=== PATIENT | female | born 1935 | race Caucasian/White ===

== ENCOUNTER 2018-01-06 16:25 | Emergency (ER) | payer MEDICARE, SELFPAY ==
[2018-01-06 16:26] VITALS: BP 167/95; PULSE 88; RESP 16; TEMP 36.5; O2SAT 98; BMI 29.5
--- NOTE | 2018-01-06 16:45 | RAD_ITS ---
STUDY: X-RAY CHEST REASON FOR EXAM: Female, 82 years old. Short of breath TECHNIQUE: AP portable COMPARISON: October 12, 2015 FINDINGS: Lungs are hyperinflated but clear.. There is no demonstrated pleural abnormality. Heart is is enlarged Normal mediastinum and sagar. Normal visualized pulmonary arteries. Mildly calcified aortic arch and descending thoracic aorta. Postop changes status post median sternotomy and multiple valve replacements Normal visualized thoracic spine. Normal visualized ribs, clavicles, and shoulders. There is no demonstrated abnormality of the visualized soft tissue structures of the upper abdomen. No significant change since prior study RAD/Chest 1 View (Portable) IMPRESSION: Mild hyperinflation and ASHD. No acute disease Electronically Signed: Stephan Arizmendi MD at 17:41 EDT , Service support ,
--- NOTE | 2018-01-06 16:45 | EKG12_ITS ---
Test Reason : CP Blood Pressure : / mmHG Vent. Rate : 081 BPM Atrial Rate : 333 BPM P-R Int : 000 ms QRS Dur : 084 ms QT Int : 392 ms P-R-T Axes : 116 027 008 degrees QTc Int : 455 ms Atrial flutter with variable A-V block Left ventricular hypertrophy Nonspecific ST and T wave abnormality Abnormal ECG Confirmed by DARLING HOUSER, PHILIPPE ([id number]), offline editor NADIRA URIAS ([id number]) on 01/08/2018 11:46:05 AM Referred By: RYAN Confirmed By:PHILIPPE HASTINGS MD
--- NOTE | 2018-01-06 16:52 | ED.DCSUM_ITS ---
- ER Visit Summary Date of Service: 01/06/18 Chief Complaint: Left sided jaw pain and also nonexertional intermittent chest pain History of Present Illness: The patient is a 82 F history of atrial flutter, hypertension and prior porcine aortic valve replacement. Patient is on Coumadin. States that she has had jaw pain for last several days. She has had chronic dental pain for a long time that the dermatomal specifically figure out. She states the jaw pains a little different. She denies being short of breath. No nausea. No diaphoresis. Jaw pain is not exertional. Also last night while in bed she had intermittent episodes of chest discomfort. She denies any nausea, diaphoresis or shortness of breath. Was not associated with exertion. She had a negative nuclear stress test within the last 2 years. She denies any prior coronary disease, bypass or stents. She denies any recent exertional dyspnea. Patient also has a rash has been there for approximately 1 month that she thinks is secondary to 1 of her medications. She said it only intermittently itches. Denies any fever. Physical Examination: Well-appearing older female. Vital signs are stable. She is afebrile. Her pulse ox is 98% on room air no signs of hypoxia. No distress. H EENT exam unremarkable except she has pain with opening closing her left side of her jaw. There is no specific TMJ tenderness. She has no upper or lower dentition. Moist mucous membranes. No specific jaw abnormality or tenderness. She does not have dentures at this time. Said the dentures often bother her gums so she does not wear them that much. No trouble swallowing or breathing. Neck nontender no lymphadenopathy. Trachea midline. Lungs clear to auscultation bilaterally. Heart regular rate About 80 no murmur appreciated. On the monitor she is in atrial flutter. Abdomen is soft and nontender. Normal bowel sounds no peritoneal signs. She is moving all 4 extremities. They are neurovascularly intact. Back nontender. Neurologically she is awake and alert with no focal motor deficits. Skin she does have a rash slightly red and raised its and small dots. It does fredy. There are no petechiae or purpura. No vesicles nor pustules. This is primarily on both upper extremities and chest. This could be secondary to an allergic reaction. Test Results: CBC normal. White count of 5. Hemoglobin of 15. Chemistries normal normal gap and creatinine. INR is 2.7 she is on warfarin. Troponin is slightly elevated 0.087 however if you look of multiple old troponin levels on this patient they are usually this high or significantly higher. The most recent one was 0.13. Chest x-ray is unremarkable with chronic changes. EKG shows atrial flutter with no other acute abnormality. No CT. Emergency Department Course and Treatment: Patient will undergo a cardiac workup. The jaw pain I think is musculoskeletal jaw pain because it hurts her more to move it. I do not think it is related to this atypical nonexertional chest pain. On repeat exam she is doing well. She and I and her family discussed all of her test results. We are all comfortable with her being discharged to home given the chronic history of her troponin levels in the past and the very atypical nature of her pain and a recent negative nuclear stress test Treatment Plan: Discharge to home. Disposition: Discharge Impression: Musculoskeletal left-sided jaw pain Atypical nonexertional chest pain of uncertain etiology Skin rash suspect secondary to allergic drug reaction History of porcine aortic valve anticoagulated on warfarin This note was generated with [employer] dictation software. It may contain incorrect words, spelling, and punctuation that were not noted in review of the chart prior to signing ED Disposition - Plan for ED Patient: Chief Complaint: Other, Pain/Inj Referrals: Hector Goode MD [NON-STAFF] -
[2018-01-06 16:53] VITALS: O2SAT 98
[2018-01-06 17:02] LABS: Absolute Neutrophil Count 2.9 X10^3/uL (2.0-7.7); Basophil# 0.02 X10^3/uL; Basophil% 0.4 % (0-1); Eosinophils% 1.9 % (0-5); Hematocrit 45.8 % (37-47); Hemoglobin 15.2 g/dl (12.0-15.0); Lymphocyte % 35.5 % (19-41); Mean Corp Hgb Conc 33.2 g/gl (32-36); Mean Corpuscular Hgb 29.3 pg (27.0-32.0); Mean Corpuscular Volume 88.2 fL (81-99); Mean Platelet Vol. 9.7 fl (6.2-12.0); Monocyte# 0.47 X10^3/uL; Monocyte% 8.8 % (0-10); Neutrophil # 2.86 X10^3/uL (2.7-7.7); Neutrophil % 53.4 % (47-70); Platelet Count 192 K/mm3 (150-450); RBC Distribution Width CV 13.7 % (11.6-14.6); RBC Distribution Width SD 44.4 fl (35.1-43.9); Red Blood Count 5.19 M/mm3 (4.2-5.4); White Blood Count 5.4 K/mm3 (4.4-11.0)
[2018-01-06 17:04] LABS: POSITIVE COUNT NO; POSITIVE DIFFERENTIAL NO; POSITIVE MORPHOLOGY NO
[2018-01-06 17:09] LABS: International Normalized Ratio 2.7; Prothrombin Time (Protime)PT. 29.2 SECONDS (11.7-14.9)
[2018-01-06 17:20] LABS: Anion Gap 7 (5-15); BUN 13 mg/dL (7-18); BUN/Creat Ratio 17.7 RATIO (10-20); Chloride 106 mmol/L (98-107); Creatinine, Serum 0.74 mg/dL (0.55-1.02); EST Glomerular Filtration Rate 81 mL/min (>60); Est Glom Filt Rate - Afr Amer 98 mL/min (>60); Estimated Creatinine Clearance 33.29 ml/min; Glucose 91 mg/dL (74-106); Sodium Level 140 mmol/L (136-145)
--- NOTE | 2018-01-06 18:04 | ED.DEP ---
ED Disposition - Plan for ED Patient: Disposition: Home or Assisted Living Chief Complaint: Other, Pain/Inj Instructions: ED Chronic Pain Management Referrals: Hector Goode MD [NON-STAFF] - 3-5 Days if not improving Additional Instructions: Ice to jaw. Tylenol for pain. Follow-up with your doctor if not improving.
[2018-01-06 18:11] VITALS: BP 175/105; PULSE 77; RESP 16; O2SAT 98
== END 2018-01-06 18:16 | disposition home or self-care (01) ==
PROVIDERS: Emergency Provider Emergency Medicine; Family Provider Internal Medicine; PCP Internal Medicine
DX: R68.84 Jaw pain (principal); R07.89 Other chest pain; L27.0 Generalized skin eruption due to drugs and medicaments taken internally; T50.905A Adverse effect of unspecified drugs, medicaments and biological substances, initial encounter; Y92.9 Unspecified place or not applicable; I48.91 Unspecified atrial fibrillation; I48.92 Unspecified atrial flutter; I10 Essential (primary) hypertension; J44.9 Chronic obstructive pulmonary disease, unspecified; Z79.01 Long term (current) use of anticoagulants
CPT/HCPCS: 71045; 80048; 84484; 85025; 85610; 93005; 99284

== ENCOUNTER → 2020-05-25 09:38 | Outpatient (CLI) | payer MEDICARE, SELFPAY ==
[2020-05-25 12:42] LABS: International Normalized Ratio 2.2; Prothrombin Time (Protime)PT. 23.5 SECONDS (11.7-14.9)
[2020-05-25 12:47] LABS: Absolute Lymphocyte Count 1.22 X10^3/uL (0.83-4.51); Absolute Neutrophil Count 3.6 X10^3/uL (2.0-7.7); Basophil# 0.03 X10^3/uL; Basophil% 0.5 % (0-1); Eosinophil# 0.07 X10^3/uL; Eosinophils% 1.3 % (0-5); Hematocrit 44.5 % (37-47); Hemoglobin 14.3 g/dL (12.0-15.0); Lymphocyte # 1.22 X10^3/ul (4.0); Mean Corp Hgb Conc 32.1 g/dL (32-36); Mean Corpuscular Hgb 28.4 pg (27.0-32.0); Mean Corpuscular Volume 88.5 fL (81-99); Mean Platelet Vol. 9.5 fl (6.2-12.0); Monocyte# 0.57 X10^3/uL; Monocyte% 10.3 % (0-10); NRBC Flagged by Analyzer 0 % (0-5); Neutrophil # 3.64 X10^3/uL (2.7-7.7); Neutrophil % 65.7 % (47-70); Platelet Count 244 K/mm3 (150-450); RBC Distribution Width CV 14.2 % (11.6-14.6); RBC Distribution Width SD 46.3 fl (35.1-43.9); Red Blood Count 5.03 M/mm3 (4.2-5.4); White Blood Count 5.5 K/mm3 (4.4-11.0)
[2020-05-25 12:53] LABS: AST(SGOT) 19 U/L (15-37); Alanine Aminotransfer ALT/SGPT 20 U/L (13-56); Albumin, Serum 3.6 g/dL (3.2-5.0); Alkaline Phosphatase 61 U/L (45-117); Anion Gap 9 (5-15); BUN 19 mg/dL (7-18); BUN/Creat Ratio 21.5 RATIO (10-20); Calcium,Total 8.8 mg/dL (8.5-10.1); Chloride 109 mmol/L (98-107); Cholesterol 209 mg/dL (200); Creatinine, Serum 0.88 mg/dL (0.55-1.02); EST Glomerular Filtration Rate 65 mL/min (>60); Est Glom Filt Rate - Afr Amer 78 mL/min (>60); Globulin 3.6 g/dL (2.2-4.2); Glucose 98 mg/dL (74-106); High Density Lipoprotein 34 mg/dL; Potassium 3.9 mmol/L (3.5-5.1); Protein, Total 7.2 g/dL (6.4-8.2); Sodium Level 141 mmol/L (136-145); T4 Free Direct 0.97 ng/dL (0.76-1.46); Thyroid Stim Hormone (TSH) 2.14 uIU/mL (0.358-3.74); Triglycerides 189 mg/dL; Very Low Density Lipoprotein 38 mg/dL (5-40)
== END ==
PROVIDERS: PCP Internal Medicine; Visit Provider Family Medicine
DX: I25.10 Atherosclerotic heart disease of native coronary artery without angina pectoris (principal); I48.0 Paroxysmal atrial fibrillation; I10 Essential (primary) hypertension; E03.9 Hypothyroidism, unspecified; Z51.81 Encounter for therapeutic drug level monitoring
CPT/HCPCS: 36415; 80053; 80061; 84439; 84443; 85025; 85610

== ENCOUNTER → 2020-06-06 16:18 | Outpatient (CLI) | payer MEDICARE, SELFPAY ==
--- NOTE | 2020-06-06 16:45 | MRI_ITS ---
STUDY: MRI BRAIN WITH AND WITHOUT CONTRAST (ATTENTION INTERNAL AUDITORY CANALS - I.A.C.''s) REASON FOR EXAM: Female, 84 years old. Trigeminal neuralgia. RIGHT facial pain x 3-4 months TECHNIQUE: Standardized multiplanar fat and water weighted pulse sequences were obtained. ml of gadolinium contrast material was administered intravenously for the contrast portion of the examination. COMPARISON: Head CT dated July 28, 2013 FINDINGS: Normal bilateral temporal bones. Normal bilateral internal auditory canals. There is no demonstrated intracanalicular or cisternal vestibular schwannoma (acoustic neuroma). There is no enhancement of the bilateral VIIth or VIIIth cranial nerves. Normal bilateral cochlea, vestibules and semicircular canals. Normal trigeminal and abducens nerves as well as Meckel''s cave and Dorello''s canal. No nerve root lesions or cysts or enlargement is seen on this study. There is moderate cerebral atrophy with widening of the extra-axial spaces and ventricular dilatation. There are multiple white matter hyperintensities, distributed throughout the deep white matter tracts of the cerebral hemispheres, consistent with moderate chronic white matter ischemic changes. There is no evidence for recent intracranial ischemia or other cause of cytotoxic edema on diffusion weighted imaging (DWI). Normal bilateral frontal poles, and orbital frontal and gyrus recti of the frontal lobes. Normal bilateral temporal tips of the temporal lobes. There are no white matter shear injuries (diffuse axonal injuries). There are no parenchymal hemorrhages or hematomas. There are no findings to suggest prior closed head parenchymal injury of the brain. No hydrocephalus or midline shift is seen. No focal brain lesions are present.. Normal bilateral basal ganglia. Normal thalami. Normal flow voids within the major intracranial circulation suggesting patency by spin echo criteria. Normal venous enhancement. There is no enhancing intra-axial or extra-axial abnormality. There is no extra-axial fluid accumulation. Normal sella turcica, pituitary gland, infundibular stalk, optic chiasm and hypothalamus. Normal tectal plate and pineal gland. Normal midbrain, franco and medulla. Normal cerebellum. Normal basal cisterns. No demonstrated orbital abnormality, within the constraints of a routine brain study. Normal visualized paranasal sinuses. Normal calvarium and skull base. Normal visualized soft tissue structures. Normal visualized upper cervical spine. MRI/Brain W/WO Contrast IMPRESSION: 1. Moderate atrophy and chronic ischemic changes of the white matter. 2. Normal exam of the bilateral internal auditory canals (I.A.C''s). 3. Normal trigeminal and abducens nerves as well as Meckel''s cave and Dorello''s canal. No nerve root lesions or cysts or enlargement is seen on this study. Electronically Signed: Paul Cary MD at 22:09 EST , Service support ,
== END ==
LOC: MRI 16:19
PROVIDERS: PCP Internal Medicine; Referring Provider Otolaryngology; Visit Provider Otolaryngology
DX: G50.0 Trigeminal neuralgia (principal); Z79.01 Long term (current) use of anticoagulants
CPT/HCPCS: 70553; A9575

== ENCOUNTER → 2020-06-08 14:12 | Outpatient (CLI) | payer MEDICARE, SELFPAY ==
[2020-06-08 15:49] LABS: International Normalized Ratio 1.2; Prothrombin Time (Protime)PT. 14.9 SECONDS (11.7-14.9)
== END ==
PROVIDERS: PCP Internal Medicine; Visit Provider Anesthesiology Pain Medicine
DX: Z79.01 Long term (current) use of anticoagulants (principal)
CPT/HCPCS: 36415; 85610

== ENCOUNTER → 2021-04-09 08:10 | Outpatient (CLI) | payer MEDICARE, SELFPAY ==
[2020-12-28 15:29] VITALS: BMI 30.7
--- NOTE | 2021-04-09 08:12 | ECHOD_ITS ---
Reason For Study: Valve Replacement Eval Procedure This was a 2D Doppler, Color Flow transthoracic echocardiogram. Exam performed in department. Left Ventricle Normal LV size. Left ventricular systolic function is normal. The estimated ejection fraction is 65 %. Unable to assess diastolic dysfunction. No regional wall motion abnormalities noted. Right Ventricle Normal RV size. Normal systolic function. Atria The left atrium is mildly enlarged. The right atrium is mildly enlarged. No doppler evidence for ASD. Mitral Valve There is moderate mitral annular calcification. Extension of the mitral annular calcification onto the base of the posterior mitral valve leaflet. Moderate (2+) mitral valve insufficiency. Tricuspid Valve Right ventricular systolic pressure estimated to be 72 mmHg. An annuloplasty ring is noted in the tricuspid position. Trivial transvalvular insufficiency of the tricuspid valve. Aortic Valve Stable appearing bioprosthetic aortic valve apparatus. Trivial transvalvular insufficiency of the aortic valve. Pulmonic Valve The pulmonic valve is not well visualized. Mild-Moderate (1-2+) pulmonic valve insufficiency. Great Vessels Normal sized aortic root. Pericardium/Pleural No pericardial effusion. MMode/2D Measurements & Calculations LVIDd: 4.6 cm IVSd: 1.1 cm LVOT diam: 1.9 cm LVIDs: 3.1 cm LVPWd: 1.1 cm LVOT area: 2.7 cm2 RVDd: 3.1 cm FS: 33.6 % Ao root diam: 2.8 cm LAV(MOD-bp): 81.1 ml LVAd ap4: 18.5 cm2 LAV(MOD-bp) Indexed: 48.4 ml/m2 LVLd ap4: 5.6 cm LAV(MOD-sp2): 79.9 ml EDV(MOD-sp4): 50.8 ml LAV(MOD-sp4): 77.1 ml EDV(sp4-el): 52.4 ml LVAs ap4: 10.4 cm2 LVLs ap4: 5.1 cm ESV(MOD-sp4): 18.2 ml ESV(sp4-el): 18.0 ml EF(MOD-sp4): 64.3 % EF(sp4-el): 65.7 % SV(MOD-sp4): 32.7 ml SV(sp4-el): 34.5 ml LA A4 area: 23.1 cm2 LA dimension(2D): 4.3 cm RA A4 area: 17.4 cm2 Doppler Measurements & Calculations MV E max diane: 109.5 cm/sec Ao V2 max: 154.5 cm/sec LV V1 max: 139.5 cm/sec Ao max P.6 mmHg LV V1 max P.8 mmHg Ao V2 mean: 112.0 cm/sec LV V1 mean P.0 mmHg Ao mean P.4 mmHg LV V1 mean: 95.0 cm/sec Ao V2 VTI: 35.5 cm LV V1 VTI: 28.5 cm ANISHA(I,D): 2.2 cm2 ANISHA(V,D): 2.5 cm2 SV(LVOT): 78.0 ml PA V2 max: 85.1 cm/sec PI end-d diane: 104.9 cm/sec TR max diane: 415.9 cm/sec TR max P.2 mmHg ECHO/Echo Complete Interpretation Summary Left ventricular systolic function is normal. The estimated ejection fraction is 65 %. The left atrium is mildly enlarged. The right atrium is mildly enlarged. There is moderate mitral annular calcification. Extension of the mitral annular calcification onto the base of the posterior mi tral valve leaflet. Moderate (2+) mitral valve insufficiency. An annuloplasty ring is noted in the tricuspid position. Trivial transvalvular insufficiency of the tricuspid valve. Stable appearing bioprosthetic aortic valve apparatus. Trivial transvalvular insufficiency of the aortic valve. Mild-Moderate (1-2+) pulmonic valve insufficiency. Right ventricular systolic pressure estimated to be 72 mmHg. Unable to assess diastolic dysfunction. Ordering Physician: Rui Asencio Referring Physician: Doron Cueto Performed By: Cheryl Olson, МАРИЯ, RVT
== END ==
LOC: CVS 08:12
PROVIDERS: PCP Family Medicine; Referring Provider Internal Medicine Cardiovascular Disease; Visit Provider Internal Medicine Cardiovascular Disease
DX: I34.0 Nonrheumatic mitral (valve) insufficiency (principal); I48.0 Paroxysmal atrial fibrillation; I48.92 Unspecified atrial flutter; Z95.3 Presence of xenogenic heart valve
CPT/HCPCS: 93306

== ENCOUNTER 2021-04-24 09:20 | Inpatient (IN) | payer MEDICARE, SELFPAY ==
[2021-04-24] VITALS (13 sets, daily range): BP systolic 101–152; BP diastolic 51–82; PULSE 62–153; RESP 16–24; TEMP 36.3–36.9; O2SAT 94–97; BMI 29.2; BMI 28.8
--- NOTE | 2021-04-24 09:44 | EKG12_ITS ---
Test Reason : WEAKNESS Blood Pressure : / mmHG Vent. Rate : 066 BPM Atrial Rate : 066 BPM P-R Int : 168 ms QRS Dur : 086 ms QT Int : 452 ms P-R-T Axes : 047 029 035 degrees QTc Int : 473 ms Normal sinus rhythm with sinus arrhythmia Left ventricular hypertrophy with repolarization abnormality Abnormal ECG Confirmed by KAYLA HOUSER, SHRUTHI ([id number]), purchase request editor MISTI TERRY ([id number]) on 04/25/2021 2:04:32 PM Referred By: HAY Confirmed By:SHRUTHI GARZA MD
--- NOTE | 2021-04-24 09:45 | EX.ED.DYSGE1 ---
HPI History of Present Illness Chief Complaint: Weakness Informant: patient and family Narrative Narrative: Increasing weakness with Covid exposure. Increasing weakness over 3 days. 15 days cough mild productive. No fevers headaches vomiting diarrhea loss of taste or smell. However she lives with her sister who was diagnosed 14 days ago with Covid. She is not vaccinated. Her son was also positive. Denies dyspnea. History of paroxysmal A. fib on warfarin. History of CHF. She is followed by Dr. Asencio. She does not take a diuretic. Denies chest or abdominal pain. Denies urinary symptoms. No falls. Prior similar symptoms: No PFSH PFSH Medical History Anxiety Atherosclerosis of coronary artery of [place] heart without angina pectoris Atrial fibrillation and flutter Atrial flutter Chest pain DDD (degenerative disc disease) Essential hypertension Hyperlipidemia Hypothyroidism Lightheadedness Osteoarthritis Paroxysmal atrial fibrillation Permanent atrial fibrillation Trigeminal neuralgia Home Medications metoprolol succinate 50 mg PO DAILY #30 tab 03/16/14 [Rx Last Taken 01/05/18] lorazepam 0.5 mg tablet 0.25 mg PO QHS PRN tab 12/28/20 [History Last Taken Unknown] warfarin 3 mg tablet 3 mg PO DAILY tab 12/28/20 [History Last Taken Unknown] amlodipine 2.5 mg tablet 2.5 mg PO DAILY #30 tab 04/10/21 [Rx Last Taken Unknown] Allergy/AdvReac Type Severity Reaction Status Date / Time citalopram [From Celexa] Allergy Intermediate Unknown Verified 04/24/21 09:46 gabapentin Allergy Intermediate Unknown Verified 04/24/21 09:46 trazodone Allergy Intermediate Nausea/Vom/ Verified 04/24/21 09:46 Diarrhea buspirone HCl [From BuSpar] Allergy Upset Verified 04/24/21 09:46 Stomach flecainide [Flecainide] Allergy Shortness Verified 04/24/21 09:46 of breath levothyroxine sodium Allergy Nausea Verified 04/24/21 09:46 [From Synthroid] meperidine HCl [From Demerol] Allergy Other Verified 04/24/21 09:46 sertraline HCl [From Zoloft] Allergy Other Verified 04/24/21 09:46 tramadol Allergy Nausea Verified 04/24/21 09:46 Family History Sister Breast cancer CVA (cerebral vascular accident) Diabetes Mother CVA (cerebral vascular accident) Hypertension Brother Hypertension Surgical History 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) History of appendectomy History of cardioversion (07/06/10) History of open reduction and internal fixation (ORIF) procedure Social History Smoking Status: Never smoker alcohol intake: never substance use type: does not use caffeine: No ROS ROS ED Constitutional Constitutional ED: Denies chills, fever(s) or sweats Eyes Eyes: Denies change in vision ENT ENT ED: Denies dysphagia or sore throat Cardiovascular Cardiovascular: Denies chest pain, leg edema, palpitations or racing heartbeat Respiratory/Chest Respiratory/Chest: Reports cough; Denies dyspnea or dyspnea on exertion Gastrointestinal Gastrointestinal: Denies abdominal pain, diarrhea, nausea or vomiting Genitourinary Genitourinary ED: Denies dysuria, hematuria or urinary frequency Musculoskeletal Musculoskeletal: Denies back pain, extremity pain or neck pain Integumentary Denies rash or wounds Neurologic Neurologic: Reports weakness; Denies headache(s) or paresthesias EXAM Physical Exam Const Vital Signs: 04/24/21 09:21 04/24/21 10:57 04/24/21 11:03 Temperature 97.9 F 97.4 F L Temperature Source Oral Oral Pulse Rate 68 64 Respiratory Rate 24 H 16 Respiratory Effort Normal Respiratory Pattern Normal Blood Pressure 104/71 101/51 L Blood Pressure Mean 82 67 Pulse Ox 96 96 Oxygen Delivery Method Room Air Room Air 04/24/21 12:00 Temperature 98.5 F Temperature Source Temporal Pulse Rate 64 Respiratory Rate 19 H Respiratory Effort Respiratory Pattern Blood Pressure 103/76 Blood Pressure Mean 85 Pulse Ox 96 Oxygen Delivery Method Room Air Positive well nourished and well developed Constitutional Narrative: Appears fatigued, nontoxic General Appearance ED: well developed HEENT Reports dry mucous membranes normocephalic and atraumatic Mouth ED: Yes dry mucous membranes Mouth: dry mucous membranes Eyes PERRL, EOMs intact bilaterally and conjunctivae normal General Eye ED: Yes normal appearance of both eyes Neck no lymphadenopathy and supple General: Negative for tenderness Chest Wall Chest: Negative for tenderness Resp normal respiratory effort and normal air movement Effort and Inspection: symmetric chest movement; Negative for respiratory distress Cardio regular rate, regular rhythm and no murmurs Peripheral Pulses: pulses 2+ throughout GI normal to inspection, nondistended, normoactive bowel sounds and non-tender Palpation: Negative for guarding or rebound tenderness present Back/Spine no CVA tenderness and no thoracic nor lumbar tenderness Extremity normal to inspection General Extremety ED: Negative for edema or tenderness General Extremity: Negative for edema Neuro oriented x3 and no sensory deficits noted Sensorium / Orientation: awake and alert Skin no rashes or lesions noted and no wounds MDM MDM MDM Narrative Medical decision making narrative: Patient vital signs stable pulse ox 96%. Increasing weakness over 4 days. Discussion with patient and sister over the phone she is unable to be at home at this time to manage. Covid exposure nonvaccinated. Work-up initiated. White count 5.1. Potassium 3.2. Orally replaced. Creatinine 0.67. Lactic acid 1.1. CRP 41. INR supratherapeutic at 4.9. She denies any bleeding issues. Troponin-returned at 69. She denies any chest pains. Covered with aspirin. Chest x-ray noting concerns for developing pneumonia left greater than right at the basilar region. Her Covid testing returned negative. Due to negative Covid, she is covered with Rocephin and Zithromax for antibiotics. With her increasing weakness she likely need evaluation for rehab. I spoke with hospitalist Dr. maldonado, who requested a PCR ordered to be sent out. He is more concerns of her Covid likely with Covid pneumonia. With her weakness he does agree to admit for observations. Patient updated. Lab Data Labs: Laboratory Results - last 24 hr 04/24/21 04/24/21 04/24/21 10:20 10:20 10:20 WBC 5.1 RBC 4.27 Hgb 12.5 Hct 36.7 L MCV 85.9 MCH 29.3 MCHC 34.1 RDW Std Deviation 41.8 RDW Coeff of Estuardo 13.5 Plt Count 297 MPV 10.1 Immature Gran % (Auto) 0.400 Neut % (Auto) 69.9 Lymph % (Auto) 19.9 Crowley % (Auto) 8.8 Eos % (Auto) 0.6 Baso % (Auto) 0.4 Absolute Neuts (auto) 3.6 Absolute Lymphs (auto) 1.02 Nucleated RBC % 0 PT INR Sodium 143 Potassium 3.2 L Chloride 110 H Carbon Dioxide 26.0 Anion Gap 7 BUN 15 Creatinine 0.67 Estim Creat Clear Calc 31.60 Est GFR (MDRD) Af Amer 107 Est GFR (MDRD) Non-Af 88 BUN/Creatinine Ratio 22.3 H Glucose 100 Lactic Acid 1.1 Calcium 8.7 Total Bilirubin 0.80 AST 31 ALT 18 Alkaline Phosphatase 51 Troponin I High Sens 69 H C-React Prot Ext Range 41.40 H Total Protein 6.9 Albumin 2.6 L Globulin 4.3 H Albumin/Globulin Ratio 0.6 L 04/24/21 10:20 WBC RBC Hgb Hct MCV MCH MCHC RDW Std Deviation RDW Coeff of Estuardo Plt Count MPV Immature Gran % (Auto) Neut % (Auto) Lymph % (Auto) Crowley % (Auto) Eos % (Auto) Baso % (Auto) Absolute Neuts (auto) Absolute Lymphs (auto) Nucleated RBC % PT 44.7 H INR 4.9 H* Sodium Potassium Chloride Carbon Dioxide Anion Gap BUN Creatinine Estim Creat Clear Calc Est GFR (MDRD) Af Amer Est GFR (MDRD) Non-Af BUN/Creatinine Ratio Glucose Lactic Acid Calcium Total Bilirubin AST ALT Alkaline Phosphatase Troponin I High Sens C-React Prot Ext Range Total Protein Albumin Globulin Albumin/Globulin Ratio Radiography Diagnostic Testing: Clinical Impression(s) from Imaging Studies Chest X-Ray 04/24/21 10:55 IMPRESSION: 1. Developing left more than right basilar opacities could represent early infiltrates versus atelectasis. Electronically Signed: Derrick Alfaro MD (Brooks) at 11:12 EST , Service support , EKG Initial EKG: Attestation: I personally reviewed and interpreted this EKG as follows: Comments: Sinus arrhythmia rate of 66, no ST or T wave changes. Discharge Plan Dx/Rx/DC Orders Clinical Impression: Pneumonia, Weakness, Suspected COVID-19 virus infection, Supratherapeutic INR, Acute hypokalemia Disposition Disposition: Acute Care Hospital [facility] Discharge Date/Time: 04/24/21 13:33
[2021-04-24 10:41] LABS: Absolute Lymphocyte Count 1.02 X10^3/uL (0.83-4.51); Absolute Neutrophil Count 3.6 X10^3/uL (2.0-7.7); Basophil# 0.02 X10^3/uL; Basophil% 0.4 % (0-1); Eosinophil# 0.03 X10^3/uL; Eosinophils% 0.6 % (0-5); Hematocrit 36.7 % (37-47); Hemoglobin 12.5 g/dL (12.0-15.0); Lymphocyte # 1.02 X10^3/ul (0.83-4.51); Lymphocyte % 19.9 % (19-41); Mean Corp Hgb Conc 34.1 g/dL (32-36); Mean Corpuscular Hgb 29.3 pg (27.0-32.0); Mean Corpuscular Volume 85.9 fL (81-99); Mean Platelet Vol. 10.1 fl (6.2-12.0); Monocyte# 0.45 X10^3/uL; Monocyte% 8.8 % (0-10); NRBC Flagged by Analyzer 0 % (0-5); Neutrophil # 3.59 X10^3/uL (2.7-7.7); Neutrophil % 69.9 % (47-70); POSITIVE MORPHOLOGY YES; Platelet Count 297 K/mm3 (150-450); RBC Distribution Width CV 13.5 % (11.6-14.6); RBC Distribution Width SD 41.8 fl (35.1-43.9); Red Blood Count 4.27 M/mm3 (4.2-5.4); White Blood Count 5.1 K/mm3 (4.4-11.0)
[2021-04-24 10:54] LABS: Prothrombin Time (Protime)PT. 44.7 SECONDS (11.7-14.9)
--- NOTE | 2021-04-24 10:55 | RAD_ITS ---
STUDY: X-RAY CHEST REASON FOR EXAM: Female, 85 years old. cough TECHNIQUE: AP COMPARISON: 01/06/2021 FINDINGS: Sternal wires and prosthetic cardiac valves. Atrial appendage clip. Stable coarsening of interstitial lung markings. Localized parenchymal opacities in the left more than right lung base, new. There is no demonstrated pleural abnormality. Normal size heart. Normal mediastinum and sagar. Normal visualized pulmonary arteries. There is atherosclerotic calcification of the aortic arch with tortuosity. There is demineralization of the osseous structures. Normal visualized ribs, clavicles, and shoulders. There is no demonstrated abnormality of the visualized soft tissue structures of the upper abdomen. RAD/Chest 1 View (Portable) IMPRESSION: 1. Developing left more than right basilar opacities could represent early infiltrates versus atelectasis. Electronically Signed: Derrick Alfaro MD (Brooks) at 11:12 EST , Service support ,
[2021-04-24 10:56] LABS: International Normalized Ratio 4.9
[2021-04-24 11:00] LABS: ALB/GLOB Ratio 0.6 RATIO (0.9-2.4); AST(SGOT) 31 U/L (15-37); Alanine Aminotransfer ALT/SGPT 18 U/L (13-56); Albumin, Serum 2.6 g/dL (3.2-5.0); Alkaline Phosphatase 51 U/L (45-117); Anion Gap 7 (5-15); BUN 15 mg/dL (7-18); BUN/Creat Ratio 22.3 RATIO (10-20); Calcium,Total 8.7 mg/dL (8.5-10.1); Chloride 110 mmol/L (98-107); Creatinine, Serum 0.67 mg/dL (0.55-1.02); EST Glomerular Filtration Rate 88 mL/min (>60); Est Glom Filt Rate - Afr Amer 107 mL/min (>60); Globulin 4.3 g/dL (2.2-4.2); Glucose 100 mg/dL (74-106); Potassium 3.2 mmol/L (3.5-5.1); Protein, Total 6.9 g/dL (6.4-8.2); Sodium Level 143 mmol/L (136-145); Troponin-I HS 69 pg/mL (3.0-54.0)
[2021-04-24 11:01] LABS: Differential Indicated SCAN CRITERIA MET
[2021-04-24 11:06] LABS: Lactic Acid 1.1 mmol/L (0.4-1.9)
--- NOTE | 2021-04-24 12:07 | NURSING ---
MED SURG TERELETSKY PNEUMONIA, WEAKNESS
--- NOTE | 2021-04-24 12:10 | NURSING ---
213 TERELETSKY PNEUMONIA, WEAKNESS
[2021-04-24] MEDS: Ceftriaxone 1 GM/50 ML BAG IV (12:17)
[2021-04-24] MEDS: Potassium Chloride Oral Tablet 20 MEQ 40 MEQ PO (12:17)
[2021-04-24] MEDS: Aspirin 81 MG TAB.CHEW 324 MG PO (12:17)
--- NOTE | 2021-04-24 12:35 | ED.RN ---
Called patients daughter Naomi to update on patients admission, room number and visitation policy. All questions answered, denies further needs.
[2021-04-24 13:12] LABS: Troponin-I HS 70 pg/mL (3.0-54.0)
--- NOTE | 2021-04-24 13:53 | PCS.PANDOC ---
PANDEMIC DOCUMENTATION INITIATED: Date: 01/22/2021 Time: 190
--- NOTE | 2021-04-24 14:01 | HP.PCM.HOS_ITS ---
Documented by User: Kostas ALFONSO 04/24/21 14:33 HPI - General General Date of Admission: 04/24/21 Date of Service: 04/24/21 Chief Complaint: Increasing weakness with a chief complaint of increasing weakness with myalgias. HPI Narrative OFELIA SHARPE is an 85-year old who presents to the ED at [facility] on 04/24/2021 with a chief complaint of a 2-week history of increasing weakness with myalgias in the setting of COVID-19 exposure. Patient also endorses shortness of breath with a nonpurulent productive cough. Patient lives with her sister who was diagnosed with COVID-19 14 days ago. Patient's son also tested positive for COVID-19. Patient and her close contacts are not vaccinated for COVID-19. Patient denies fever, headaches, N/V/D or loss of taste and smell. Patient denies any urinary complaints. Vital signs in the ED are temperature of 98.3 ?F, HR of 62, BP of 152/75, RR of 18 and patient was satting 97% on room air while in the ED. CBC does not demonstrate a white count, anemia or thrombocytopenia. BMP demonstrates a mild hypokalemia with a potassium of 3.2, but is otherwise unremarkable. Initial and follow-up high-sensitivity troponins elevated at 69 and 70. Rapid Covid is negative. Chest x-ray demonstrated right basilar opacities, does not appear on my read that this patient has any acute cardiopulmonary process. Patient was given fluids and antibiotics in the ED. [facility] Medical History Anxiety Atherosclerosis of coronary artery of [place] heart without angina pectoris Atrial fibrillation and flutter Atrial flutter Chest pain DDD (degenerative disc disease) Essential hypertension Hyperlipidemia Hypothyroidism Lightheadedness Osteoarthritis Paroxysmal atrial fibrillation Permanent atrial fibrillation Trigeminal neuralgia Home Medications metoprolol succinate 50 mg PO DAILY #30 tab 03/16/14 [Rx Last Taken 01/05/18] lorazepam 0.5 mg tablet 0.25 mg PO QHS PRN tab 12/28/20 [History Last Taken Unknown] warfarin 3 mg tablet 3 mg PO DAILY tab 12/28/20 [History Last Taken Unknown] amlodipine 2.5 mg tablet 2.5 mg PO DAILY #30 tab 04/10/21 [Rx Last Taken Unknown] Allergy/AdvReac Type Severity Reaction Status Date / Time citalopram [From Celexa] Allergy Intermediate Unknown Verified 04/24/21 09:46 gabapentin Allergy Intermediate Unknown Verified 04/24/21 09:46 trazodone Allergy Intermediate Nausea/Vom/ Verified 04/24/21 09:46 Diarrhea buspirone HCl [From BuSpar] Allergy Upset Verified 04/24/21 09:46 Stomach flecainide [Flecainide] Allergy Shortness Verified 04/24/21 09:46 of breath levothyroxine sodium Allergy Nausea Verified 04/24/21 09:46 [From Synthroid] meperidine HCl [From Demerol] Allergy Other Verified 04/24/21 09:46 sertraline HCl [From Zoloft] Allergy Other Verified 04/24/21 09:46 tramadol Allergy Nausea Verified 04/24/21 09:46 Family History Sister Breast cancer CVA (cerebral vascular accident) Diabetes Mother CVA (cerebral vascular accident) Hypertension Brother Hypertension Surgical History 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) History of appendectomy History of cardioversion (07/06/10) History of open reduction and internal fixation (ORIF) procedure Social History Smoking Status: Never smoker alcohol intake: never substance use type: does not use caffeine: No ROS Constitutional Constitutional: Reports fatigue, malaise and weakness; Denies anorexia, change in weight, chills, fever(s), night sweats or other Eyes Eyes: Denies blurry vision, change in eye color, change in vision, discharge from eye(s), double vision, erythema, eye pain, loss of vision or other ENT HEENT: Denies abnormal hearing, dysphagia, ear pain, epistaxis, headache(s), hearing loss, nasal congestion, nasal discharge, post nasal drip, sinus pressure, sore throat or other Cardiovascular Cardiovascular: Denies chest pain, claudication, dyspnea on exertion, edema, lightheadedness, orthopnea, palpitations, paroxysmal nocturnal dyspnea, rapid he art rate, syncope or other Respiratory/Chest Respiratory/Chest: Reports cough, dyspnea, productive cough and shortness of breath at rest; Denies excessive phlegm production, hemoptysis, shortness of breath with exertion, wheezing or other Gastrointestinal Gastrointestinal: Denies abdominal pain, coffee ground emesis, constipation, diarrhea, dyspepsia, hematemesis, hematochezia, loose stools, melena, nausea, vomiting or other Genitourinary Genitourinary: Denies burning urination, difficulty urinating, dysuria, hematuria, nocturia, urinary frequency, urinary hesitancy, urinary incontinence, urinary urgency or other Musculoskeletal Musculoskeletal: Reports arthralgias and myalgias; Denies back pain, joint pain, joint stiffness, joint swelling, neck pain or other Neurologic Neurologic: Denies abnormal gait, abnormal speech, confusion, disequilibrium, dizziness, focal weakness, headache(s), numbness, paresthesias, seizure-like activity, seizures, syncope, tingling, tremor(s) or other Psychiatric Psychiatric: Denies anxiety, depression, homicidal ideation, suicidal ideation or other Endocrine Endocrinology: Denies change in body appearance, cold intolerance, excessive sweating, heat intolerance, polydipsia, polyuria or other Hematologic/Lymphatic Hematologic/Lymphatic: Denies anemia, easy bleeding, easy bruising, lymphadenopathy or other Allergic/Immunologic Allergic/Immunologic: Denies rhinitis, hives, eczemia, asthma or other Vital Signs Vital Signs Vital Signs: 04/24/21 09:21 04/24/21 10:57 04/24/21 11:03 Temperature 97.9 F 97.4 F L Temperature Source Oral Oral Pulse Rate 68 64 Respiratory Rate 24 H 16 Respiratory Effort Normal Respiratory Pattern Normal Blood Pressure 104/71 101/51 L Blood Pressure Mean 82 67 Blood Pressure Source Blood Pressure Position Blood Pressure Location Pulse Ox 96 96 Oxygen Delivery Method Room Air Room Air Oxygen Flow Rate (L/min) 04/24/21 12:00 04/24/21 12:28 04/24/21 13:56 Temperature 98.5 F 98.5 F 98.3 F Temperature Source Temporal Temporal Temporal Pulse Rate 64 64 62 Respiratory Rate 19 H 19 H 18 Respiratory Effort Respiratory Pattern Blood Pressure 103/76 103/76 152/75 H Blood Pressure Mean 85 85 100 Blood Pressure Source Monitor Blood Pressure Position Semi-Fowlers Blood Pressure Location Right Arm Pulse Ox 96 96 97 Oxygen Delivery Method Room Air Room Air Nasal Cannula Oxygen Flow Rate (L/min) 2 Weight Weight: 152 lb 5.431 oz Body Mass Index (BMI) 28.8 Physical Exam Const alert and oriented x3 General Appearance: cooperative HEENT normocephalic, head/scalp atraumatic and hearing grossly normal bilaterally Eyes PERRL, EOMs intact bilaterally and conjunctivae normal Neck no lymphadenopathy, supple and no JVD Resp normal respiratory effort, no retractions, no use of accessory muscles and clear to auscultation bilaterally Cardio regular rate, regular rhythm, no murmurs and no JVD GI normal to inspection, nondistended, normoactive bowel sounds, soft to palpation and non-tender Extremity normal to inspection, full ROM and no clubbing, cyanosis or edema Peripheral Pulses: Yes pulses 2+ throughout Skin no rashes or lesions noted, no wounds, skin turgor normal and no jaundice Neuro CN's II-XII intact bilaterally Psych affect normal Results Lab / Micro Data Result Diagrams: 04/24/21 10:20 04/24/21 10:20 Labs: Laboratory Results - last 24 hr 04/24/21 10:20: WBC 5.1, RBC 4.27, Hgb 12.5, Hct 36.7 L, MCV 85.9, MCH 29.3, MCHC 34.1, RDW Std Deviation 41.8, RDW Coeff of Estuardo 13.5, Plt Count 297, MPV 10.1, Immature Gran % (Auto) 0.400, Neut % (Auto) 69.9, Lymph % (Auto) 19.9, [place] % (Auto) 8.8, Eos % (Auto) 0.6, Baso % (Auto) 0.4, Absolute Neuts (auto) 3.6, Absolute Lymphs (auto) 1.02, Nucleated RBC % 0 04/24/21 10:20: Sodium 143, Potassium 3.2 L, Chloride 110 H, Carbon Dioxide 26.0, Anion Gap 7, BUN 15, Creatinine 0.67, Estim Creat Clear Calc 31.60, Est GFR (MDRD) Af Amer 107, Est GFR (MDRD) Non-Af 88, BUN/Creatinine Ratio 22.3 H, Glucose 100, Calcium 8.7, Total Bilirubin 0.80, AST 31, ALT 18, Alkaline Phosphatase 51, Troponin I High Sens 69 H, C-React Prot Ext Range 41.40 H, Total Protein 6.9, Albumin 2.6 L, Globulin 4.3 H, Albumin/Globulin Ratio 0.6 L 04/24/21 10:20: Lactic Acid 1.1 04/24/21 10:20: PT 44.7 H, INR 4.9 H* 04/24/21 12:35: Troponin I High Sens 70 H Micro: Microbiology 04/24/21 10:18 Nasal Secretion SARS-CoV-2 Antigen (Rapid) - Final Radiology Impression Chest X-Ray 04/24/21 10:55 IMPRESSION: 1. Developing left more than right basilar opacities could represent early infiltrates versus atelectasis. Electronically Signed: Derrick Alfaro MD (Brooks) at 11:12 EST , Service support , Assessment & Plan Assessment/Plan (1) Suspected COVID-19 virus infection: (2) Weakness: PLAN: Patient is an 85-year-old female who was admitted to the hospital on 04/24/2021 with a chief complaint of increasing weakness, myalgias and arthralgias. Patient will be placed in the hospital for observation for suspected COVID-19 infection. 1) suspected COVID-19 infection Presents to the hospital with a 2-week history of progressively worsening weakness, myalgias and arthralgias. Patient is without any other respiratory or infectious symptoms. Patient sister, who she lives with, was confirmed positive for COVID-19 2 weeks ago. Patient's son also tested positive for COVID-19. Neither patient nor close contacts have been vaccinated against COVID-19. Rapid Covid is negative. Patient's vital signs are stable and patient is afebrile. CBC does not demonstrate a leukocytosis. Chest x-ray demonstrates nonspecific right basilar opacities which could be infiltrate or atelectasis. Plan; placed on MS 3 for medical observation, as needed Ventolin aerosols ordered, Covid PCR ordered/pending, CBC, BMP, PT/INR, high-sensitivity troponins pending, Covid enhanced droplet precautions ordered, as needed medications ordered, PT/OT eval ordered. 2) elevated troponins Initial high-sensitivity troponin elevated at 69 follow-up on elevated at 70. Patient is without any chest pain or shortness of breath. Vital signs are stable. Continue cycling troponins and place on PCU for cardiac monitoring. 3) supratherapeutic INR INR currently 4.9. Hold home warfarin and monitor PT/INR. 4) hypokalemia Potassium currently 3.2. Replaced, monitor BMP. 5) atrial fibrillation Patient is rate controlled on metoprolol and is anticoagulated on warfarin. Continue metoprolol and hold warfarin as above. 6) HTN Continue amlodipine and metoprolol. 7) CAD with history of aortic and tricuspid valve repair Patient follows with Dr. Asencio. Recent echocardiogram from earlier this month demonstrated normal LV systolic function, an estimated EF of 65%, moderate mitral valve insufficiency, and RVSP of 72 mmHg and indeterminate diastolic dysfunction. Bioprosthetic valves appeared stable at time of study. CODE STATUS: Full code, unverified. Patient asked that we defer to Naomi, patient's daughter, for appropriate decision. Vaccination status: Patient has not been vaccinated for COVID-19. Patient seen by Kostas Cruz PA-C, under the supervision of Dr. Lindo. Documented by User: Dr. Doron Lindo DO 04/24/21 20:07 HPI - General General Date of Admission: 04/24/21 [facility] Medical History Anxiety Atherosclerosis of coronary artery of [place] heart without angina pectoris Atrial fibrillation and flutter Atrial flutter Chest pain DDD (degenerative disc disease) Essential hypertension Hyperlipidemia Hypothyroidism Lightheadedness Osteoarthritis Paroxysmal atrial fibrillation Permanent atrial fibrillation Trigeminal neuralgia Home Medications metoprolol succinate 50 mg PO DAILY #30 tab 03/16/14 [Rx Last Taken 01/05/18] lorazepam 0.5 mg tablet 0.25 mg PO QHS PRN tab 12/28/20 [History Last Taken Unknown] warfarin 3 mg tablet 3 mg PO DAILY tab 12/28/20 [History Last Taken Unknown] amlodipine 2.5 mg tablet 2.5 mg PO DAILY #30 tab 04/10/21 [Rx Last Taken Unknown] Allergy/AdvReac Type Severity Reaction Status Date / Time citalopram [From Celexa] Allergy Intermediate Unknown Verified 04/24/21 09:46 gabapentin Allergy Intermediate Unknown Verified 04/24/21 09:46 trazodone Allergy Intermediate Nausea/Vom/ Verified 04/24/21 09:46 Diarrhea buspirone HCl [From BuSpar] Allergy Upset Verified 04/24/21 09:46 Stomach flecainide [Flecainide] Allergy Shortness Verified 04/24/21 09:46 of breath levothyroxine sodium Allergy Nausea Verified 04/24/21 09:46 [From Synthroid] meperidine HCl [From Demerol] Allergy Other Verified 04/24/21 09:46 sertraline HCl [From Zoloft] Allergy Other Verified 04/24/21 09:46 tramadol Allergy Nausea Verified 04/24/21 09:46 Family History Sister Breast cancer CVA (cerebral vascular accident) Diabetes Mother CVA (cerebral vascular accident) Hypertension Brother Hypertension Surgical History 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) History of appendectomy History of cardioversion (07/06/10) History of open reduction and internal fixation (ORIF) procedure Social History Smoking Status: Never smoker alcohol intake: never substance use type: does not use caffeine: No Results Lab / Micro Data Result Diagrams: 04/24/21 10:20 04/24/21 10:20 Charges/Coding Addendum Addendum: Patient was seen and examined today independently of Kostas Cruz, she was brought to the ER by her family due to complaints of severe leg pain and generalized debility and weakness. Patient's entire family has had Covid, patient has not been as yet diagnosed with COVID-19. Patient had symptoms of COVID-19 approximately 2 weeks ago. On examination she appeared her stated age, she does not appear to be in any distress, she appears frail and weak. Vital signs as documented. Skin warm and dry and without overt rashes. Neck without JVD, thyroid appears normal, trachea is midline, neck is supple. Lungs clear, normal air movement was noted. Heart exam notable for regular rhythm, normal sounds and absence of murmurs, rubs or gallops. Abdomen unremarkable and without evidence of organomegaly, masses, or abdominal aortic enlargement, bowel sounds are present in all 4 quadrants, no abdominal tenderness was noted. Extremities nonedematous, no cyanosis was noted, no clubbing was noted. Neuro: Cranial nerves II through XII are grossly intact, no focal motor deficits were noted, sensation to light touch and pinprick is intact, motor exam 5/5 throughout. Psych: Patient is alert and oriented x3, she does not appear anxious or depressed, she does not appear agitated. Work-up in the emergency room included a chest x-ray which was read out as showing bibasilar infiltrates versus atelectasis, patient's white blood cell count was normal, patient was afebrile, patient's pulse ox on room air was nor mal. Patient's troponin was slightly elevated, her EKG did not show an injury pattern. Patient had no complaints of any chest pain. Patient's PCR for COVID- 19 resulted after the patient was placed in observation status on PCU, this PCR test was positive. Patient however had symptoms 2 weeks ago and she is not hypoxic so I do not feel she needs to be treated with dexamethasone or remdesivir. I further do not think that the patient has pneumonia, I think is likely she has atelectasis due to debility. I have written for aerosol treatments for the patient, I talked briefly with patient's daughter by phone today and told the patient's family that the option would need to be for the patient to go to an extended care facility for short-term rehab services or to go back home with her family. Patient's daughter indicated that she probably would not want the patient to go to an extended care facility. Patient will be seen by PT and OT, I feel the patient's troponin elevation is nonspecific, all 3 troponins were slightly elevated in the same range. I do not feel the patient has had a non-STEMI. I have reviewed Kostas Cruz's history and physical including his medical assessment and plan of care and endorse it. Visit Charges OBSV E&M: [id number] Initial observation care L3
[2021-04-24 17:00] LABS: Troponin-I HS 70 pg/mL (3.0-54.0)
[2021-04-24] MEDS: Albuterol 2.5 MG/3 ML VIAL.NEB. INHALATION (20:00)
[2021-04-24] MEDS: LORazepam 0.5 MG Tablet 0.25 MG PO (22:05)
[2021-04-24 22:20] LABS: Magnesium 2.2 mg/dL (1.6-2.6)
--- NOTE | 2021-04-24 22:20 | EKG12_ITS ---
Test Reason : Blood Pressure : / mmHG Vent. Rate : 154 BPM Atrial Rate : 154 BPM P-R Int : 146 ms QRS Dur : 086 ms QT Int : 236 ms P-R-T Axes : 018 020 211 degrees QTc Int : 377 ms Atrial flutter with 2 to [address] abnormality, possible inferior subendocardial injury Marked ST abnormality, possible anteroseptal subendocardial injury Abnormal ECG Confirmed by KAYLA HOUSER, SHRUTHI ([id number]), editor book MISTI TERRY ([id number]) on 04/25/2021 1:04:29 PM Referred By: VALERIE Confirmed By:SHRUTHI GARZA MD
--- NOTE | 2021-04-24 22:40 | PCM.HOSP.N ---
Hospitalist Note Patient with onset tachycardia, rate 130s to 140s, telemetry atrial fibrillation with RVR appearing with history prior, EKG being requested, will administer Cardizem bolus x1.
[2021-04-24] MEDS: Acetaminophen 325 MG Tablet 650 MG PO (23:57)
[2021-04-24] MEDS: dilTIAZem 25 MG/5 ML Vial 20 MG IV BOLUS (23:57)
[2021-04-24] MEDS: 0.9% Saline Lock 10 ML Syringe IV (23:58)
[2021-04-25] VITALS (19 sets, daily range): BP systolic 117–154; BP diastolic 51–84; PULSE 73–159; RESP 16–24; TEMP 36.6–37.1; O2SAT 94–98
[2021-04-25 06:13] LABS: Absolute Lymphocyte Count 1.36 X10^3/uL (0.83-4.51); Absolute Neutrophil Count 3.9 X10^3/uL (2.0-7.7); Basophil# 0.02 X10^3/uL; Basophil% 0.3 % (0-1); Eosinophil# 0.05 X10^3/uL; Eosinophils% 0.8 % (0-5); Lymphocyte # 1.36 X10^3/ul (0.83-4.51); Lymphocyte % 22.8 % (19-41); Mean Corp Hgb Conc 33.3 g/dL (32-36); Mean Corpuscular Hgb 29.2 pg (27.0-32.0); Mean Corpuscular Volume 87.6 fL (81-99); Mean Platelet Vol. 9.8 fl (6.2-12.0); Monocyte# 0.62 X10^3/uL; Monocyte% 10.4 % (0-10); NRBC Flagged by Analyzer 0 % (0-5); Neutrophil # 3.89 X10^3/uL (2.7-7.7); Neutrophil % 65.2 % (47-70); POSITIVE MORPHOLOGY YES; Platelet Count 306 K/mm3 (150-450); RBC Distribution Width CV 13.5 % (11.6-14.6); Red Blood Count 4.11 M/mm3 (4.2-5.4)
[2021-04-25 06:21] LABS: Prothrombin Time (Protime)PT. 45.4 SECONDS (11.7-14.9)
[2021-04-25 06:22] LABS: Differential Indicated SCAN CRITERIA MET
[2021-04-25 06:50] LABS: Differential Comment SCANNED
[2021-04-25] MEDS: Albuterol 2.5 MG/3 ML VIAL.NEB. INHALATION (07:12)
[2021-04-25 07:23] LABS: Anion Gap 7 (5-15); BUN 14 mg/dL (7-18); BUN/Creat Ratio 23.5 RATIO (10-20); Calcium,Total 8.6 mg/dL (8.5-10.1); Chloride 109 mmol/L (98-107); EST Glomerular Filtration Rate 102 mL/min (>60); Est Glom Filt Rate - Afr Amer 123 mL/min (>60); Glucose 110 mg/dL (74-106); Potassium 3.5 mmol/L (3.5-5.1); Sodium Level 141 mmol/L (136-145)
--- NOTE | 2021-04-25 07:46 | EKG12_ITS ---
Test Reason : RHYTHM CHANGE Blood Pressure : / mmHG Vent. Rate : 121 BPM Atrial Rate : 326 BPM P-R Int : 000 ms QRS Dur : 082 ms QT Int : 202 ms P-R-T Axes : -01 039 224 degrees QTc Int : 286 ms Atrial flutter with variable A-V block Marked ST abnormality, possible inferior subendocardial injury Marked ST abnormality, possible anterior subendocardial injury Abnormal ECG When compared with ECG of 24-APR-2021 09:57, MANUAL COMPARISON REQUIRED, DATA IS UNCONFIRMED Confirmed by KAYLA HOUSER, SHRUTHI ([id number]), video editor MISTI TERRY ([id number]) on 04/25/2021 1:05:45 PM Referred By: CHRISTINE SOUTH Confirmed By:SHRUTHI GARZA MD
[2021-04-25] MEDS: dilTIAZem 25 MG/5 ML Vial 10 MG IV BOLUS ×2 (08:26→11:44)
[2021-04-25] MEDS: Metoprolol(XL)Succ 50 MG Tablet PO ×2 (08:49→20:02)
[2021-04-25] MEDS: amLODIPine 2.5 MG Tablet PO (09:44)
[2021-04-25] MEDS: Potassium Chloride Oral Tablet 20 MEQ 40 MEQ PO (09:44)
--- NOTE | 2021-04-25 10:05 | VDLE_ITS ---
Reason For Study: Pain RIGHT LEFT GSV is normal. GSV is normal. CFV is compressible, spontaneous, phasic, CFV is compressible, spontaneous, phasic, competent and demonstrates normal competent, and demonstrates normal augmentation. augmentation. FV is compressible, spontaneous, phasic, FV is compressible, spontaneous, phasic, competent and demonstrates normal competent and demonstrates normal augmentation. augmentation. POP V is compressible, spontaneous, phasic, POP V is compressible, spontaneous, phasic, competent and demonstrates normal competent and demonstrates normal augmentation. augmentation. T/P Trunk is compressible. T/P Trunk is compressible. PTV is compressible. PTV is compressible. RT PerV is compressible. LT PerV is compressible. Procedure This is a venous duplex using B-mode, color flow and spectral Doppler. Exam performed portable in patient room. A preliminary report was called and/or faxed to [facility]. VL/Venous Duplex US - Kwadwo Extrem Interpretation Summary No evidence for acute deep venous thrombosis bilateral lower extremities with p atent and compressible bilateral great saphenous veins. Ordering Physician: Kostas Cruz Referring Physician: Doron Cueto Performed By: Earnestine Alford RVT
[2021-04-25] MEDS: HYDROcodone Bitartrate/Apap 5/325 Tablet PO (10:07)
--- NOTE | 2021-04-25 12:10 | CASEMGMT ---
MAIKEL MALDONADO assessment: Face to Face with patient for initial transition planning/care coordination assessment. RN JOEL introduced self and role at [facility], pt voices understanding and consents to assessment. Pt is sitting up in bed in no distress on room air. Pt is A/Ox4 and answers all questions appropriately. Pt states is not vaccinated for COVID and states daughter recently had COVID as well but is recovered. Pt states no concerns getting resources once home. Care providers, pharmacy, and demographics verified/updated. Presentation: Pt c/o increased weakness with cough Admitting dx: Debility, COVID, tachycardia PCP: Rom Specialists: Luis M, cardio Preferred [facility]acy: [facility] Insurance: [facility] Prescription Benefit: [facility] Living Will/HPOA: Pt does not have LW/HPOA completed but does have info at home and declines AD info. LNOK: Naomi Zapata, wilbur Living Arrangements: Pt lives daughter/grandson in 1 story home and states no concerns at home. Pt is independent with ADL's. Transportation: Pt states daughter drives and states no transportation concerns. DME/HHC: Pt states has a cane at home and states no further DME need. Pt states no hx of HHC or SNF. Pt states no concerns with going home at time of discharge. Pt is retired. Pt states does not smoke cigarettes or drink ETOH. Pt voices no further concerns/needs. CM to follow for therapy notes and any further discharge planning/needs. Advised pt to ask for CM if any further questions/concerns/needs arise, voices understanding. Pt Goal: Home Plan: Home, pending PT/OT diann. Parul KO CM
[2021-04-25] MEDS: 0.9% Saline Lock 10 ML Syringe IV ×2 (12:36→18:07)
--- NOTE | 2021-04-25 14:08 | EKG12_ITS ---
Test Reason : Blood Pressure : / mmHG Vent. Rate : 076 BPM Atrial Rate : 304 BPM P-R Int : 000 ms QRS Dur : 092 ms QT Int : 406 ms P-R-T Axes : 000 026 -39 degrees QTc Int : [address] & T wave abnormality, consider inferior ischemia Abnormal ECG When compared with ECG of 25-APR-2021 07:50, Previous ECG has undetermined rhythm, needs review ST less depressed in Inferior leads ST no longer depressed in Anterolateral leads T wave inversion no longer evident in Anterolateral leads Confirmed by ALTAGRACIA HOUSER, DAGOBERTO ([id number]), photographic editor MISTI TERRY ([id number]) on 04/27/2021 2:14:27 P M Referred By: KAYLA Confirmed By:FABIOLA FRIAS MD
--- NOTE | 2021-04-25 14:23 | CON.PCM.CA_ITS ---
Assessment & Plan Assessment/Plan (1) Atrial fibrillation and flutter: PLAN: Patient appears to be in atrial flutter with a rapid ventricular response rate. She has responded to the intravenous diltiazem. I would truman mmend that we increase her metoprolol to 50 mg twice daily of the succinate and discontinue the amlodipine. She is status post PVI but it does not appear that she has maintained sinus rhythm with this. She will continue with anticoagulation. (2) History of aortic valve replacement: PLAN: She did have an echocardiogram performed in April which demonstr ated a stable bioprosthetic aortic valve. I do not think that her current presentation is due to any decompensation of her valve. (3) Essential hypertension: PLAN: Her blood pressure appears to be fairly stable however I think that we can use more beta-krysten to be able to control her atrial flutter as well. (4) H/O tricuspid valve repair: PLAN: She does have a history of tricuspid valve repair which appears to be stable from her last echocardiogram. She however does have significant pulmonary hypertension and it may be prudent to add a diuretic to reduce her pulmonary pressures. This may be contributing to her recurrent atrial flutter with the rapid ventricular response rate. (5) Atherosclerosis of coronary artery of [place] heart without angina pectoris: QUALIFIERS: Coronary Disease-Associated Artery/Lesion type: [place] artery Qualified Code(s): I25.10 - Atherosclerotic heart disease of [place] coronary artery without angina pectoris PLAN: She does have mild atherosclerotic cardiovascular disease. Her minimal cardiac enzyme elevation does not appear to be significant to warrant any further testing. HPI Consult Data Date of Consult: 04/25/21 HPI Narrative HPI Narrative: OFELIA SHARPE, is a 85 F who presents To the emergency room with generalized weakness and was later on noted to have developed a tachycardia. She does have a history of underlying CAD, aortic valve stenosis status post aortic valve replacement with a #23 Regina-Parada magna pericardial valve- 2010, tricuspid annuloplasty with a number 34 cup MTA classic ring-2010, left atrial appendage ligation and pulmonary vein isolation-2010 (all at [facility]), atrial fibrillation/flutter, hyperlipidemia, and hypertension who was previously been followed by [facility] cardiology with her last outpatient cardiovascular visit appearing to be in October 2018 at which time the patient appeared to be in atrial flutter with variable AV block. She does have a history of nonobstructive coronary disease with a 60 to 70% mid left anterior descending artery lesion and a 60 to 70% stenosis noted in the mid circumflex artery. FFR of the lesion suggested that there were not hemodynamically significant and medical therapy was recommended. 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 [facility] was in an underlying atrial flutter with a controlled ventricular response rate. She was continued on her beta-krysten as well as her anticoagulant therapy. She denies any neck arm or jaw discomfort to suggest angina, and no dizziness or diaphoresis near syncope or syncope. She has not had any PND or peripheral pitting edema. Cardiology was asked to see her on account of her tachycardia. She was started on intravenous diltiazem with improvement in her heart rate. She appears to have slowed down significantly and her EKG at 14:22 demonstrates atrial flutter with a controlled rate of 76 bpm. She says that she has been compliant with her medications at home. [facility] Medical History Anxiety Atherosclerosis of coronary artery of [place] heart without angina pectoris Atrial fibrillation and flutter Atrial flutter Chest pain DDD (degenerative disc disease) Essential hypertension Hyperlipidemia Hypothyroidism Lightheadedness Osteoarthritis Paroxysmal atrial fibrillation Permanent atrial fibrillation Trigeminal neuralgia Home Medications metoprolol succinate 50 mg PO DAILY #30 tab 03/16/14 [Rx Last Taken 01/05/18] lorazepam 0.5 mg tablet 0.25 mg PO QHS PRN tab 12/28/20 [History Last Taken Unknown] warfarin 3 mg tablet 3 mg PO DAILY tab 12/28/20 [History Last Taken Unknown] amlodipine 2.5 mg tablet 2.5 mg PO DAILY #30 tab 04/10/21 [Rx Last Taken Unknown] Allergy/AdvReac Type Severity Reaction Status Date / Time citalopram [From Celexa] Allergy Intermediate Unknown Verified 04/24/21 09:46 gabapentin Allergy Intermediate Unknown Verified 04/24/21 09:46 trazodone Allergy Intermediate Nausea/Vom/ Verified 04/24/21 09:46 Diarrhea buspirone HCl [From BuSpar] Allergy Upset Verified 04/24/21 09:46 Stomach flecainide [Flecainide] Allergy Shortness Verified 04/24/21 09:46 of breath levothyroxine sodium Allergy Nausea Verified 04/24/21 09:46 [From Synthroid] meperidine HCl [From Demerol] Allergy Other Verified 04/24/21 09:46 sertraline HCl [From Zoloft] Allergy Other Verified 04/24/21 09:46 tramadol Allergy Nausea Verified 04/24/21 09:46 Family History Sister Breast cancer CVA (cerebral vascular accident) Diabetes Mother CVA (cerebral vascular accident) Hypertension Brother Hypertension Surgical History 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) History of appendectomy History of cardioversion (07/06/10) History of open reduction and internal fixation (ORIF) procedure Social History Smoking Status: Never smoker alcohol intake: never substance use type: does not use caffeine: No ROS Constitutional Constitutional: Denies fever(s) or weight loss Eyes Eyes: Reports systems reviewed and no addt'l complaints, except as documented ENT HEENT: Reports systems reviewed and no addt'l complaints, except as documented Cardiovascular Cardiovascular: Denies chest pain at rest, chest pain with activity, dyspnea at rest, dyspnea on exertion, edema, palpitations or paroxysmal nocturnal dyspnea Respiratory/Chest Respiratory/Chest: Denies dyspnea on exertion, productive cough, shortness of breath at rest or shortness of breath with exertion Gastrointestinal Gastrointestinal: Denies change in bowel habits, nausea, vomiting or weight changes Genitourinary Genitourinary: Denies difficulty urinating Musculoskeletal Musculoskeletal: Denies joint stiffness or muscle weakness Integumentary Integumentary: Denies lesions Neurologic Neurologic: Denies dizziness or syncope Psychiatric Psychiatric: Denies anxiety Endocrine Endocrinology: Denies excessive sweating or fatigue Hematologic/Lymphatic Hematologic/Lymphatic: Denies anemia Allergic/Immunologic Allergic/Immunologic: Denies seasonal rhinorrhea Physical Exam Const alert, oriented x3 and no apparent distress General Appearance: cooperative HEENT hearing grossly normal bilaterally Head and Scalp: atraumatic Eyes EOMs intact bilaterally Neck General: normal visual inspection Chest inspection of chest normal and palpation of chest normal Resp normal respiratory effort Auscultation: clear to auscultation bilaterally Cardio regular rate, regular rhythm, S1 normal heart sound and S2 normal heart sound Jugular Venous Distention: JVD GI normal to inspection, nondistended, normoactive bowel sounds Extremity normal capillary refill and no pedal edema Peripheral Pulses: Yes pulses 2+ throughout and femoral pulses present Skin no rashes or lesions noted Neuro oriented x3 and CN's II-XII intact bilaterally Psych Appearance: grossly normal and appropriate Risk Stratification Risk Stratification Applicable: No Objective Data Vital Signs: Vital Signs Temp Pulse Resp BP Pulse Ox 98.5 F 76 19 H 149/78 H 97 04/25/21 11:43 04/25/21 14:00 04/25/21 14:00 04/25/21 14:00 04/25/21 14:00 Oxygen Flow Rate (L/min) 2 Oxygen Delivery Method Room Air Weight: 152 lb 5.431 oz Body Mass Index (BMI) 28.8 Intake & Output: Intake and Output for Last 24 Hours 04/23/21 04/24/21 04/25/21 23:59 23:59 23:59 Intake Total 790 / 790 Output Total 400 / 400 Balance 790 / 790 -400 / -400 Lab / Micro Data Result Diagrams: 04/25/21 05:58 04/25/21 05:58 Labs: Laboratory Results - last 24 hr 04/24/21 12:30: COVID-19 (BASHIR) Detected 04/24/21 15:55: Troponin I High Sens 70 H 04/24/21 15:55: Magnesium 2.2 04/25/21 05:58: WBC 6.0, RBC 4.11 L, Hgb 12.0, Hct 36.0 L, MCV 87.6, MCH 29.2, MCHC 33.3, RDW Std Deviation 42.0, RDW Coeff of Estuardo 13.5, Plt Count 306, MPV 9.8, Immature Gran % (Auto) 0.500, Neut % (Auto) 65.2, Lymph % (Auto) 22.8, [place] % (Auto) 10.4 H, Eos % (Auto) 0.8, Baso % (Auto) 0.3, Absolute Neuts (auto) 3.9, Absolute Lymphs (auto) 1.36, Nucleated RBC % 0, Differential Comment SCANNED 04/25/21 05:58: PT 45.4 H, INR 5.0 H* 04/25/21 05:58: Sodium 141, Potassium 3.5, Chloride 109 H, Carbon Dioxide 25.0, Anion Gap 7, BUN 14, Creatinine 0.60, Estim Creat Clear Calc 31.60, Est GFR (MDRD) Af Amer 123, Est GFR (MDRD) Non-Af 102, BUN/Creatinine Ratio 23.5 H, Glucose 110 H, Calcium 8.6 Micro: Microbiology 04/24/21 10:18 Nasal Secretion SARS-CoV-2 Antigen (Rapid) - Final Cardiology Labs/Tests 04/24/21 15:55: Magnesium 2.2 04/25/21 05:58: WBC 6.0, RBC 4.11 L, Hgb 12.0, Hct 36.0 L, MCV 87.6, MCH 29.2, MCHC 33.3, Plt Count 306, MPV 9.8, Immature Gran % (Auto) 0.500, Neut % (Auto) 65.2, Lymph % (Auto) 22.8, [place] % (Auto) 10.4 H, Eos % (Auto) 0.8, Baso % (Auto) 0.3, Absolute Neuts (auto) 3.9, Nucleated RBC % 0 04/25/21 05:58: PT 45.4 H, INR 5.0 H* 04/25/21 05:58: Sodium 141, Potassium 3.5, Chloride 109 H, Carbon Dioxide 25.0, Anion Gap 7, BUN 14, Creatinine 0.60, Est GFR (MDRD) Af Amer 123, Est GFR (MDRD) Non-Af 102, BUN/Creatinine Ratio 23.5 H, Glucose 110 H, Calcium 8.6 Rhythm: EKG: ECHO: Stress Test: Cardiac Cath: PCI: CT Surgery: Holter monitor: EPS: PPM: CXR: Chest CT Scan:
--- NOTE | 2021-04-25 16:12 | PN.HOSP_ITS ---
Documented by User: Kostas ALFONSO 04/25/21 16:22 Subjective Subjective Patient is an 85-year-old female comfortably resting in bed, alert and orient x3. Patient still reports ongoing leg pain and feeling overall weak, although denies development of any new symptoms overnight. Does not appear in acute di stress. Objective Data Objective Data Vital Signs: Vital Signs Temp Pulse Resp BP Pulse Ox 97.8 F 76 17 154/81 H 96 04/25/21 15:26 04/25/21 15:26 04/25/21 15:26 04/25/21 15:26 04/25/21 15:26 Oxygen Flow Rate (L/min) 2 Oxygen Delivery Method Room Air Weight: 152 lb 5.431 oz Body Mass Index (BMI) 28.8 Intake & Output: Intake and Output for Last 24 Hours 04/23/21 04/24/21 04/25/21 23:59 23:59 23:59 Intake Total 790 / 790 Output Total 400 / 400 Balance 790 / 790 -400 / -400 Lab / Micro Data Result Diagrams: 04/25/21 05:58 04/25/21 05:58 Labs: Laboratory Results - last 24 hr 04/24/21 15:55: Troponin I High Sens 70 H 04/24/21 15:55: Magnesium 2.2 04/25/21 05:58: WBC 6.0, RBC 4.11 L, Hgb 12.0, Hct 36.0 L, MCV 87.6, MCH 29.2, MCHC 33.3, RDW Std Deviation 42.0, RDW Coeff of Estuardo 13.5, Plt Count 306, MPV 9.8, Immature Gran % (Auto) 0.500, Neut % (Auto) 65.2, Lymph % (Auto) 22.8, Steele % (Auto) 10.4 H, Eos % (Auto) 0.8, Baso % (Auto) 0.3, Absolute Neuts (auto) 3.9, Absolute Lymphs (auto) 1.36, Nucleated RBC % 0, Differential Comment SCANNED 04/25/21 05:58: PT 45.4 H, INR 5.0 H* 04/25/21 05:58: Sodium 141, Potassium 3.5, Chloride 109 H, Carbon Dioxide 25.0, Anion Gap 7, BUN 14, Creatinine 0.60, Estim Creat Clear Calc 31.60, Est GFR (MDRD) Af Amer 123, Est GFR (MDRD) Non-Af 102, BUN/Creatinine Ratio 23.5 H, Glucose 110 H, Calcium 8.6 Micro: Microbiology 04/24/21 10:18 Nasal Secretion SARS-CoV-2 Antigen (Rapid) - Final Physical Exam Const alert, oriented x3 and no apparent distress HEENT head/scalp atraumatic and moist oral mucous membranes Head and Scalp: normocephalic Eyes PERRL, EOMs intact bilaterally and conjunctivae normal Neck no lymphadenopathy, supple and no JVD Resp normal respiratory effort, no retractions, no use of accessory muscles and clear to auscultation bilaterally Cardio regular rhythm and no murmurs Cardio Narrative: Rate is currently controlled although patient had a run of A. flutter with RVR, earlier. GI normal to inspection, nondistended, normoactive bowel sounds, soft to palpation and non-tender Extremity normal to inspection, full ROM and no clubbing, cyanosis or edema Peripheral Pulses: Yes pulses 2+ throughout Skin no rashes or lesions noted, no wounds, skin turgor normal and no jaundice Neuro CN's II-XII intact bilaterally Psych affect normal Assessment & Plan Assessment/Plan (1) COVID-19: (2) Weakness: PLAN: Day 1 Discharge planning: Patient to discharge home when medically ready, possible discharge on 04/26/2021. 1) Asymptomatic COVID-19 infection Covid PCR is positive. Patient is still without any respiratory complaints and is currently satting at 96% on room air with normal respirations. Patient still having diffuse myalgias/arthralgias, that are worse in the legs. Patient is not in Covid isolation as her symptoms have been ongoing for greater than 2 weeks, patient is not hypoxic and is not in respiratory distress. Continue albuterol aerosols, bilateral venous Doppler ordered. 2) atrial flutter with rapid ventricular rate Patient had several runs of a flutter with RVR overnight and was initially unresponsive to multiple boluses of diltiazem. Patient is now in sinus rhythm and is currently on diltiazem infusion. Cardiology was consulted and increase patient's metoprolol to 50 mg p.o. twice daily and discontinued patient's home amlodipine. 3) supratherapeutic INR INR currently 4.9. Hold home warfarin and monitor PT/INR. 4) hypokalemia Resolved, currently 3.5. 5) HTN Continue amlodipine and metoprolol. 6) CAD with history of aortic and tricuspid valve repair Patient follows with Dr. Asencio. Recent echocardiogram from earlier this month demonstrated normal LV systolic function, an estimated EF of 65%, moderate mitral valve insufficiency, and RVSP of 72 mmHg and indeterminate diastolic dy sfunction. Bioprosthetic valves appeared stable at time of study. Diuretic added per Dr. Cadena to help reduce pulmonary hypertension. DVT prophylaxis - not indicated Patient seen by Kostas Cruz PA-C, under the supervision of Dr. Jackman. Documented by User: Dr. Dru Jackman, 04/25/21 17:24 Subjective Subjective Complains of LE pain. Developed afib w RVR. Denied palpiations. Objective Data Lab / Micro Data Result Diagrams: 04/25/21 05:58 04/25/21 05:58 Physical Exam Const alert and no apparent distress Resp normal respiratory effort, no retractions, no use of accessory muscles and clear to auscultation bilaterally Cardio Cardio Narrative: irregularly irregular. GI normal to inspection, nondistended, normoactive bowel sounds, soft to palpation, non-tender and non-distended Extremity normal to inspection Neuro Sensorium / Orientation: awake and alert Assessment & Plan Assessment/Plan (1) COVID-19: (2) Paroxysmal atrial fibrillation with RVR: PLAN: Patient seen and examined independently. Data and vitals reviewed. I agree with the above note by the physician assistant professor of history. 1. A.flutter RVR: Patient received IV diltiazem bolus and then drip. Converted to sinus and is on metoprolol succinate 50 daily. Continue with warfarin 2. COVID-19 infection Symptoms been ongoing for 2 weeks and patient has completed quarantine. [place] pportive management. 3. Coagulopathy: Secondary to warfarin. Hold warfarin for now. Charges/Coding Visit Charges Inpatient E&M: 33618 Subs Hosp L2
[2021-04-26 01:35] VITALS: BP 154/83; PULSE 76; RESP 16; TEMP 36.8; O2SAT 98
[2021-04-26 03:19] VITALS: PULSE 77
[2021-04-26 07:01] VITALS: PULSE 76
[2021-04-26 08:36] LABS: International Normalized Ratio 3.6; Prothrombin Time (Protime)PT. 34.8 SECONDS (11.7-14.9)
--- NOTE | 2021-04-26 08:40 | PCM.PN.CARD ---
Subjective Subjective The patient is awake and alert. She denies any ongoing chest discomfort or acute shortness of breath/dyspnea. She is not complaining of palpitations or rapid rates. She believes that overall since her arrival at the hospital. she is feeling somewhat better Objective Data Vital Signs: Vital Signs Temp Pulse Resp BP Pulse Ox 98.2 F 76 16 154/83 H 98 04/26/21 01:35 04/26/21 07:01 04/26/21 01:35 04/26/21 01:35 04/26/21 01:35 Oxygen Flow Rate (L/min) 2 Oxygen Delivery Method Room Air Weight: 152 lb 5.431 oz Body Mass Index (BMI) 28.8 Intake & Output: Intake and Output for Last 24 Hours 04/24/21 04/25/21 04/26/21 23:59 23:59 23:59 Intake Total 790 / 790 100 / 220 120 / 120 Output Total 400 / 400 0 / 0 Balance 790 / 790 -300 / -180 120 / 120 Lab / Micro Data Result Diagrams: 04/25/21 05:58 04/25/21 05:58 Labs: Laboratory Results - last 24 hr 04/26/21 06:25: PT 34.8 H, INR 3.6 Cardiology Labs/Tests 04/26/21 06:25: PT 34.8 H, INR 3.6 Rhythm: Atrial flutter ECHO: 04-09-2021 Interpretation Summary Left ventricular systolic function is normal. The estimated ejection fraction is 65 %. The left atrium is mildly enlarged. The right atrium is mildly enlarged. There is moderate mitral annular calcification. Extension of the mitral annular calcification onto the base of the posterior mitral valve leaflet. Moderate (2+) mitral valve insufficiency. An annuloplasty ring is noted in the tricuspid position. Trivial transvalvular insufficiency of the tricuspid valve. Stable appearing bioprosthetic aortic valve apparatus. Trivial transvalvular insufficiency of the aortic valve. Mild-Moderate (1-2+) pulmonic valve insufficiency. Right ventricular systolic pressure estimated to be 72 mmHg. Unable to assess diastolic dysfunction. Radiography Diagnostic Testing: Radiology Impression Venous Doppler Study 04/25/21 10:05 Interpretation Summary No evidence for acute deep venous thrombosis bilateral lower extremities with patent and compressible bilateral great saphenous veins. Ordering Physician: Kostas Cruz Referring Physician: Doron Cueto Performed By: Earnestine Alford RVT Physical Exam Const alert and oriented x3 Orientation / Consciousness: awake HEENT normocephalic, head/scalp atraumatic and hearing grossly normal bilaterally Eyes PERRL, EOMs intact bilaterally and conjunctivae normal Neck full ROM, supple and no JVD Resp clear to auscultation bilaterally Cardio Rhythm: abnormal rhythm irregularly irregular Heart Sounds: S1 normal, S2 normal and murmur systolic II/ soft mid left sternal border, LVOT and sternal notch GI normal to inspection, nondistended, normoactive bowel sounds Extremity no pedal edema Skin no rashes or lesions noted Psych mental status grossly normal Assessment & Plan Assessment/Plan (1) Atrial fibrillation and flutter: PLAN: The patient has a longstanding history of atrial fibrillation/flutter. She is going through multiple noninvasive/invasive procedures (left atrial appendage ligation and pulmonary vein isolation) per her past cardiovascular records and has remained with her underlying atrial dysrhythmias. At the present time she is continuing rate limiting therapy. Her beta-krysten dose was increased. Her rate appears to be coming under better control. She is continuing anticoagulant therapy. As her INR was elevated her anticoagulants are being adjusted to compensate for such. There are no immediate plans for additional rhythm evaluation/procedures at this time. (2) History of aortic valve replacement: PLAN: She does have a history of aortic valve replacement with a #23 Regina Magna pericardial valve. She was evaluated recently with transthoracic echocardiogram with the results as noted. She should continue AHA antibiotic prophylaxis. (3) H/O tricuspid valve repair: PLAN: She also has a history of a tricuspid valve repair with a #34 Regina a classic ring. Again this was evaluated recently with a transthoracic echocardiogram. She will continue AHA antibiotic prophylaxis. (4) Atherosclerosis of coronary artery of [place] heart without angina pectoris: QUALIFIERS: Coronary Disease-Associated Artery/Lesion type: [place] artery Qualified Code(s): I25.10 - Atherosclerotic heart disease of [place] coronary artery without angina pectoris PLAN: She has a history of CAD which was deemed not angiographically significant as she did not require revascularization therapy in the past either percutaneously or surgically. At the moment there does not appear to be any clinical findings for an acute coronary syndrome. She will continue risk factor modification medical therapy. (5) Hyperlipidemia: QUALIFIERS: Hyperlipidemia type: unspecified Qualified Code(s): E78.5 - Hyperlipidemia, unspecified PLAN: She should continue risk factor evaluation and care based upon her underlying diagnosis. Ideally this would include lipid-lowering therapy with a statin. At the moment the patient has been complaining of lower extremity myalgias. Thus it may be reasonable, if these are related to her previous COVID-19 exposure/positivity, to allow the myalgias to resolve prior to initiation of medical management such as a lipid-lowering agent/statin. (6) Essential hypertension: PLAN: The patient's blood pressure can be monitored with medicines adjusted accordingly. (7) COVID-19: PLAN: It appears the patient has been deemed COVID-19 positive but not placed in COVID-19 isolation requiring isolation precautions based upon the timing of her symptoms and lack of ongoing acute respiratory symptoms/requiring acute respiratory care, etc.
[2021-04-26 08:47] VITALS: BP 117/68; PULSE 76; RESP 16; TEMP 37.1; O2SAT 97
[2021-04-26] MEDS: Potassium Chloride Oral Tablet 20 MEQ 40 MEQ PO (08:55)
[2021-04-26 08:56] VITALS: BP 117/68; PULSE 76
[2021-04-26] MEDS: Furosemide 40 MG Tablet PO (08:56)
[2021-04-26] MEDS: Metoprolol(XL)Succ 50 MG Tablet PO (08:56)
--- NOTE | 2021-04-26 09:04 | DCINST_ITS ---
Discharge Instructions Diet Discharge Diet: Low fat / Low cholesterol Activity Discharge Activity: Return to Normal Activity Follow Up Care Test Results: Test results from this visit will be discussed in further detail at your follow-up appointment, if applicable. Discharge Plan Admission Admit Date/Time: 04/25/21 10:01 Primary Reason for Your Visit: aflutter with RVR Attending Provider: Dru Jackman Primary Care Provider: Doron Cueto Consulting Providers: Sarah Alfred ; Jose Daniel Cadena ; Gilmar Rodriguez ; Silvio Naranjo ; Dru Moscoso ; Leona Hernandez ; Cody Pineda ; Ida Osorio ; Rui Asencio ; Matt Hines ; Kostas Olson CHIEF DEVELOPMENT OFFICER ; Maria Del Carmen Zhong NP ; Socorro Schaffer Discharge Orders/Prescriptions Prescriptions: New metoprolol succinate 50 mg Tablet Extended Release 24 Hr 50 mg PO BID Qty: 60 RF: 0 acetaminophen [Tylenol] 325 mg Tablet 650 mg PO Q6H PRN PRN (Reason: Pain Score 1-10) Qty: 0 RF: 0 Continued lorazepam 0.5 mg tablet 0.25 mg PO QHS PRN (Reason: ANXIETY) RF: 0 amlodipine 2.5 mg tablet 2.5 mg PO DAILY Qty: 30 RF: 12 Held warfarin 3 mg tablet 3 mg PO DAILY RF: 0 Hold Instructions: Resume on 04/28/21. Discontinued metoprolol succinate 50 MG tablet 50 mg PO DAILY Qty: 30 RF: 3 Referrals / Follow Up: Doron Cueto DO [Primary Care Provider] - Within 2 Weeks Rui Asencio MD [STAFF PHYSICIAN] - Within 1 Month Disposition Disposition (needs filled in before D/C Order can be placed): Home, Self Care
--- NOTE | 2021-04-26 09:10 | DS.PCM_ITS ---
Providers Date of Admission: 04/25/21 Primary Care Physician: Dr. Doron Cueto, Consultations 04/25/21 10:19 Consult: Cardiology Routine Consulting Provider: Anabela Villa Reason for Consult: Refractory tachycardia EMERGENT Consult: No MD Notified: Yes Date Notified: 04/25/21 Time Notified: 10:20 Method of Notification: Text Reason For Visit: DEBILITY Diagnosis Discharge Diagnosis (1) Atrial fibrillation and flutter: Status: Acute Code(s): I48.91 - Unspecified atrial fibrillation; I48.92 - Unspecified atrial flutter (2) History of aortic valve replacement: Status: Chronic Code(s): Z95.2 - Presence of prosthetic heart valve (3) H/O tricuspid valve repair: Status: Acute Code(s): Z98.890 - Other specified postprocedural states (4) Atherosclerosis of coronary artery of [place] heart without angina pectoris: Status: Chronic Code(s): I25.10 - Atherosclerotic heart disease of [place] coronary artery without angina pectoris Qualifiers: Coronary Disease-Associated Artery/Lesion type: [place] artery Qualified Code(s): I25.10 - Atherosclerotic heart disease of [place] coronary artery without angina pectoris (5) Hyperlipidemia: Status: Chronic Code(s): E78.5 - Hyperlipidemia, unspecified Qualifiers: Hyperlipidemia type: unspecified Qualified Code(s): E78.5 - Hyperlipidemia, unspecified (6) Essential hypertension: Status: Chronic Code(s): I10 - Essential (primary) hypertension (7) COVID-19: Status: Acute Code(s): U07.1 - COVID-19 Medications at Discharge Home Medications lorazepam 0.5 mg tablet 0.25 mg PO QHS PRN tab 12/28/20 warfarin 3 mg tablet 3 mg PO DAILY tab 12/28/20 amlodipine 2.5 mg tablet 2.5 mg PO DAILY #30 tab 04/10/21 acetaminophen [Tylenol] 650 mg PO Q6H PRN PRN #0 tab 04/26/21 metoprolol succinate 50 mg PO BID #60 tab 04/26/21 Hospital Course Operations None Procedures None Summary of Care Provided Minutes Spent on Discharge: 32 Hospital Course: 85-year-old patient presents with 2-week history of malaise, myalgias and arthralgias. Patient had exposure with COVID-19. Patient had no respiratory issues nor was she hypoxic. Patient rapid was negative for Covid but her PCR was positive. Patient is likely felt unwell for this period of time due to COVID-19. Patient was not vaccinated. Patient is present here with weakness but while she was here she developed atrial flutter with RVR. Was temporally placed on a diltiazem drip as well as had boluses of procedure that. She was seen by cardiology who increased her metoprolol succinate from 50 daily to 50 twice daily. Patient today feels overall better and plan is for her to be discharged home in stable condition. She declined any home care services. Physical Exam Const alert Resp normal respiratory effort, no retractions, no use of accessory muscles and clear to auscultation bilaterally Cardio regular rate, regular rhythm, S1 normal heart sound and S2 normal heart sound GI normal to inspection, nondistended, normoactive bowel sounds, soft to palpation, non-tender and non-distended Extremity normal to inspection Medical Records Data Attestation: I reviewed the patient's medical records Weight / BMI Weight Weight: 69.1 kg Body Mass Index (BMI) 28.8 ABG / Lab / Microbiology Data Result Diagrams: 04/25/21 05:58 04/25/21 05:58 Laboratory: Laboratory Results - last 24 hr 04/26/21 06:25: PT 34.8 H, INR 3.6 Microbiology: Microbiology 04/24/21 10:18 Nasal Secretion SARS-CoV-2 Antigen (Rapid) - Final Radiography Diagnostic Testing: Radiology Impression Venous Doppler Study 04/25/21 10:05 Interpretation Summary No evidence for acute deep venous thrombosis bilateral lower extremities with patent and compressible bilateral great saphenous veins. Ordering Physician: Kostas Cruz Referring Physician: Doron Cueto Performed By: Earnestine Alford RVT D/C Instructions Discharge Diet: Low fat / Low cholesterol Meaningful Use Info Meaningful Use Diagnoses (Choose all that apply): None applicable Discharge Plan Admission Admit Date/Time: 04/25/21 10:01 Primary Reason for Your Visit: aflutter with RVR Attending Provider: Dru Jackman Primary Care Provider: Doron Cueto Consulting Providers: Sarah Alfred ; Jose Daniel Cadena ; Gilmar Rodriguez ; Silvio Naranjo ; Dru Moscoso ; Leona Hernandez ; Cody Pineda ; Ida Osorio ; Rui Asencio ; Matt Hines ; Kostas Olson EMT B ; Maria Del Carmen Zhong NP ; Socorro Schaffer Discharge Orders/Prescriptions Prescriptions: New metoprolol succinate 50 mg Tablet Extended Release 24 Hr 50 mg PO BID Qty: 60 RF: 0 acetaminophen [Tylenol] 325 mg Tablet 650 mg PO Q6H PRN PRN (Reason: Pain Score 1-10) Qty: 0 RF: 0 Continued lorazepam 0.5 mg tablet 0.25 mg PO QHS PRN (Reason: ANXIETY) RF: 0 amlodipine 2.5 mg tablet 2.5 mg PO DAILY Qty: 30 RF: 12 Held warfarin 3 mg tablet 3 mg PO DAILY RF: 0 Hold Instructions: Resume on 04/28/21. Discontinued metoprolol succinate 50 MG tablet 50 mg PO DAILY Qty: 30 RF: 3 Referrals / Follow Up: Doron Cueto DO [Primary Care Provider] - Within 2 Weeks Rui Asencio MD [STAFF PHYSICIAN] - Within 1 Month Disposition Disposition (needs filled in before D/C Order can be placed): Home, Self Care Charges/Coding Visit Charges Inpatient E&M: 94161 Disch Hosp
--- NOTE | 2021-04-26 09:45 | CASEMGMT ---
RN CM HUMAN DEVELOPMENT PROFESSOR CM to room to meet with patient for initial transition planning/care coordination assessment. RN JOEL introduced self and role at [facility]. Pt voices understanding and consents to assessment at this time. Pt resting in bed in no distress at this time. Pt is A/O at this time and answers all questions appropriately. Care providers, pharmacy, and demographics verified/updated at this time. PCP: Dr Doron Cueto Specialists: Dr Asencio-cardiology Preferred Pharmacy: [facility] Insurance: [employer] [facility] Prescription Benefit: Yes LNOK: Daughter, Naomi Living Arrangements: Lives w/dtr, Naomi, and grandson in one-story home w/one step to enter. Independent w/ADL's. Transportation: Dtr, Naomi DME: [facility] has the following DME: grab bars, cane, BP machine Pt states would like a walker. Provided w/list of DME companies. Pt has no preference. TC to [facility]--they are out of WW's. TC to [facility]. They have walkers available and are able to deliver to hospital today. Script obtained and faxed to [facility]. Awaiting delivery of WW. HHC/SNF: No hx of either. Denies need for HHC. Pt wishes to return home and states has no concerns with going home at time of discharge. Pt voices no further concerns/needs at this time. Advised pt to ask for CM if any further questions/concerns/needs arise. Voices understanding. PLAN: Home w/family support and discharge plans in place. Tanya HERMAN RN, CM
== END 2021-04-26 13:27 | disposition home or self-care (01) | DRG 310 ==
LOC: ED 10:11 → MS2 12:23 → PCU 13:33
PROVIDERS: Family Medicine; Admitting Provider Internal Medicine; Emergency Provider Emergency Medicine; PCP Family Medicine
DX: I48.21 Permanent atrial fibrillation (principal); I48.92 Unspecified atrial flutter; U09.9 Post COVID-19 condition, unspecified; M79.18 Myalgia, other site; I25.10 Atherosclerotic heart disease of native coronary artery without angina pectoris; E78.5 Hyperlipidemia, unspecified; E87.6 Hypokalemia; I27.20 Pulmonary hypertension, unspecified; I10 Essential (primary) hypertension; R79.1 Abnormal coagulation profile; T45.515A Adverse effect of anticoagulants, initial encounter; Z95.2 Presence of prosthetic heart valve; Z79.01 Long term (current) use of anticoagulants; Z79.899 Other long term (current) drug therapy
CPT/HCPCS: 36415; 71045; 80048; 80053; 83605; 83735; 84484; 85025; 85610; 86140; 87040; 87426; 87635; 93005; 93970; 94640; 97161; 97166; 99285; J7040; J7050; U0005; A4216; U0003

== ENCOUNTER 2021-09-13 14:06 | Outpatient (CLI) | payer MEDICARE, SELFPAY | END 2021-09-13 23:59 | disposition home or self-care (01) | LOC: PSN 14:09 | PROVIDERS: PCP Family Medicine; Referring Provider Nurse Practitioner Family; Visit Provider Nurse Practitioner Family | DX: I48.91 Unspecified atrial fibrillation (principal); I48.92 Unspecified atrial flutter | CPT/HCPCS: 93225; 93226 ==

== ENCOUNTER → 2022-07-22 | Outpatient (CLI) | payer MEDICARE, SELFPAY ==
[2022-07-22 15:42] LABS: Absolute Lymphocyte Count 2.01 X10^3/uL (0.83-4.51); Absolute Neutrophil Count 6.2 X10^3/uL (2.0-7.7); Basophil# 0.03 X10^3/uL; Basophil% 0.3 % (0-1); Eosinophil# 0.09 X10^3/uL; Hemoglobin 15.6 g/dL (12.0-15.0); Lymphocyte # 2.01 X10^3/ul (0.83-4.51); Lymphocyte % 22.1 % (19-41); Mean Corp Hgb Conc 31.8 g/dL (32-36); Mean Corpuscular Hgb 29.1 pg (27.0-32.0); Mean Corpuscular Volume 91.2 fL (81-99); Mean Platelet Vol. 10.4 fl (6.2-12.0); Monocyte# 0.78 X10^3/uL; Monocyte% 8.6 % (0-10); NRBC Flagged by Analyzer 0 % (0-5); Neutrophil # 6.15 X10^3/uL (2.7-7.7); Neutrophil % 67.7 % (47-70); Platelet Count 243 K/mm3 (150-450); RBC Distribution Width CV 13.9 % (11.6-14.6); RBC Distribution Width SD 46.5 fl (35.1-43.9); Red Blood Count 5.37 M/mm3 (4.2-5.4); White Blood Count 9.1 K/mm3 (4.4-11.0)
[2022-07-22 16:04] LABS: ALB/GLOB Ratio 0.9 RATIO (0.9-2.4); AST(SGOT) 25 U/L (15-37); Alanine Aminotransfer ALT/SGPT 19 U/L (13-56); Albumin, Serum 3.8 g/dL (3.2-5.0); Alkaline Phosphatase 67 U/L (45-117); Anion Gap 5 (5-15); BUN 14 mg/dL (7-18); BUN/Creat Ratio 17.5 RATIO (10-20); Calcium,Total 9.5 mg/dL (8.5-10.1); Chloride 105 mmol/L (98-107); EST Glomerular Filtration Rate 72 mL/min (>60); Est Glom Filt Rate - Afr Amer 87 mL/min (>60); Globulin 4.2 g/dL (2.2-4.2); Glucose 86 mg/dL (74-106); Potassium 4.9 mmol/L (3.5-5.1); Sodium Level 138 mmol/L (136-145); Thyroid Stim Hormone (TSH) 2.77 uIU/mL (0.358-3.74)
[2022-07-22 16:16] LABS: BNP,B-Type NATRIURETIC PEPTIDE 215.3 pg/mL (0-100)
== END | disposition home or self-care (01) ==
PROVIDERS: PCP Family Medicine; Visit Provider Family Medicine
DX: R06.9 Unspecified abnormalities of breathing (principal); I48.0 Paroxysmal atrial fibrillation; I10 Essential (primary) hypertension; R60.9 Edema, unspecified; Z79.01 Long term (current) use of anticoagulants
CPT/HCPCS: 36415; 80053; 83735; 83880; 84443; 85025

== ENCOUNTER → 2022-08-30 | Outpatient (CLI) | payer MEDICARE, SELFPAY ==
--- NOTE | 2022-08-30 08:10 | ECHOD_ITS ---
Reason For Study: AVR & TRICUSPID VALVE REPAIR Procedure This was a 2D Doppler, Color Flow transthoracic echocardiogram. Exam performed in department. Left Ventricle Normal LV size. The estimated ejection fraction is 55 %. Mild segmental systolic dysfunction (see wall motion). Basal inferoseptal: Akinetic. Infero-Basal: Akinetic. The rest of the wall segments are normal. Right Ventricle Normal RV size. Normal systolic function. Atria The left atrium is mildly enlarged. Normal right atrium. Mitral Valve There is mild to moderate mitral annular calcification. Moderate (2+) eccentric mitral valve insufficiency. Tricuspid Valve Mild (1+) tricuspid valve insufficiency. Pulmonary artery systolic pressure is 36 mmHg. An annuloplasty ring is noted in the tricuspid position. Aortic Valve Peak aortic valve gradient 7.5 mmHg. Mean aortic valve gradient 4.1 mmHg. Stable appearing bioprosthetic aortic valve apparatus. Pulmonic Valve Normal pulmonic valve. Mild (1+) pulmonic valve insufficiency. Great Vessels Normal aortic root. The pulmonary artery is normal size. Normal inferior vena cava. Pericardium/Pleural No pericardial effusion. MMode/2D Measurements & Calculations LVIDd: 4.4 cm IVSd: 1.1 cm Ao root diam: 2.8 cm LVIDs: 3.0 cm LVPWd: 1.1 cm RVDd: 2.8 cm FS: 31.4 % LAV(MOD-bp): 92.1 ml LVAd ap4: 21.8 cm2 LVAd ap2: 23.8 cm2 LAV(MOD-bp) Indexed: 54.0 ml/m2 LVLd ap4: 6.1 cm LVLd ap2: 6.2 cm LAV(MOD-sp2): 94.9 ml EDV(MOD-sp4): 65.9 ml EDV(MOD-sp2): 79.7 ml LAV(MOD-sp4): 82.5 ml EDV(sp4-el): 66.1 ml EDV(sp2-el): 77.3 ml LVAs ap4: 13.1 cm2 LVAs ap2: 14.2 cm2 LVLs ap4: 5.0 cm LVLs ap2: 5.2 cm ESV(MOD-sp4): 30.3 ml ESV(MOD-sp2): 34.5 ml ESV(sp4-el): 29.1 ml ESV(sp2-el): 32.6 ml EF(MOD-sp4): 54.1 % EF(MOD-sp2): 56.7 % EF(sp4-el): 56.0 % SV(MOD-sp4): 35.7 ml SV(MOD-sp2): 45.2 ml SV(sp4-el): 37.0 ml LA dimension(2D): 4.5 cm LA A4 area: 25.3 cm2 RA A4 area: 21.0 cm2 Time Measurements MV dec time: 0.19 sec Doppler Measurements & Calculations MV E max diane: 98.4 cm/sec Ao V2 max: 136.6 cm/sec MV A max diane: 30.0 cm/sec MV dec slope: 514.9 cm/sec2 Ao max P.5 mmHg MV E/A: 3.3 Ao V2 mean: 93.8 cm/sec Ao mean P.1 mmHg Ao V2 VTI: 30.7 cm AV (velocity ratio): 0.73 LV V1 max: 106.8 cm/sec MR max diane: 536.1 cm/sec PA V2 max: 64.8 cm/sec LV V1 max P.6 mmHg MR max P.9 mmHg LV V1 mean P.5 mmHg MR mean diane: 403.9 cm/sec LV V1 mean: 73.1 cm/sec MR mean P.9 mmHg LV V1 VTI: 22.4 cm MR VTI: 164.5 cm PI dec slope: 115.5 cm/sec2 TR max diane: 287.6 cm/sec TR max P.1 mmHg ECHO/Echo Complete Interpretation Summary Normal LV size. The estimated ejection fraction is 55 %. Mild segmental systolic dysfunction (see wall motion). The left atrium is mildly enlarged. An annuloplasty ring is noted in the tricuspid position. Pulmonary artery systolic pressure is 36 mmHg. There is mild to moderate mitral annular calcification. Ordering Physician: Doron Cueto Referring Physician: Doron Cueto Performed By: Kathy Ruiz, МАРИЯ, RVT
== END | disposition home or self-care (01) ==
LOC: CVS 08:09
PROVIDERS: PCP Family Medicine; Visit Provider Family Medicine
DX: Z95.2 Presence of prosthetic heart valve (principal); Z98.890 Other specified postprocedural states
CPT/HCPCS: 93306

== ENCOUNTER 2022-10-13 21:54 | Emergency (ER) | payer MEDICARE, SELFPAY ==
[2022-10-13 21:55] VITALS: BP 169/80; PULSE 73; RESP 14; TEMP 36.6; O2SAT 100
--- NOTE | 2022-10-13 22:12 | ED.VIS.LOWEX ---
HPI History of Present Illness Chief Complaint: Lower Extremity Injury Informant: patient and family Narrative Narrative: Increasing right lower extremity pain over the past week. Patient on warfarin. A week ago noted bruising lower upper part of the leg. Unclear of any trauma. She ambulates with a walker. Bruising improved however pain increased last dose Tylenol yesterday. Patient last INR checked 10 days ago states therapeutic. Prior similar symptoms: No PFSH PFSH Medical History Anxiety Atherosclerosis of coronary artery of [place] heart without angina pectoris Atrial fibrillation and flutter Atrial flutter Chest pain DDD (degenerative disc disease) Essential hypertension History of left heart catheterization (LHC) (~09/15/12) Hyperlipidemia Hypothyroidism Lightheadedness Osteoarthritis Trigeminal neuralgia Home Medications lorazepam 0.5 mg tablet 0.25 mg PO QHS PRN ANXIETY 12/28/20 [History Last Taken Unknown] warfarin 3 mg tablet 3 mg PO DAILY 12/28/20 [History Last Taken Unknown] amlodipine 2.5 mg tablet 2.5 mg PO DAILY #30 tabs 04/10/21 [Rx Last Taken Unknown] metoprolol succinate 50 mg tablet,extended release 24 hr 50 mg PO DAILY 05/31/21 [History Last Taken Unknown] Allergy/AdvReac Type Severity Reaction Status Date / Time citalopram [From Celexa] Allergy Intermediate Unknown Verified 10/13/22 21:57 gabapentin Allergy Intermediate Unknown Verified 10/13/22 21:57 trazodone Allergy Intermediate Nausea/Vom/ Verified 10/13/22 21:57 Diarrhea buspirone HCl [From BuSpar] Allergy Upset Verified 10/13/22 21:57 Stomach flecainide [Flecainide] Allergy Shortness Verified 10/13/22 21:57 of breath levothyroxine sodium Allergy Nausea Verified 10/13/22 21:57 [From Synthroid] meperidine HCl [From Demerol] Allergy Other Verified 10/13/22 21:57 sertraline HCl [From Zoloft] Allergy Other Verified 10/13/22 21:57 tramadol Allergy Nausea Verified 10/13/22 21:57 Family History Sister Breast cancer CVA (cerebral vascular accident) Diabetes Mother CVA (cerebral vascular accident) Hypertension Brother Hypertension Other Paroxysmal atrial fibrillation with RVR Surgical History H/O tricuspid valve repair (~07/20/10) History of aortic valve replacement with bioprosthetic valve (~07/20/10) History of appendectomy History of cardioversion (07/06/10) History of open reduction and internal fixation (ORIF) procedure Social History Smoking Status: Never smoker alcohol intake: never substance use type: does not use caffeine: No ROS ROS ED Constitutional Constitutional ED: Denies chills, fever(s) or sweats Eyes Eyes: Denies change in vision ENT ENT ED: Denies dysphagia or sore throat Cardiovascular Cardiovascular: Denies chest pain, leg edema, palpitations or racing heartbeat Respiratory/Chest Respiratory/Chest: Denies cough, dyspnea or dyspnea on exertion Gastrointestinal Gastrointestinal: Denies abdominal pain, diarrhea, nausea or vomiting Genitourinary Genitourinary ED: Denies dysuria, hematuria or urinary frequency Musculoskeletal Musculoskeletal: Reports extremity pain; Denies back pain or neck pain Integumentary Denies rash or wounds Neurologic Neurologic: Denies headache(s), paresthesias or weakness EXAM Physical Exam Const Vital Signs: 10/13/22 21:55 Temperature 97.8 F Temperature Source Temporal Pulse Rate 73 Respiratory Rate 14 Blood Pressure 169/80 H Blood Pressure Mean 109 Pulse Ox 100 Oxygen Delivery Method Room Air Positive well nourished and well developed General Appearance ED: well developed and NAD HEENT Reports moist mucous membranes normocephalic and atraumatic Eyes PERRL, EOMs intact bilaterally and conjunctivae normal General Eye ED: Yes normal appearance of both eyes Neck no lymphadenopathy and supple General: Negative for tenderness Chest Wall Chest: Negative for tenderness Resp normal respiratory effort and normal air movement Effort and Inspection: symmetric chest movement; Negative for respiratory distress Cardio regular rate, regular rhythm and no murmurs Peripheral Pulses: pulses 2+ throughout GI normal to inspection, nondistended, normoactive bowel sounds and non-tender Palpation: Negative for guarding or rebound tenderness present Back/Spine no CVA tenderness and no thoracic nor lumbar tenderness Extremity Extremity Narrative: Right lower extremity: No deformities. No erythema. Knee examination negative varus and valgus no swelling. Upper tibia lateral aspect small less than palm-sized patch of healing ecchymosis with yellowing nature. There is tender along the proximal fibula. Skin is intact. No ankle tenderness. Neuro vas intact distally. General Extremety ED: Negative for edema or tenderness General Extremity: Negative for edema Neuro oriented x3 and no sensory deficits noted Sensorium / Orientation: awake and alert Skin no rashes or lesions noted and no wounds MDM MDM MDM Narrative Medical decision making narrative: Interventions / MDM: Differential diagnosis: Right lower extremity fracture, right lower extremity contusion, DVT Diagnosis considered but do not suspect: N/A My EKG interpretation: N/A Imaging independently reviewed and interpreted by myself: 2 views right tib-fib: No fracture noted. External documents reviewed: N/A Test considered but not ordered:N/A ED course: Patient healing ecchymosis right lower extremity on warfarin. Tender along the fibula therefore x-rays obtained and negative. INR slightly subtherapeutic 1.9. With her pain area anterior lower suspicion for DVT. There is no knee tenderness on exam. Steven wrap was provided for support Tylenol was given with continuation of this. With her concerns, outpatient ultrasound ordered to be obtained the following day for further rule out. Return precautions. All questions were answered. Re-evaluation: stable Disposition discussed with patient/family/significant other: Patient and family Case discussed with consulting clinician: N/A Lab Data Attestation: I reviewed the patient's lab results. Labs: Laboratory Results - last 24 hr 10/13/22 22:20 PT 22.1 H INR 1.9 Radiography Diagnostic Testing: Clinical Impression(s) from Imaging Studies Tibia/Fibula X-Ray 10/13/22 22:14 IMPRESSION: Normal x-ray examination of the tibia and fibula. Electronically Signed: Clay Mattson MD at 22:31 EDT , Discharge Plan Triage Chief Complaint: Lower Extremity Injury ED Provider: Lionel Rodas Dx/Rx/DC Orders Clinical Impression: Contusion of right leg, Chronic anticoagulation Instructions: ED Contusion, Lower Extremity Prescriptions: No Action warfarin 3 mg tablet 3 mg PO DAILY Hold Instructions: Resume on 04/28/21. Rx Instructions: Managed by PCP metoprolol succinate 50 mg tablet extended release 24 hr 50 mg PO DAILY lorazepam 0.5 mg tablet 0.25 mg PO QHS PRN (Reason: ANXIETY) Label Comments: ANXIETY MEDICATION amlodipine 2.5 mg tablet 2.5 mg PO DAILY Qty: 30 12RF Other Ambulatory Orders: Venous Duplex US, Unilateral (Stat) Facility: [facility] - Location: [facility] Ordered By: Dr. Lionel Rodas Primary Care Provider: Doron Cueto Referrals: Doron Cueto DO [Primary Care Provider] - Activity Restrictions/Additional Instructions: X-ray negative. INR 1.9. Return tomorrow for ultrasound of your right leg. Continue Tylenol every 6 hours. Disposition Disposition: Home, Self Care Discharge Date/Time: 10/13/22 23:38
--- NOTE | 2022-10-13 22:14 | RAD_ITS ---
STUDY: X-RAY - RIGHT TIBIA AND FIBULA REASON FOR EXAM: Female, 87 years old. pain TECHNIQUE: 2 view(s) of the tibia and fibula were obtained. COMPARISON: None. FINDINGS: Normal visualized tibia. Normal visualized fibula. The soft tissue structures are unremarkable. RAD/Tibia & Fibula 2 Views IMPRESSION: Normal x-ray examination of the tibia and fibula. Electronically Signed: Clay Mattson MD at 22:31 EDT ,
[2022-10-13] MEDS: Acetaminophen 500 MG Tablet 1000 MG PO (22:32)
[2022-10-13 22:33] LABS: International Normalized Ratio 1.9; Prothrombin Time (Protime)PT. 22.1 SECONDS (11.7-14.9)
[2022-10-13 22:41] VITALS: BMI 34.0
== END 2022-10-13 23:38 | disposition home or self-care (01) ==
PROVIDERS: Emergency Provider Emergency Medicine; PCP Family Medicine; Visit Provider Emergency Medicine
DX: S80.11XA Contusion of right lower leg, initial encounter (principal); I48.91 Unspecified atrial fibrillation; I10 Essential (primary) hypertension; I25.10 Atherosclerotic heart disease of native coronary artery without angina pectoris; Z79.899 Other long term (current) drug therapy; Z79.01 Long term (current) use of anticoagulants; X58.XXXA Exposure to other specified factors, initial encounter
CPT/HCPCS: 73590; 85610; 99283; A4216

== ENCOUNTER → 2023-06-16 | Outpatient (CLI) | payer MEDICARE, SELFPAY ==
[2023-06-16 15:35] LABS: Absolute Lymphocyte Count 1.61 X10^3/uL (0.83-4.51); Absolute Neutrophil Count 4.9 X10^3/uL (2.0-7.7); Basophil# 0.02 X10^3/uL; Basophil% 0.3 % (0-1); Eosinophil# 0.08 X10^3/uL; Eosinophils% 1.1 % (0-5); Hematocrit 46.9 % (37-47); Hemoglobin 14.7 g/dL (12.0-15.0); Lymphocyte # 1.61 X10^3/ul (0.83-4.51); Lymphocyte % 22.3 % (19-41); Mean Corp Hgb Conc 31.3 g/dL (32-36); Mean Corpuscular Hgb 28.2 pg (27.0-32.0); Mean Corpuscular Volume 89.8 fL (81-99); Mean Platelet Vol. 9.8 fl (6.2-12.0); Monocyte# 0.56 X10^3/uL; Monocyte% 7.8 % (0-10); NRBC Flagged by Analyzer 0 % (0-5); Neutrophil # 4.92 X10^3/uL (2.7-7.7); Neutrophil % 68.2 % (47-70); Platelet Count 324 K/mm3 (150-450); RBC Distribution Width CV 13.3 % (11.6-14.6); RBC Distribution Width SD 44.2 fl (35.1-43.9); Red Blood Count 5.22 M/mm3 (4.2-5.4); White Blood Count 7.2 K/mm3 (4.4-11.0)
[2023-06-16 16:03] LABS: Anion Gap 5 (5-15); BUN 16 mg/dL (7-18); BUN/Creat Ratio 21.8 RATIO (10-20); Calcium,Total 8.7 mg/dL (8.5-10.1); Chloride 107 mmol/L (98-107); Creatinine, Serum 0.73 mg/dL (0.55-1.02); EST Glomerular Filtration Rate 80 mL/min (>60); Est Glom Filt Rate - Afr Amer 97 mL/min (>60); Glucose 97 mg/dL (74-106); Magnesium 2.5 mg/dL (1.6-2.6); Potassium 4.3 mmol/L (3.5-5.1); Sodium Level 139 mmol/L (136-145); Troponin-I HS 42 pg/mL (3.0-54.0)
== END | disposition home or self-care (01) ==
LOC: BFHLAB 11:48
PROVIDERS: PCP Family Medicine; Visit Provider Family Medicine
DX: R06.00 Dyspnea, unspecified (principal); I48.92 Unspecified atrial flutter; M79.601 Pain in right arm
CPT/HCPCS: 36415; 80048; 83735; 84443; 84484; 85025

== ENCOUNTER 2023-11-28 18:01 | Emergency (ER) | payer MEDICARE, SELFPAY ==
[2023-11-28 18:02] VITALS: BP 111/73; PULSE 68; RESP 18; TEMP 36.9; O2SAT 100; BMI 28.4
--- NOTE | 2023-11-28 18:06 | EX.ED.DYSGE1 ---
HPI History of Present Illness Chief Complaint: Weakness Narrative Narrative: 88-year-old female with past medical history of hypertension, hyperlipidemia, A-fib/A flutter, aortic valve replacement on Coumadin presents with lightheadedness. She has had intermittent lightheadedness for months but it seemed worse today and she called her family member who then called EMS. She denies chest pain. She states occasionally she will get winded with walking around her home but has not noticed an increase in shortness of breath. No fever or cough. She wears diapers because she has some chronic leakage of urine due to the pessary states today she had loose stool with clear mucus in her pad and was not even aware she had a bowel movement. She has no abdominal or back pain. [facility] Medical History Anxiety Atherosclerosis of coronary artery of [place] heart without angina pectoris Atrial fibrillation and flutter Atrial flutter Chest pain DDD (degenerative disc disease) Essential hypertension History of left heart catheterization (LHC) (~09/15/12) Hyperlipidemia Hypothyroidism Lightheadedness Osteoarthritis Trigeminal neuralgia Home Medications ?Medication ?Instructions ?Recorded ?Last Taken ?Type lorazepam 0.5 mg tablet 0.25 mg PO QHS PRN ANXIETY 12/28/20 Unknown History warfarin 3 mg tablet 3 mg PO DAILY 12/28/20 Unknown History amlodipine 2.5 mg tablet 2.5 mg PO DAILY #30 tabs 04/10/21 Unknown Rx metoprolol succinate 50 mg 50 mg PO DAILY 05/31/21 Unknown History tablet,extended release 24 hr cephalexin 500 mg capsule 500 mg PO BID 7 days #14 caps 11/28/23 Unknown Rx Allergy/AdvReac Type Severity Reaction Status Date / Time citalopram (From Celexa) Allergy Intermediate Unknown Verified 10/13/22 21:57 gabapentin Allergy Intermediate Unknown Verified 10/13/22 21:57 trazodone Allergy Intermediate Nausea/Vom/ Verified 10/13/22 21:57 Diarrhea buspirone HCl (From BuSpar) Allergy Upset Verified 10/13/22 21:57 Stomach flecainide (Flecainide) Allergy Shortness Verified 10/13/22 21:57 of breath levothyroxine sodium (From Allergy Nausea Verified 10/13/22 21:57 Synthroid) meperidine HCl (From Demerol) Allergy Other Verified 10/13/22 21:57 sertraline HCl (From Zoloft) Allergy Other Verified 10/13/22 21:57 tramadol Allergy Nausea Verified 10/13/22 21:57 Family History Sister Breast cancer CVA (cerebral vascular accident) Diabetes Mother CVA (cerebral vascular accident) Hypertension Brother Hypertension Other Paroxysmal atrial fibrillation with RVR Surgical History H/O tricuspid valve repair (~07/20/10) History of aortic valve replacement with bioprosthetic valve (~07/20/10) History of appendectomy History of cardioversion (07/06/10) History of open reduction and internal fixation (ORIF) procedure Social History Smoking Status: Never smoker alcohol intake: never substance use type: does not use caffeine: No ROS ROS ED ROS Narrative Constitutional: Negative for fever, chills, malaise. CVS: Negative for palpitations, chest pain, syncope. Respiratory: Negative for shortness of breath, cough. GI: Negative for abdominal pain, nausea, vomiting, diarrhea, constipation, melena, hematochezia. : Negative for dysuria, hematuria or frequency. Neuro: Negative for headache, motor/sensory dysfunction. Skin: Negative for rash, abscess, or wound. Musc: Negative for joint pain, swelling, trauma. Heme: Negative for easy bruising, bleeding, lymphadenopathy. EXAM Physical Exam Narrative Exam Narrative: CONST: Patient sitting in no acute distress. EYES: Normal inspection. NECK: Normal inspection. RESP: No respiratory distress, CTAB. CVS: Regular rate and rhythm, no murmur, no gallop. ABD: Soft and nontender, no guarding or rebound, nondistended. SKIN: Color normal, no rash, warm, dry, intact. EXTREMITIES: Normal appearance, no pedal edema. NEURO: Alert and answering questions appropriately. PSYCH: Normal affect. Const Vital Signs: 11/28/23 18:02 11/28/23 18:24 11/28/23 18:43 Temperature 98.4 F Temperature Source Oral Pulse Rate 68 Pulse Rate [Lying] 89 Pulse Rate [Sitting (for 1 minute prior to obtaining)] 76 Pulse Rate [Standing (for 1 minute prior to obtaining)] 113 H Respiratory Rate 18 Respiratory Effort Normal Respiratory Pattern Normal Blood Pressure 111/73 Blood Pressure [Lying] 134/78 H Blood Pressure [Sitting (for 1 minute prior to obtaining)] 141/111 H Blood Pressure [Standing (for 1 minute prior to obtaining)] 143/91 H Blood Pressure Mean 85 Blood Pressure Mean [Lying] 96 Blood Pressure Mean [Sitting (for 1 minute prior to obtaining)] 121 Blood Pressure Mean [Standing (for 1 minute prior to obtaining)] 108 Pulse Ox 100 Oxygen Delivery Method Room Air 11/28/23 19:25 Temperature 98.6 F Temperature Source Pulse Rate 82 Pulse Rate [Lying] Pulse Rate [Sitting (for 1 minute prior to obtaining)] Pulse Rate [Standing (for 1 minute prior to obtaining)] Respiratory Rate 24 H Respiratory Effort Respiratory Pattern Blood Pressure 136/84 H Blood Pressure [Lying] Blood Pressure [Sitting (for 1 minute prior to obtaining)] Blood Pressure [Standing (for 1 minute prior to obtaining)] Blood Pressure Mean 101 Blood Pressure Mean [Lying] Blood Pressure Mean [Sitting (for 1 minute prior to obtaining)] Blood Pressure Mean [Standing (for 1 minute prior to obtaining)] Pulse Ox 97 Oxygen Delivery Method MDM MDM MDM Narrative Medical decision making narrative: History gathered from: Patient and family members Differential: Pneumonia, UTI, electrolyte abnormality, cardiac etiology Patient has ongoing lightheadedness which seemed worse today. She appears well and nontoxic. Vital signs stable. She is in rate controlled A-fib in the 80s. She is on a beta-krysten and Coumadin. CBC and BMP are unremarkable. INR is therapeutic at 2.5. UA is positive for UTI. CXR shows no acute process and troponin is in normal range. She is fully alert and oriented and I do not think a CT brain scan is indicated. Orthostatic vital signs had some variability but the patient is not symptomatic. She ambulated in hallway with a walker independently. She uses a cane at home and lives with her daughter who is at bedside and they are both comfortable going home. She was given the first dose of Keflex for UTI and return precautions discussed. She was discharged in stable condition. Lab Data Attestation: I reviewed the patient's lab results. Labs: Laboratory Results - last 24 hr 11/28/23 11/28/23 18:36 18:38 WBC 8.1 RBC 5.33 Hgb 15.2 H Hct 47.0 MCV 88.2 MCH 28.5 MCHC 32.3 RDW Std Deviation 43.5 RDW Coeff of Estuardo 13.5 Plt Count 232 MPV 9.7 Immature Gran % (Auto) 0.400 Neut % (Auto) 63.2 Lymph % (Auto) 24.5 [place] % (Auto) 10.0 Eos % (Auto) 1.5 Baso % (Auto) 0.4 Absolute Neuts (auto) 5.1 Absolute Lymphs (auto) 1.98 Nucleated RBC % 0 PT 26.8 H INR 2.5 Sodium 138 Potassium 3.7 Chloride 106 Carbon Dioxide 30.0 Anion Gap 2 L BUN 20 H Creatinine 0.82 Estim Creat Clear Calc 44.49 Est GFR (MDRD) Af Amer 84 Est GFR (MDRD) Non-Af 70 BUN/Creatinine Ratio 24.2 H Glucose 103 Calcium 9.1 Troponin I High Sens 41 Urine Color Yellow Urine Clarity Sl. Cloudy Urine pH 6.5 Ur Specific [place] 1.010 Urine Protein Negative Urine Glucose (UA) Normal Urine Ketones Negative Urine Occult Blood 25 H Urine Nitrite Positive H Urine Bilirubin Negative Urine Urobilinogen Normal Ur Leukocyte Esterase 100 H Urine RBC 0-5 SEEN Urine WBC 0-5 SEEN Ur Squamous Epith Cells 0 SEEN Urine Bacteria 4+ Urine Mucus 0 SEEN Radiography Diagnostic Testing: Clinical Impression(s) from Imaging Studies Chest X-Ray 11/28/23 18:25 IMPRESSION: Mild chronic interstitial changes in left lower lobe. No acute cardiopulmonary pathology Electronically Signed: Stephan Arizmendi MD at 18:54 EDT Reading Location ID and State: [facility] / [place] Tel , Service support , ED attending interpretation of 1-view chest x-ray shows normal heart size, no acute infiltrate. Discharge Plan Triage Chief Complaint: Weakness ED Midlevel Provider: Char Manning ED Provider: Lionel Rodas Dx/Rx/DC Orders Clinical Impression: Lightheadedness, Acute UTI Instructions: Urinary Tract Infections in Women Prescriptions: New cephalexin 500 mg capsule 500 mg PO BID 7 Days Qty: 14 0RF No Action warfarin 3 mg tablet 3 mg PO DAILY Rx Instructions: Managed by PCP metoprolol succinate 50 mg tablet extended release 24 hr 50 mg PO DAILY lorazepam 0.5 mg tablet 0.25 mg PO QHS PRN (Reason: ANXIETY) Patient Comments: ANXIETY MEDICATION amlodipine 2.5 mg tablet 2.5 mg PO DAILY Qty: 30 12RF Primary Care Provider: Doron Cueto Referrals: Doron Cueto, [Primary Care Provider] - Activity Restrictions/Additional Instructions: You have a urinary tract infection (UTI). Take all the antibiotics, drink plenty of fluids, return if your symptoms worsen. Print Language: Mohawk Disposition Disposition: Home, Self Care Discharge Date/Time: 11/28/23 19:54
--- NOTE | 2023-11-28 18:16 | EKG12_ITS ---
Test Reason : DYSRHYTHMIA Blood Pressure : / mmHG Vent. Rate : 084 BPM Atrial Rate : 263 BPM P-R Int : 000 ms QRS Dur : 096 ms QT Int : 400 ms P-R-T Axes : 249 015 -77 degrees QTc Int : 472 ms Atrial flutter with variable A-V block Left ventricular hypertrophy with repolarization abnormality ( Sokolow-Mohr ) Abnormal ECG Confirmed by Brian Ramirez ([id number]), society editor MISTI TERRY ([id number]) on 12/02/2023 6:01:39 AM Referred By: KAITY Confirmed By:Brian Ramirez
--- NOTE | 2023-11-28 18:25 | RAD_ITS ---
STUDY: X-RAY CHEST REASON FOR EXAM: Female, 88 years old. weakness TECHNIQUE: AP portable COMPARISON: None. FINDINGS: Minor chronic interstitial thickening in the left lower lobe.. There is no demonstrated pleural abnormality. Normal size heart. Normal mediastinum and sagar. Normal visualized pulmonary arteries. Mildly calcified aortic arch and descending thoracic aorta. Postop change status post median sternotomy and aortic valve replacement. Left atrial clip is noted Normal visualized thoracic spine. Normal visualized ribs, clavicles, and shoulders. There is no demonstrated abnormality of the visualized soft tissue structures of the upper abdomen. RAD/Chest 1 View (Portable) IMPRESSION: Mild chronic interstitial changes in left lower lobe. No acute cardiopulmonary pathology Electronically Signed: Stephan Arizmendi MD at 18:54 EDT ,
[2023-11-28 18:43] VITALS: BP 134/78; BP 141/111; BP 143/91; PULSE 113; PULSE 76; PULSE 89
[2023-11-28 18:50] LABS: Mucous, Urine 0 SEEN /hpf (<or=2+); Squamous Epithelial Cells - UA 0 SEEN /hpf (5-10)
[2023-11-28 18:54] LABS: Absolute Lymphocyte Count 1.98 X10^3/uL (0.83-4.51); Absolute Neutrophil Count 5.1 X10^3/uL (2.0-7.7); Basophil# 0.03 X10^3/uL; Basophil% 0.4 % (0-1); Eosinophil# 0.12 X10^3/uL; Eosinophils% 1.5 % (0-5); Hemoglobin 15.2 g/dL (12.0-15.0); Lymphocyte # 1.98 X10^3/ul (0.83-4.51); Lymphocyte % 24.5 % (19-41); Mean Corp Hgb Conc 32.3 g/dL (32-36); Mean Corpuscular Hgb 28.5 pg (27.0-32.0); Mean Corpuscular Volume 88.2 fL (81-99); Mean Platelet Vol. 9.7 fl (6.2-12.0); Monocyte# 0.81 X10^3/uL; NRBC Flagged by Analyzer 0 % (0-5); Neutrophil % 63.2 % (47-70); Platelet Count 232 K/mm3 (150-450); RBC Distribution Width CV 13.5 % (11.6-14.6); RBC Distribution Width SD 43.5 fl (35.1-43.9); Red Blood Count 5.33 M/mm3 (4.2-5.4); White Blood Count 8.1 K/mm3 (4.4-11.0)
[2023-11-28 19:00] LABS: International Normalized Ratio 2.5; Prothrombin Time (Protime)PT. 26.8 SECONDS (11.7-14.9)
[2023-11-28 19:00] LABS: Color, Urine Yellow (Yellow); Glucose, Dipstick Normal (Normal); Ketone-Dipstick Negative (Negative); Leukocyte Esterase-Dipstick 100 /ul (Negative); Nitrite-Dipstick Positive (Negative); Occult Blood-Urine 25 /ul (Negative); Protein-Dipstick Negative (Negative); Urine Bilirubin Dipstick Negative (Negative); Urine Clarity Sl. Cloudy (Clear); Urine Urobilinogen Normal (Normal); Urine pH 6.5 (5.0 - 8.0)
[2023-11-28 19:10] LABS: Bacteria 4+ /hpf (None Seen); White Blood Cells 0-5 SEEN /hpf (0-5)
[2023-11-28 19:11] LABS: Red Blood Cells-Urine 0-5 SEEN /hpf (0-5)
[2023-11-28 19:11] LABS: Anion Gap 2 (5-15); BUN 20 mg/dL (7-18); BUN/Creat Ratio 24.2 RATIO (10-20); Calcium,Total 9.1 mg/dL (8.5-10.1); Chloride 106 mmol/L (98-107); Creatinine, Serum 0.82 mg/dL (0.55-1.02); EST Glomerular Filtration Rate 70 mL/min (>60); Est Glom Filt Rate - Afr Amer 84 mL/min (>60); Estimated Creatinine Clearance 44.49 ml/min; Glucose 103 mg/dL (74-106); Potassium 3.7 mmol/L (3.5-5.1); Sodium Level 138 mmol/L (136-145); Troponin-I HS 41 pg/mL (3.0-54.0)
[2023-11-28] MEDS: Cephalexin 250 MG Capsule 500 MG PO (19:24)
[2023-11-28 19:25] VITALS: BP 136/84; PULSE 82; RESP 24; TEMP 37; O2SAT 97
== END 2023-11-28 19:54 | disposition home or self-care (01) ==
PROVIDERS: Physician Assistant; Emergency Provider Emergency Medicine; PCP Family Medicine; Visit Provider Emergency Medicine
DX: R53.1 Weakness (principal); I48.91 Unspecified atrial fibrillation; R42 Dizziness and giddiness; N39.0 Urinary tract infection, site not specified; I10 Essential (primary) hypertension; E78.5 Hyperlipidemia, unspecified; Z95.5 Presence of coronary angioplasty implant and graft; Z79.01 Long term (current) use of anticoagulants; I25.10 Atherosclerotic heart disease of native coronary artery without angina pectoris; F41.9 Anxiety disorder, unspecified; Z79.899 Other long term (current) drug therapy; Z90.49 Acquired absence of other specified parts of digestive tract
CPT/HCPCS: 71045; 80048; 81001; 84484; 85025; 85610; 87086; 87088; 87186; 93005; 99285; P9612; A4216

== ENCOUNTER → 2024-11-17 | Outpatient (CLI) | payer OTHER, SELFPAY ==
[2024-11-17 16:01] LABS: Absolute Lymphocyte Count 1.86 X10^3/uL (0.83-4.51); Absolute Neutrophil Count 5.8 X10^3/uL (2.0-7.7); Basophil# 0.04 X10^3/uL; Basophil% 0.5 % (0-1); Eosinophil# 0.07 X10^3/uL; Eosinophils% 0.8 % (0-5); Hematocrit 45.4 % (37-47); Hemoglobin 14.6 g/dL (12.0-15.0); Lymphocyte # 1.86 X10^3/ul (0.83-4.51); Lymphocyte % 22.1 % (19-41); Mean Corp Hgb Conc 32.2 g/dL (32-36); Mean Corpuscular Hgb 29.5 pg (27.0-32.0); Mean Corpuscular Volume 91.7 fL (81-99); Mean Platelet Vol. 10.1 fl (6.2-12.0); Monocyte# 0.64 X10^3/uL; Monocyte% 7.6 % (0-10); NRBC Flagged by Analyzer 0 % (0-5); Neutrophil % 68.8 % (47-70); Platelet Count 271 K/mm3 (150-450); RBC Distribution Width CV 13.7 % (11.6-14.6); RBC Distribution Width SD 46.6 fl (35.1-43.9); Red Blood Count 4.95 M/mm3 (4.2-5.4); White Blood Count 8.4 K/mm3 (4.4-11.0)
[2024-11-17 17:41] LABS: ALB/GLOB Ratio 1.4 RATIO (0.9-2.4); AST(SGOT) 24 U/L (<=31); Alanine Aminotransfer ALT/SGPT 9 U/L (<=34); Albumin, Serum 4.3 g/dL (3.4-4.8); Alkaline Phosphatase 63 U/L (35-104); Anion Gap 12 (5-15); BUN 19 mg/dL (4-19); BUN/Creat Ratio 21.8 RATIO (10-20); Calcium,Total 9.5 mg/dL (7.6-11.0); Carbon Dioxide 24.2 mmol/L (21.0-32.0); Chloride 104 mmol/L (98-108); Creatinine, Serum 0.86 mg/dL (0.70-1.20); EST Glomerular Filtration Rate 65 (>60); Globulin 3.1 g/dL (2.2-4.2); Glucose 85 mg/dL (70-99); Potassium 4.8 mmol/L (3.3-5.1); Protein, Total 7.4 g/dL (5.9-8.4); Sodium Level 140 mmol/L (133-145); Total Bilirubin 0.57 mg/dL (0.00-1.30)
== END | disposition home or self-care (01) ==
LOC: BFHLAB 12:08
PROVIDERS: PCP Family Medicine; Visit Provider Family Medicine
DX: I25.10 Atherosclerotic heart disease of native coronary artery without angina pectoris (principal); R35.0 Frequency of micturition; R53.83 Other fatigue
CPT/HCPCS: 36415; 80053; 84443; 85025

== ENCOUNTER → 2024-11-22 | Outpatient (CLI) | payer MEDICARE, MEDICAID, SELFPAY ==
[2024-11-22 08:56] LABS: Color, Urine Yellow (Yellow); Glucose, Dipstick Normal (Normal); Ketone-Dipstick Negative (Negative); Leukocyte Esterase-Dipstick Negative /ul (Negative); Nitrite-Dipstick Negative (Negative); Occult Blood-Urine 250 /ul (Negative); Protein-Dipstick 30 mg/dl (Negative); Specific Gravity, Urine 1.025 (1.002-1.030); Urine Bilirubin Dipstick Negative (Negative); Urine Clarity Clear (Clear); Urine Urobilinogen Normal (Normal)
== END | disposition home or self-care (01) ==
PROVIDERS: PCP Family Medicine; Referring Provider Family Medicine; Visit Provider Family Medicine
DX: I25.10 Atherosclerotic heart disease of native coronary artery without angina pectoris (principal); R53.83 Other fatigue; R35.0 Frequency of micturition
CPT/HCPCS: 81002; 87086; 87088

== ENCOUNTER 2025-02-22 09:40 | Inpatient (IN) | payer MEDICARE, MEDICAID, SELFPAY ==
[2025-02-22] VITALS (29 sets, daily range): BP systolic 95–139; BP diastolic 37–98; PULSE 53–133; RESP 12–38; TEMP 36.6–37.1; O2SAT 78–99; BMI 28.6; BMI 28.8
--- NOTE | 2025-02-22 10:00 | EKG12_ITS ---
Test Reason : SOB Blood Pressure : */* mmHG Vent. Rate : 57 BPM Atrial Rate : 57 BPM P-R Int : 160 ms QRS Dur : 92 ms QT Int : 454 ms P-R-T Axes : 10 36 -40 degrees QTcB Int : 441 ms Sinus bradycardia with sinus arrhythmia Left ventricular hypertrophy with repolarization abnormality ( Sokolow-Mohr ) Abnormal ECG Confirmed by KAYLA HOUSER, SHRUTHI ([id number]), editorial cartoonist KATTY CABRERA ([id number]) on 02/23/2025 9:39:43 AM Referred By: MARICEL Confirmed By: SHRUTHI GARZA MD
--- NOTE | 2025-02-22 10:02 | CT_ITS ---
PROCEDURE: CTA CHEST W/WO CONTRAST 02/22/2025 REASON FOR EXAM: HEMOPTYSIS, HYPOXIA TECHNIQUE: Procedure Code: [id number] Modality: CT Procedure: CTA CHEST W/WO CONTRAST Multiplanar Sagittal and Coronal images were obtained. 3D post processing was performed CONTRAST: Isovue-300 VOLUME: 100 mL One or more dose reduction techniques were used (e.g., Automated exposure control, adjustment of the mA and/or kV according to patient size, use of iterative reconstruction technique). RADIATION DOSE SUMMARY: CTDlvol: 8.6 mGy DLP: 376.67 mGycm COMPARISON: None FINDINGS: Hardware: None Lymph nodes: Pretracheal lymph node measuring 1.3 cm. Heart: Coronary artery calcification. There is dilatation of the left atrium. Prior aortic valve replacement. Thoracic Aorta: No thoracic aortic aneurysm or dissection. Atherosclerotic calcification of the aortic arch. Pulmonary Vessels: No evidence of pulmonary embolism. Lungs and Airways: Diffuse bilateral patchy areas of airspace disease. This most likely represents either bilateral multifocal infiltrates versus CHF. Pleura: Minimal left pleural effusion. Upper Abdomen: Unremarkable Bones: Degenerative changes of the thoracic spine. CT/CTA Chest W/WO Contrast IMPRESSION: No evidence of pulmonary embolism. Multifocal bilateral areas of airspace disease suggestive of either bilateral m ultifocal pneumonia versus congestive heart failure. Follow-up recommended. Reading Location: [place] [id number]
--- NOTE | 2025-02-22 10:07 | ED.VIS.DYS ---
HPI History of Present Illness Chief Complaint: Shortness of Breath Informant: patient and family Narrative Narrative: Patient is an 89-year-old female with history of atrial flutter, long-term anticoagulation on Coumadin, HTN, CAD and tricuspid valve repair with aortic valve replacement in 2010 presenting with worsening shortness of breath and hemoptysis. Patient states she had some low back pain on Friday and started feel worse on Friday, 3 days ago. Yesterday she was not doing good and started coughing. She started having hemoptysis. Had worsening symptoms today and coughing up a large amount of bright red blood (denies clots or sputum). Came in for further evaluation. States her last INR was normal but has been a couple weeks and she last had it checked. Denies any fevers. Denies feeling lightheaded or has chest pain. Denies any new swelling of her legs. Denies any recent URI symptoms. Does not wear home oxygen. Upon arrival to 82% in triage. Does feel short of breath. No other complaints or concerns at this time. No associated numbness or tingling [facility] Medical History History of left heart catheterization (LHC) (~09/15/12) Atrial fibrillation and flutter Trigeminal neuralgia Atrial flutter Anxiety DDD (degenerative disc disease) Hyperlipidemia Osteoarthritis Essential hypertension Hypothyroidism Atherosclerosis of coronary artery of [place] heart without angina pectoris Lightheadedness Chest pain Home Medications Medication Instructions Recorded Last Taken Type lorazepam 0.5 mg tablet 0.25 mg PO QHS PRN ANXIETY 12/28/20 02/21/25 History warfarin 3 mg tablet 3 mg PO DAILY atrial fibrillation 12/28/20 02/21/25 History amlodipine 2.5 mg tablet 2.5 mg PO DAILY hypertension #30 04/10/21 02/21/25 Rx tabs metoprolol succinate 50 mg 50 mg PO DAILY hypertension 05/31/21 02/21/25 History tablet,extended release 24 hr Allergy/AdvReac Type Severity Reaction Status Date / Time citalopram (From Celexa) Allergy Intermediate Unknown Verified 02/22/25 09:41 gabapentin Allergy Intermediate Unknown Verified 02/22/25 09:41 trazodone Allergy Intermediate Nausea/Vom/ Verified 02/22/25 09:41 Diarrhea buspirone HCl (From BuSpar) Allergy Upset Verified 02/22/25 09:41 Stomach flecainide (Flecainide) Allergy Shortness Verified 02/22/25 09:41 of breath levothyroxine sodium (From Allergy Nausea Verified 10/13/22 21:57 Synthroid) meperidine HCl (From Demerol) Allergy Other Verified 02/22/25 09:41 sertraline HCl (From Zoloft) Allergy Other Verified 02/22/25 09:41 tramadol Allergy Nausea Verified 02/22/25 09:41 Family History Sister Breast cancer CVA (cerebral vascular accident) Diabetes Mother CVA (cerebral vascular accident) Hypertension Brother Hypertension Other Paroxysmal atrial fibrillation with RVR Surgical History History of aortic valve replacement with bioprosthetic valve (~07/20/10) H/O tricuspid valve repair (~07/20/10) History of cardioversion (07/06/10) History of open reduction and internal fixation (ORIF) procedure History of appendectomy Social History Smoking Status: Never smoker alcohol intake: never substance use type: does not use caffeine: No ROS ROS ED Constitutional Constitutional ED: Denies chills or fever(s) ENT ENT ED: Denies rhinorrhea or sore throat Cardiovascular Cardiovascular: Denies chest pain or palpitations Respiratory/Chest Respiratory/Chest: Reports cough, dyspnea and other Details: Reports hemoptysis ; Denies sputum Gastrointestinal Gastrointestinal: Denies abdominal pain or vomiting Integumentary Denies rash Neurologic Neurologic: Reports weakness; Denies headache(s) Hematologic/Lymphatic Hematologic/Lymphatic: Reports easy bleeding and easy bruising EXAM Physical Exam Const Vital Signs: 02/22/25 09:41 02/22/25 09:43 02/22/25 09:50 Temperature 98.7 F 98.7 F Temperature Source Oral Oral Pulse Rate 64 61 Respiratory Rate 24 H 38 H Respiratory Effort Short of Breath Labored Respiratory Depth Normal Respiratory Pattern Tachypnea Blood Pressure 120/55 L 127/67 H Blood Pressure Mean 76 87 Pulse Ox 82 78 Oxygen Delivery Method Room Air Room Air Nasal Cannula Oxygen Flow Rate (L/min) 5 Fraction of Inspired Oxygen (FIO2) 02/22/25 10:00 02/22/25 10:43 02/22/25 11:00 Temperature 98.8 F 98 F Temperature Source Oral Oral Pulse Rate 116 H 66 Respiratory Rate 36 H 28 H Respiratory Effort Respiratory Depth Respiratory Pattern Blood Pressure 109/77 109/77 Blood Pressure Mean 87 87 Pulse Ox 91 95 95 Oxygen Delivery Method Nasal Cannula Nasal Cannula Nasal Cannula Oxygen Flow Rate (L/min) 5 6 Fraction of Inspired Oxygen (FIO2) 02/22/25 11:25 02/22/25 11:30 02/22/25 12:00 Temperature 98.5 F Temperature Source Oral Pulse Rate 133 H Respiratory Rate 35 H Respiratory Effort Respiratory Depth Respiratory Pattern Blood Pressure 117/78 Blood Pressure Mean 91 Pulse Ox 97 94 Oxygen Delivery Method Airvo Oxygen Flow Rate (L/min) Fraction of Inspired Oxygen (FIO2) 55 55 02/22/25 12:28 Temperature Temperature Source Pulse Rate 56 L Respiratory Rate 31 H Respiratory Effort Respiratory Depth Respiratory Pattern Blood Pressure Blood Pressure Mean Pulse Ox 96 Oxygen Delivery Method Oxygen Flow Rate (L/min) Fraction of Inspired Oxygen (FIO2) 50 Positive well nourished and well developed Constitutional Narrative: Mild distress secondary to increased work of breathing General Appearance ED: well developed; Negative for pallor HEENT Reports dry mucous membranes Mouth ED: Yes dry mucous membranes Mouth: dry mucous membranes Eyes PERRL Neck supple and no JVD Resp Resp Narrative: Tachypnea. Crackles throughout more pronounced at the bases. Auscultation: Negative for rhonchi or wheezes Cardio Cardio Narrative: Intermittently tachycardic but other times bradycardic Rate: tachycardic Rhythm: abnormal rhythm irregularly irregular GI non-tender and non-distended Extremity normal to inspection General Extremety ED: Negative for edema General Extremity: Negative for edema Neuro oriented x3 Sensorium / Orientation: alert Motor Exam: general weakness Psych mental status grossly normal Skin no wounds and skin turgor normal General Skin Exam: Negative for pallor MDM MDM MDM Narrative Medical decision making narrative: Patient evaluated for worsening shortness of breath and cough with associated hemoptysis. Differential includes CHF exacerbation, diffuse alveolar hemorrhage, symptomatic anemia, coagulopathy, supratherapeutic INR, pneumonia, pulmonary emboli. Patient hypoxic and placed on 5 L nasal cannula. Her oxygenation improved however she is in transition to BiPAP which she does not tolerate for concern of fluid overload. She does tolerate Airvo quite well and her oxygenation does improve as well as her work of breathing. She still mildly tachypneic. CBC shows a leukocytosis at a level of 13.3, her hemoglobin is normal at this time. Coumadin therapeutic with an INR of 2.6. BMP largely normal. Lactate elevated at 3.3 but is unclear if it is from her hypoxia causing ischemia of tissue versus sepsis. High since he troponin 27. EKG does not show acute ischemic changes. proBNP elevated at 4425. CTA of the chest shows no PE but multifocal bilateral areas of airspace disease which is suggestive either multifocal pneumonia versus CHF flare. Picture is mixed between CHF exacerbation, diffuse alveolar hemorrhage or infectious etiology. Procalcitonin is added on which is only minimally elevated at 0.13. Case discussed with pulmonology, Dr. Arce. He is concerned about the possibly diffuse alveolar hemorrhage and does recommend transfer to an IR capable facility especially given report of hemoptysis prior to arrival. Case is discussed with ICU at [facility], Dr. Rory Del Toro, who will accept the patient on the wait list. States that she decompensates to reverse her coagulopathy/INR, give nebulized TXA and call them back to see if they can get her up there faster. We did also reach out to [facility] However they have an extended wait list. In the meantime we will admit the patient to our ICU. Patient is given broad-spectrum antibiotics for commune acquired pneumonia as well as Lasix. Is not given aggressive IV fluids in the emergency room for concern of possible volume overload. Likely needs an echocardiogram to further evaluate the cause of her acute clinical presentation. Patient does not have any further hemoptysis in the emergency room. Is amenable to intubation if needed for any worsening respiratory compromise. Understands that she does develop massive hemoptysis she could rapidly worsen and we do not have IR available here. While in the ER patient has intermittent runs of tachyarrhythmia likely A-fib with RVR but then quickly goes back to sinus rhythm versus bradycardic rate. Is not given beta-blockade at this time given her fluctuation I suspect as she has improvement of her oxygenation these will occur less frequently. Lab Data Attestation: I reviewed the patient's lab results. Labs: Laboratory Results - last 24 hr 02/22/25 02/22/25 02/22/25 09:57 11:05 12:10 WBC 13.3 H RBC 4.29 Hgb 12.7 Hct 38.3 MCV 89.3 MCH 29.6 MCHC 33.2 RDW Std Deviation 44.4 H RDW Coeff of [place] 13.6 Plt Count 222 MPV 10.1 Immature Gran % (Auto) 0.500 Neut % (Auto) 88.5 H Lymph % (Auto) 6.7 L [place] % (Auto) 4.2 Eos % (Auto) 0.0 Baso % (Auto) 0.1 Absolute Neuts (auto) 11.8 H Absolute Lymphs (auto) 0.89 Nucleated RBC % 0 PT 28.1 H INR 2.6 Sodium 138 Potassium 3.9 Chloride 104 Carbon Dioxide 20.3 L Anion Gap 14 BUN 29 H Creatinine 1.16 Estim Creat Clear Calc 30.87 L Est GFR (MDRD) Non-Af 45 L BUN/Creatinine Ratio 24.8 H Glucose 198 H Lactic Acid 3.3 H* Calcium 8.7 Total Bilirubin 1.93 H Direct Bilirubin 0.68 H AST 26 ALT 10 Alkaline Phosphatase 48 Troponin T High Sens 27 H Troponin T Hi Sens 2 Hr 27 H NT pro BNP II 4425 H Total Protein 6.9 Albumin 3.8 Globulin 3.2 Procalcitonin 0.13 H ABG Data ABG results: ABG 02/22/25 10:19 Specimen Type DONNA Sample Site Not entered O2 % 5.0 VBG pH 7.48 H VBG pO2 44 H VBG HCO3 27 H VBG Total CO2 28 VBG O2 Sat (Calc) 83 H VBG Base Excess 3 POC Mix VBG pCO2 Pt Tmp 36.0 L O2 Delivery Device Not entered Radiography Diagnostic Testing: Clinical Impression(s) from Imaging Studies Chest CTA 02/22/25 10:02 IMPRESSION: No evidence of pulmonary embolism. Multifocal bilateral areas of airspace disease suggestive of either bilateral multifocal pneumonia versus congestive heart failure. Follow-up recommended. Reading Location: [place] [address] Rhythm Strip Rhythm Strip: Sinus Rhythm Rate: 57 Ectopy: None EKG Initial EKG: Attestation: I personally reviewed and interpreted this EKG as follows: Interpretation: Sinus Bradycardia Comments: Sinus bradycardia with sinus arrhythmia rate of 57 bpm Normal axis LVH with repolarization abnormalities Nonspecific T wave depression in 2, aVF, V5 through V6 Compared to prior EKG on 11/28/[address] segment changes however patient previously was in atrial flutter with variable AV block Management Discussion w/another healthcare provider: Hospitalist and Peanut Vendor (Pulmonology, ICU at [facility]) Critical Care Time Critical Care Time: Yes Critical care time (excluding procedures): 30-74 minutes (48), Discussing w/Patient &/or Family/Lead Etl Developer, Discussing w/Consultants and Arranging Admission or Transfer Discharge Plan Dx/Rx/DC Orders Clinical Impression: Pneumonia, Atrial fibrillation and flutter, Massive hemoptysis, Diastolic CHF, acute, Chronic anticoagulation, Elevated lactic acid level, Acute hypoxemic respiratory failure Disposition Disposition: Acute Care Hospital [facility] Discharge Date/Time: 02/22/25 14:47
[2025-02-22 10:18] LABS: Hematocrit 38.3 % (37-47); Hemoglobin 12.7 g/dL (12.0-15.0); Immature Granulocytes Count 0.070 X10^3/uL (0.0-0.0); Mean Corp Hgb Conc 33.2 g/dL (32-36); Mean Corpuscular Volume 89.3 fL (81-99); Mean Platelet Vol. 10.1 fl (6.2-12.0); NRBC Flagged by Analyzer 0 % (0-5); Platelet Count 222 K/mm3 (150-450); RBC Distribution Width CV 13.6 % (11.6-14.6); RBC Distribution Width SD 44.4 fl (35.1-43.9); Red Blood Count 4.29 M/mm3 (4.2-5.4); White Blood Count 13.3 K/mm3 (4.4-11.0)
[2025-02-22 10:23] LABS: FI02 5.0; SITE Not entered; VBG BASE EXCESS 3 mmol/L (-1.0-3.5); VBG PO2 44 mmHg (25-40); VBG SO2 83 % (50-70); VBG TCO2 28 mmol/L (23-33)
[2025-02-22 10:43] LABS: Anion Gap 14 (5-15); BUN 29 mg/dL (4-19); BUN/Creat Ratio 24.8 RATIO (10-20); Calcium,Total 8.7 mg/dL (7.6-11.0); Carbon Dioxide 20.3 mmol/L (21.0-32.0); Chloride 104 mmol/L (98-108); Estimated Creatinine Clearance 30.87 ml/min (50-250); Glucose 198 mg/dL (70-99); Potassium 3.9 mmol/L (3.3-5.1)
[2025-02-22 10:44] LABS: Prothrombin Time (Protime)PT. 28.1 SECONDS (11.7-14.9)
[2025-02-22 10:49] LABS: AST(SGOT) 26 U/L (<=31); Alanine Aminotransfer ALT/SGPT 10 U/L (<=34); Albumin, Serum 3.8 g/dL (3.4-4.8); Alkaline Phosphatase 48 U/L (35-104); Bilirubin, Direct 0.68 mg/dL (0.00-0.30); Globulin 3.2 g/dL (2.2-4.2); Pro- Brain NATRIURETIC PEPTIDE 4425 pg/mL (<=1800); Troponin T High Sensitivity 27 ng/L (<=14)
--- NOTE | 2025-02-22 11:25 | CPS ---
Patient unable to tolerate bipap, dr alvarez aware.
[2025-02-22 11:41] LABS: Procalcitonin 0.13 ng/mL (<=0.10)
[2025-02-22] MEDS: Azithromycin 500 MG in 0.9% Normal Saline (250mL Bag) 250 ML 250 MG IV (11:52)
--- NOTE | 2025-02-22 12:41 | PCM.HP.STD ---
HPI - General General Date of Admission: 02/22/25 Date of Service: 02/22/25 Chief Complaint: Hemoptysis HPI Narrative OFELIA SHARPE, is a 89 F with past medical history significant paroxysmal atrial fibrillation on systemic anticoagulation with warfarin presented to the emergency department with hemoptysis. Patient symptoms started 3 days prior to admission with shortness of breath which had gotten progressively worse. Her shortness of breath was brought on with minimal activity. She denied any subjective fever no chills. On the morning of her presentation she did develop significant cough with blood in the sputum. Patient denied seeing any clots. In view of the persistent symptoms she called the squad who upon arrival found patient to be hypoxic with oxygen saturation in the low 80s. Was brought to the emergency department. Underwent CTA which was negative for PE however she was found to have Multifocal bilateral areas of airspace disease suggestive of either bilateral multifocal pneumonia versus congestive heart failure.. The meat and seafood clerk on-call was notified recommended for patient to be transferred to a facility with IR capability. Call was placed to [facility] patient accepted for transfer however bed was not available hence the decision to admit patient pending transfer [facility] Medical History History of left heart catheterization (LHC) (~09/15/12) Atrial fibrillation and flutter Trigeminal neuralgia Atrial flutter Anxiety DDD (degenerative disc disease) Hyperlipidemia Osteoarthritis Essential hypertension Hypothyroidism Atherosclerosis of coronary artery of [place] heart without angina pectoris Lightheadedness Chest pain Home Medications Medication Instructions Recorded Last Taken Type lorazepam 0.5 mg tablet 0.25 mg PO QHS PRN ANXIETY 12/28/20 Unknown History warfarin 3 mg tablet 3 mg PO DAILY 12/28/20 Unknown History amlodipine 2.5 mg tablet 2.5 mg PO DAILY #30 tabs 04/10/21 Unknown Rx metoprolol succinate 50 mg 50 mg PO DAILY 05/31/21 Unknown History tablet,extended release 24 hr cephalexin 500 mg capsule 500 mg PO BID 7 days #14 caps 11/28/23 Unknown Rx Allergy/AdvReac Type Severity Reaction Status Date / Time citalopram (From Celexa) Allergy Intermediate Unknown Verified 02/22/25 09:41 gabapentin Allergy Intermediate Unknown Verified 02/22/25 09:41 trazodone Allergy Intermediate Nausea/Vom/ Verified 02/22/25 09:41 Diarrhea buspirone HCl (From BuSpar) Allergy Upset Verified 02/22/25 09:41 Stomach flecainide (Flecainide) Allergy Shortness Verified 02/22/25 09:41 of breath levothyroxine sodium (From Allergy Nausea Verified 10/13/22 21:57 Synthroid) meperidine HCl (From Demerol) Allergy Other Verified 02/22/25 09:41 sertraline HCl (From Zoloft) Allergy Other Verified 02/22/25 09:41 tramadol Allergy Nausea Verified 02/22/25 09:41 Family History Sister Breast cancer CVA (cerebral vascular accident) Diabetes Mother CVA (cerebral vascular accident) Hypertension Brother Hypertension Other Paroxysmal atrial fibrillation with RVR Surgical History History of aortic valve replacement with bioprosthetic valve (~07/20/10) H/O tricuspid valve repair (~07/20/10) History of cardioversion (07/06/10) History of open reduction and internal fixation (ORIF) procedure History of appendectomy Social History Smoking Status: Never smoker alcohol intake: never substance use type: does not use caffeine: No ROS ROS Narrative GENERAL: denies fever, chills, night sweats, weight loss, anorexia HEENT: denies headache, sinus congestion, or drainage, dysphagia RESPIRATORY: Hemoptysis, shortness of breath, dyspnea on exertion CARDIAC: denies chest pain, palpitations, orthopnea, PND GASTROINTESTINAL: denies abdominal pain, nausea, vomiting, melena, GENITOURINARY: denies dysuria, urgency, frequency, heamaturia EXTREMITY: denies swelling MUSCULOSKELETAL: denies current joint pain or tenderness NEUROLOGIC: denies focal numbness, weakness, tingling HEMATOLOGIC: denies easy bruising and/or hemorrhage INTEGUMENT: denies rashes PSYCHIATRIC: denies suicidal or homicidal ideation Vital Signs Vital Signs Vital Signs: 02/22/25 09:41 02/22/25 09:43 02/22/25 09:50 Temperature 98.7 F 98.7 F Temperature Source Oral Oral Pulse Rate 64 61 Respiratory Rate 24 H 38 H Respiratory Effort Short of Breath Labored Respiratory Depth Normal Respiratory Pattern Tachypnea Blood Pressure 120/55 L 127/67 H Blood Pressure Mean 76 87 Pulse Ox 82 78 Oxygen Delivery Method Room Air Room Air Nasal Cannula Oxygen Flow Rate (L/min) 5 02/22/25 10:00 02/22/25 10:43 02/22/25 11:00 Temperature 98.8 F 98 F Temperature Source Oral Oral Pulse Rate 116 H 66 Respiratory Rate 36 H 28 H Respiratory Effort Respiratory Depth Respiratory Pattern Blood Pressure 109/77 109/77 Blood Pressure Mean 87 87 Pulse Ox 91 95 95 Oxygen Delivery Method Nasal Cannula Nasal Cannula Nasal Cannula Oxygen Flow Rate (L/min) 5 6 02/22/25 12:00 Temperature 98.5 F Temperature Source Oral Pulse Rate 133 H Respiratory Rate 35 H Respiratory Effort Respiratory Depth Respiratory Pattern Blood Pressure 117/78 Blood Pressure Mean 91 Pulse Ox 94 Oxygen Delivery Method Airvo Oxygen Flow Rate (L/min) Weight Weight: 70.7 kg Body Mass Index (BMI) 28.6 Physical Exam Narrative GENERAL: cooperative HEENT: Atraumatic; normocephalic EYES; Anicteric, Normal Conjunctiva NECK; supple, normal thyroid, RESPIRATORY: Diminished to auscultation CARDIOVASCULAR: Regular S1 S2, GI: soft, normoactive bowel sounds, : No Renal angle tenderness; EXTREMITIES: Bilateral pedal edema, no clubbing, MUSCULOSKELETAL: no muscle wasting NEURO: Awake; no lateralizing signs. SKIN: No Rash PSYCH; Flat affect Results Lab / Micro Data 02/22/25 09:57 02/22/25 09:57 Labs: Laboratory Results - last 24 hr 02/22/25 09:57: WBC 13.3 H, RBC 4.29, Hgb 12.7, Hct 38.3, MCV 89.3, MCH 29.6, MCHC 33.2, RDW Std Deviation 44.4 H, RDW Coeff of Estuardo 13.6, Plt Count 222, MPV 10.1, Immature Gran % (Auto) 0.500, Neut % (Auto) 88.5 H, Lymph % (Auto) 6.7 L, [place] % (Auto) 4.2, Eos % (Auto) 0.0, Baso % (Auto) 0.1, Absolute Neuts (auto) 11.8 H, Absolute Lymphs (auto) 0.89, Nucleated RBC % 0, PT 28.1 H, INR 2.6, Sodium 138, Potassium 3.9, Chloride 104, Carbon Dioxide 20.3 L, Anion Gap 14, BUN 29 H, Creatinine 1.16, Estim Creat Clear Calc 30.87 L, Est GFR (MDRD) Non-Af 45 L, BUN/Creatinine Ratio 24.8 H, Glucose 198 H, Lactic Acid 3.3 H*, Calcium 8.7, Total Bilirubin 1.93 H, Direct Bilirubin 0.68 H, AST 26, ALT 10, Alkaline Phosphatase 48, Troponin T High Sens 27 H, NT pro BNP II 4425 H, Total Protein 6.9, Albumin 3.8, Globulin 3.2 02/22/25 11:05: Procalcitonin 0.13 H Micro: Microbiology 02/22/25 10:10 Mucosa - Nose SARS-CoV-2, Influenza & RSV (PCR) - Final ABG Data ABG results: ABG 02/22/25 10:19 Specimen Type DONNA Sample Site Not entered O2 % 5.0 VBG pH 7.48 H VBG pO2 44 H VBG HCO3 27 H VBG Total CO2 28 VBG O2 Sat (Calc) 83 H VBG Base Excess 3 POC Mix VBG pCO2 Pt Tmp 36.0 L O2 Delivery Device Not entered Imaging Radiology Impression Chest CTA 02/22/25 10:02 IMPRESSION: No evidence of pulmonary embolism. Multifocal bilateral areas of airspace disease suggestive of either bilateral multifocal pneumonia versus congestive heart failure. Follow-up recommended. Reading Location: [facility]IR-1 Assessment & Plan Assessment/Plan (1) Essential hypertension: (2) Atrial flutter: (3) Massive hemoptysis: (4) Diastolic CHF, acute: (5) Pneumonia: PLAN: Plan Patient is an 89-year-old lady presented with progressive shortness of breath with associated hemoptysis.. Patient was found to be severely hypoxic on admission 1. Acute hypoxic respiratory failure – Secondary to combination of suspected multifocal pneumonia and congestive heart failure with alveolar hemorrhage being considered in the differentials. Patient was placed on noninvasive ventilation via Airvo. The meat and seafood clerk on-call Dr. Arce was notified and recommended for patient to be transferred. Patient has been accepted for transfer to [facility]. 2. Acute congestive heart failure with preserved ejection fraction – Echo from 08/30/2022 demonstrated EF of 55%. Treatment initiated with strict input and output, daily weight, fluid restriction, low-sodium diet as well as diuretic therapy with furosemide. Repeat echo ordered for EF assessment 3. Pneumonia - Suspected to be secondary to streptococcal pneumonia, Blood and sputum cultures sent. Patient placed on Rocephin and Zithromax and placed on oxygen titrated to keep Pulse Ox greater than 90. As part of patient workup ordered viral respiratory panel, rapid COVID assay, urine streptococcal and Legionella antigens 4. Hemoptysis – Alveolar hemorrhage versus pneumonia which is being worsened by use of systemic anticoagulation with heparin. Arrangements initiated to have patient transferred to a facility with IR capability per recommendations from pulmonary medicine. H&H remained stable at this point however I did type and screen patient for 2 unit PRBC 5. Paroxysmal atrial fibrillation – Rate controlled on systemic anticoagulation with warfarin with therapeutic INR of 2.6. Warfarin was held on admission given her presentation 6. Hypertension – Blood pressure controlled, home medications continued with dose adjustment as needed 7. 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 DVT prophylaxis – Patient is on systemic anticoagulation with a therapeutic INR no additional measures needed Time spent in the patient's overall evaluation,decision-making process, review of diagnostic data, adjustment of management, discussion with other providers, nursing nursing and ancillary staff involved in patient's care documentation, 75 Minutes Advance planning; did discuss with the patient and family (her daughter) regarding advanced directives as well as CODE STATUS. Did explain the various scenarios involved ( FULL CODE, DNR CCA, DNR CCA with no intubation, and DNR CC and what each meant) patient elected to remain full code with CPR and intubation if warranted. Order was placed. Time spent on discussion 16 minutes. Charges/Coding Multi Select Codes Visit Charges Visit Charges: 75818 Init Hosp Hospitalists' Procedures Procedures: 96205 Advncd Care Plan 30 Min
[2025-02-22 12:42] LABS: Troponin T High Sens 2 HR 27 ng/L (<=14)
--- NOTE | 2025-02-22 12:48 | ECHOD_ITS ---
Reason For Study Reason For Study: CONGESTIVE HEART FAILURE Procedure This was a 2D Doppler, Color Flow transthoracic echocardiogram. Technically difficult study due to high heart rate. Exam performed portable in ICU/CCU. Left Ventricle Normal LV size. Mild concentric left ventricular hypertrophy. Left ventricular systolic function is normal. The left ventricular ejection fraction is 60 %. No regional wall motion abnormalities noted. Right Ventricle Normal RV size. Normal systolic function. Atria The left atrium is severely enlarged. Normal right atrium. Mitral Valve Normal mitral valve. Tricuspid Valve Normal tricuspid valve. Mild tricuspid valve insufficiency. Aortic Valve Moderate focal aortic valve thickening. Peak aortic valve gradient 19 mmHg. Mean aortic valve gradient 11 mmHg. Mild aortic stenosis. Bioprosthetic aortic valve. Pulmonic Valve Normal pulmonic valve. Mild (1+) pulmonic valve insufficiency. Great Vessels Normal aortic root. The pulmonary artery is normal size. Inferior vena cava collapse with sniff. Pericardium/Pleural No pericardial effusion. MMode/2D Measurements & Calculations LVIDd: 3.0 cm IVSd: 1.4 cm LVOT diam: 2.0 cm LVIDs: 2.2 cm LVPWd: 1.3 cm LVOT area: 3.0 cm2 RVDd: 3.2 cm FS: 26.9 % asc Aorta Diam: 2.6 cm LAV(MOD-bp): 92.6 ml LVAd ap4: 14.1 cm2 LAV(MOD-bp) Indexed: 54.1 ml/m2 LVLd ap4: 5.4 cm LAV(MOD-sp2): 104.9 ml EDV(MOD-sp4): 29.9 ml LAV(MOD-sp4): 84.2 ml EDV(sp4-el): 31.0 ml LVAs ap4: 7.3 cm2 LVLs ap4: 4.9 cm ESV(MOD-sp4): 9.6 ml ESV(sp4-el): 9.2 ml EF(MOD-sp4): 67.9 % EF(sp4-el): 70.3 % SV(MOD-sp4): 20.3 ml SV(sp4-el): 21.8 ml Ao sinus diam: 3.0 cm SI(MOD-sp4): 11.9 ml/m2 Ao ST Junction: 2.0 cm LA A4 area: 25.3 cm2 LA dimension(2D): 3.7 cm TAPSE: 0.64 cm RA A4 area: 18.8 cm2 Time Measurements MV dec time: 0.12 sec Doppler Measurements & Calculations MV E max diane: 84.3 cm/sec Ao V2 max: 217.6 cm/sec LV V1 max: 121.3 cm/sec Ao max P.4 mmHg LV V1 max P.0 mmHg Ao V2 mean: 149.6 cm/sec LV V1 mean P.2 mmHg Ao mean P.6 mmHg LV V1 mean: 82.0 cm/sec Ao V2 VTI: 35.5 cm LV V1 VTI: 19.6 cm AV (velocity ratio): 0.55 ANISHA(I,D): 1.7 cm2 ANISHA(V,D): 1.7 cm2 SV(LVOT): 59.3 ml PA V2 max: 89.3 cm/sec TR max diane: 217.2 cm/sec TR max P.1 mmHg ECHO/Echo Complete Interpretation Summary Normal LV size. Left ventricular systolic function is normal. The left ventricular ejection fraction is 60 %. The left atrium is severely enlarged. Normal right atrium. Mean aortic valve gradient 11 mmHg. Bioprosthetic aortic valve. Ordering Physician: Zhou King Referring Physician: Doron Cueto Performed By: Usha Kaufman RDCS
--- NOTE | 2025-02-22 12:59 | ED.RN ---
Called [facility] there are 60 people on the waiting list at this time.
[2025-02-22] MEDS: Furosemide 20 MG/2 ML VIAL IV (13:01)
[2025-02-22 14:09] LABS: Reflex Lactate? Y
[2025-02-22 14:46] LABS: Troponin T High Sens 4 HR 29 ng/L (<=14)
--- OUTSIDE RECORDS SUMMARY | 2025-02-22 22:41 | XMS RPT_ITS | CCD ---
Author Organization [facility] Care Team Providers Care Shoe Dyer Name Role Phone Dr. Doron Cueto Primary Care Provider [phone] Dr. Doron Cueto Referring Provider Trevin PUMPING PLANT OPERATOR, PUMPING PLANT OPERATOR-Allyssa Joyce Attending Provider Wesley PUMPING PLANT OPERATOR, PUMPING PLANT OPERATOR-Allyssa Austin Attending Provider [phone] Dr. Doron Cueto Primary Care Provider [phone] Dr. Jose Daniel Cadena Attending Provider [phone] Unavailable Primary Care Provider Unavailabl e TIMBO MARTINEZ Attending Unavailable SELF Referring Unavailable TIZZANO, TIMBO P Attending Unavailable TIZZANO, TIMBO P Referring Unavailable TIZZANO, TIMBO P Attending Unavailable USHA NICKERSON Attending Unavailable USHA NICKERSON Referring Unavailable TALIA AIKEN Attending Unavailable [facility] Referring Unav ailable TIZZANO, TIMBO P Attending Unavailable [facility] Referring Unav ailable TIZZANO, TIMBO P Attending Unavailable [facility] Referring Unav ailable Dr. Doron Cueto DO Primary Care Provider Dr. Doron Cueto DO Attending Provider [phone] Dr. Doron Cueto DO Referring Provider [phone] Doron Cueto Primary Care Unavailable Doron Cueto Attending Unavailable Doron Cueto Referring Unavailable Doron Cueto Primary Care Unavailable Doron Cueto Attending Unavailable Lionel Rodas Attending Unavailable Doron Cueto Primary Care Unavailable Dr. Maddie Morrison DO Emergency Provider Sherin HOUSER, Dr. Mata Other Provider Antonia HOUSER, Dr. Quiroz Other Provider Uri HOUSER, Dr. James Other Provider Claude PATEL, Dr. Douglass Other Provider Man HOUSER, Dr. Zhou Mccann Other Provider Anabel HOUSER, Dr. Lemus Other Provider [phone] Will HOUSER, Dr. Weeks Other Provider Juliocesar HOUSER, Dr. Burciaga Other Provider Nilson HOUSER, Dr. Shankar Other Provider Alverto HOUSER, Dr. Bartlett Other Provider [phone] Janak HOUSER, Dr. Faust Other Provider King HOUSER, Dr. Gonzales Other Provider Zaria HOUSER, Dr. Tam Other Provider Unavailabl jose a Lopez MD, Dr. Cagle Other Provider Nando HOUSER, Dr. Christiansen Other Provider Molyl HOUSER, Dr. Pino Other Provider Araseli HOUSER, Dr. Mcginnis Other Provider Dr. Jez Ely DO Other Provider Selina HOUSER, Dr. Gerardo Other Provider [phone] Dr. Ramakrishna Valdez MD Other Provider Dr. Dimitri Garza DO Other Provider Dr. Gerald Mcdonough MD Other Provider Noel Blum MD, Dr. Talley Other Provider Rosario HOUSER, Dr. Han Other Provider [phone] Jonah HOUSER, Dr. Brito Other Provider Blaine PUMPING PLANT OPERATOR-C, Lisandra Other Provider Cedric PUMPING PLANT OPERATOR-C, Mehreen Donohue Other Provider KitDr. Zhou aguilar MD Attending Provider Dr. Zhou Preciado MD Admit Provider Unavailable Allergies Allergy Classification Reported Allergen(s) Allergy Type Date of Onset Reaction(s) Facility (17 sources) busPIRone; Translations: [BUSPIRONE HCL] Drug Allergy [address] [facility] (16 sources) Citalopram; Translations: [CITALOPRAM] Drug Allergy 3 Other: See Comments [facility] (16 sources) Flecainide; Translations: [FLECAINIDE] Drug Allergy [address] [facility] (16 sources) gabapentin; Translations: [GABAPENTIN] Drug Allergy 4 Other: See Comments [facility] (16 sources) levothyroxine; Translations: [LEVOTHYROXINE SODIUM] Drug Allergy 3 Other: See Comments [facility] (8 sources) Meperidine; Translations: [meperidine HCl] Drug Allergy [address] [facility] (17 sources) Sertraline; Translations: [SERTRALINE HCL] Drug Allergy [address] [facility] (7 sources) traMADol Drug Allergy [address] [facility] (16 sources) traZODone; Translations: [TRAZODONE] Drug Allergy [address] [facility] (9 sources) Meperidine; Translations: [MEPERIDINE (PF)] Drug Allergy 7 Mental Status Change [facility] Work Phone: (1 source) Citalopram Drug Allergy [address] [facility] Repository (1 source) Flecainide Drug Allergy 3 [facility] Repository (1 source) gabapentin Drug Allergy 3 [facility] Repository (1 source) levothyroxine Drug Allergy [address] [facility] Repository (1 source) traMADol Drug Allergy [address] [facility] Repository (1 source) traZODone Drug Allergy [address] [facility] Repository Medications Current Medications Medication Drug Class(es) Dates Sig (Normalized) Sig (Original) amLODIPine 2.5 mg oral tablet (20 sources) Dihydropyridine Calcium Channel Aurelio Start: 04-10-2021 End: 04-10-2021 take 1 tablet by mouth once daily Amlodipine 2.5 mg tablet Active 2.5 mg PO DAILY 30 April 10, 2021 9:51am hypertension Blood Pressure Cuff - Home Use (8 sources) Start: 11-15-2015 Blood Pressure Cuff - Home Use Indications: Unspecified essential hypertension BLOOD PRESSURE CUFF FOR HOME USE. DX: (I10) Unspecified essential hypertension 1 Each 0 11/15/2015 Active diphenhydrAMINE hydrochloride 25 mg oral tablet (3 sources) Histamine-1 Receptor Antagonist Start: 08-23-2021 take 1 tablet by mouth once Diphenhydramine Hcl (Benadryl Allergy) 25 mg tablet Active 25 MG PO ONCE August 23, 2021 12:00am oxyquinoline sulfate 0.68063 mg/mg / sodium dodecyl sulfate 0.0001 mg/mg vaginal gel (5 sources) Start: 05-10-2024 Oxyquinoline-Na Lauryl Sulfate (TRIMO-SINGH JELLY) 0.025-0.01 % gel Use 1 Inch vaginally two times a week. 90 g 1 05/10/2024 Active LORazepam 0.5 mg oral tablet (20 sources) Benzodiazepine Start: 03-22-2021 LORazepam (ATIVAN) 0.5 mg 03/22/2021 Active Start: 12-28-2020 take 0.25 mg by mout h at bedtime as needed for anxiety Lorazepam 0.5 mg tablet Active 0.25 mg PO AT BEDTIME as needed for ANXIETY December 28, 2020 3:33pm Start: 12-28-2020 take 0.25 mg by mout h at bedtime Lorazepam Active 0.25 MG PO AT BEDTIME December 28, 2020 3:33pm Start: 07-28-2013 End: 12-28-2020 take 1 tablet by mouth twice daily as needed for anxiety Lorazepam 0.5 MG tablet Discontinued 0.5 mg PO TWICE DAILY NEEDED as needed for ANXIETY July 28, 2013 1:00am December 28, 2020 3:35pm 24 hr metoprolol succinate 50 mg extended release oral tablet (20 sources) beta-Adrenergic Aurelio Start: 05-31-2021 take 1 tablet by mouth once daily Metoprolol Succinate 50 mg tablet extended release 24 hr Active 50 mg PO DAILY May 31, 2021 2:46pm hypertension Start: 04-26-2021 End: 05-31-2021 take 1 tablet by mouth twice daily Metoprolol Succinate 50 mg Tablet Extended Release 24 Hr Discontinued 50 mg PO TWICE A DAY 60 0 April 26, 2021 1:00am May 31, 2021 2:47pm Start: 03-16-2014 End: 04-26-2021 take 1 tablet by mouth once daily Metoprolol Succinate 50 MG tablet Discontinued 50 mg PO DAILY 30 3 March 16, 2014 12:00am April 26, 2021 10:05am nitrofurantoin, macrocrystals 25 mg / nitrofurantoin, monohydrate 75 mg oral capsule (1 source) Nitrofuran Antibacterial Start: 12-12-2023 End: 12-17-2023 take 1 capsule by mouth twice daily nitrofurantoin monohydrate and macrocrystal (MACROBID) 100 mg capsule Take 1 capsule by mouth two times a day for 5 days. 10 capsule 0 12/12/2023 12/17/2023 Active warfarin sodium 3 mg oral tablet (20 sources) Vitamin K Antagonist Start: 11-05-2019 take 1 tablet by mouth once daily Warfarin 3 mg tablet Active 3 mg PO DAILY December 28, 2020 12:00am atrial fibrillation Managed by PCP Start: 10-12-2015 End: 12-28-2020 Warfarin 2 MG tablet Discont inued 2 mg PO .COMPLEX October 12, 2015 12:00am December 28, 2020 3:34pm BLOOD THINNER PT TAKES 2 TABLETS ON SUNDAYS AND WEDNESDAYS FOR A TOTAL DOSE OF 4 MG; AND PT TAKES 1 AND 1/2 TABLET FOR A TOTAL OF 3 MG ON FRIDAY, FRIDAY, FRIDAY, FRIDAY, AND FRIDAY Completed/Discontinued Medications Medication Drug Class(es) Dates Sig (Normalized) Sig (Original) acetaminophen 325 mg oral tablet (7 sources) Start: 04-26-2021 End: 08-23-2021 take 2 tablets by mouth every six hours as needed for pain Acetaminophen (Tylenol) 325 mg Tablet Discontinued 650 mg PO EVERY 6 HOURS NEEDED as needed for Pain Score 1-10 0 0 April 26, 2021 1:00am August 23, 2021 3:43pm cephalexin 500 mg oral capsule (3 sources) Cephalosporin Antibacterial Start: 11-28-2023 End: 02-22-2025 take 1 capsule by mouth twice daily Cephalexin 500 mg capsule Discontinued 500 mg PO TWICE A DAY 14 7 0 November 28, 2023 12:00am February 22, 2025 2:18pm 24 hr dilTIAZem hydrochloride 120 mg extended release oral tablet (7 sources) Calcium Channel Aurelio Start: 07-28-2013 End: 03-16-2014 take 1 tablet by mouth at bedtime Diltiazem Hcl (Cardizem La) 120 MG Tab.Er.24h Discontinued 120 mg PO AT BEDTIME July 28, 2013 1:00am March 16, 2014 9:17am lidocaine hydrochloride 0.02 mg/mg topical gel (2 sources) Antiarrhythmic, Amide Local Anesthetic Start: 04-12-2020 End: 12-10-2023 lidocaine (XYLOCAINE) 2 % jelly Indications: Pain in upper jaw Apply 1 application to affected area as needed (gums). 30 mL 0 04/12/2020 12/10/2023 Discontinued triamcinolone acetonide 1 mg/ml topical cream (7 sources) Corticosteroid Start: 2019 End: 12-28-2020 Triamcinolone Acetonide 0.1 % cream Discontinued 1 NMA TOPICAL THREE TIMES A DAY as needed 2019 1:00am December 28, 2020 3:33pm Problems Active Problems Problem Classification Problem Date Documented Date Episodic/Chronic Anxiety disorders (8 sources) Anxiety state; Translations: [Generalized anxiety disorder] Onset: 2006 06-26-2017 Chronic Cardiac dysrhythmias (20 sources) Atrial fibrillation and flutter ; Translations: [Unspecified atrial fibrillation] Onset: 07-05-2008 Chronic Conditions associated with dizziness or vertigo (10 sources) Lightheadedness; Translations: [Dizziness and giddiness] 2019 Episodic Congestive heart failure; nonhypertensive (2 sources) Acute diastolic heart failure; Translations: [Acute diastolic (congestive) heart failure] 02-22-2025 Chronic Coronary atherosclerosis and other heart disease (10 sources) Coronary atherosclerosis; Translations: [Atherosclerotic heart disease of [place] coronary artery without angina pectoris] Onset: 11-25-2024 Chronic Comment on above: nonobstructive CAD w ith 60% stenosis in the mid LAD and 60 to 70% stenosis in the proximal LCx and an FFR suggesting the lesions were not hemodynamically significant @ [facility] 09/15/12 Disorders of lipid metabolism (17 sources) Hyperlipidemia; Translations: [Hyperlipidemia, unspecified] Onset: 07-11-2008 Chronic Essential hypertension (18 sources) Essential hypertension; Translations: [Essential (primary) hypertension] Onset: 07-11-2008 Chronic Fluid and electrolyte disorders (7 sources) Acute hypokalemia; Translations: [Hypokalemia] 05-04-2021 Episodic Genitourinary symptoms and ill-defined conditions (2 sources) History of urinary tract infection; Translations: [Personal history of urinary (tract) infections] 12-10-2023 Episodic Heart valve disorders (20 sources) History of aortic valve replacement; Translations: [Presence of xenogenic heart valve] Onset: 07-11-2008 Resolved: 06-26-2017 07-09-2021 Chronic Comment on above: #23 Regina Magna pericardial valve, tricuspid annuloplasty #34 Regina classic ring, Left atrial appendage ligation, PVI Malaise and fatigue (8 sources) Asthenia; Translations: [Weakness] Onset: 12-18-2023 05-04-2021 Episodic Nonspecific chest pain (7 sources) Chest pain; Translations: [Chest pain, unspecified] 2019 Episodic Osteoarthritis (8 sources) Degenerative joint disease involving multiple joints; Translations: [Polyosteoarthritis, unspecified] Onset: 07-11-2008 07-11-2008 Chronic Other aftercare (12 sources) Long-term current use of anticoagulant; Translations: [nursing home (current) use of anticoagulants] Onset: 2019 10-13-2022 Episodic Other female genital disorders (1 source) Vaginal irritation; Translations: [Other specified noninflammatory disorders of vagina] 05-10-2024 Episodic Other lower respiratory disease (2 sources) Hemoptysis; Translations: [Hemoptysis] 02-22-2025 Episodic Other screening for suspected conditions (not mental disorders or infectious disease) (7 sources) INR raised; Translations: [Abnormal coagulation profile] 04-24-2021 Episodic Pneumonia (except that caused by tuberculosis or sexually transmitted disease) (2 sources) Pneumonia; Translations: [Pneumonia, unspecified organism] 02-22-2025 Episodic Prolapse of female genital organs (18 sources) Uterovaginal prolapse; Translations: [Uterovaginal prolapse, unspecified] Onset: 09-07-2014 09-07-2014 Chronic Rehabilitation care; fitting of prostheses; and adjustment of devices (2 sources) Patient encounter status; Translations: [Encounter for fitting and adjustment of other specified devices] 11-13-2023 Chronic Spondylosis; intervertebral disc disorders; other back problems (8 sources) Degeneration of intervertebral disc; Translations: [Degeneration of intervertebral disc, site unspecified] Onset: 07-11-2008 07-11-2008 Chronic Superficial injury; contusion (4 sources) Contusion of lower limb; Translations: [Contusion of right lower leg, initial encounter] 10-13-2022 Episodic Thyroid disorders (8 sources) Hypothyroidism; Translations: [Hypothyroidism, unspecified] Onset: 01-12-2013 01-12-2013 Chronic Urinary tract infections (3 sources) Acute urinary tract infection; Translations: [Urinary tract infection, site not specified] 12-06-2023 Episodic Viral infection (7 sources) Disease caused by 2019-nCoV; Translations: [COVID-19] 05-04-2021 Episodic Past or Other Problems Problem Classification Problem Date Documented Date Episodic/Chronic Other aftercare (8 sources) Anticoagulant effect; Translations: [emt intermediate (current) use of anticoagulants] Onset: 12-11-2015 12-11-2015 Episodic Residual codes; unclassified (7 sources) History of tricuspid valve repair; Translations: [Other specified postprocedural states] Onset: 07-10-2010 07-09-2021 Episodic Comment on above: tricuspid annuloplas ty with a number 34 cup MTA classic ring; left atrial appendage ligation and pulmonary vein isolation-2010 @ [facility] Residual codes; unclassified (7 sources) History of cardiac catheterization; Translations: [Other specified postprocedural states] Onset: 09-07-2012 07-09-2021 Episodic Comment on above: nonobstructive CAD w ith 60% stenosis in the mid LAD and 60 to 70% stenosis in the proximal LCx and an FFR suggesting the lesions were not hemodynamically significant @ [facility] 09/15/12 Residual codes; unclassified (2 sources) Other specified postprocedural states; Translations: [Personal history of surgery to heart and great vessels, presenting hazards to health] Onset: 07-10-2010 Episodic Results Test Name Value Interpretation Reference Range Facility Absolute lymphocyte countOrd ered By: Maddie Morrison on 02-22-2025 Lymphocytes Auto (Unsp spec) [#/Vol] 0.89 10*3/uL 0.83-4.51 [facility] Absolute neutrophil countOrd ered By: Maddie Morrison on 02-22-2025 Neutrophils (Bld) [#/Vol] 11.8 10*3/uL High 2.0-7.7 [facility] Anion gap in Serum or Plasma Ordered By: Maddie Morrison on 02-22-2025 Anion gap [Moles/Vol] 14 mmol/L 5-15 [facility] Automated lymphocyte count a s percentage of total leukocytesOrdered By: Maddie Morrison on 02-22-2025 Lymphocytes/100 WBC Auto (Unsp spec) 6.7 % Low 19-41 [facility] BUN/creatinine ratioOrdered By: Maddie Morrison on 02-22-2025 Urea nitrogen/Creatinine [Mass ratio] 24.8 mg/mg High 10-20 [facility] Basophil percentageOrdered B y: Maddie Morrison on 02-22-2025 Basophils/100 WBC (Bld) 0.1 % 0-1 [facility] Bilirubin directOrdered By: Maddie Morrison on 02-22-2025 Bilirubin.direct [Mass/Vol] 0.68 mg/dL High 0.00-0.30 [facility] Bilirubin, totalOrdered By: Maddie Morrison on 02-22-2025 Bilirubin [Mass/Vol] 1.93 mg/dL High 0.00-1.30 [facility] CO2 (BldV) [Moles/Vol]Ordere d By: Maddie Morrison on 02-22-2025 CO2 [Moles/Vol] 28 mmol/L 23-33 [facility] Carbon dioxide, total [Moles /volume] in Central venous bloodOrdered By: Maddie Morrison on 02-22-2025 CO2 [Moles/Vol] 20.3 mmol/L Low 21.0-32.0 [facility] Chloride assayOrdered By: Roman Morrison on 02-22-2025 Chloride [Moles/Vol] 104 mmol/L 98-108 [facility] Eosinophil percentageOrdered By: Maddie Morrison on 02-22-2025 Eosinophils/100 WBC (Bld) 0.0 % 0-5 [facility] Erythrocyte distribution wid th ratioOrdered By: Maddie Morrison on 02-22-2025 Erythrocyte distribution width (RBC) [Ratio] 13.6 % 11.6-14.6 [facility] Erythrocyte distribution wid th standard deviationOrdered By: Maddie Morrison on 02-22-2025 Erythrocyte distribution width (RBC) [Ratio] 44.4 fl High 35.1-43.9 [facility] Glomerular filtration rate ( GFR) estimation/1.73 sq m using serum, plasma, or whole bOrdered By: Maddie Morrison on 02-22-2025 GFR/1.73 sq M.predicted among non-blacks MDRD (S/P/Bld) [Vol rate/Area] 45 mL/min/{1.73_m2} Low >60 [facility] Comment on above: mL/min/1.73m2 CKD-EP I Creatinine Equation (2020) Hematocrit Auto (Bld) [Volum e fraction]Ordered By: Maddie Morrison on 02-22-2025 Hematocrit (Bld) [Volume fraction] 38.3 % 37-47 [facility] Hemoglobin measurementOrdere d By: Maddie Morrison on 02-22-2025 Hemoglobin (Bld) [Mass/Vol] 12.7 g/dL 12.0-15.0 [facility] Immature granulocytes/100 WB C Auto (Bld)Ordered By: Maddie Morrison on 02-22-2025 Immature granulocytes/100 WBC (Bld) 0.500 % 0.0-0.9 [facility] Comment on above: IG% - Immature Granu locytes (promyelocytes, myelocytes and metamyelocytes) > 1% indicates that a LEFT SHIFT is Present. Influenza virus A and B and SARS-CoV-2 (COVID-19) and Respiratory syncytial virus RNAOrdered By: Maddie Morrison on 02-22-2025 SARS-CoV-2 (COVID-19) RNA BASHIR+probe Ql (Unsp spec) [facility] International normalized rat io (INR) calculationOrdered By: aMddie Morrison on 02-22-2025 INR Coag (Bld) [Relative time] 2.6 {INR} [facility] Laboratory - Chemistry and C hemistry - challengeOrdered By: Maddie Morrison on 02-22-2025 AST [Catalytic activity/Vol] 26 U/L <32 [facility] Lactic acid measurementOrder ed By: Maddie Morrison on 02-22-2025 Lactate [Moles/Vol] 3.3 mmol/L High 0.0-2.0 [facility] Comment on above: Critical Result(s) C alled at: 1100 02/22/2025 by: EDILSON JOHNSON Results read back by same. MCV (mean corpuscular volume ) determinationOrdered By: Maddie Morrison on 02-22-2025 MCV (RBC) [Entitic vol] 89.3 fL 81-99 [facility] Mean corpuscular hemoglobin (MCH) determinationOrdered By: Maddie Morrison on 02-22-2025 MCH (RBC) [Entitic mass] 29.6 pg 27.0-32.0 [facility] Mean corpuscular hemoglobin concentration (MCHC) determinationOrdered By: Maddie Morrison on 02-22-2025 MCHC (RBC) [Mass/Vol] 33.2 g/dL 32-36 [facility] Mean platelet volume determi nationOrdered By: Maddie Morrison on 02-22-2025 Platelet mean volume (Bld) [Entitic vol] 10.1 fL 6.2-12.0 [facility] Monocyte percentageOrdered B y: Maddie Morrison on 02-22-2025 Monocytes/100 WBC (Bld) 4.2 % 0-10 [facility] Natriuretic peptide.B prohor mallory N-Terminal [Mass/volume] in Serum or PlasmaOrdered By: Maddie Morrison on 02-22-2025 Natriuretic peptide.B prohormone N-Terminal [Mass/Vol] 4425 pg/mL High <1800 [facility] Comment on above: Heart Failure Unlike ly: < 300 pg/mLHeart Failure Likely< 50 Years: > 450 pg/mL50-75 Years: > 900 pg/mL>75 Years: > 1800 pg/mL Neutrophil percentageOrdered By: Maddie Morrison on 02-22-2025 Neutrophils/100 WBC (Bld) 88.5 % High 47-70 [facility] No Panel InformationOrdered By: Maddie Morrison on 02-22-2025 Blood Gas Sample Site Not entered [facility] Blood Gas Specimen Type DONNA [facility] Oxygen Delivery Device Not entered [facility] Nucleated red blood cell per centageOrdered By: Maddie Morrison on 02-22-2025 Nucleated RBC/100 WBC (Bld) [Ratio] 0 % 0-5 [facility] Platelet countOrdered By: Roman Morrison on 02-22-2025 Platelets (Bld) [#/Vol] 222 10*3/uL 150-450 [facility] Potassium measurement (mass/ volume)Ordered By: Maddie Morrison on 02-22-2025 Potassium (Unsp spec) [Mass/Vol] 3.9 mmol/L 3.3-5.1 [facility] Procalcitonin [Mass/volume] in Serum or Plasma by ImmunoassayOrdered By: Maddie Morrison on 02-22-2025 Procalcitonin IA [Mass/Vol] 0.13 ng/mL High <0.11 [facility] Comment on above: Interpretation:<0.10 -0.25 ng/mL: Antibiotic therapy discouraged. Bacterial infection unlikely.0.25-0.50 ng/mL: Antibiotic therapy encouraged. Bacterial infection possible.>0.50 ng/mL: Antibiotic therapy strongly encouraged. Suggestive of presence of bacterial infection.PCT should always be interpreted in the clinical context of the patient. Therefore, clinicians should use the PCT results in conjunction with other laboratory findings and clinical signs of the patient. Prothrombin timeOrdered By: Maddie Morrison on 02-22-2025 PT Coag (PPP) [Time] 28.1 s High 11.7-14.9 [facility] RBC Auto (Bld) [#/Vol]Ordere d By: Maddie Morrison on 02-22-2025 RBC (Bld) [#/Vol] 4.29 10*6/uL 4.2-5.4 [facility] Serum creatinine measurement (mass/volume)Ordered By: Maddie Morrison on 02-22-2025 Creatinine [Mass/Vol] 1.16 mg/dL 0.70-1.20 [facility] Serum globulin measurementOr dered By: Maddie Morrison on 02-22-2025 Globulin (S) [Mass/Vol] 3.2 g/dL 2.2-4.2 [facility] Serum glucose measurement (m ass/volume)Ordered By: Maddie Morrison on 02-22-2025 Glucose [Mass/Vol] 198 mg/dL High 70-99 [facility] Serum or plasma alanine carney otransferase (ALT) measurementOrdered By: Maddie Morrison on 02-22-2025 ALT [Catalytic activity/Vol] 10 U/L <35 [facility] Serum or plasma albumin anika urement (mass/volume)Ordered By: Maddie Morrison on 02-22-2025 Albumin [Mass/Vol] 3.8 g/dL 3.4-4.8 [facility] Serum or plasma alkaline jie sphatase measurementOrdered By: Maddie Morrison on 02-22-2025 ALP [Catalytic activity/Vol] 48 U/L 35-104 [facility] Serum or plasma calcium anika urement (mass/volume)Ordered By: Maddie Morrison on 02-22-2025 Calcium [Mass/Vol] 8.7 mg/dL 7.6-11.0 [facility] Serum or plasma urea nitroge n measurement (mass/volume)Ordered By: Maddie Morrison on 02-22-2025 Urea nitrogen [Mass/Vol] 29 mg/dL High 4-19 [facility] Sodium levelOrdered By: Hortensia Morrison on 02-22-2025 Sodium [Moles/Vol] 138 mmol/L 133-145 [facility] Total proteinOrdered By: Alize Morrison on 02-22-2025 Protein [Mass/Vol] 6.9 g/dL 5.9-8.4 [facility] Troponin T.cardiac [Mass/vol ume] in Serum or Plasma by High sensitivity methodOrdered By: Maddie Morrison on 02-22-2025 Troponin T.cardiac High sensitivity method [Mass/Vol] 29 ng/L High <14 [facility] Troponin T.cardiac High sensitivity method [Mass/Vol] 27 ng/L High <14 [facility] Troponin T.cardiac High sensitivity method [Mass/Vol] 27 ng/L High <14 [facility] Venous blood base excess carolann surementOrdered By: Maddie Morrison on 02-22-2025 Base excess Calc (BldV) [Moles/Vol] 3 mmol/L -1.0-3.5 [facility] Venous blood bicarbonate carolann surementOrdered By: Maddie Morrison on 02-22-2025 HCO3 (Bld) [Moles/Vol] 27 mmol/L High 22-26 [facility] Venous blood oxygen saturati on measurementOrdered By: Maddie Morrison on 02-22-2025 Oxygen saturation in Blood 83 % High 50-70 [facility] Venous blood pH measurementO rdered By: Maddie Morrison on 02-22-2025 pH (BldV) 7.48 [pH] High 7.32-7.42 [facility] Venous blood partial pressur e of carbon dioxide measurementOrdered By: Maddie Morrison on 02-22-2025 CO2 (BldV) [Partial pressure] 36.0 mm[Hg] Low 41-51 [facility] Venous blood partial pressur e of oxygen measurementOrdered By: Maddie Morrison on 02-22-2025 Oxygen (BldV) [Partial pressure] 44 mm[Hg] High 25-40 [facility] White blood cell (WBC) count Ordered By: Maddie Morrison on 02-22-2025 WBC (Bld) [#/Vol] 13.3 10*3/uL High 4.4-11.0 [facility] Urine Cultureon 11-23-2024 URC Mixed Gram Pos Gram Neg Org [place] Count 25,000-50,000 MIXC Mixed contaminants. Submit a new specimen if indicated. Normal [facility] Comment on above: Performed By: #### M 100.2200, L400.2010 #### [facility] Laboratory [address] [place], [place] [address], [address] Bilirubin Test strip Ql (U)O rdered By: Doron Cueto on 11-22-2024 Bilirubin Ql (U) Negative Negative [facility] Ketones Test strip Ql (U)Ord ered By: Doron Cueto on 11-22-2024 Ketones Ql (U) Negative Negative [facility] Nitrite Test strip Ql (U)Ord ered By: Doron Cueto on 11-22-2024 Nitrite Ql (U) Negative Negative [facility] Protein Test strip Ql (U)Ord ered By: Doron Cueto on 11-22-2024 Protein Ql (U) 30 mg/dl High Negative [facility] Urinalysis, Routine (Dipstic k)on 11-22-2024 BILIRUBIN URINE Negative Normal Negative [facility] Comment on above: Order Comment: Urine , Random Performed By: #### M 100.2199, L4 #### [facility] [address] [place], [address] Clarity (U) Clear Normal Clear [facility] Comment on above: Order Comment: Urine , Random Performed By: #### M .2199, L4 #### [facility] [address] [place], [address] Color (U) Yellow Normal Yellow [facility] Comment on above: Order Comment: Urine , Random Performed By: #### M 100.2199, L4 #### [facility] [address] [place], [address] GLUCOSE, UR Normal Normal Normal [facility] Comment on above: Order Comment: Urine , Random Performed By: #### M 100.2199, L4 #### [facility] [address] [place], [address] KETONE UR Negative Normal Negative [facility] Comment on above: Order Comment: Urine , Random Performed By: #### M 100.2199, L4 #### [facility] [address] [place], [address] LEUK ESTERASE Negative Normal Negative [facility] Comment on above: Order Comment: Urine , Random Performed By: #### M .2199, L4 #### [facility] [address] [place], [address] Nitrite Ql (U) Negative Normal Negative [facility] Comment on above: Order Comment: Urine , Random Performed By: #### M 100.2199, L4 #### [facility] [address] [place], [address] OCCULT BLOOD-UR 250 /ul Abnormal Negative [facility] Comment on above: Order Comment: Urine , Random Performed By: #### M , L4 #### [facility] [address] [place], [address] pH UR 5.0 Normal 5.0 - 8.0 [facility] Comment on above: Order Comment: Urine , Random Performed By: #### M , #### [facility] [address] [place], [address] PROT DIPSTX 30 mg/dl Abnormal Negative [facility] Comment on above: Order Comment: Urine , Random Performed By: #### M , L4 #### [facility] [address] [place], [address] SP.GR. DIPSTX 1.025 Normal 1.002-1.030 [facility] Comment on above: Order Comment: Urine , Random Performed By: #### M , L4 #### [facility] [address] [place], [address] UROBILI Normal Normal Normal [facility] Comment on above: Order Comment: Urine , Random Performed By: #### M .2199, L4 #### [facility] [address] [place], [address] Urine clarityOrdered By: Coleen Cueto on 11-22-2024 Clarity (U) Clear Clear [facility] Urine color determinationOrd ered By: Doron Cueto on 11-22-2024 Color (U) Yellow Yellow [facility] Urine cultureOrdered By: Coleen Cueto on 11-22-2024 Bacteria identified Cx Nom (U) Mixed Gram Pos & Gram Neg Org Abnormal [facility] Urine glucose detectionOrder ed By: Doron Cueto on 11-22-2024 Glucose Ql (U) Normal mg/dl Normal [facility] Urine leukocyte esterase det ection by dipstickOrdered By: Doron Cueto on 11-22-2024 Leukocyte esterase Test strip Ql (U) Negative Negative [facility] Urine pHOrdered By: Doron santizo on 11-22-2024 pH (U) 5.0 [pH] 5.0 - 8.0 [facility] Urine specific gravity measu rementOrdered By: Doron Cueto on 11-22-2024 Specific gravity (U) [Rel density] 1.025 1.002-1.030 [facility] Urine urobilinogen measureme ntOrdered By: Doron Cueto on 11-22-2024 Urobilinogen Ql (U) Normal mg/dl Normal [facility] Absolute lymphocyte countOrd ered By: Doron Cueto on 11-17-2024 Lymphocytes Auto (Unsp spec) [#/Vol] 1.86 10*3/uL 0.83-4.51 [facility] Absolute neutrophil countOrd ered By: Doron Cueto on 11-17-2024 Neutrophils (Bld) [#/Vol] 5.8 10*3/uL 2.0-7.7 [facility] Anion gap in Serum or Plasma Ordered By: Doron Cueto on 11-17-2024 Anion gap [Moles/Vol] 12 mmol/L 5-15 [facility] Automated lymphocyte count a s percentage of total leukocytesOrdered By: Doron Cueto on 11-17-2024 Lymphocytes/100 WBC Auto (Unsp spec) 22.1 % 19-41 [facility] BUN/creatinine ratioOrdered By: Doron Cueto on 11-17-2024 Urea nitrogen/Creatinine [Mass ratio] 21.8 mg/mg High 10-20 [facility] Basophil percentageOrdered B y: Doron Cueto on 11-17-2024 Basophils/100 WBC (Bld) 0.5 % 0-1 [facility] Bilirubin, totalOrdered By: Doron Cueto on 11-17-2024 Bilirubin [Mass/Vol] 0.57 mg/dL 0.00-1.30 [facility] CBC W/Diff, Automatedon 11-07 Absolute Lymph 1.86 X10 3/uL Normal 0.83-4.51 [facility] Comment on above: Performed By: #### L 400.2010, L100.0100, L501.9520, L500.4050 ####[facility] [address] [place], [address] Absolute Neut 5.8 X10 3/uL Normal 2.0-7.7 [facility] Comment on above: Performed By: #### L 400.2010, L100.0100, L501.9520, L500.4050 ####[facility] [address] [place], [address] Basophils/100 WBC (Bld) 0.5 % Normal 0-1 [facility] Comment on above: Performed By: #### L 400.2010, L100.0100, L501.9520, L500.4050 ####[facility] [address] [place], [address] Eosinophils/100 WBC (Bld) 0.8 % Normal 0-5 [facility] Comment on above: Performed By: #### L 400.2010, L100.0100, L501.9520, L500.4050 ####[facility] [address] [place], [address] Erythrocyte distribution width (RBC) [Ratio] 13.7 % Normal 11.6-14.6 [facility] Comment on above: Performed By: #### L 400.2010, L100.0100, L501.9520, L500.4050 ####[facility] [address] [place], [address] Hematocrit (Bld) [Volume fraction] 45.4 % Normal 37-47 [facility] Comment on above: Performed By: #### L 400.2010, L100.0100, L501.9520, L500.4050 ####[facility] [address] [place], [address] Hemoglobin (Bld) [Mass/Vol] 14.6 g/dL Normal 12.0-15.0 [facility] Comment on above: Performed By: #### L 400, L100.0100, L501.9520, L500.4050 ####[facility] [address] [place], [address] IG% 0.200 Normal 0.0-0.9 [facility] Comment on above: Result Comment: IG% - Immature Granulocytes (promyelocytes, myelocytes and metamyelocytes) > 1% indicates that a LEFT SHIFT is Present. Performed By: #### L 400, L100.0100, L501.9520, L500.4050 ####[facility] [address] [place], [address] Lymphocytes/100 WBC (Bld) 22.1 % Normal 19-41 [facility] Comment on above: Performed By: #### L 400, L100.0100, L501.9520, L500.4050 ####[facility] [address] [place], [address] MCH (RBC) [Entitic mass] 29.5 pg Normal 27.0-32.0 [facility] Comment on above: Performed By: #### L 400, L100.0100, L501.9520, L500.4050 ####[facility] [address] [place], [address] MCHC (RBC) [Mass/Vol] 32.2 g/dL Normal 32-36 [facility] Comment on above: Performed By: #### L 400.2010, L100.0100, L501.9520, L500.4050 ####[facility] [address] [place], [address] MCV (RBC) [Entitic vol] 91.7 fL Normal 81-99 [facility] Comment on above: Performed By: #### L 400, L100.0100, L501.9520, L500.4050 ####[facility] [address] [place], [address] Monocytes/100 WBC (Bld) 7.6 % Normal 0-10 [facility] Comment on above: Performed By: #### L 400, L100.0100, L501.9520, L500.4050 ####[facility] [address] [place], [address] Neutrophils/100 WBC (Bld) 68.8 % Normal 47-70 [facility] Comment on above: Performed By: #### L 400, L100.0100, L501.9520, L500.4050 ####[facility] [address] [place], [address] Nucleated RBC (Bld) [#/Vol] 0 10*3/uL Normal 0-5 [facility] Comment on above: Performed By: #### L 400, L100.0100, L501.9520, L500.4050 ####[facility] [address] [place], [address] Platelet mean volume (Bld) [Entitic vol] 10.1 fL Normal 6.2-12.0 [facility] Comment on above: Performed By: #### L 400, L100.0100, L501.9520, L500.4050 ####[facility] [address] [place], [address] Platelets (Bld) [#/Vol] 271 10*3/uL Normal 150-450 [facility] Comment on above: Performed By: #### L 400.2010, L100.0100, L501.9520, L500.4050 ####[facility] [address] [place], [address] RBC (Bld) [#/Vol] 4.95 10*6/uL Normal 4.2-5.4 [facility] Comment on above: Performed By: #### L 400.2010, L100.0100, L501.9520, L500.4050 ####[facility] [address] [place], [address] RDW SD 46.6 fl High 35.1-43.9 [facility] Comment on above: Performed By: #### L 400.2010, L100.0100, L501.9520, L500.4050 ####[facility] [address] [place], [address] WBC (Bld) [#/Vol] 8.4 10*3/uL Normal 4.4-11.0 [facility] Comment on above: Performed By: #### L 400.2010, L100.0100, L501.9520, L500.4050 ####[facility] [address] [place], [address] Carbon dioxide, total [Moles /volume] in Central venous bloodOrdered By: Doron Cueto on 11-17-2024 CO2 [Moles/Vol] 24.2 mmol/L 21.0-32.0 [facility] Chloride assayOrdered By: Eliazar Cueto on 11-17-2024 Chloride [Moles/Vol] 104 mmol/L 98-108 [facility] Comprehensive Metabolic Prof ilon 11-17-2024 Albumin [Mass/Vol] 4.3 g/dL Normal 3.4-4.8 [facility] Comment on above: Performed By: #### L 400, L100.0100, L501.9520, L500.4050 ####[facility] [address] [place], [address] Albumin/Globulin [Mass ratio] 1.4 {ratio} Normal 0.9-2.4 [facility] Comment on above: Performed By: #### L 400, L100.0100, L501.9520, L500.4050 ####[facility] [address] [place], [address] ALK PHOS 63 U/L Normal 35-104 [facility] Comment on above: Performed By: #### L 400, L100.0100, L501.9520, L500.4050 ####[facility] [address] [place], [address] ALT [Catalytic activity/Vol] 9 U/L Normal <=34 [facility] Comment on above: Performed By: #### L 400, L100.0100, L501.9520, L500.4050 ####[facility] [address] [place], [address] AST [Catalytic activity/Vol] 24 U/L Normal <=31 [facility] Comment on above: Performed By: #### L 400, L100.0100, L501.9520, L500.4050 ####[facility] [address] [place], [address] Bilirubin [Mass/Vol] 0.57 mg/dL Normal 0.00-1.30 [facility] Comment on above: Performed By: #### L 400, L100.0100, L501.9520, L500.4050 ####[facility] [address] [place], [address] BUN/CRE 21.8 RATIO High 10-20 [facility] Comment on above: Performed By: #### L 400.2010, L100.0100, L501.9520, L500.4050 ####[facility] [address] [place], [address] Calcium [Mass/Vol] 9.5 mg/dL Normal 7.6-11.0 [facility] Comment on above: Performed By: #### L 400, L100.0100, L501.9520, L500.4050 ####[facility] [address] [place], [address] Chloride [Moles/Vol] 104 mmol/L Normal 98-108 [facility] Comment on above: Performed By: #### L 400, L100.0100, L501.9520, L500.4050 ####[facility] [address] [place], [address] CO2 [Moles/Vol] 24.2 mmol/L Normal 21.0-32.0 [facility] Comment on above: Performed By: #### L 400, L100.0100, L501.9520, L500.4050 ####[facility] [address] [place], [address] Creatinine [Mass/Vol] 0.86 mg/dL Normal 0.70-1.20 [facility] Comment on above: Performed By: #### L 400, L100.0100, L501.9520, L500.4050 ####[facility] [address] [place], [address] GAP 12 Normal 5-15 [facility] Comment on above: Performed By: #### L 400, L100.0100, L501.9520, L500.4050 ####[facility] [address] [place], [address] GFR/1.73 sq M.predicted among non-blacks MDRD (S/P/Bld) [Vol rate/Area] 65 mL/min/{1.73_m2} Normal >60 [facility] Comment on above: Result Comment: mL/m in/1.73m2 CKD-EPI Creatinine Equation (2020) Performed By: #### L 400.2010, L100.0100, L501.9520, L500.4050 ####[facility] [address] [place], [address] Globulin (S) [Mass/Vol] 3.1 g/dL Normal 2.2-4.2 [facility] Comment on above: Performed By: #### L 400, L100.0100, L501.9520, L500.4050 ####[facility] [address] [place], [address] Glucose [Mass/Vol] 85 mg/dL Normal 70-99 [facility] Comment on above: Performed By: #### L 400, L100.0100, L501.9520, L500.4050 ####[facility] [address] [place], [address] Potassium [Moles/Vol] 4.8 mmol/L Normal 3.3-5.1 [facility] Comment on above: Performed By: #### L 400, L100.0100, L501.9520, L500.4050 ####[facility] [address] [place], [address] Sodium [Moles/Vol] 140 mmol/L Normal 133-145 [facility] Comment on above: Performed By: #### L 400, L100.0100, L501.9520, L500.4050 ####[facility] [address] [place], [address] T PROT 7.4 g/dL Normal 5.9-8.4 [facility] Comment on above: Performed By: #### L 400, L100.0100, L501.9520, L500.4050 ####[facility] [address] [place], [address] Urea nitrogen [Mass/Vol] 19 mg/dL Normal 4-19 [facility] Comment on above: Performed By: #### L 400.2010, L100.0100, L501.9520, L500.4050 ####[facility] [address] [place], [address] Eosinophil percentageOrdered By: Doron Cueto on 11-17-2024 Eosinophils/100 WBC (Bld) 0.8 % 0-5 [facility] Erythrocyte distribution wid th ratioOrdered By: Doron Cueto on 11-17-2024 Erythrocyte distribution width (RBC) [Ratio] 13.7 % 11.6-14.6 [facility] Erythrocyte distribution wid th standard deviationOrdered By: Doron Cueto on 11-17-2024 Erythrocyte distribution width (RBC) [Ratio] 46.6 fl High 35.1-43.9 [facility] Glomerular filtration rate ( GFR) estimation/1.73 sq m using serum, plasma, or whole bOrdered By: Doron Cueto on 11-17-2024 GFR/1.73 sq M.predicted among non-blacks MDRD (S/P/Bld) [Vol rate/Area] 65 mL/min/{1.73_m2} >60 [facility] Comment on above: mL/min/1.73m2 CKD-EP I Creatinine Equation (2020) Hematocrit Auto (Bld) [Volum e fraction]Ordered By: Doron Cueto on 11-17-2024 Hematocrit (Bld) [Volume fraction] 45.4 % 37-47 [facility] Hemoglobin measurementOrdere d By: Doron Cueto on 11-17-2024 Hemoglobin (Bld) [Mass/Vol] 14.6 g/dL 12.0-15.0 [facility] Immature granulocytes/100 WB C Auto (Bld)Ordered By: Doron Cueto on 11-17-2024 Immature granulocytes/100 WBC (Bld) 0.200 % 0.0-0.9 [facility] Comment on above: IG% - Immature Granu locytes (promyelocytes, myelocytes and metamyelocytes) > 1% indicates that a LEFT SHIFT is Present. Laboratory - Chemistry and C hemistry - challengeOrdered By: Doron Cueto on 11-17-2024 AST [Catalytic activity/Vol] 24 U/L <32 [facility] MCV (mean corpuscular volume ) determinationOrdered By: Doron Cueto on 11-17-2024 MCV (RBC) [Entitic vol] 91.7 fL 81-99 [facility] Mean corpuscular hemoglobin (MCH) determinationOrdered By: Doron Cueto on 11-17-2024 MCH (RBC) [Entitic mass] 29.5 pg 27.0-32.0 [facility] Mean corpuscular hemoglobin concentration (MCHC) determinationOrdered By: Doron Cueto on 11-17-2024 MCHC (RBC) [Mass/Vol] 32.2 g/dL 32-36 [facility] Mean platelet volume determi nationOrdered By: Doron Cueto on 11-17-2024 Platelet mean volume (Bld) [Entitic vol] 10.1 fL 6.2-12.0 [facility] Monocyte percentageOrdered B y: Doron Cueto on 11-17-2024 Monocytes/100 WBC (Bld) 7.6 % 0-10 [facility] Neutrophil percentageOrdered By: Doron Cueto on 11-17-2024 Neutrophils/100 WBC (Bld) 68.8 % 47-70 [facility] Nucleated red blood cell per centageOrdered By: Doron Cueto on 11-17-2024 Nucleated RBC/100 WBC (Bld) [Ratio] 0 % 0-5 [facility] Platelet countOrdered By: Eliazar Cueto on 11-17-2024 Platelets (Bld) [#/Vol] 271 10*3/uL 150-450 [facility] Potassium measurement (mass/ volume)Ordered By: Doron Cueto on 11-17-2024 Potassium (Unsp spec) [Mass/Vol] 4.8 mmol/L 3.3-5.1 [facility] RBC Auto (Bld) [#/Vol]Ordere d By: Doron Cueto on 11-17-2024 RBC (Bld) [#/Vol] 4.95 10*6/uL 4.2-5.4 [facility] Serum creatinine measurement (mass/volume)Ordered By: Doron Cueto on 11-17-2024 Creatinine [Mass/Vol] 0.86 mg/dL 0.70-1.20 [facility] Serum globulin measurementOr dered By: Doron Cueto on 11-17-2024 Globulin (S) [Mass/Vol] 3.1 g/dL 2.2-4.2 [facility] Serum glucose measurement (m ass/volume)Ordered By: Doron Cueto on 11-17-2024 Glucose [Mass/Vol] 85 mg/dL 70-99 [facility] Serum or plasma alanine carney otransferase (ALT) measurementOrdered By: Doron Cueto on 11-17-2024 ALT [Catalytic activity/Vol] 9 U/L <35 [facility] Serum or plasma albumin anika urement (mass/volume)Ordered By: Doron Cueto on 11-17-2024 Albumin [Mass/Vol] 4.3 g/dL 3.4-4.8 [facility] Serum or plasma albumin/glob ulin mass ratioOrdered By: Doron Cueto on 11-17-2024 Albumin/Globulin [Mass ratio] 1.4 {ratio} 0.9-2.4 [facility] Serum or plasma alkaline jie sphatase measurementOrdered By: Doron Cueto on 11-17-2024 ALP [Catalytic activity/Vol] 63 U/L 35-104 [facility] Serum or plasma calcium anika urement (mass/volume)Ordered By: Doron Cueto on 11-17-2024 Calcium [Mass/Vol] 9.5 mg/dL 7.6-11.0 [facility] Serum or plasma urea nitroge n measurement (mass/volume)Ordered By: Doron Cueto on 11-17-2024 Urea nitrogen [Mass/Vol] 19 mg/dL 4-19 [facility] Sodium levelOrdered By: Doron Cueto on 11-17-2024 Sodium [Moles/Vol] 140 mmol/L 133-145 [facility] TSH DL <= 0.005 mIU/L QnOrde red By: Doron Rom on 11-17-2024 TSH Qn 2.280 uIU/mL 0.300-4.200 [facility] Thyroid Stim Hormone (TSH)on 11-17-2024 TSH 2.280 uIU/mL Normal 0.300-4.200 [facility] Comment on above: Performed By: #### L 400.2010, L100.0100, L501.9520, L500.4050 ####[facility] [address] [place], [address] Total proteinOrdered By: Coleen flori Rom on 11-17-2024 Protein [Mass/Vol] 7.4 g/dL 5.9-8.4 [facility] Urinalysis, Routine (Dipstic k)on 11-17-2024 BILIRUBIN URINE Normal Negative [facility] Comment on above: Order Comment: CLEAN CATCH Result Comment: UTO Performed By: #### L 400.2010, L100.0100, L501.9520, L500.4050 ####[facility] [address] [place], [address] Clarity (U) Normal Clear [facility] Comment on above: Order Comment: CLEAN CATCH Result Comment: UTO Performed By: #### L 400.2010, L100.0100, L501.9520, L500.4050 ####[facility] [address] [place], [address] Color (U) Normal Yellow [facility] Comment on above: Order Comment: CLEAN CATCH Result Comment: UTO Performed By: #### L 400.2010, L100.0100, L501.9520, L500.4050 ####[facility] [address] [place], [address] GLUCOSE, UR Normal Normal [facility] Comment on above: Order Comment: CLEAN CATCH Result Comment: UTO Performed By: #### L 400.2010, L100.0100, L501.9520, L500.4050 ####[facility] [address] [place], [address] KETONE UR Normal Negative [facility] Comment on above: Order Comment: CLEAN CATCH Result Comment: UTO Performed By: #### L 400.2010, L100.0100, L501.9520, L500.4050 ####[facility] [address] [place], [address] LEUK ESTERASE Normal Negative [facility] Comment on above: Order Comment: CLEAN CATCH Result Comment: UTO Performed By: #### L 400.2010, L100.0100, L501.9520, L500.4050 ####[facility] [address] [place], [address] Nitrite Ql (U) Normal Negative [facility] Comment on above: Order Comment: CLEAN CATCH Result Comment: UTO Performed By: #### L 400.2010, L100.0100, L501.9520, L500.4050 ####[facility] [address] [place], [address] OCCULT BLOOD-UR Normal Negative [facility] Comment on above: Order Comment: CLEAN CATCH Result Comment: UTO Performed By: #### L 400.2010, L100.0100, L501.9520, L500.4050 ####[facility] [address] [place], [address] pH UR Normal 5.0 - 8.0 [facility] Comment on above: Order Comment: CLEAN CATCH Result Comment: UTO Performed By: #### L 400.2010, L100.0100, L501.9520, L500.4050 ####[facility] [address] [place], [address] PROT DIP[address]X Normal Negative [facility] Comment on above: Order Comment: CLEAN CATCH Result Comment: UTO Performed By: #### L 400, L100.0100, L501.9520, L500.4050 ####[facility] [address] [place], [address] SP.GR. DIPSTX Normal 1.002-1.030 [facility] Comment on above: Order Comment: CLEAN CATCH Result Comment: UTO Performed By: #### L 400.2010, L100.0100, L501.9520, L500.4050 ####[facility] [address] [place], [address] [facility] Comment on above: Order Comment: CLEAN CATCH Result Comment: UTO Performed By: #### L 400.2010, L100.0100, L501.9520, L500.4050 ####[facility] [address] [place], [address] Normal Normal [facility] Comment on above: Order Comment: CLEAN CATCH Result Comment: UTO Performed By: #### L 400.2010, L100.0100, L501.9520, L500.4050 ####[facility] [address] [place], [address] White blood cell (WBC) count Ordered By: Doron Cueto on 11-17-2024 WBC (Bld) [#/Vol] 8.4 10*3/uL 4.4-11.0 [facility] CNOVon 09-29-2024 CNOV Office Visit (OBGYWM) ---- TESSA DIAS ([id number]) 1935 F U[place] Date Time Provider Department 09/29/24 8:00 AM TIMBO MARTINEZ During your visit today, we recorded the following information about you: Blood pressure Weight 132/84 69.7 kg Timbo Martinez MD 09/29/2024 8:19 AM Signed Community Administrator provided by Marilyn Frye LPN Tessa Dias is a 89 year old who presents today for pessary insertion/cleaning. She wears a size 6 ring with support pessary. She returns today with no complaints. She has not had problems with the pessary. She has not had vaginal discharge. She has not had vaginal bleeding. EXAM: pleasant, well developed, well nourished, in no apparent distress Pelvic: Bartholin's, urethra and [place]'s glands were normal. The ring with support pessary was removed. Vaginal exam indicated no erythema, no ulcerations, and no vaginal discharge. The pessary was cleaned a size #6 ring with support was inserted without difficulty The pessary was inserted, patient tolerated the procedure well and the device is comfortable. Timbo Martinez MD Allergies As of Date: 09/29/2024 Noted Allergy Reaction DEMEROL (MEPERIDINE (PF)) 2006 1 - Mental Status Change BUSPAR (BUSPIRONE HCL) 12/21/2010 1 - Mental Status Change Comments: made her feel strange CELEXA (CITALOPRAM) 02/10/2013 14 - Other: See Comments Comments: made her more irritated and depressed FLECAINIDE 08/25/2008 12 - Shortness of Breath GABAPENTIN 02/15/2014 14 - Other: See Comments Comments: didn't feel well even at low dose; did not help for mouth pain at low dise SYNTHROID (LEVOTHYROXINE SODIUM) 01/12/2013 14 - Other: See Comments Comments: Patient did not feel well taking this medication - felt like she was going to get sick TRAZODONE 10/15/2012 8 - GI Upset ZOLOFT (SERTRALINE HCL) 12/21/2010 1 - Mental Status Change Comments: made her feel strange (was tried to switch off from stelazine) Date Reviewed: 09/29/2024 Reviewed by: Marilyn Frye LPN - Fully Assessed Reason for Visit: Pessary [345] Primary Visit Diagnosis: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 - amLODIPine (NORVASC) 2.5 mg tablet - LORazepam (ATIVAN) 0.5 mg - warfarin (COUMADIN) 3 mg tablet Take 1 tablet by mouth once daily. Or as directed based on INR - metoprolol succinate ER (TOPROL XL) 50 mg 24 hr tablet Take 1 tablet by mouth once daily. - Blood Pressure Cuff - Home Use BLOOD PRESSURE CUFF FOR HOME USE. DX: (I10) Unspecified essential hypertension Problem List As Of Date 09/29/2024 Noted Resolved Anxiety state [F41.1] 2006 Paroxysmal atrial fibrillation (HCC) [I48.0] 07/05/2008 Aortic valve disorder [I35.9] 07/11/2008 06/26/2017 Essential hypertension [I10] 07/11/2008 HYPERLIPIDEMIA NEC/NOS [E78.5] 07/11/2008 GENERAL OSTEOARTHROSIS [M15.9] 07/11/2008 DISC DEGENERATION NOS [[id number]] 07/11/2008 S/P aortic valve replacement [Z95.2] 09/21/2010 Hypothyroidism [E03.9] 01/12/2013 Uterovaginal prolapse [N81.4] 09/07/2014 Anticoagulated on Coumadin [Z79.01] 12/11/2015 nursing home current use of anticoagulant [Z79.01]2019 Encounter Status:Closed by TIMBO MARTINEZ on 09/29/24 [facility] CNOVon 08-04-2024 CNOV Office Visit (OBGYWM) ---- TESSA DIAS ([id number]) 1935 F [place] Date Time Provider Department 08/04/24 8:00 AM TIMBO MARTINEZ OBGYWM During your visit today, we recorded the following information about you: Blood pressure Weight 134/80 68.5 kg Timbo Martinez MD 08/04/2024 8:24 AM Signed Community Administrator offered: Patient accepts, visit chaperoned by Dianna Fallon MA. Tessa Dias is a 89 year old who presents today for pessary insertion/cleaning. She wears a size 6 ring with support pessary. She returns today with no complaints. She has not had problems with the pessary. She has not had vaginal discharge. She has not had vaginal bleeding. EXAM: pleasant, well developed, well nourished, in no apparent distress Pelvic: Bartholin's, urethra and [place]'s glands were normal. The ring with support pessary was removed. Vaginal exam indicated no erythema, no ulcerations, no vaginal discharge, and noting scant vaginal discharge with slight odo0r.. The pessary was cleaned a size No. 6 ring with support was inserted without difficulty The pessary was inserted, patient tolerated the procedure well and the device is comfortable. IMP: Procidentia nicely addressed by her pessary RTO 8 wk for pessary check Referring Provider: TIMBO MARTINEZ [[id number]] Allergies As of Date: 08/04/2024 Noted Allergy Reaction DEMEROL (MEPERIDINE (PF)) 2006 1 - Mental Status Change BUSPAR (BUSPIRONE HCL) 12/21/2010 1 - Mental Status Change Comments: made her feel strange CELEXA (CITALOPRAM) 02/10/2013 14 - Other: See Comments Comments: made her more irritated and depressed FLECAINIDE 08/25/2008 12 - Shortness of Breath GABAPENTIN 02/15/2014 14 - Other: See Comments Comments: didn't feel well even at low dose; did not help for mouth pain at low dise SYNTHROID (LEVOTHYROXINE SODIUM) 01/12/2013 14 - Other: See Comments Comments: Patient did not feel well taking this medication - felt like she was going to get sick TRAZODONE 10/15/2012 8 - GI Upset ZOLOFT (SERTRALINE HCL) 12/21/2010 1 - Mental Status Change Comments: made her feel strange (was tried to switch off from stelazine) Date Reviewed: 08/04/2024 Reviewed by: Dianna Fallon MA - Fully Assessed Reason for Visit: Follow Up [171] Cmt: Pessary check Primary Visit Diagnosis: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 - amLODIPine (NORVASC) 2.5 mg tablet - LORazepam (ATIVAN) 0.5 mg - warfarin (COUMADIN) 3 mg tablet Take 1 tablet by mouth once daily. Or as directed based on INR - metoprolol succinate ER (TOPROL XL) 50 mg 24 hr tablet Take 1 tablet by mouth once daily. - Blood Pressure Cuff - Home Use BLOOD PRESSURE CUFF FOR HOME USE. DX: (I10) Unspecified essential hypertension Problem List As Of Date 08/04/2024 Noted Resolved Anxiety state [F41.1] 2006 Paroxysmal atrial fibrillation (HCC) [I48.0] 07/05/2008 Aortic valve disorder [I35.9] 07/11/2008 06/26/2017 Essential hypertension [I10] 07/11/2008 HYPERLIPIDEMIA NEC/NOS [E78.5] 07/11/2008 GENERAL OSTEOARTHROSIS [M15.9] 07/11/2008 DISC DEGENERATION NOS [[id number]] 07/11/2008 S/P aortic valve replacement [Z95.2] 09/21/2010 Hypothyroidism [E03.9] 01/12/2013 Uterovaginal prolapse [N81.4] 09/07/2014 Anticoagulated on Coumadin [Z79.01] 12/11/2015 nursing home current use of anticoagulant [Z79.01]2019 Encounter Status:Closed by TIMBO MARTINEZ on 08/04/24 [facility] [place] 06-14-2024 CNOV Office Visit (OBGYWM) ---- TESSA DIAS ([id number]) 1935 F [place] Date Time Provider Department 06/14/24 3:50 PM TIMBO MARTINEZ OBPRADIPWCharanjit During your visit today, we recorded the following information about you: Blood pressure Weight 126/72 68.5 kg Timbo Martinez MD 06/21/2024 8:35 AM Signed Community Administrator offered: Patient accepts, visit chaperoned by Carmina Altamirano MA. Tessa Dias is a 88 year old who presents today for pessary insertion/cleaning. She wears a size 6 ring with support pessary. She returns today with no complaints. She has not had problems with the pessary. She has not had vaginal discharge. She has not had vaginal bleeding. EXAM: pleasant, well developed, well nourished, in no apparent distress Pelvic: Bartholin's, urethra and [place]'s glands were normal. The ring with support pessary was removed. Vaginal exam indicated no erythema, no ulcerations, and no vaginal discharge. The pessary was cleaned a size 6 ring was inserted without difficulty The pessary was inserted, patient tolerated the procedure well and the device is comfortable. rto 6 weeks Timbo Martinez MD [email or web address] Referring Provider: SELF [[id number]] Allergies As of Date: 06/14/2024 Noted Allergy Reaction DEMEROL (MEPERIDINE (PF)) 2006 1 - Mental Status Change BUSPAR (BUSPIRONE HCL) 12/21/2010 1 - Mental Status Change Comments: made her feel strange CELEXA (CITALOPRAM) 02/10/2013 14 - Other: See Comments Comments: made her more irritated and depressed FLECAINIDE 08/25/2008 12 - Shortness of Breath GABAPENTIN 02/15/2014 14 - Other: See Comments Comments: didn't feel well even at low dose; did not help for mouth pain at low dise SYNTHROID (LEVOTHYROXINE SODIUM) 01/12/2013 14 - Other: See Comments Comments: Patient did not feel well taking this medication - felt like she was going to get sick TRAZODONE 10/15/2012 8 - GI Upset ZOLOFT (SERTRALINE HCL) 12/21/2010 1 - Mental Status Change Comments: made her feel strange (was tried to switch off from stelazine) Date Reviewed: 06/14/2024 Reviewed by: Yvette Altamirano MA - Fully Assessed Reason for Visit: Pessary [345] Primary Visit Diagnosis:Pessary maintenance [Z46.89] Prescriptions as of 06/21/2024 - Oxyquinoline-Na Lauryl Sulfate (TRIMO-SINGH JELLY) 0.025-0.01 % gel Use 1 Inch vaginally two times a week. - amLODIPine (NORVASC) 2.5 mg tablet - LORazepam (ATIVAN) 0.5 mg - warfarin (COUMADIN) 3 mg tablet Take 1 tablet by mouth once daily. Or as directed based on INR - metoprolol succinate ER (TOPROL XL) 50 mg 24 hr tablet Take 1 tablet by mouth once daily. - Blood Pressure Cuff - Home Use BLOOD PRESSURE CUFF FOR HOME USE. DX: (I10) Unspecified essential hypertension Problem List As Of Date 06/14/2024 Noted Resolved Anxiety state [F41.1] 2006 Paroxysmal atrial fibrillation (HCC) [I48.0] 07/05/2008 Aortic valve disorder [I35.9] 07/11/2008 06/26/2017 Essential hypertension [I10] 07/11/2008 HYPERLIPIDEMIA NEC/NOS [E78.5] 07/11/2008 GENERAL OSTEOARTHROSIS [M15.9] 07/11/2008 DISC DEGENERATION NOS [[id number]] 07/11/2008 S/P aortic valve replacement [Z95.2] 09/21/2010 Hypothyroidism [E03.9] 01/12/2013 Uterovaginal prolapse [N81.4] 09/07/2014 Anticoagulated on Coumadin [Z79.01] 12/11/2015 emt intermediate current use of anticoagulant [Z79.01]2019 Encounter Status:Closed by TIMBO MARTINEZ on 06/21/24 [facility] CNOVon 05-26-2024 CNOV Office Visit (OBGYWM) ---- TESSA DIAS ([id number]) 1935 F [place] Date Time Provider Department 05/26/24 8:00 AM TIMBO MARTINEZ During your visit today, we recorded the following information about you: Blood pressure Weight 132/78 68.4 kg Timbo Martinez MD 05/26/2024 8:44 AM Signed Community Administrator provided by Marilyn Frye LPN. Tessa Dias is a 88 year old who presents today for pessary insertion/cleaning. She wears a 5 platform pessary. She returns today with complaints of bladder continues to fall out . She has had problems with the pessary. She has not had vaginal discharge. She has not had vaginal bleeding. EXAM: pleasant, well developed, well nourished, in no apparent distress Pelvic: Bartholin's, urethra and [place]'s glands were normal. The ring with support pessary is not present and her cervix is at the opening of her vagina was removed. Vaginal exam indicated no erythema, no ulcerations, and no vaginal discharge. A # 6 platform pessary pessary was inserted, patient tolerated the procedure well and the device is comfortable. RTO in 1-2 weeks for pessary check. Referring Provider: [facility] [[id number]] Allergies As of Date: 05/26/2024 Noted Allergy Reaction DEMEROL (MEPERIDINE (PF)) 2006 1 - Mental Status Change BUSPAR (BUSPIRONE HCL) 12/21/2010 1 - Mental Status Change Comments: made her feel strange CELEXA (CITALOPRAM) 02/10/2013 14 - Other: See Comments Comments: made her more irritated and depressed FLECAINIDE 08/25/2008 12 - Shortness of Breath GABAPENTIN 02/15/2014 14 - Other: See Comments Comments: didn't feel well even at low dose; did not help for mouth pain at low dise SYNTHROID (LEVOTHYROXINE SODIUM) 01/12/2013 14 - Other: See Comments Comments: Patient did not feel well taking this medication - felt like she was going to get sick TRAZODONE 10/15/2012 8 - GI Upset ZOLOFT (SERTRALINE HCL) 12/21/2010 1 - Mental Status Change Comments: made her feel strange (was tried to switch off from stelazine) Date Reviewed: 05/26/2024 Reviewed by: Marilyn Frye LPN - Fully Assessed Reason for Visit: Pessary [345] Primary Visit Diagnosis:Procident ia of uterus [N81.3] Other Visit Diagnosis:Uterovagi nal prolapse [N81.4] Prescriptions as of 05/26/2024 - Oxyquinoline-Na Lauryl Sulfate (TRIMO-SINGH JELLY) 0.025-0.01 % gel Use 1 Inch vaginally two times a week. - amLODIPine (NORVASC) 2.5 mg tablet - LORazepam (ATIVAN) 0.5 mg - warfarin (COUMADIN) 3 mg tablet Take 1 tablet by mouth once daily. Or as directed based on INR - metoprolol succinate ER (TOPROL XL) 50 mg 24 hr tablet Take 1 tablet by mouth once daily. - Blood Pressure Cuff - Home Use BLOOD PRESSURE CUFF FOR HOME USE. DX: (I10) Unspecified essential hypertension Problem List As Of Date 05/26/2024 Noted Resolved Anxiety state [F41.1] 2006 Paroxysmal atrial fibrillation (HCC) [I48.0] 07/05/2008 Aortic valve disorder [I35.9] 07/11/2008 06/26/2017 Essential hypertension [I10] 07/11/2008 HYPERLIPIDEMIA NEC/NOS [E78.5] 07/11/2008 GENERAL OSTEOARTHROSIS [M15.9] 07/11/2008 DISC DEGENERATION NOS [[id number]] 07/11/2008 S/P aortic valve replacement [Z95.2] 09/21/2010 Hypothyroidism [E03.9] 01/12/2013 Uterovaginal prolapse [N81.4] 09/07/2014 Anticoagulated on Coumadin [Z79.01] 12/11/2015 emt intermediate current use of anticoagulant [Z79.01]2019 Encounter Status:Closed by [facility]EL[facility] FERRARA [facility]26[facility] TESSA DIAS ([id number]) 1935 F [place] Date Time Provider Department 05/10/24 8:50 AM TIMBO MARTINEZ OBGYWCharanjit During your visit today, we recorded the following information about you: Blood pressure Weight 142/84 69.1 kg Timbo Martinez MD 05/10/2024 9:59 AM Signed Community Administrator offered: Patient accepts, visit chaperoned by Angelia Ferrara MA. Tessa L Michellechacha is a 88 year old female who presents for problem visit urinary frequency for 5 months. Patient reported pessary fell out has not attempted to place back into the vaginal canal. Uterus falling out HPI: as above OB History T2 L2 SAB0 IAB0 Ectopic0 Multiple0 Live Births0 Surgical Corsetier History LMP: Postmenopausal Age at Menarche: Age at First : Age at Menopause: Surgical Corsetier History Comments: Sexual Activity: Not Currently; No partner data on record; Postmenopausal Contraception: No contraception data on record PAST MEDICAL HISTORY Diagnosis Date Aortic valve disorder 07/11/2008 Echo June 2008 Aortic valve disorders Cervicalgia Paroxysmal atrial fibrillation (HCC) 07/05/2008 Phobia, unspecified PAST SURGICAL HISTORY Procedure Laterality Date PAST SURGICAL HISTORY OF 06/29/2010 Dr. 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 PAST SURGICAL HISTORY OF appendectomy in her 50's PAST SURGICAL HISTORY OF ~2005 pins for broken arm, left side (was not healing without surgery) FAMILY HISTORY Problem Relation Age of Onset Breast Cancer Sister Stroke Mother Stroke Brother Hypertension Mother Hypertension Brother Stroke Sister Diabetes Sister Alcohol/Drug Father Social History Tobacco Use Smoking status: Never Smokeless tobacco: Never Substance Use Topics Alcohol use: No Drug use: No Current Outpatient Medications Medication Sig amLODIPine (NORVASC) 2.5 mg tablet LORazepam (ATIVAN) 0.5 mg warfarin (COUMADIN) 3 mg tablet Take 1 tablet by mouth once daily. Or as directed based on INR metoprolol succinate ER (TOPROL XL) 50 mg 24 hr tablet Take 1 tablet by mouth once daily. Blood Pressure Cuff - Home Use BLOOD PRESSURE CUFF FOR HOME USE. DX: (I10) Unspecified essential hypertension No current facility-administer ed medications for this visit. Allergies As of Date: 05/10/2024 Allergen Noted Reaction DEMEROL [MEPERIDINE (PF)] 2006 Mental Status Change BUSPAR [BUSPIRONE HCL] 12/21/2010 Mental Status Change CELEXA [CITALOPRAM] 02/10/2013 Other: See Comments FLECAINIDE 08/25/2008 Shortness of Breath GABAPENTIN 02/15/2014 Other: See Comments SYNTHROID [LEVOTHYROXINE SODIUM] 01/12/2013 Other: See Comments TRAZODONE 10/15/2012 GI Upset ZOLOFT [SERTRALINE HCL] 12/21/2010 Mental Status Change Fully Assessed 12/10/2023 REVIEW OF SYSTEMS Abdomen: No bloating, early satiety, indigestion, or increased flatulence. No abdominal pain, nausea, vomiting, diarrhea, or constipation. Bladder: No dysuria, gross hematuria, urinary frequency, urinary urgency, or incontinence. Breast: No breast lumps, nipple d/c, overlying skin changes, redness or skin retraction. Expanded ROS: N/A Allergies and current medication updated:Yes SENSITIVE EXAM: The sensitive examination was discussed with the Patient or Patient's Authorized Polymer Scientist. As applicable, any other physician, advance practice provider, medical student, or other health professional student that will be observing or involved in the sensitive examination for educational or training purposes was discussed with the Patient or Authorized Polymer Scientist. The Patient or Authorized Polymer Scientist has agreed to proceed with the sensitive examination. (Sensitive examination includes inspection and/or palpation of the breasts, pelvis, prostate and anorectal regions). EXAM: There were no vitals taken for this visit. GENERAL: pleasant, female in no apparent distress ABDOMEN: soft, non-tender, and no masses PELVIC: external genitalia normal, normal Bartholin's glands, urethra, [place]'s glands, no vulvar lesions, no cervical lesions, good vaginal support, physiologic discharge present, normal appearing perineal body and perianal region. Incomplete prolapse. BIMANUAL: uterus normal size, shape and consistency, no adnexal masses, non-tender, and noting incomplete prolapse Urine dip with small blood/trace protein - UA pending ASSESSMENT AND PLAN: Incomplete uterine prolapse m- #5 platform pessary placed Hematuria - UA pending Custocele Assessment AND Plan Urinary frequency Orders: URINE CULTURE; Future Vaginal irritation Uterine procidentia Cystocele, midline ftft>40m rto 6 weeks pessary check Timbo Martinez MD Referring Provider: [facility] [[id number]] Allergies As of Date: 05/10/2024 Noted Allergy Reaction DEMEROL (MEPERIDINE (PF (more content not included)... Normal [facility] UA DIP, URINE (POC)on 2023 BILIRUBIN UA (POCT) Negative Negative [facility] CLARITY UA (POCT) [facility] COLOR UA (POCT) Dark yellow [facility] d [facility] GLUCOSE UA (POCT) Negative Negative mg/dL [facility] Hemoglobin Ql (U) Small Abnormal Negative [facility] Interpretation and review of laboratory results Abnormal [facility] KETONE UA (POCT) Negative Negative mg/dL [facility] LEUKOCYTES UA (POCT) Negative Negative [facility] NITRITE UA (POCT) Negative Negative [facility] PH UA (POCT) 5.5 4.5 - 8.0 [facility] Protein Ql (U) Trace Abnormal Negative mg/dL [facility] SPECIFIC GRAVITY UA (POCT) >=1.030 1.005 - 1.030 [facility] UROBILINOGEN UA (POCT) 0.2 Olga l E.U./dL [facility] Location:[facility], [address], [place], [address] [facility] POINT OF CARE [facility] Pattie 12-12-2023 CNPN Telephone (OBGYWM) ---- TESSA DIAS ([id number]) 1935 F [place] Date Time Provider Department 12/12/23 TALIA AIKEN During your visit today, we recorded the following information about you: Talia Aiken APRN.CNP 12/12/2023 7:19 AM Signed Please notify patient: Urine culture + for UTI Rx sent for Macrobid Push water and notify with worsening symptoms. Please inform daughter if possible too VALERIY Barrett Jennifer, RN 12/12/2023 8:59 AM Signed Called patient's home phone. Daughter answered. Notified of results and reviewed instructions. Kassandra Ortiz RN Allergies As of Date: 12/12/2023 Noted Allergy Reaction DEMEROL (MEPERIDINE (PF)) 2006 1 - Mental Status Change BUSPAR (BUSPIRONE HCL) 12/21/2010 1 - Mental Status Change Comments: made her feel strange CELEXA (CITALOPRAM) 02/10/2013 14 - Other: See Comments Comments: made her more irritated and depressed FLECAINIDE 08/25/2008 12 - Shortness of Breath GABAPENTIN 02/15/2014 14 - Other: See Comments Comments: didn't feel well even at low dose; did not help for mouth pain at low dise SYNTHROID (LEVOTHYROXINE SODIUM) 01/12/2013 14 - Other: See Comments Comments: Patient did not feel well taking this medication - felt like she was going to get sick TRAZODONE 10/15/2012 8 - GI Upset ZOLOFT (SERTRALINE HCL) 12/21/2010 1 - Mental Status Change Comments: made her feel strange (was tried to switch off from stelazine) Date Reviewed: 12/10/2023 Reviewed by: Talia Aiken APRN.CNP - Fully Assessed Reason for Visit: Results [95] Order(s):nitrofuran toin monohydrate and macrocrystal (MACROBID) 100 mg capsuleTake 1 capsule by mouth two times a day for 5 days.Disp: 10 capsuleRfl: 0 Prescriptions as of 12/12/2023 - nitrofurantoin monohydrate and macrocrystal (MACROBID) 100 mg capsule Take 1 capsule by mouth two times a day for 5 days. - amLODIPine (NORVASC) 2.5 mg tablet - LORazepam (ATIVAN) 0.5 mg - warfarin (COUMADIN) 3 mg tablet Take 1 tablet by mouth once daily. Or as directed based on INR - metoprolol succinate ER (TOPROL XL) 50 mg 24 hr tablet Take 1 tablet by mouth once daily. - Blood Pressure Cuff - Home Use BLOOD PRESSURE CUFF FOR HOME USE. DX: (I10) Unspecified essential hypertension Problem List As Of Date 12/12/2023 Noted Resolved Anxiety state [F41.1] 2006 Paroxysmal atrial fibrillation (HCC) [I48.0] 07/05/2008 Aortic valve disorder [I35.9] 07/11/2008 06/26/2017 Essential hypertension [I10] 07/11/2008 HYPERLIPIDEMIA NEC/NOS [E78.5] 07/11/2008 GENERAL OSTEOARTHROSIS [M15.9] 07/11/2008 DISC DEGENERATION NOS [[id number]] 07/11/2008 S/P aortic valve replacement [Z95.2] 09/21/2010 Hypothyroidism [E03.9] 01/12/2013 Uterovaginal prolapse [N81.4] 09/07/2014 Anticoagulated on Coumadin [Z79.01] 12/11/2015 emt intermediate current use of anticoagulant [Z79.01]2019 Prescriptions ordered this encounter Disp Refills Start End NITROFURANTOIN MONOHYDRATE AND MACROCR* 10 c* 0 12/12/2023 12/17/2023 Route: ORAL Sig: Take 1 capsule by mouth two times a day for 5 days. Encounter Status:Closed by KASSANDRA ORTIZ on 12/12/23 [facility] Bacteria Ur Culton 4 Bacteria identified Cx Nom (U) CULTURE, URINE: Mixed microbiota, including predominantly: ORGANISM ID: 1 50,000-<100,000 CFU/ml Escherichia coli ORGANISM ID: 1 (ESCHERICHIA COLI) ANTIBIOTIC INTERPRETATION ARMANI STATUS REFERENCE RANGE Ampicillin S 4 F Susceptible <=8 , Intermediate >8 , Resistant >16 Cefazolin S <=4 F Susceptible 0-16 , Intermediate <0 or >16 , Resistant >16 For uncomplicated urinary tract infections, cefazolin results can be used to predict susceptibility or resistance to cephalexin. Ceftriaxone S <=1 F Susceptible <=1 , Intermediate >1 , Resistant >=4 Cefepime S <=1 F Susceptible <=2 , Susceptible-Dose Dependent >2 , Resistant >=16 Ertapenem S <=0.5 F Susceptible <=0.5 , Intermediate >.5 , Resistant >1 Meropenem S <=0.25 F Susceptible <=1 , Intermediate >1 , Resistant >2 Ampicillin/Sulbact S <=2 F Susceptible <=8 , Intermediate >8 , Resistant >16 Piperacillin/Tazoba c S <=4 F Susceptible <16 , Susceptible-Dose Dependent >=16 , Resistant >=32 Gentamicin S <=1 F Susceptible <=2 , Intermediate >2 , Resistant >=8 Tobramycin S <=1 F Susceptible <4 , Intermediate >=4 , Resistant >=8 Trimeth sulfameth S <=20 F Susceptible <=40 , Resistant >40 Ciprofloxacin S <=0.25 F Susceptible <0.5 , Intermediate >=.5 , Resistant >=1 Nitrofurantoin S <=16 F Susceptible <=32 , Intermediate >32 , Resistant >64 Abnormal [facility] Comment on above: Performed By: #### 6 30-4 ####[facility] MANNIE [id number] [place] [id number] [place] CNOVon 12-10-2023 CNOV Office Visit (OBGYWM) ---- TESSA DIAS ([id number]) 1935 F UPA Date Time Provider Department 12/10/23 4:00 PM TALIA AIKEN During your visit today, we recorded the following information about you: Blood pressure Weight 132/76 69.4 kg Talia Aiken, COTTON PICKING MACHINE OPERATOR.[employer] D [employer] 12/10/2023 4:59 PM Signed Tessa Dias is a 88 year old female who presents for a follow up of UTI and prolapse. HPI: Tessa went to ER on 11/28/23 for shortness of breath and was diagnosed with a UTI. She was treated with an antibiotic and symptoms have mostly resolved. She is here today to follow up on her pessary. She reports that her bladder sometimes protrudes from the vagina. The pessary does not fall out, but she thinks it may not fit properly. She has a size 4 ring. Also experiencing some mucus from rectum. OB History T2 L2 SAB0 IAB0 Ectopic0 Multiple0 Live Births0 Surgical Corsetier History LMP: Postmenopausal Age at Menarche: Age at First : Age at Menopause: Surgical Corsetier History Comments: Sexual Activity: Not Currently; No partner data on record; Postmenopausal Contraception: No contraception data on record PAST MEDICAL HISTORY Diagnosis Date Aortic valve disorder 07/11/2008 Echo June 2008 Aortic valve disorders Cervicalgia Paroxysmal atrial fibrillation (HCC) 07/05/2008 Phobia, unspecified PAST SURGICAL HISTORY Procedure Laterality Date PAST SURGICAL HISTORY OF 06/29/2010 Dr. 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 PAST SURGICAL HISTORY OF appendectomy in her 50's PAST SURGICAL HISTORY OF ~2005 pins for broken arm, left side (was not healing without surgery) FAMILY HISTORY Problem Relation Age of Onset Breast Cancer Sister Stroke Mother Stroke Brother Hypertension Mother Hypertension Brother Stroke Sister Diabetes Sister Alcohol/Drug Father Social History Tobacco Use Smoking status: Never Smokeless tobacco: Never Substance Use Topics Alcohol use: No Drug use: No Current Outpatient Medications Medication Sig amLODIPine (NORVASC) 2.5 mg tablet LORazepam (ATIVAN) 0.5 mg warfarin (COUMADIN) 3 mg tablet Take 1 tablet by mouth once daily. Or as directed based on INR metoprolol succinate ER (TOPROL XL) 50 mg 24 hr tablet Take 1 tablet by mouth once daily. Blood Pressure Cuff - Home Use BLOOD PRESSURE CUFF FOR HOME USE. DX: (I10) Unspecified essential hypertension lidocaine (XYLOCAINE) 2 % jelly Apply 1 application to affected area as needed (gums). (Patient not taking: Reported on 03/23/2021) No current facility-administer ed medications for this visit. 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 Allergies and current medication updated:Yes EXAM: BP 132/76 Wt 153 lb (69.4kg) GENERAL: pleasant, female in no apparent distress HEENT: Normocephalic, atraumatic, mucus membranes moist, and no lesions CHEST: Normal inspiratory effort ABDOMEN: soft, non-tender, and no masses PELVIC: external genitalia atrophic, normal Bartholin's glands, urethra, [place]'s glands, no vulvar lesions, no cervical lesions, + 3rd degree uterovaginal prolapse, cystocele, rectocele, physiologic discharge present, normal appearing perineal body and perianal region BIMANUAL: uterus normal size, shape and consistency, no adnexal masses, and non-tender NEURO: alert and oriented x3,exam grossly non-focal EXTREMITIES: normal ASSESSMENT AND PLAN: 1. History of UTI - ICD9: V13.02, ICD10: Z87.440 (primary diagnosis) - Repeat urine culture today to ensure resolution of infection - URINE CULTURE Uterovaginal prolapse - ICD9: 618.4, ICD10: N81.4 Cystocele, midline - ICD9: 618.01, ICD10: N81.11 Rectocele - ICD9: 618.04, ICD10: N81.6 - On exam, pessary palpates as malpositioned with minimal support - Recommend returning for pessary fitting - No ulcerations or erythema noted. Pessary was cleaned and reinserted with triosan cream. - Patient tolerated well. RTO for pessary fitting. Follow up with PCP about mucus from rectum. Talia Aiken APRN.R D INTERNSH[employer] Medical Decision Making: Problems: Moderate: 1+ chronic illnesses with change Data: Unique test result(s) reviewed: 1 Unique test(s) ordered: 1 Risk: Low: Low risk from testing/treatment Medical Decis (more content not included)... Normal [facility] UA DIP, URINE (POC)on 2023 BILIRUBIN UA (POCT) Negative Negative [facility] CLARITY UA (POCT) Clear [facility] COLOR UA (POCT) Yellow [facility] GLUCOSE UA (POCT) Negative Negative mg/dL [facility] Hemoglobin Ql (U) Trace-lysed Abnormal Negative [facility] Interpretation and review of laboratory results Abnormal [facility] KETONE UA (POCT) Negative Negative mg/dL [facility] LEUKOCYTES UA (POCT) Negative Negative [facility] NITRITE UA (POCT) Negative Negative [facility] PH UA (POCT) 6.0 4.5 - 8.0 [facility] Protein Ql (U) Negative Negative mg/dL [facility] SPECIFIC GRAVITY UA (POCT) 1.025 1.005 - 1.030 [facility] UROBILINOGEN UA (POCT) 0.2 Olga l E.U./dL [facility] Location:[facility], [address], [place], [place], [id number] [place] [address] POINT OF CARE [facility] Urine Cultureon 11-30-2023 [facility] Presumptive E. coli [place] Count >100,000 Presumptive E. coli: REACTION Ampicillin Islt ARMANI 4 S Ampicillin+Sulbac Islt ARMANI <=2 S ceFAZolin Islt ARMANI <=4 S Cefepime Islt ARMANI <=0.12 S cefTRIAXone Islt ARMANI <=0.25 S Ciprofloxacin Islt ARMANI <=0.25 S Ertapenem Islt ARMANI <=0.12 S B-Lactamase Extended Susc Islt NEG Gentamicin Islt ARMANI <=1 S Imipenem Islt ARMANI <=0.25 S levoFLOXacin Islt ARMANI <=0.12 S Nitrofurantoin Islt ARMANI <=16 S Pip+Tazo Islt ARMANI <=4 S Tobramycin Islt ARMANI <=1 S TMP SMX Islt ARMANI <=[address] [facility] Comment on above: Performed By: #### M 100.2200 #### [facility] Laboratory [address] [place] [place], [address] 12 Lead EKGon 11-28-2023 12 Lead EKG [facility] Cardiovascular Services [address] [place] [address] 12 Lead EKG 11/28/23 1823 MR#: [id number] Acct: [id number] Name: TESSA DIAS Charla Rep #: [id number] : 1935 88 From: Brian Ramirez MD Attending Dr: Status: DEP ER Ordering Dr: Char Manning Date: 11/28/23 Location: ED Sex: F C Admitted: Test Reason : DYSRHYTHMIA Blood Pressure : / mmHG Vent. Rate : 084 BPM Atrial Rate : 263 BPM P-R Int : 000 ms QRS Dur : 096 ms QT Int : 400 ms P-R-T Axes : 249 015 -77 degrees QTc Int : 472 ms Atrial flutter with variable A-V block Left ventricular hypertrophy with repolarization abnormality ( Sokolow-Mohr ) Abnormal ECG Confirmed by Brian Ramirez ([id number]), mapping editor ANGELIA TERRY ([id number]) on 12/02/2023 6:01:39 AM Referred By: TL Confirmed By:Brian Ramirez 12/02/23 0601 Date Brian Ramirez MD CC: Dr. Doron Cueto, DO; Dr. Lionel Rodas DO; KADEN Andrade Signed Normal [facility] Basic Metabolic Profile (BMP )on 11-28-2023 BUN/CRE 24.2 RATIO High 10-20 [facility] Comment on above: Order Comment: 'TROP ' Serial specimen #1, #2 or #3: 1 Performed By: #### L 100.0100, L300.3900, L500.2500, L501.4020 #### [facility] Laboratory [address] [place], [address] CA,Total 9.1 mg/dL Normal 8.5-10.1 [facility] Comment on above: Order Comment: 'TROP ' Serial specimen #1, #2 or #3: 1 Performed By: #### L 100.0100, L300.3900, L500.2500, L501.4020 #### [facility] Laboratory [address] [place], [address] Chloride [Moles/Vol] 106 mmol/L Normal 98-107 [facility] Comment on above: Order Comment: 'TROP ' Serial specimen #1, #2 or #3: 1 Performed By: #### L 100.0100, L300.3900, L500.2500, L501.4020 #### [facility] Laboratory [address] [place], [address] CO2 [Moles/Vol] 30.0 mmol/L Normal 21.0-32.0 [facility] Comment on above: Order Comment: 'TROP ' Serial specimen #1, #2 or #3: 1 Performed By: #### L 100.0100, L300.3900, L500.2500, L501.4020 #### [facility] Laboratory [address] [place], [address] Creatinine [Mass/Vol] 0.82 mg/dL Normal 0.55-1.02 [facility] Comment on above: Order Comment: 'TROP ' Serial specimen #1, #2 or #3: 1 Result Comment: The validity of the calculated GFR GFRAA in patients over 70 years has not been determined. Clinical correlation is essential. Performed By: #### L 100.0100, L300.3900, L500.2500, L501.4020 #### [facility] Laboratory [address] [place], [address] ECRCL 44.49 ml/min Normal [facility] Comment on above: Order Comment: 'TROP ' Serial specimen #1, #2 or #3: 1 Performed By: #### L 100.0100, L300.3900, L500.2500, L501.4020 #### [facility] Laboratory [address] [place], [address] EST GFR - AA 84 mL/min Normal >60 [facility] Comment on above: Order Comment: 'TROP ' Serial specimen #1, #2 or #3: 1 Result Comment: Afri can Salvadorean GFR Calc Performed By: #### L 100.0100, L300.3900, L500.2500, L501.4020 #### [facility] Laboratory [address] [place], [address] GAP 2 Low 5-15 [facility] Comment on above: Order Comment: 'TROP ' Serial specimen #1, #2 or #3: 1 Performed By: #### L 100.0100, L300.3900, L500.2500, L501.4020 #### [facility] Laboratory [address] [place], [address] GFR/1.73 sq M.predicted among non-blacks MDRD (S/P/Bld) [Vol rate/Area] 70 mL/min/{1.73_m2} Normal >60 [facility] Comment on above: Order Comment: 'TROP ' Serial specimen #1, #2 or #3: 1 Result Comment: Non- GFR Calc Performed By: #### L 100.0100, L300.3900, L500.2500, L501.4020 #### [facility] Laboratory [address] [place], [address] Glucose [Mass/Vol] 103 mg/dL Normal 74-106 [facility] Comment on above: Order Comment: 'TROP ' Serial specimen #1, #2 or #3: 1 Result Comment: Fast ing Glucose result from 100 to 125 mg/dL suggests IMPAIRED HOMEOSTASIS per A.D.A. criteria. Performed By: #### L 100.0100, L300.3900, L500.2500, L501.4020 #### [facility] Laboratory [address] [place], [address] Potassium [Moles/Vol] 3.7 mmol/L Normal 3.5-5.1 [facility] Comment on above: Order Comment: 'TROP ' Serial specimen #1, #2 or #3: 1 Performed By: #### L 100.0100, L300.3900, L500.2500, L501.4020 #### [facility] Laboratory [address] [place], [address] Sodium [Moles/Vol] 138 mmol/L Normal 136-145 [facility] Comment on above: Order Comment: 'TROP ' Serial specimen #1, #2 or #3: 1 Performed By: #### L 100.0100, L300.3900, L500.2500, L501.4020 #### [facility] Laboratory [address] [place], [address] Urea nitrogen [Mass/Vol] 20 mg/dL High 7-18 [facility] Comment on above: Order Comment: 'TROP ' Serial specimen #1, #2 or #3: 1 Performed By: #### L 100.0100, L300.3900, L500.2500, L501.4020 #### [facility] Laboratory [address] [place], [address] CBC W/Diff, Automatedon 06-2 Absolute Lymph 1.98 X10 3/uL Normal 0.83-4.51 [facility] Comment on above: Performed By: #### L 100.0100, L300.3900, L500.2500, L501.4020 #### [facility] Laboratory [address] [place], [address] Absolute Neut 5.1 X10 3/uL Normal 2.0-7.7 [facility] Comment on above: Performed By: #### L 100.0100, L300.3900, L500.2500, L501.4020 #### [facility] Laboratory [address] [place], [address] Basophils/100 WBC (Bld) 0.4 % Normal 0-1 [facility] Comment on above: Performed By: #### L 100.0100, L300.3900, L500.2500, L501.4020 #### [facility] Laboratory [address] [place], [address] Eosinophils/100 WBC (Bld) 1.5 % Normal 0-5 [facility] Comment on above: Performed By: #### L 100.0100, L300.3900, L500.2500, L501.4020 #### [facility] Laboratory [address] [place], [address] Erythrocyte distribution width (RBC) [Ratio] 13.5 % Normal 11.6-14.6 [facility] Comment on above: Performed By: #### L 100.0100, L300.3900, L500.2500, L501.4020 #### [facility] Laboratory [address] [place], [address] Hematocrit (Bld) [Volume fraction] 47.0 % Normal 37-47 [facility] Comment on above: Performed By: #### L 100.0100, L300.3900, L500.2500, L501.4020 #### [facility] Laboratory [address] [place], [address] Hemoglobin (Bld) [Mass/Vol] 15.2 g/dL High 12.0-15.0 [facility] Comment on above: Performed By: #### L 100.0100, L300.3900, L500.2500, L501.4020 #### [facility] Laboratory [address] [place], [address] IG% 0.400 Normal 0.0-0.9 [facility] Comment on above: Result Comment: IG% - Immature Granulocytes (promyelocytes, myelocytes and metamyelocytes) > 1% indicates that a LEFT SHIFT is Present. Performed By: #### L 100.0100, L300.3900, L500.2500, L501.4020 #### [facility] Laboratory [address] [place], [address] Lymphocytes/100 WBC (Bld) 24.5 % Normal 19-41 [facility] Comment on above: Performed By: #### L 100.0100, L300.3900, L500.2500, L501.4020 #### [facility] Laboratory [address] [place], [address] MCH (RBC) [Entitic mass] 28.5 pg Normal 27.0-32.0 [facility] Comment on above: Performed By: #### L 100.0100, L300.3900, L500.2500, L501.4020 #### [facility] Laboratory [address] [place], [address] MCHC (RBC) [Mass/Vol] 32.3 g/dL Normal 32-36 [facility] Comment on above: Performed By: #### L 100.0100, L300.3900, L500.2500, L501.4020 #### [facility] Laboratory [address] [place], [address] MCV (RBC) [Entitic vol] 88.2 fL Normal 81-99 [facility] Comment on above: Performed By: #### L 100.0100, L300.3900, L500.2500, L501.4020 #### [facility] Laboratory [address] [place], [address] Monocytes/100 WBC (Bld) 10.0 % Normal 0-10 [facility] Comment on above: Performed By: #### L 100.0100, L300.3900, L500.2500, L501.4020 #### [facility] Laboratory [address] [place], [address] Neutrophils/100 WBC (Bld) 63.2 % Normal 47-70 [facility] Comment on above: Performed By: #### L 100.0100, L300.3900, L500.2500, L501.4020 #### [facility] Laboratory [address] [place], [address] Nucleated RBC (Bld) [#/Vol] 0 10*3/uL Normal 0-5 [facility] Comment on above: Performed By: #### L 100.0100, L300.3900, L500.2500, L501.4020 #### [facility] Laboratory [address] [place], [address] Platelet mean volume (Bld) [Entitic vol] 9.7 fL Normal 6.2-12.0 [facility] Comment on above: Performed By: #### L 100.0100, L300.3900, L500.2500, L501.4020 #### [facility] Laboratory [address] [place], [address] Platelets (Bld) [#/Vol] 232 10*3/uL Normal 150-450 [facility] Comment on above: Performed By: #### L 100.0100, L300.3900, L500.2500, L501.4020 #### [facility] Laboratory [address] [place], [address] RBC (Bld) [#/Vol] 5.33 10*6/uL Normal 4.2-5.4 [facility] Comment on above: Performed By: #### L 100.0100, L300.3900, L500.2500, L501.4020 #### [facility] Laboratory [address] [place], [address] RDW SD 43.5 fl Normal 35.1-43.9 [facility] Comment on above: Performed By: #### L 100.0100, L300.3900, L500.2500, L501.4020 #### [facility] Laboratory [address] [place], [address] WBC (Bld) [#/Vol] 8.1 10*3/uL Normal 4.4-11.0 [facility] Comment on above: Performed By: #### L 100.0100, L300.3900, L500.2500, L501.4020 #### [facility] Laboratory [address] [place], [address] Chest 1 View (Portable)on Chest 1 View (Portable) [facility] Imaging Services [address] [place] [address] Chest 1 View (Portable) MR#: [id number] Acct: [id number] Name: TESSA DIAS Rep #: [id number] : 1935 F 88 From: Stephan Arizmendi MD PCP: Dr. Doron Cueto, DO Status: PRE ER Study: Chest 1 View (Portable) Date of Exam: 11/28/23 Exam# [id number] Ordering Dr: Char Manning -[id number] STUDY: X-RAY CHEST REASON FOR EXAM: Female, 88 years old. weakness TECHNIQUE: AP portable COMPARISON: None. FINDINGS: Minor chronic interstitial thickening in the left lower lobe.. There is no demonstrated pleural abnormality. Normal size heart. Normal mediastinum and sagar. Normal visualized pulmonary arteries. Mildly calcified aortic arch and descending thoracic aorta. Postop change status post median sternotomy and aortic valve replacement. Left atrial clip is noted Normal visualized thoracic spine. Normal visualized ribs, clavicles, and shoulders. There is no demonstrated abnormality of the visualized soft tissue structures of the upper abdomen. RAD/Chest 1 View (Portable) IMPRESSION: Mild chronic interstitial changes in left lower lobe. No acute cardiopulmonary pathology Electronically Signed: Stephna Arizmendi MD at 18:54 EDT Reading Location ID and State: [facility] / [place] Tel , Service support , CC: Dr. Doron Cueto DO; KADEN Andrade Chief Of Field Operations: Signed Normal [facility] Emergency Department Summary on 11-28-2023 Emergency Department Summary [facility] Medical Records Department [address] [place] [id number] Emergency Department Summary 11/28/23 MR#: [id number] Acct: [id number] Name: TESSA DIAS Rep #: [id number] : 1935 88 From: Char ALFONSO PCP: Dr. Doron Cueto DO Status:DEP ER Location: ED HPI History of Present Illness Chief Complaint: Weakness Narrative Narrative: 88-year-old female with past medical history of hypertension, hyperlipidemia, A-fib/A flutter, aortic valve replacement on Coumadin presents with lightheadedness. She has had intermittent lightheadedness for months but it seemed worse today and she called her family member who then called EMS. She denies chest pain. She states occasionally she will get winded with walking around her home but has not noticed an increase in shortness of breath. No fever or cough. She wears diapers because she has some chronic leakage of urine due to the pessary states today she had loose stool with clear mucus in her pad and was not even aware she had a bowel movement. She has no abdominal or back pain. PFSH [facility] Medical History Anxiety Atherosclerosis of coronary artery of [place] heart without angina pectoris Atrial fibrillation and flutter Atrial flutter Chest pain DDD (degenerative disc disease) Essential hypertension History of left heart catheterization (LHC) ( 09/15/12) Hyperlipidemia Hypothyroidism Lightheadedness Osteoarthritis Trigeminal neuralgia Home Medications ???Medication ???Instructions ???Recorded ???Last Taken ???Type lorazepam 0.5 mg tablet 0.25 mg PO QHS PRN ANXIETY 12/28/20 Unknown History warfarin 3 mg tablet 3 mg PO DAILY 12/28/20 Unknown History amlodipine 2.5 mg tablet 2.5 mg PO DAILY #30 tabs 04/10/21 Unknown Rx metoprolol succinate 50 mg 50 mg PO DAILY 05/31/21 Unknown History tablet,extended release 24 hr cephalexin 500 mg capsule 500 mg PO BID 7 days #14 caps 11/28/23 Unknown Rx Allergy/AdvReac Type Severity Reaction Status Date / Time citalopram (From Celexa) Allergy Intermediate Unknown Verified 10/13/22 21:57 gabapentin Allergy Intermediate Unknown Verified 10/13/22 21:57 trazodone Allergy Intermediate Nausea/Vom/ Verified 10/13/22 21:57 Diarrhea buspirone HCl (From BuSpar) Allergy Upset Verified 10/13/22 21:57 Stomach flecainide (Flecainide) Allergy Shortness Verified 10/13/22 21:57 of breath levothyroxine sodium (From Allergy Nausea Verified 10/13/22 21:57 Synthroid) meperidine HCl (From Demerol) Allergy Other Verified 10/13/22 21:57 sertraline HCl (From Zoloft) Allergy Other Verified 10/13/22 21:57 tramadol Allergy Nausea Verified 10/13/22 21:57 Family History Sister Breast cancer CVA (cerebral vascular accident) Diabetes Mother CVA (cerebral vascular accident) Hypertension Brother Hypertension Other Paroxysmal atrial fibrillation with RVR Surgical History 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 CVS: Negative for palpitations, chest pain, syncope. Respiratory: Negative for shortness of breath, cough. GI: Negative for abdominal pain, nausea, vomiting, diarrhea, constipation, melena, hematochezia. : Negative for dysuria, hematuria or frequency. Neuro: Negative for headache, motor/sensory dysfunction. Skin: Negative for rash, abscess, or wound. Musc: Negative for joint pain, swelling, trauma. Heme: Negative for easy bruising, bleeding, lymphadenopathy. EXAM Physical Exam Narrative Exam Narrative: CONST: Patient sitting in no acute distress. EYES: Normal inspection. NECK: Normal inspection. RESP: No respiratory distress, CTAB. CVS: Regular rate and rhythm, no murmur, no gallop. ABD: Soft and nontender, no guarding or rebound, nondistended. SKIN: Color normal, no rash, warm, dry, intact. EXTREMITIES: Normal appearance, no pedal edema. NEURO: Alert and answering questions appropriately. PSYCH: Normal affect. Const Vital Signs: 11/28/23 18:02 11/28/23 18:24 11/28/23 18:43 Temperature 98.4 F Temperature Source Oral Pulse Rate 68 Pulse Rate [Lying] 89 Pulse Rate [Sitting (for 1 minute prior to obtaining)] 76 Pulse Rate [Standing (for 1 minute prior to obtaining)] 113 H Respiratory Rate 18 Re (more content not included)... Normal [facility] L501.4020on 11-28-2023 TROPONIN-I HS 41 pg/mL Normal 3.0-54.0 [facility] Comment on above: Order Comment: 'TROP ' Serial specimen #1, #2 or #3: 1 Result Comment: Darian barnes Note: New Test Units and Gender Specific Reference Ranges. For more information see Policy Stat Procedure [place] High Sensitivity Troponin (TNIH) and attachments. Performed By: #### L 100.0100, L300.3900, L500.2500, L501.4020 ####[facility] [address] [place], [address] Prothrombin Time w/INRon INR Coag (PPP) [Relative time] 2.5 {INR} Normal [facility] Comment on above: Performed By: #### L 100.0100, L300.3900, L500.2500, L501.4020 #### [facility] Laboratory [address] [place], [address] PT Coag (PPP) [Time] 26.8 s High 11.7-14.9 [facility] Comment on above: Performed By: #### L 100.0100, L300.3900, L500.2500, L501.4020 #### [facility] [address] [place], [address] Urinalysis, Completeon 11-27 RBC 0-5 SEEN Normal 0-5 [facility] Comment on above: Order Comment: COLLE CTOR TO SPECIFY Performed By: #### L 400.0001 #### [facility] [address] [place], [address] BACTERIA 4+ /hpf Normal None Seen [facility] Comment on above: Order Comment: COLLE CTOR TO SPECIFY Performed By: #### L 400.0001 #### [facility] [address] [place], [address] WBC 0-5 SEEN Normal 0-5 [facility] Comment on above: Order Comment: COLLE CTOR TO SPECIFY Performed By: #### L 400.0001 #### [facility] [address] [place], [address] EPI,SQUAMOUS 0 SEEN Normal 5-10 [facility] Comment on above: Order Comment: COLLE CTOR TO SPECIFY Performed By: #### L 400.0001 #### [facility] [address] [place], [place], [address] Mucus Ql (Urine sed) 0 SEEN Normal [facility] Comment on above: Order Comment: COLLE CTOR TO SPECIFY Performed By: #### L 400.0001 #### [facility] [address] [place], [place], [address] CNOVon 11-13-2023 CNOV Office Visit (OBGYWM) ---- TESSA DIAS ([id number]) 1935 F UPA Date Time Provider Department 11/13/23 8:15 AM USHA NICKERSON OBGYWM During your visit today, we recorded the following information about you: Blood pressure Weight 132/70 69.4 kg Usha Nickerson APRN.CNM 11/13/2023 8:54 AM Signed Tessa Dias is a 88 year old who presents today for pessary insertion/cleaning. She wears a size 4 ring with support pessary. She returns today with no complaints. She has not had problems with the pessary. She has not had vaginal discharge. She occasional had vaginal spotting EXAM: pleasant, well nourished, in no apparent distress Pelvic: Bartholin's, urethra and [place]'s glands were atrophic. The ring pessary was removed. Vaginal exam indicated no erythema and no ulcerations. New pessary size 4 ring was inserted without difficulty The pessary was inserted, patient tolerated the procedure well and the device is comfortable. Patient to return for pessary cleaning . Usha Nickerson APRN.CNM Referring Provider: USHA NICKERSON [[id number]] Allergies As of Date: 11/13/2023 Noted Allergy Reaction DEMEROL (MEPERIDINE (PF)) 2006 1 - Mental Status Change BUSPAR (BUSPIRONE HCL) 12/21/2010 1 - Mental Status Change Comments: made her feel strange CELEXA (CITALOPRAM) 02/10/2013 14 - Other: See Comments Comments: made her more irritated and depressed FLECAINIDE 08/25/2008 12 - Shortness of Breath GABAPENTIN 02/15/2014 14 - Other: See Comments Comments: didn't feel well even at low dose; did not help for mouth pain at low dise SYNTHROID (LEVOTHYROXINE SODIUM) 01/12/2013 14 - Other: See Comments Comments: Patient did not feel well taking this medication - felt like she was going to get sick TRAZODONE 10/15/2012 8 - GI Upset ZOLOFT (SERTRALINE HCL) 12/21/2010 1 - Mental Status Change Comments: made her feel strange (was tried to switch off from stelazine) Date Reviewed: 11/13/2023 Reviewed by: Rusty Russell MA - Fully Assessed Reason for Visit: Pessary Maintenance [Other] Primary Visit Diagnosis:Pessary maintenance [Z46.89] Prescriptions as of 11/13/2023 - amLODIPine (NORVASC) 2.5 mg tablet - LORazepam (ATIVAN) 0.5 mg - lidocaine (XYLOCAINE) 2 % jelly Apply 1 application to affected area as needed (gums). - warfarin (COUMADIN) 3 mg tablet Take 1 tablet by mouth once daily. Or as directed based on INR - metoprolol succinate ER (TOPROL XL) 50 mg 24 hr tablet Take 1 tablet by mouth once daily. - Blood Pressure Cuff - Home Use BLOOD PRESSURE CUFF FOR HOME USE. DX: (I10) Unspecified essential hypertension Problem List As Of Date 11/13/2023 Noted Resolved Anxiety state [F41.1] 2006 Paroxysmal atrial fibrillation (HCC) [I48.0] 07/05/2008 Aortic valve disorder [I35.9] 07/11/2008 06/26/2017 Essential hypertension [I10] 07/11/2008 HYPERLIPIDEMIA NEC/NOS [E78.5] 07/11/2008 GENERAL OSTEOARTHROSIS [M15.9] 07/11/2008 DISC DEGENERATION NOS [BLQ8701] 07/11/2008 S/P aortic valve replacement [Z95.2] 09/21/2010 Hypothyroidism [E03.9] 01/12/2013 Uterovaginal prolapse [N81.4] 09/07/2014 Anticoagulated on Coumadin [Z79.01] 12/11/2015 nursing home current use of anticoagulant [Z79.01]2019 Disposition: Return in about 3 months (around 02/13/2024) for Pessary cleaning and replacement. Follow-up and Disposition History for Encounter Date Provider Department Center 11/13/2023 [id number] NICKERSON LINO [facility] Encounter Status:Closed by USHA NICKERSON on 11/13/23 Normal [facility] INR in Blood by Coagulation assayOrdered By: Dr. Rodas on 10-13-2022 INR Coag (Bld) [Relative time] 1.9 {INR} [facility] Laboratory - CoagulationOrde red By: Dr. Rodas on 10-13-2022 PT Coag (PPP) [Time] 22.1 s 11.7-14.9 [facility] Absolute lymphocyte countOrd ered By: Dr. Cueto on 07-22-2022 Lymphocytes Auto (Unsp spec) [#/Vol] 2.01 10*3/uL 0.83-4.51 [facility] Basophil percentageOrdered B y: Dr. Cueto on 07-22-2022 Basophils/100 WBC (Bld) 0.3 % 0-1 [facility] Bilirubin [Mass/Vol] 1.10 mg/dL 0.20-1.00 [facility] Comment on above: For patients on eltr ombopag therapy, use of Dimension [place] TBIL is not recommended. Chloride [Moles/Vol] 105 mmol/L 98-107 [facility] Eosinophils/100 WBC (Bld) 1.0 % 0-5 [facility] Glucose [Mass/Vol] 86 mg/dL 74-106 [facility] Neutrophils (Bld) [#/Vol] 6.2 10*3/uL 2.0-7.7 [facility] Neutrophils/100 WBC (Bld) 67.7 % 47-70 [facility] Potassium [Moles/Vol] 4.9 mmol/L 3.5-5.1 [facility] Comment on above: Slight Hemolysis, Re sult may be falsely increased. Protein [Mass/Vol] 8.0 g/dL 6.4-8.2 [facility] Sodium [Moles/Vol] 138 mmol/L 136-145 [facility] WBC (Bld) [#/Vol] 9.1 10*3/uL 4.4-11.0 [facility] Blood erythrocytes count (nu mber/volume)Ordered By: Dr. Cueto on 07-22-2022 RBC (Bld) [#/Vol] 5.37 10*6/uL 4.2-5.4 [facility] Blood hemoglobin measurement (mass/volume)Ordered By: Dr. Cueto on 07-22-2022 Hemoglobin (Bld) [Mass/Vol] 15.6 g/dL 12.0-15.0 [facility] Blood lymphocytes/100 leukoc ytesOrdered By: Dr. Cueto on 07-22-2022 Lymphocytes/100 WBC (Bld) 22.1 % 19-41 [facility] Blood monocytes/100 leukocyt esOrdered By: Dr. Cueto on 07-22-2022 Monocytes/100 WBC (Bld) 8.6 % 0-10 [facility] Blood platelet mean volumeOr dered By: Dr. Cueto on 07-22-2022 Platelet mean volume (Bld) [Entitic vol] 10.4 fL 6.2-12.0 [facility] Determination of erythrocyte mean corpuscular volume (MCV)Ordered By: Dr. Cueto on 07-22-2022 MCV (RBC) [Entitic vol] 91.2 fL 81-99 [facility] Hematocrit Auto (Bld) [Volum e fraction]Ordered By: Dr. Cueto on 07-22-2022 Hematocrit (Bld) [Volume fraction] 49.0 % 37-47 [facility] Laboratory - Chemistry and C hemistry - challengeOrdered By: Dr. Cueto on 07-22-2022 ALP [Catalytic activity/Vol] 67 U/L 45-117 [facility] ALT [Catalytic activity/Vol] 19 U/L 13-56 [facility] CO2 [Moles/Vol] 28.0 mmol/L 21.0-32.0 [facility] Globulin (S) [Mass/Vol] 4.2 g/dL 2.2-4.2 [facility] Magnesium [Mass/Vol] 2.0 mg/dL 1.6-2.6 [facility] Comment on above: Slight Hemolysis, Re sult may be falsely increased. Natriuretic peptide B (Bld) [Mass/Vol] 215.3 pg/mL 0-100 [facility] Urea nitrogen/Creatinine [Mass ratio] 17.5 mg/mg 10-20 [facility] Laboratory - Hematology and Cell countsOrdered By: Dr. Cueto on 07-22-2022 Erythrocyte distribution width (RBC) [Entitic vol] 46.5 fL 35.1-43.9 [facility] Erythrocyte distribution width (RBC) [Ratio] 13.9 % 11.6-14.6 [facility] Immature granulocytes/100 WBC (Bld) 0.300 % 0.0-0.9 [facility] Comment on above: IG% - Immature Granu locytes (promyelocytes, myelocytes and metamyelocytes) > 1% indicates that a LEFT SHIFT is Present. MCH (RBC) [Entitic mass] 29.1 pg 27.0-32.0 [facility] Nucleated RBC/100 WBC (Bld) [Ratio] 0 % 0-5 [facility] MCHC Auto (RBC) [Mass/Vol]Or dered By: Dr. Cueto on 07-22-2022 MCHC (RBC) [Mass/Vol] 31.8 g/dL 32-36 [facility] No Panel InformationOrdered By: Dr. Cueto on 07-22-2022 Estimated GFR (MDRD) Amer 87 mL/min >60 [facility] Comment on above: GFR Calc Estimated GFR (MDRD) Non-Af Amer 72 mL/min >60 [facility] Comment on above: Non- GFR Calc Thyroid Stimulating Hormone (TSH) 2.77 uIU/mL 0.358-3.74 [facility] Platelets bldOrdered By: Dr. Cueto on 07-22-2022 Platelets (Bld) [#/Vol] 243 10*3/uL 150-450 [facility] Serum or plasma albumin anika urement (mass/volume)Ordered By: Dr. Cueto on 07-22-2022 Albumin [Mass/Vol] 3.8 g/dL 3.2-5.0 [facility] Serum or plasma albumin/glob ulin mass ratioOrdered By: Dr. Cueto on 07-22-2022 Albumin/Globulin [Mass ratio] 0.9 {ratio} 0.9-2.4 [facility] Serum or plasma calcium anika urement (mass/volume)Ordered By: Dr. Cueto on 07-22-2022 Calcium [Mass/Vol] 9.5 mg/dL 8.5-10.1 [facility] Serum or plasma creatinine m easurement (mass/volume)Ordered By: Dr. Cueto on 07-22-2022 Creatinine [Mass/Vol] 0.80 mg/dL 0.55-1.02 [facility] Comment on above: The validity of the calculated GFR & GFRAA in patients over 70 years has not been determined. Clinical correlation is essential. Serum or plasma urea nitroge n measurement (mass/volume)Ordered By: Dr. Cueto on 07-22-2022 Urea nitrogen [Mass/Vol] 14 mg/dL 7-18 [facility] Thin prep Papanicolaou smear with manual screeningOrdered By: Dr. Cueto on 07-22-2022 Thin prep Papanicolaou smear with manual screening 25 U/L 15- [facility] Comment on above: Slight Hemolysis, Re sult may be falsely increased. Thin prep Papanicolaou smear with manual screening 5 5-15 [facility] Vital Signs Date Time Vital Sign Value Performing Clinician Facility 02-22-2025 14:22-0400 Body temperature 98.6 [degF] Dr. Doron Cueto DO Work Phone: [facility] 02-22-2025 14:22-0400 Diastolic blood pressure 55 mm[Hg] Dr. Doron Cueto DO Work Phone: [facility] 02-22-2025 14:22-0400 Heart rate 56 /min Dr. Doron Cueto DO Work Phone: [facility] 02-22-2025 14:22-0400 Respiratory rate 25 /min Dr. Doron Cueto DO Work Phone: [facility] 02-22-2025 14:22-0400 SaO2% (BldA) [Mass fraction] 95 % Dr. Doron Cueto DO Work Phone: [facility] 02-22-2025 14:22-0400 Systolic blood pressure 105 mm[Hg] Dr. Doron Cueto DO Work Phone: [facility] 02-22-2025 12:28-0400 Inhaled oxygen concentration 50 % Dr. Doron Cueto DO Work Phone: [facility] 02-22-2025 11:00-0400 Inhaled oxygen flow rate 6 L/min Dr. Doron Cueto DO Work Phone: [facility] 02-22-2025 09:43-0400 Body mass index (BMI) [Ratio] 28.6 kg/m2 Dr. Doron Cueto DO Work Phone: [facility] 02-22-2025 09:43-0400 Body weight 70.[address] Doron Cueto DO Work Phone: [facility] 02-22-2025 09:41-0400 Body height 157.[address] Doron Cueto DO Work Phone: [facility] 09-29-2024 08:07-0400 Body weight 69.67 kg Timbo Martinez MD Work Phone: [facility] 09-29-2024 08:07-0400 Diastolic blood pressure 84 mm[Hg] Timbo Martinez MD Work Phone: [facility] 09-29-2024 08:07-0400 Systolic blood pressure 132 mm[Hg] Timbo Martinez MD Work Phone: [facility] 08-04-2024 08:04-0500 Body weight 68.49 kg Timbo Martinez MD Work Phone: [facility] 08-04-2024 08:04-0500 Diastolic blood pressure 80 mm[Hg] Timbo Martinez MD Work Phone: [facility] 08-04-2024 08:04-0500 Systolic blood pressure 134 mm[Hg] Timbo Martinez MD Work Phone: [facility] 06-14-2024 16:00-0500 Body weight 68.49 kg Timbo Martinez MD Work Phone: [facility] 06-14-2024 16:00-0500 Diastolic blood pressure 72 mm[Hg] Timbo Martinez MD Work Phone: [facility] 06-14-2024 16:00-0500 Systolic blood pressure 126 mm[Hg] Timbo Martinez MD Work Phone: [facility] 05-26-2024 08:09-0500 Body weight 68.4 kg Timbo Martinez MD Work Phone: [facility] 05-26-2024 08:09-0500 Diastolic blood pressure 78 mm[Hg] Timbo Martinez MD Work Phone: [facility] 05-26-2024 08:09-0500 Systolic blood pressure 132 mm[Hg] Timbo Martinez MD Work Phone: [facility] 05-10-2024 09:12-0500 Body weight 69.13 kg Timbo Martinez MD Work Phone: [facility] 05-10-2024 09:12-0500 Diastolic blood pressure 84 mm[Hg] Timbo Martinez MD Work Phone: [facility] 05-10-2024 09:12-0500 Systolic blood pressure 142 mm[Hg] Timbo Martinez MD Work Phone: [facility] 12-10-2023 16:11-0400 Body mass index (BMI) [Ratio] 29.63 kg/m2 Talia Aiken APRN.[employer] Work Phone: [facility] 12-10-2023 16:11-0400 Body weight 69.4 kg Talia Aiken APRN.[employer] Work Phone: [facility] 12-10-2023 16:11-0400 Diastolic blood pressure 76 mm[Hg] Taliaamos Roblestal [employer]ACHINE OPERATOR[employer] Work Phone: [facility] 12-10-2023 16:11-0400 Systolic blood pressure 132 mm[Hg] Talia Aiken [employer]ACHINE OPERATOR[employer] Work Phone: [facility] 11-13-2023 08:27-0400 Body mass index (BMI) [Ratio] 29.63 kg/m2 Usha Plotts [employer] MACHINE OPERATOR.CNM Work Phone: [facility] 11-13-2023 08:27-0400 Body weight 69.4 kg Usha Plotts [employer] MACHINE OPERATOR.CNM Work Phone: [facility] 11-13-2023 08:27-0400 Diastolic blood pressure 70 mm[Hg] Usha Ybarrats [employer] MACHINE OPERATOR.CNM Work Phone: [facility] 11-13-2023 08:27-0400 Systolic blood pressure 132 mm[Hg] Usha Ybarrats [employer] MACHINE OPERATOR.CNM Work Phone: [facility] 10-13-2022 22:41-0400 Body mass index (BMI) [Ratio] 34 kg/m2 Dr. Doron Cueto Work Phone: [facility] 10-13-2022 22:41-0400 Body weight 71.[address] Doron Cueto Work Phone: [facility] 10-13-2022 21:55-0400 Body height 144.[address] Doron Cueto Work Phone: [facility] 10-13-2022 21:55-0400 Body temperature 97.8 [degF] Dr. Doron Cueto Work Phone: [facility] 10-13-2022 21:55-0400 Diastolic blood pressure 80 mm[Hg] Dr. Doron Cueto Work Phone: [facility] 10-13-2022 21:55-0400 Heart rate 73 /min Dr. Doron Cueto Work Phone: [facility] 10-13-2022 21:55-0400 Respiratory rate 14 /min Dr. Doron Cueto Work Phone: [facility] 10-13-2022 21:55-0400 SaO2% (BldA) [Mass fraction] 100 % Dr. Doron Cueto Work Phone: [facility] 10-13-2022 21:55-0400 Systolic blood pressure 169 mm[Hg] Dr. Doron Cueto Work Phone: [facility] 08-23-2021 15:53-0400 Heart rate 100 /min Dr. Doron Cueto Work Phone: [facility] Work Phone: 08-23-2021 15:39-0400 Body height 154.[address] Doron Cueto Work Phone: [facility] Work Phone: 08-23-2021 15:39-0400 Body mass index (BMI) [Ratio] 29.6 kg/m2 Dr. Doron Cueto Work Phone: [facility] Work Phone: 08-23-2021 15:39-0400 Body weight 71.[address] Doron Cueto Work Phone: [facility] Work Phone: 08-23-2021 15:39-0400 Diastolic blood pressure 64 mm[Hg] Dr. Doron Cueto Work Phone: [facility] Work Phone: 08-23-2021 15:39-0400 Respiratory rate 16 /min Dr. Doron Cueto Work Phone: [facility] Work Phone: 08-23-2021 15:39-0400 Systolic blood pressure 134 mm[Hg] Dr. Doron Cueto Work Phone: [facility] Work Phone: 05-31-2021 12:43-0500 Body mass index (BMI) [Ratio] 29.2 kg/m2 Dr. Doron Cueto Work Phone: [facility] Work Phone: 05-31-2021 12:43-0500 Body weight 70.[address] Doron Cueto Work Phone: [facility] Work Phone: 05-31-2021 12:43-0500 Diastolic blood pressure 75 mm[Hg] Dr. Doron Cueto Work Phone: [facility] Work Phone: 05-31-2021 12:43-0500 Heart rate 80 /min Dr. Doron Cueto Work Phone: [facility] Work Phone: 05-31-2021 12:43-0500 Respiratory rate 18 /min Dr. Doron Cueto Work Phone: [facility] Work Phone: 05-31-2021 12:43-0500 Systolic blood pressure 133 mm[Hg] Dr. Doron Cueto Work Phone: [facility] Work Phone: Encounters Encounter Date Encounter Type Care Provider Facility Start: 02-22-2025 Evaluation and manag ement of inpatient Dr. Zhou King MD -Intensive Care Unit Work Phone: Start: 02-22-2025 Non-patient / Non-visit Dr. Zhou perez MD -[facility] Work Phone: Start: 11-22-2024 End: 11-22-[address] Doron Cueto DO Work Phone: [facility] Work Phone: Start: 11-22-2024 End: 11-22-[address] Doron Cueto DO -Laboratory Specimen Work Phone: Start: 11-22-2024 End: 11-22-2024 ambulatory Doron Cueto Facility:[facility] Start: 11-17-2024 End: 11-17-[address] Doron Cueto DO Work Phone: [facility] Work Phone: Start: 11-17-2024 End: 11-17-[address] Doron Cueto DO -[facility] Dave Mendoza [facility] Start: 11-17-2024 End: 11-17-2024 ambulatory Doron Cueto Facility:[facility] Start: 09-29-2024 End: 09-29-2024 ambulatory TIMBO MARTINEZ Facility:[facility] Start: 09-29-2024 End: 09-29-2024 Patient encounter procedure Timbo Martinez MD Work Phone: OB/Gynecology Comment on above: Pelvic relaxation du e to uterovaginal prolapse (Primary Dx) Start: 08-04-2024 End: 08-04-2024 ambulatory TIMBO MARTINEZ Facility:[facility] Start: 08-04-2024 End: 08-04-2024 Patient encounter procedure Timbo Martinez MD Work Phone: OB/Gynecology Comment on above: Procidentia of uteru s (Primary Dx) Start: 06-14-2024 End: 06-14-2024 ambulatory TIMBO MARTINEZ Facility:[facility] Start: 06-14-2024 End: 06-14-2024 Patient encounter procedure Timbo Martinez MD Work Phone: OB/Gynecology Comment on above: Pessary maintenance (Primary Dx) Start: 05-26-2024 End: 05-26-2024 ambulatory TIMBO MARTINEZ Facility:[facility] Start: 05-26-2024 End: 05-26-2024 Patient encounter procedure Timbo Martinez MD Work Phone: OB/Gynecology Comment on above: Procidentia of uteru s (Primary Dx); Uterovaginal prolapse Start: 05-10-2024 End: 05-10-2024 ambulatory TIMBO MARTINEZ Facility:[facility] Start: 05-10-2024 End: 05-10-2024 Patient encounter procedure Timbo Martinez MD Work Phone: OB/Gynecology Comment on above: Urinary frequency (P rimary Dx); Vaginal irritation; Uterine procidentia; Cystocele, midline Start: 12-12-2023 Telephone encounter Talia Nowak jemima [employer]INE OPERATOR[employer] Work Phone: OB/Gynecology Comment on above: Results Start: 12-10-2023 End: 12-10-2023 ambulatory TALIA BRITTNY Facility:[facility] Start: 12-10-2023 End: 12-10-2023 Patient encounter procedure Talia Aiken [employer]INE OPERATOR[employer] Work Phone: OB/Gynecology Comment on above: History of UTI (Prim rita Dx); Uterovaginal prolapse; Cystocele, midline; Rectocele Start: 11-28-2023 End: 11-28-2023 Emergency department patient visit Lionel Rodas Facility:[facility] Start: 11-13-2023 End: 11-13-2023 ambulatory USHA NICKERSON Facility:[facility] Start: 11-13-2023 End: 11-13-2023 Patient encounter procedure Usha Nickerson COTTON PICKING MACHINE OPERATOR.CNM Work Phone: OB/Gynecology Comment on above: Pessary maintenance (Primary Dx) Start: 10-13-2022 End: 10-13-2022 Emergency department patient visit Dr. Doron Cueto Work Phone: [facility]-Emergency Department Start: 08-30-2022 Non-patient / Non-visit Dr. Eliazar Cueto Work Phone: [facility] Start: 08-30-2022 End: 08-30-[address] Doron Cueto Work Phone: [facility] Work Phone: Start: 08-30-2022 End: 08-30-[address] Doron Cueto Work Phone: [facility]-Cardiovascula r Services Start: 07-22-2022 End: 07-22-[address] [facility] Work Phone: Start: 07-22-2022 End: 07-22-[address] [facility]Dave Cisneros [facility] Start: 09-13-2021 End: 09-13-[address] Doron Cueto Work Phone: [facility]-Pulmonary Services/Neurology Start: 08-23-2021 End: 08-23-[address] Doron Cueto Work Phone: [facility] Start: 05-31-2021 End: 05-31-[address] Doron Cueto Work Phone: [facility] Procedures Date Procedure Procedure Detail Performing Clinician Start: 02-22-2025 SARS-CoV-2, Influenz a & RSV (PCR) Dr. Doron Cueto DO Work Phone: Start: 02-22-[address] Doron Cueto DO Work Phone: Start: 02-22-2025 CT angiography of ch est with contrast Dr. Doron Cueto DO Work Phone: Start: 02-22-[address] Doron Cueto DO Work Phone: Start: 11-22-[address] Doron Cueto DO Work Phone: Start: 11-22-2024 Urnls dip stick/tabl et reagent auto microscopy Dr. Doron Cueto DO Work Phone: Start: 11-17-[address] Doron Cueto DO Work Phone: Start: 05-10-2024 Urnls dip stick/tabl et rgnt auto w/o microscopy Timbo Martinez MD Work Phone: Start: 12-10-2023 Urnls dip stick/tabl et rgnt auto w/o microscopy Talia Aiken APRN.CNP Work Phone: Start: 10-13-2022 Plain X-ray of tibia and fibula Dr. Doron Cueto Work Phone: Plan of Treatment Date Care Activity Detail Author Start: 02-25-2025 Prothrombin time [facility] Start: 02-24-2025 Prothrombin time [facility] Start: 02-23-2025 Chest PA and Lateral Chest PA and La teral [facility] Start: 02-23-2025 XR Chest PA and Lateral [facility] Start: 02-23-2025 Prothrombin time [facility] Start: 02-23-2025 Serum inorganic phos phate measurement [facility] Start: 02-22-2025 Bacteria identified in Blood by Culture Blood Culture [facility] Start: 02-22-2025 Elevation of affecte d extremity [facility] Start: 02-22-2025 Hospital admission, emergency, from emergency room, medical nature [facility] Start: 02-22-2025 Legionella pneumophi la Ag [Presence] in Urine [facility] Start: 02-22-[address] [facility] Start: 02-22-2025 Streptococcus pneumo niae antigen assay [facility] Start: 02-22-2025 Bacteria identified in Sputum by Culture [facility] Start: 02-22-2025 Respiratory pathogen s DNA and RNA panel - Respiratory specimen by BASHIR with probe detection [facility] Start: 02-22-2025 Taking nasal swab [facility] Start: 02-22-2025 Consultation [facility] Start: 02-22-2025 Elevation of head of bed [facility] Start: 02-22-[address] [facility] Start: 02-22-2025 End: 02-22-[address] [facility] Start: 02-22-2025 End: 02-22-2025 [facility] Start: 02-22-[address] [facility] Start: 02-22-2025 Admission procedure [facility] Start: 02-22-[address] [facility] Start: 02-22-2025 Assessment of risk o f venous thromboembolism [facility] Start: 02-22-2025 Insertion of cathete r into peripheral vein [facility] Start: 02-22-2025 Measuring intake and output [facility] Start: 02-22-2025 Methicillin resistan t Staphylococcus aureus (MRSA) DNA [Presence] in Nose by BASHIR with probe detection [facility] Start: 02-22-2025 Providing care accor ding to standard [facility] Start: 02-22-2025 Verification routine [facility] Start: 02-22-2025 End: 02-22-2025 [facility] Start: 02-22-2025 Continuous positive airway pressure ventilation treatment [facility] Start: 12-08-2024 End: 12-08-2024 Patient encounter procedure 12/08/2024 8:00 AM EDT Office Visit OB/Gynecology [address] [place] [address] Timbo Martinez MD [address] [place] [address] 10w f/up OB/Gynecology Comment on above: 10w f/up Start: 09-29-2024 End: 09-29-2024 Patient encounter procedure 09/29/2024 8:00 AM EDT Office Visit OB/Gynecology [address] [place] [address] Timbo Martinez MD [address] [place] [address] 8w f/up OB/Gynecology Comment on above: 8w f/up Start: 07-26-2024 End: 07-26-2024 Patient encounter procedure 07/26/2024 8:00 AM EST Office Visit OB/Gynecology [address] [place] [address] Timbo Martinez MD [address] [place] [address] 6w f/up OB/Gynecology Comment on above: 6w f/up Start: 06-21-2024 End: 06-21-2024 Patient encounter procedure 06/21/2024 8:00 AM EST Office Visit OB/Gynecology [address] [place] [address] Timbo Martinez MD [address] [place] [address] Pessary check 6w OB/Gynecology Comment on above: Pessary check 6w Start: 06-09-2024 Advance Directive Discussion Advance Directive Discussion [facility] Start: 06-07-2024 End: 06-07-2024 Patient encounter procedure 06/07/2024 11:40 AM EST Office Visit OB/Gynecology [address] [place] [address] Timbo Martinez MD [address] [place] [address] follow up OB/Gynecology Comment on above: follow up Start: 05-10-2024 End: 08-09-2024 Bacteria identified in Urine by Culture URINE CULTURE Microbiology Routine Urinary frequency Expected: 05/10/2024, Expires: 08/09/2024 [facility] Work Phone: Comment on above: Expected: 05/10/2024 , Expires: 08/09/2024 Start: 02-16-2024 End: 02-16-2024 Patient encounter procedure 02/16/2024 8:15 AM EDT Office Visit OB/Gynecology [address] [place] [address] Usha Nickerson APRN.[facility] [address] [place] [address] Pessary cleaning and replacing OB/Gynecology Comment on above: Pessary cleaning and replacing Start: 02-08-2024 Covid-19 Vaccine ( season) Covid-19 Vaccine ( season) [facility] Start: 02-08-2024 Influenza vaccination [facility] Start: 01-23-2024 End: 01-23-2024 Patient encounter procedure 01/23/2024 3:30 PM EDT Office Visit OB/Gynecology [address] [place] [address] Sapphire Lopez APRN.[employer] [address] [place] [address] Pessary resizing OB/Gynecology Comment on above: Pessary resizing Start: 06-09-2023 Advance Directive Discussion Advance Directive Discussion [facility] Start: 06-09-2023 Behavioral Health Screening Behavioral Health Screening [facility] Start: 05-25-2023 Diabetes Screening Diabetes Screenin g [facility] Start: 02-07-2023 Covid-19 Vaccine ( season) Covid-19 Vaccine ( season) [facility] Start: 10-13-2022 .doppler Lower extremity vein [facility] Start: 2011 RSV Vaccine (1 - 1-d ose 75+ series) RSV Vaccine (1 - 1-dose 75+ series) [facility] Start: 2001 Pneumococcal Vaccine : 65+ (1 of 1 - PCV) Pneumococcal Vaccine: 65+ (1 of 1 - PCV) [facility] Start: 1996 RSV Vaccine (1 - 1-d ose 60+ series) RSV Vaccine (1 - 1-dose 60+ series) [facility] Start: 1986 Pneumococcal Vaccine : 50+ (1 of 1 - PCV) Pneumococcal Vaccine: 50+ (1 of 1 - PCV) [facility] Start: 1986 Shingrix Vaccine (1 of 2) Collier grix Vaccine (1 of 2) [facility] Start: 1955 Urine microalbumin profile DTaP,Tdap,Td Vaccine (1 - Tdap) [facility] Start: 1954 Depression Screening Depression Scre ening [facility] Anion gap in Serum o r Plasma [facility] Anion gap in Serum o r Plasma [facility] Anion gap in Serum o r Plasma [facility] Bacteria identified in Urine by Culture URINE CULTURE Microbiology Routine History of UTI 12/10/2023 4:59 PM EDT [facility] Work Phone: BUN/Creatinine ratio [facility] BUN/Creatinine ratio [facility] BUN/Creatinine ratio [facility] Calcium [Mass/volume ] in Serum or Plasma [facility] Calcium [Mass/volume ] in Serum or Plasma [facility] Calcium [Mass/volume ] in Serum or Plasma [facility] Carbon dioxide, tota l [Moles/volume] in Central venous blood [facility] Carbon dioxide, tota l [Moles/volume] in Central venous blood [facility] Carbon dioxide, tota l [Moles/volume] in Central venous blood [facility] Creatinine [Mass/vol ume] in Serum or Plasma [facility] Creatinine [Mass/vol ume] in Serum or Plasma [facility] Creatinine [Mass/vol ume] in Serum or Plasma [facility] Erythrocyte mean corpuscular volume determination [facility] Erythrocyte mean corpuscular volume determination [facility] Erythrocyte mean corpuscular volume determination [facility] Glucose [Mass/volume ] in Serum or Plasma [facility] Glucose [Mass/volume ] in Serum or Plasma [facility] Glucose [Mass/volume ] in Serum or Plasma [facility] Hematocrit [Volume Fraction] of Blood [facility] Hematocrit [Volume Fraction] of Blood [facility] Hematocrit [Volume Fraction] of Blood [facility] Hemoglobin [Mass/vol ume] in Blood [facility] Hemoglobin [Mass/vol ume] in Blood [facility] Hemoglobin [Mass/vol ume] in Blood [facility] INR in Blood by Coagulation assay [facility] INR in Blood by Coagulation assay [facility] INR in Blood by Coagulation assay [facility] Lactic acid measurement [facility] Leukocytes [#/volume ] in Blood [facility] Leukocytes [#/volume ] in Blood [facility] Leukocytes [#/volume ] in Blood [facility] Magnesium measurement [facility] Mean corpuscular hemoglobin concentration determination [facility] Mean corpuscular hemoglobin concentration determination [facility] Mean corpuscular hemoglobin concentration determination [facility] Mean corpuscular hemoglobin determination [facility] Mean corpuscular hemoglobin determination [facility] Mean corpuscular hemoglobin determination [facility] Measurement of renal function [facility] Measurement of renal function [facility] Measurement of renal function [facility] Neutrophil count [facility] Neutrophil count [facility] Neutrophil count [facility] Neutrophil percent differential count [facility] Neutrophil percent differential count [facility] Neutrophil percent differential count [facility] Patient Education ED Contusion, Lower Extremity [facility] Work Phone: Patient referral [facility] Work Phone: Platelets [#/volume] in Blood [facility] Platelets [#/volume] in Blood [facility] Platelets [#/volume] in Blood [facility] Potassium measurement [facility] Potassium measurement [facility] Potassium measurement [facility] Red blood cell count [facility] Red blood cell count [facility] Red blood cell count [facility] Red cell distributio n width determination [facility] Red cell distributio n width determination [facility] Red cell distributio n width determination [facility] Serum chloride [facility] Serum chloride measurement [facility] Serum chloride measurement [facility] Sodium measurement [facility] Sodium measurement [facility] Sodium measurement [facility] Urea nitrogen [Mass/volume] in Serum or Plasma [facility] Urea nitrogen [Mass/volume] in Serum or Plasma [facility] Urea nitrogen [Mass/volume] in Serum or Plasma [facility] Immunizations Immunization Date Immunization Notes Care Provider Lizeth florez 04-09-2018 influenza virus vacc ine, unspecified formulation Usha Nickerson COTTON PICKING MACHINE OPERATOR.CNM Work Phone: [facility] Payers Date Payer Category Payer Medicare (Managed Care) [facility] DUAL COMPLETE HMO POS SNP Member Subscriber Plan / Payer (Effective 2024-Present) Name: Tessa Dias Relation to Subscriber: Self Name: Tessa Dias Payer ID: [id number] (NAIC) Group ID: [id number] Type: Medicare Address: [address] [id number] 2024 Medicaid [id number] 2024 Medicaid [id number] 2024 Unknown [id number] 2024 Medicaid [id number] 2024 Medicaid [id number] 2023 Self-pay [id number] 2019 Medicare [id number] 2019 Private Health Insurance [id number] 1995 Medicare [id number] Unknown [id number] Unknown [id number] Unknown [id number] Social History Date Type Detail Facility Start: 08-23-2021 End: 10-13-2022 Tobacco smoking status NHIS Unknown if ever smoked [facility] Start: 11-08-2020 Rare [facility] Start: 11-08-2020 None [facility] Start: 03-15-2014 Alone [facility] Start: 11-08-2020 Secondhand [facility] Start: 1935 Sex Assigned At Female [facility] Start: 03-26-2012 End: 02-22-2025 Tobacco smoking status NHIS Never smoked tobacco [facility] Start: 03-26-2012 Tobacco use and exposure Smokeless tobacco non-user [facility] Start: 11-13-2023 End: 09-29-2024 Alcohol intake Current non-drinker of alcohol (finding) [facility] Start: 04-09-2018 End: 11-13-2023 History of Social function [facility] Start: 04-09-2018 End: 11-13-2023 Tobacco use panel [facility] Adult Depression Screening Assessment 0 [facility] Start: 1935 Sex Assigned At Not on file [facility] Functional Status Date Assessment Result Facility 01-13-2015 Are you deaf, or do you have serious difficulty hearing No 01/13/2015 4:59 PM EDT Jane Zapata Cma [facility] 01-13-2015 Are you blind, or do you have serious difficulty seeing, even when wearing glasses No 01/13/2015 4:59 PM EDT Jane Zapata Cma [facility] 01-13-2015 Do you have serious difficulty walking or climbing stairs No 01/13/2015 4:59 PM EDT Jane Zapata [facility] No [facility] 01-13-2015 Do you have difficul ty dressing or bathing No 01/13/2015 4:59 PM EDT Jane Zapata [facility] No [facility] 01-13-2015 Because of a physica l, mental, or emotional condition, do you have difficulty doing errands alone such as visiting a physician's office or shopping No 01/13/2015 4:59 PM EDT Jane Zapata Cma [facility] Mental Status Date Assessment Result Facility 01-13-2015 Because of a physica l, mental, or emotional condition, do you have serious difficulty concentrating, remembering, or making decisions No 01/13/2015 4:59 PM EDT Jane Zapata Cma [facility] Clinical Notes 07-10-2010 to 02-22-2025 Note Date & Type Note Facility 02-22-2025 Evaluation note Diagnosis Onset Date Resolution Diastolic CHF, acute acute Sept ember 2024 12:43pm Essential hypertension acute Se ptember 2024 12:43pm Massive hemoptysis acute Septem luca 2024 12:43pm Pneumonia acute February 12:43pm Atrial flutter chronic February 22, 2025 12:43pm [facility] Work Phone: [phone]) 196-987509-16-2025 History and physical note Author Zhou King [facility] Note Date/Time February 22, 2025 1:15pm [facility] Medical Records Department [address] [place] [address] H&P Exam - Hospitalist 02/22/25 1241 MR#: [id number] Acct: [id number] Name: TESSA DIAS Rep #:[id number] : 1935 89 From: Zhou King MD PCP: Dr. Doron Cueto, DO Status:REG ER Location: ED HPI - General General Date of Admission: 02/22/25 Date of Service: 02/22/25 Chief Complaint: Hemoptysis HPI Narrative TESSA DIAS, is a 89 F with past medical history significant paroxysmal atrial fibrillation on systemic anticoagulation with warfarin presented to the emergency department with hemoptysis. Patient symptoms started 3 days prior to admission with shortness of breath which had gotten progressively worse. Her shortness of breath was brought on with minimal activity. She denied any subjective fever no chills. On the morning of her presentation she did develop significant cough with blood in the sputum. Patient denied seeing any clots. In view of the persistent symptoms she called the squad who upon arrival found patient to be hypoxic with oxygen saturation in the low 80s. Was brought to theemergency department. Underwent CTA which was negative for PE however she was found to have Multifocal bilateral areas of airspace disease suggestive of either bilateral multifocal pneumonia versus congestive heart failure.. The technology recruiter on-call was notified recommended for patient to be transferred to a facility with IR capability. 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 Lightheadedness Chest pain Home Medications ?Medication ?Instructions ?Recorded ?Last Taken ?Type lorazepam 0.5 mg tablet 0.25 mg PO QHS PRN ANXIETY 0 12/28/20 Unknown History warfarin 3 mg tablet 3 mg PO DAILY 12/28/20 Unkno wn History amlodipine 2.5 mg tablet 2.5 mg PO DAILY #30 tabs 07/30 Unknown Rx metoprolol succinate 50 mg 50 mg PO DAILY 05/31/21 Unk nown History tablet,extended release 24 hr cephalexin 500 mg capsule 500 mg PO BID 7 days #14 cap s 11/28/23 Unknown Rx Allergy/AdvReac Type Severity Reaction Status Date / Time citalopram (From Celexa) Allergy Intermediate Unknown Verified 02/22/25 09:41 gabapentin Allergy Intermediate Unknown Verified 02/22/25 09:41 trazodone Allergy Intermediate Nausea/Vom/ Verified 02/22/25 09:41 Diarrhea buspirone HCl (From BuSpar) Allergy Upset Verified 02/22/25 09:41 Stomach flecainide (Flecainide) Allergy Shortness Verified 02/22/25 09:41 of breath levothyroxine sodium (From Allergy Nausea Verified 10/13/22 21:57 Synthroid) meperidine HCl (From Demerol) Allergy Other Verified 02/22/25 09:41 sertraline HCl (From Zoloft) Allergy Other Verified 02/22/25 09:41 tramadol Allergy Nausea Verified 02/22/25 09:41 Family History Sister Breast cancer CVA (cerebral vascular accident) Diabetes Mother CVA (cerebral vascular accident) Hypertension Brother Hypertension Other Paroxysmal atrial fibrillation with RVR Surgical History History of aortic valve replacement with bioprosthetic valve (~07/20/10) H/O tricuspid valve repair (~07/20/10) History of cardioversion (07/06/10) History of open reduction and internal fixation (ORIF) procedure History of appendectomy Social History Smoking Status: Never smoker alcohol intake: never substance use type: does not use caffeine: No ROS ROS Narrative GENERAL: denies fever, chills, night sweats, weight loss, anorexia HEENT: denies headache, sinus congestion, or drainage, dysphagia RESPIRATORY: Hemoptysis, shortness of breath, dyspnea on exertion CARDIAC: denies chest pain, palpitations, orthopnea, PND GASTROINTESTINAL: denies abdominal pain, nausea, vomiting, melena, GENITOURINARY: denies dysuria, urgency, frequency, heamaturia EXTREMITY: denies swelling MUSCULOSKELETAL: denies current joint pain or tenderness NEUROLOGIC: denies focal numbness, weakness, tingling HEMATOLOGIC: denies easy bruising and/or hemorrhage INTEGUMENT: denies rashes PSYCHIATRIC: denies suicidal or homicidal ideation Vital Signs Vital Signs Vital Signs: 02/22/25 09:41 02/22/25 09:43 02/22/25 09:50 Temperature 98.7 F 98.7 F Temperature Source Oral Oral Pulse Rate 64 61 Respiratory Rate 24 H 38 H Respiratory Effort Short of Breath Labored Respiratory Depth Normal Respiratory Pattern Tachypnea Blood Pressure 120/55 L 127/67 H Blood Pressure Mean 76 87 Pulse Ox 82 78 Oxygen Delivery Method Room Air Room Air Nasal Cannula Oxygen Flow Rate (L/min) 5 02/22/25 10:00 02/22/25 10:43 02/22/25 11:00 Temperature 98.8 F 98 F Temperature Source Oral Oral Pulse Rate 116 H 66 Respiratory Rate 36 H 28 H Respiratory Effort Respiratory Depth Respiratory Pattern Blood Pressure 109/77 109/77 Blood Pressure Mean 87 87 Pulse Ox 91 95 95 Oxygen Delivery Method Nasal Cannula Nasal Cannula Nasal Cannula Oxygen Flow Rate (L/min) 5 6 02/22/25 12:00 Temperature 98.5 F Temperature Source Oral Pulse Rate 133 H Respiratory Rate 35 H Respiratory Effort Respiratory Depth Respiratory Pattern Blood Pressure 117/78 Blood Pressure Mean 91 Pulse Ox 94 Oxygen Delivery Method Airvo Oxygen Flow Rate (L/min) Weight Weight: 70.7 kg Body Mass Index (BMI) 28.6 Physical Exam Narrative GENERAL: cooperative HEENT: Atraumatic; normocephalic EYES; Anicteric, Normal Conjunctiva NECK; supple, normal thyroid, RESPIRATORY: Diminished to auscultation CARDIOVASCULAR: Regular S1 S2, GI: soft, normoactive bowel sounds, : No Renal angle tenderness; EXTREMITIES: Bilateral pedal edema, no clubbing, MUSCULOSKELETAL: no muscle wasting NEURO: Awake; no lateralizing signs. SKIN: No Rash PSYCH; Flat affect Results Lab / Micro Data 02/22/25 09:57 02/22/25 09:57 Labs: Laboratory Results - last 24 hr 02/22/25 09:57: WBC 13.3 H, RBC 4.29, Hgb 12.7, Hct 38.3, MCV 89.3, MCH 29.6, MCHC 33.2, RDW Std Deviation 44.4 H, RDW Coeff of Estuardo 13.6, Plt Count 222, MPV 10.1, Immature Gran % (Auto) 0.500, Neut % (Auto) 88.5 H, Lymph % (Auto) 6.7 L, Dorado % (Auto) 4.2, Eos % (Auto) 0.0, Baso % (Auto) 0.1, Absolute Neuts (auto) 11.8 H, Absolute Lymphs (auto) 0.89, Nucleated RBC % 0, PT 28.1 H, INR 2.6, Sodium 138, Potassium 3.9, Chloride 104, Carbon Dioxide 20.3 L, Anion Gap 14, BUN 29 H, Creatinine 1.16, Estim Creat Clear Calc 30.87 L, Est GFR (MDRD) Non-Af 45 L, BUN/Creatinine Ratio 24.8 H, Glucose 198 H, Lactic Acid 3.3 H*, Calcium 8.7, Total Bilirubin 1.93 H, Direct Bilirubin 0.68 H, AST 26, ALT 10, Alkaline Phosphatase 48, Troponin T High Sens 27 H, NT pro BNP II 4425 H, Total Protein 6.9, Albumin 3.8, Globulin 3.2 02/22/25 11:05: Procalcitonin 0.13 H Micro: Microbiology 02/22/25 10:10 Mucosa - Nose SARS-CoV-2, Influenza & RSV (PCR) - Final ABG Data ABG results: ABG 02/22/25 10:19 Specimen Type DONNA Sample Site Not entered O2 % 5.0 VBG pH 7.48 H VBG pO2 44 H VBG HCO3 27 H VBG Total CO2 28 VBG O2 Sat (Calc) 83 H VBG Base Excess 3 POC Mix VBG pCO2 Pt Tmp 36.0 L O2 Delivery Device Not entered Imaging Radiology Impression Chest CTA 02/22/25 10:02 IMPRESSION: No evidence of pulmonary embolism. Multifocal bilateral areas of airspace disease suggestive of either bilateral multifocal pneumonia versus congestive heart failure. Follow-up recommended. Reading Location: [facility]IR-1 Assessment & Plan Assessment/Plan (1) Essential hypertension: (2) Atrial flutter: (3) Massive hemoptysis: (4) Diastolic CHF, acute: (5) Pneumonia: PLAN: Plan Patient is an 89-year-old lady presented with progressive shortness of breath with associated hemoptysis.. Patient was found to be severely hypoxic on admission 1. Acute hypoxic respiratory failure ? Secondary to combination of suspected multifocal pneumonia and congestive heart failure with alveolar hemorrhage being considered in the differentials. Patient was placed on noninvasive ventilation via Airvo. The technology recruiter on-call Dr. Arce was notified and recommended for patient to be transferred. Patient has been accepted for transfer to [facility]. 2. Acute congestive heart failure with preserved ejection fraction ? Echo from 08/30/2022 demonstrated EF of 55%. Treatment initiated with strict input and output, daily weight, fluid restriction, low-sodium diet as well as diuretic therapy with furosemide. Repeat echo ordered for EF assessment 3. Pneumonia - Suspected to be secondary to streptococcal pneumonia, Blood and sputum cultures sent. Patient placed on Rocephin and Zithromax and placed on oxygen titrated to keep Pulse Ox greater than 90. As part of patient workup ordered viral respiratory panel, rapid COVID assay, urine streptococcal and Legionella antigens 4. Hemoptysis ? Alveolar hemorrhage versus pneumonia which is being worsened by use of systemic anticoagulation with heparin. Arrangements initiated to have patient transferred to a facility with IR capability per recommendations from pulmonary medicine. H&H remained stable at this point however I did type and screen patient for 2 unit PRBC 5. Paroxysmal atrial fibrillation ? Rate controlled on systemic anticoagulation with warfarin with therapeutic INRof 2.6. Warfarin was held on admission given her presentation 6. Hypertension ? Blood pressure controlled, home medications continued with dose adjustment as needed 7. Valvular heart disease ? With history of tricuspid valve repair as well as aortic valve replacement with bioprosthetic material 8. DVT prophylaxis ? Patient is on systemic anticoagulation with a therapeutic INR no additional measures needed Time spent in the patient's overall evaluation,decision-making process, review of diagnostic data, adjustment of management, discussion with other providers, nursing nursing and ancillary staff involved in patient's care documentation, 75Minutes Advance planning; did discuss with the patient and family (her daughter) regarding advanced directives as well as CODE STATUS. Did explain the various scenarios involved ( FULL CODE, DNR CCA, DNR CCA with no intubation, and DNR CC and what each meant) patient elected to remain full code with CPR and intubationif warranted. Order was placed. Time spent on discussion 16 minutes. Charges/Coding Multi Select Codes Visit Charges Visit Charges: 51256 Init Hosp L3 Hospitalists' Procedures Procedures: 96013 Advncd Care Plan 30 Min 02/22/25 1315 <Electronically signed by Zhou King MD> Cosigner Signature (if applicable): CC: Dr. Zhou King MD; Dr. Doron Cueto, DO~ Signed [facility] Work Phone: [phone] History and physical note [facility] Medical Records Department [address] [place] [address] H&P Exam - Hospitalist 02/22/25 1241 MR#: [id number] Acct: [id number] Name: TESSA DIAS Rep #:[id number] : 1935 89 From: Zhou King MD PCP: Dr. Doron Cueto, Status:REG ER Location: ED HPI - General General Date of Admission: 02/22/25 Date of Service: 02/22/25 Chief Complaint: Hemoptysis HPI Narrative TESSA DIAS, is a 89 F with past medical history significant paroxysmal atrial fibrillation on systemic anticoagulation with warfarin presented to the emergency department with hemoptysis. Patientsymptoms started 3 days prior to admission with shortness of breath which had gotten progressively worse. Her shortness of breath was brought on with minimal activity. She denied any subjective feverno chills. On the morning of her presentation she did develop significant cough with blood in the sputum. Patient denied seeing any clots. In view of the persistent symptoms she called the squad who upon arrival found patient to be hypoxic with oxygen saturation in the low 80s. Was brought to theemergency department. Underwent CTA which was negative for PE however she was found to have Multifocalbilateral areas of airspace disease suggestive of either bilateral multifocal pneumonia versus congestive heart failure.. The technology recruiter on-call was notified recommended for patient to be transferred to a facility with IR capability. 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 Lightheadedness Chest pain Home Medications ?Medication ?Instructions ?Recorded ?Last Taken ?Type lorazepam 0.5 mg tablet 0.25 mg PO QHS PRN ANXIETY 0 12/28/20 Unknown History warfarin 3 mg tablet 3 mg PO DAILY 12/28/20 Unkno wn History amlodipine 2.5 mg tablet 2.5 mg PO DAILY #30 tabs 07/30 Unknown Rx metoprolol succinate 50 mg 50 mg PO DAILY 05/31/21 Unk nown History tablet,extended release 24 hr cephalexin 500 mg capsule 500 mg PO BID 7 days #14 cap s 11/28/23 Unknown Rx Allergy/AdvReac Type Severity Reaction Status Date / Time citalopram (From Celexa) Allergy Intermediate Unknown Verified 02/22/25 09:41 gabapentin Allergy Intermediate Unknown Verified 02/22/25 09:41 trazodone Allergy Intermediate Nausea/Vom/ Verified 02/22/25 09:41 Diarrhea buspirone HCl (From BuSpar) Allergy Upset Verified 02/22/25 09:41 Stomach flecainide (Flecainide) Allergy Shortness Verified 02/22/25 09:41 of breath levothyroxine sodium (From Allergy Nausea Verified 10/13/22 21:57 Synthroid) meperidine HCl (From Demerol) Allergy Other Verified 02/22/25 09:41 sertraline HCl (From Zoloft) Allergy Other Verified 02/22/25 09:41 tramadol Allergy Nausea Verified 02/22/25 09:41 Family History Sister Breast cancer CVA (cerebral vascular accident) Diabetes Mother CVA (cerebral vascular accident) Hypertension Brother Hypertension Other Paroxysmal atrial fibrillation with RVR Surgical History History of aortic valve replacement with bioprosthetic valve (~07/20/10) H/O tricuspid valve repair (~07/20/10) History of cardioversion (07/06/10) History of open reduction and internal fixation (ORIF) procedure History of appendectomy Social History Smoking Status: Never smoker alcohol intake: never substance use type: does not use caffeine: No ROS ROS Narrative GENERAL: denies fever, chills, night sweats, weight loss, anorexia HEENT: denies headache, sinus congestion, or drainage, dysphagia RESPIRATORY: Hemoptysis, shortness of breath, dyspnea on exertion CARDIAC: denies chest pain, palpitations, orthopnea, PND GASTROINTESTINAL: denies abdominal pain, nausea, vomiting, melena, GENITOURINARY: denies dysuria, urgency, frequency, heamaturia EXTREMITY: denies swelling MUSCULOSKELETAL: denies current joint pain or tenderness NEUROLOGIC: denies focal numbness, weakness, tingling HEMATOLOGIC: denies easy bruising and/or hemorrhage INTEGUMENT: denies rashes PSYCHIATRIC: denies suicidal or homicidal ideation Vital Signs Vital Signs Vital Signs: 02/22/25 09:41 02/22/25 09:43 02/22/25 09:50 Temperature 98.7 F 98.7 F Temperature Source Oral Oral Pulse Rate 64 61 Respiratory Rate 24 H 38 H Respiratory Effort Short of Breath Labored Respiratory Depth Normal Respiratory Pattern Tachypnea Blood Pressure 120/55 L 127/67 H Blood Pressure Mean 76 87 Pulse Ox 82 78 Oxygen Delivery Method Room Air Room Air Nasal Cannula Oxygen Flow Rate (L/min) 5 02/22/25 10:00 02/22/25 10:43 02/22/25 11:00 Temperature 98.8 F 98 F Temperature Source Oral Oral Pulse Rate 116 H 66 Respiratory Rate 36 H 28 H Respiratory Effort Respiratory Depth Respiratory Pattern Blood Pressure 109/77 109/77 Blood Pressure Mean 87 87 Pulse Ox 91 95 95 Oxygen Delivery Method Nasal Cannula Nasal Cannula Nasal Cannula Oxygen Flow Rate (L/min) 5 6 02/22/25 12:00 Temperature 98.5 F Temperature Source Oral Pulse Rate 133 H Respiratory Rate 35 H Respiratory Effort Respiratory Depth Respiratory Pattern Blood Pressure 117/78 Blood Pressure Mean 91 Pulse Ox 94 Oxygen Delivery Method Airvo Oxygen Flow Rate (L/min) Weight Weight: 70.7 kg Body Mass Index (BMI) 28.6 Physical Exam Narrative GENERAL: cooperative HEENT: Atraumatic; normocephalic EYES; Anicteric, Normal Conjunctiva NECK; supple, normal thyroid, RESPIRATORY: Diminished to auscultation CARDIOVASCULAR: Regular S1 S2, GI: soft, normoactive bowel sounds, : No Renal angle tenderness; EXTREMITIES: Bilateral pedal edema, no clubbing, MUSCULOSKELETAL: no muscle wasting NEURO: Awake; no lateralizing signs. SKIN: No Rash PSYCH; Flat affect Results Lab / Micro Data 02/22/25 09:57 02/22/25 09:57 Labs: Laboratory Results - last 24 hr 02/22/25 09:57: WBC 13.3 H, RBC 4.29, Hgb 12.7, Hct 38.3, MCV 89.3, MCH 29.6, MCHC 33.2, RDW Std Deviation 44.4 H, RDW Coeff of Estuardo 13.6, Plt Count 222, MPV 10.1, Immature Gran % (Auto) 0.500, Neut %(Auto) 88.5 H, Lymph % (Auto) 6.7 L, Dorado % (Auto) 4.2, Eos % (Auto) 0.0, Baso % (Auto) 0.1, Absolute Neuts (auto) 11.8 H, Absolute Lymphs (auto) 0.89, Nucleated RBC % 0, PT 28.1 H, INR 2.6, Sodium 138, Potassium 3.9, Chloride 104, Carbon Dioxide 20.3 L, Anion Gap 14, BUN 29 H, Creatinine 1.16, Estim Creat Clear Calc 30.87 L, Est GFR (MDRD) Non-Af 45 L, BUN/Creatinine Ratio 24.8 H, Glucose 198 H,Lactic Acid 3.3 H*, Calcium 8.7, Total Bilirubin 1.93 H, Direct Bilirubin 0.68 H, AST 26, ALT 10, Alkaline Phosphatase 48, Troponin T High Sens 27 H, NT pro BNP II 4425 H, Total Protein 6.9, Albumin 3.8, Globulin 3.2 02/22/25 11:05: Procalcitonin 0.13 H Micro: Microbiology 02/22/25 10:10 Mucosa - Nose SARS-CoV-2, Influenza & RSV (PCR) - Final ABG Data ABG results: ABG 02/22/25 10:19 Specimen Type DONNA Sample Site Not entered O2 % 5.0 VBG pH 7.48 H VBG pO2 44 H VBG HCO3 27 H VBG Total CO2 28 VBG O2 Sat (Calc) 83 H VBG Base Excess 3 POC Mix VBG pCO2 Pt Tmp 36.0 L O2 Delivery Device Not entered Imaging Radiology Impression Chest CTA 02/22/25 10:02 IMPRESSION: No evidence of pulmonary embolism. Multifocal bilateral areas of airspace disease suggestive of either bilateral multifocal pneumonia versus congestive heart failure. Follow-up recommended. [facility] Assessment & Plan Assessment/Plan (1) Essential hypertension: (2) Atrial flutter: (3) Massive hemoptysis: (4) Diastolic CHF, acute: (5) Pneumonia: PLAN: Plan Patient is an 89-year-old lady presented with progressive shortness of breath with associated hemoptysis.. Patient was found to be severely hypoxic on admission 1. Acute hypoxic respiratory failure ? Secondary to combination of suspected multifocal pneumonia and congestive heart failure with alveolar hemorrhage being considered in the differentials. Patient was placed on noninvasive ventilationvia Airvo. The technology recruiter on- call Dr. Arce was notified and recommended for patient to be transferred. Patient has been accepted for transfer to [facility]. 2. Acute congestive heart failure with preserved ejection fraction ? Echo from 08/30/2022 demonstrated EF of 55%. Treatment initiated with strict input and output, daily weight, fluid restriction, low-sodium diet as well as diuretic therapy with furosemide. Repeat echo ordered for EF assessment 3. Pneumonia - Suspected to be secondary to streptococcal pneumonia, Blood and sputum cultures sent. Patient placed on Rocephin and Zithromax and placed on oxygen titrated to keep Pulse Ox greater than 90. As part of patient workup ordered viral respiratory panel, rapid COVID assay, urine streptococcal and Legionella antigens 4. Hemoptysis ? Alveolar hemorrhage versus pneumonia which is being worsened by use of systemic anticoagulation with heparin. Arrangements initiated to have patient transferred to a facility with IR capability perrecommendations from pulmonary medicine. H&H remained stable at this point however I did type and screen patient for 2 unit PRBC 5. Paroxysmal atrial fibrillation ? Rate controlled on systemic anticoagulation with warfarin with therapeutic INRof 2.6. Warfarin was held on admission given her presentation 6. Hypertension ? Blood pressure controlled, home medications continued with dose adjustment as needed 7. Valvular heart disease ? With history of tricuspid valve repair as well as aortic valve replacement with bioprosthetic material 8. DVT prophylaxis ? Patient is on systemic anticoagulation with a therapeutic INR no additional measures needed Time spent in the patient's overall evaluation,decision-making process, review of diagnostic data, adjustment of management, discussion with other providers, nursing nursing and ancillary staff involved in patient's care documentation, 75Minutes Advance planning; did discuss with the patient and family (her daughter) regarding advanced directives as well as CODE STATUS. Did explain the various scenarios involved ( FULL CODE, DNR CCA, DNR CCAwith no intubation, and DNR CC and what each meant) patient elected to remain full code with CPR and intubationif warranted. Order was placed. Time spent on discussion 16 minutes. Charges/Coding Multi Select Codes Visit Charges Visit Charges: 17600 Init Hosp L3 Hospitalists' Procedures Procedures: 56401 Advncd Care Plan 30 Min 02/22/25 1315 Cosigner Signature (if applicable): CC: Dr. Zhou King MD; Dr. Droon Cueto, DO~ Signed [facility]09-16-2025 Radiology Diagnostic study note [facility] Imaging Services [address] [place] [id number] CTA Chest W/WO Contrast MR#: [id number] Acct: [id number] Name: TESSA DIAS Rep #: [id number] : 1935 F 89 From: Adolph Barragan MD PCP: Dr. Doron Cueto DO Status: REG ER Study:CTA Chest W/WO Contrast Date of Exam: 02/22/25 Exam# [id number] Ordering Dr: Allyssa Morrison DO PROCEDURE: CTA CHEST W/WO CONTRAST 02/22/2025 REASON FOR EXAM: HEMOPTYSIS, HYPOXIA TECHNIQUE: Procedure Code: [id number] Modality: CT Procedure: CTA CHEST W/WO CONTRAST Multiplanar Sagittal and Coronal images were obtained. 3D post processing was performed CONTRAST: Isovue-300 VOLUME: 100 mL One or more dose reduction techniques were used (e.g., Automated exposure control, adjustment of the mA and/or kV according to patient size, use of iterative reconstruction technique). RADIATION DOSE SUMMARY: CTDlvol: 8.6 mGy DLP: 376.67 mGycm COMPARISON: None FINDINGS: Hardware: None Lymph nodes: Pretracheal lymph node measuring 1.3 cm. Heart: Coronary artery calcification. There is dilatation of the left atrium. Prior aortic valve replacement. Thoracic Aorta: No thoracic aortic aneurysm or dissection. Atherosclerotic calcification of the aortic arch. Pulmonary Vessels: No evidence of pulmonary embolism. Lungs and Airways: Diffuse bilateral patchy areas of airspace disease. This most likely represents either bilateral multifocal infiltrates versus CHF. Pleura: Minimal left pleural effusion. Upper Abdomen: Unremarkable Bones: Degenerative changes of the thoracic spine. CT/CTA Chest W/WO Contrast IMPRESSION: No evidence of pulmonary embolism. Multifocal bilateral areas of airspace disease suggestive of either bilateral multifocal pneumonia versus congestive heart failure. Follow-up recommended. Reading Location: [place] [address] CC: Dr. Maddie Morrison DO; Dr. Doron Cueto DO ~ Chief Of Field Operations: Signed [facility]04-23-2025 NoteHNO ID: [id number] Author: TIMBO MARTINEZ MD Service: ? Author Type: Physician Type: Progress Notes Filed: 09/29/2024 08:19 Note Text: Community Administrator provided by Marilyn Frye LPN Tessa Dias is a 89 year old who presents today for pessary insertion/cleaning. She wears a size 6 ring with support pessary. She returns today with no complaints. She has not had problems with the pessary. She has not had vaginal discharge. She has not had vaginal bleeding. EXAM: pleasant, well developed, well nourished, in no apparent distress Pelvic: Bartholin's, urethra and [place]'s glands were normal. The ring with support pessary was removed. Vaginal exam indicated no erythema, no ulcerations, and no vaginal discharge. The pessary was cleaned a size #6 ring with support was inserted without difficulty The pessary was inserted, patient tolerated the procedure well and the device is comfortable. Timbo Martinez, [facility]04-23-2025 History of Present illness Narrative* Timbo Martinez MD - 09/29/2024 8:03 AM EDT Community Administrator provided by Marilyn Frye LPN Tessa Dias is a 89 year old who presents today for pessary insertion/cleaning. She wears a size 6 ring with support pessary. She returns today with no complaints. She has not had problems with the pessary. She has not had vaginal discharge. She has not had vaginal bleeding. EXAM: pleasant, well developed, well nourished, in no apparent distress Pelvic: Bartholin's, urethra and [place]'s glands were normal. The ring with support pessary was removed. Vaginal exam indicated no erythema, no ulcerations, and no vaginal discharge. The pessary was cleaned a size #6 ring with support was inserted without difficulty The pessary was inserted, patient tolerated the procedure well and the device is comfortable. Timbo Martinez MD documented in this encounterPro[facility]02-26-2025 NoteHNO ID: [id number] Author: TIMBO MARTINEZ MD Service: ? Author Type: Physician Type: Progress Notes Filed: 08/04/2024 08:24 Note Text: Community Administrator offered: Patient accepts, visit chaperoned by Dianna Fallon MA. Tessa Dias is a 89 year old who presents today for pessary insertion/cleaning. She wears a size 6 ring with support pessary. She returns today with no complaints. She has not had problems with the pessary. She has not had vaginal discharge. She has not had vaginal bleeding. EXAM: pleasant, well developed, well nourished, in no apparent distress Pelvic: Bartholin's, urethra and [place]'s glands were normal. The ring with support pessary was removed. Vaginal exam indicated no erythema, no ulcerations, no vaginal discharge, and noting scant vaginal discharge with slight odo0r.. The pessary was cleaned a size No. 6 ring with support was inserted without difficulty The pessary was inserted, patient tolerated the procedure well and the device is comfortable. IMP: Procident[employer] nicely addressed by her pessary RTO 8 wk [facility] History of Present illness Narrative* Timbo Martinez MD - 08/04/2024 8:01 AM EST Community Administrator offered: Patient accepts, visit chaperoned by Dianna Fallon MA. Tessa Dias is a 89 year old who presents today for pessary insertion/cleaning. She wears a size 6 ring with support pessary. She returns today with no complaints. She has not had problems with the pessary. She has not had vaginal discharge. She has not had vaginal bleeding. EXAM: pleasant, well developed, well nourished, in no apparent distress Pelvic: Bartholin's, urethra and [place]'s glands were normal. The ring with support pessary was removed. Vaginal exam indicated no erythema, no ulcerations, no vaginal discharge, and noting scant vaginal discharge with slight odo0r.. The pessary was cleaned a size No. 6 ring with support was inserted without difficulty The pessary was inserted, patient tolerated the procedure well and the device is comfortable. IMP: Procidentia nicely addressed by her pessary RTO 8 wk for pessary check documented in this encounterProtestant [facility]acon[facility]01-06-2025 NoteHNO ID: [id number] Author: TIMBO MARTINEZ MD Service: ? Author Type: Physician Type: Progress Notes Filed: 06/21/2024 08:35 Note Text: Community Administrator offered: Patient accepts, visit chaperoned by Carmina Altamirano MA. Tessa Dias is a 88 year old who presents today for pessary insertion/cleaning. She wears a size 6 ring with support pessary. She returns today with no complaints. She has not had problems with the pessary. She has not had vaginal discharge. She has not had vaginal bleeding. EXAM: pleasant, well developed, well nourished, in no apparent distress Pelvic: Bartholin's, urethra and [place]'s glands were normal. The ring with support pessary was removed. Vaginal exam indicated no erythema, no ulcerations, and no vaginal discharge. The pessary was cleaned a size 6 ring was inserted without difficulty The pessary was inserted, patient tolerated the procedure well and the device is comfortable. rto 6 weeks Timbo Martinez MD [id number] History of Present illness Narrative * Timbo Martinez MD - 06/14/2024 3:56 PM EST Community Administrator offered: Patient accepts, visit chaperoned by Carmina Altamirano MA. Tessa Dias is a 88 year old who presents today for pessary insertion/cleaning. She wears a size 6 ring with support pessary. She returns today with no complaints. She has not had problems with the pessary. She has not had vaginal discharge. She has not had vaginal bleeding. EXAM: pleasant, well developed, well nourished, in no apparent distress Pelvic: Bartholin's, urethra and [place]'s glands were normal. The ring with support pessary was removed. Vaginal exam indicated no erythema, no ulcerations, and no vaginal discharge. The pessary was cleaned a size 6 ring was inserted without difficulty The pessary was inserted, patient tolerated the procedure well and the device is comfortable. rto 6 weeks Timbo Martinez MD [id number] documented in this encounterProtestant Deacon[facility] Hospital12-18-2024 NoteHNO ID: [id number] Author: TIMBO MARTINEZ MD Service: ? Author Type: Physician Type: Progress Notes Filed: 05/26/2024 08:44 Note Text: Community Administrator provided by Marilyn Frye LPN. Tessa Dias is a 88 year old who presents today for pessary insertion/cleaning. She wears a 5 platform pessary. She returns today with complaints of bladder continues to fall out . She has had problems with the pessary. She has not had vaginal discharge. She has not had vaginal bleeding. EXAM: pleasant, well developed, well nourished, in no apparent distress Pelvic: Bartholin's, urethra and [place]'s glands were normal. The ring with support pessary is not present and her cervix is at the opening of her vagina was removed. Vaginal exam indicated no erythema, no ulcerations, and no vaginal discharge. A # 6 platform pessary pessary was inserted, patient tolerated the procedure well and the device is comfortable. RTO in 1-2 weeks for pessary check.[facility]12-18-2024 History of Present illness Narrative* Timbo Martinez MD - 05/26/2024 8:07 AM EST Community Administrator provided by Marilyn Frye LPN. Tessa Dias is a 88 year old who presents today for pessary insertion/cleaning. She wears a 5 platform pessary. She returns today with complaints of bladder continues to fall out . She has had problems with the pessary. She has not had vaginal discharge. She has not had vaginal bleeding. EXAM: pleasant, well developed, well nourished, in no apparent distress Pelvic: Bartholin's, urethra and [place]'s glands were normal. The ring with support pessary is not present and her cervix is at the opening of her vagina was removed. Vaginal exam indicated no erythema, no ulcerations, and no vaginal discharge. A # 6 platform pessary pessary was inserted, patient tolerated the procedure well and the device iscomfortable. RTO in 1-2 weeks for pessary check. documented in [facility] encounter[facility] NoteHNO ID: [id number] Author: TIMBO MARTINEZ MD Service: ? Author Type: Physician Type: Progress Notes Filed: 05/10/2024 09:59 Note Text: Community Administrator offered: Patient accepts, visit chaperoned by Angelia Ferrara MA. Tessa Dias is a 88 year old female who presents for problem visit urinary frequency for 5 months. Patient reported pessary fell out has not attempted to place back into the vaginal canal. Uterus falling out HPI: as above OB History T2 L2 SAB0 IAB0 Ectopic0 Multiple0 Live Births0 Surgical Corsetier History LMP: Postmenopausal Age at Menarche: Age at First : Age at Menopause: Surgical Corsetier History Comments: Sexual Activity: Not Currently; No partner data on record; Postmenopausal Contraception: No contraception data on record PAST MEDICAL HISTORY Diagnosis Date Aortic valve disorder 07/11/2008 Echo June 2008 Aortic valve disorders Cervicalgia Paroxysmal atrial fibrillation (HCC) 07/05/2008 Phobia, unspecified PAST SURGICAL HISTORY Procedure Laterality Date PAST SURGICAL HISTORY OF 06/29/2010 Dr. 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 PAST SURGICAL HISTORY OF appendectomy in her 50's PAST SURGICAL HISTORY OF ~2005 pins for broken arm, left side (was not healing without surgery) FAMILY HISTORY Problem Relation Age of Onset Breast Cancer Sister Stroke Mother Stroke Brother Hypertension Mother Hypertension Brother Stroke Sister Diabetes Sister Alcohol/Drug Father Social History Tobacco Use Smoking status: Never Smokeless tobacco: Never Substance Use Topics Alcohol use: No Drug use: No Current Outpatient Medications Medication Sig amLODIPine (NORVASC) 2.5 mg tablet LORazepam (ATIVAN) 0.5 mg warfarin (COUMADIN) 3 mg tablet Take 1 tablet by mouth once daily. Or as directed based on INR metoprolol succinate ER (TOPROL XL) 50 mg 24 hr tablet Take 1 tablet by mouth once daily. Blood Pressure Cuff - Home Use BLOOD PRESSURE CUFF FOR HOME USE. DX: (I10) Unspecified essential hypertension No current facility-administered medications for this visit. Allergies As of Date: 05/10/2024 Allergen Noted Reaction DEMEROL [MEPERIDINE (PF)] 2006 Mental Status Change BUSPAR [BUSPIRONE HCL] 12/21/2010 Mental Status Change CELEXA [CITALOPRAM] 02/10/2013 Other: See Comments FLECAINIDE 08/25/2008 Shortness of Breath GABAPENTIN 02/15/2014 Other: See Comments SYNTHROID [LEVOTHYROXINE SODIUM] 01/12/2013 Other: See Comments TRAZODONE 10/15/2012 GI Upset ZOLOFT [SERTRALINE HCL] 12/21/2010 Mental Status Change Fully Assessed 12/10/2023 REVIEW OF SYSTEMS Abdomen: No bloating, early satiety, indigestion, or increased flatulence. No abdominal pain, nausea, vomiting, diarrhea, or constipation. Bladder: No dysuria, gross hematuria, urinary frequency, urinary urgency, or incontinence. Breast: No breast lumps, nipple d/c, overlying skin changes, redness or skin retraction. Expanded ROS: N/A Allergies and current medication updated:Yes SENSITIVE EXAM: The sensitive examination was discussed with the Patient or Patient's Authorized Polymer Scientist. As applicable, any other physician, advance practice provider, medical student, or other health professional student that will be observing or involved in the sensitive examination for educational or training purposes was discussed with the Patient or Authorized Polymer Scientist. The Patient or Authorized Polymer Scientist has agreed to proceed with the sensitive examination. (Sensitive examination includes inspection and/or palpation of the breasts, pelvis, prostate and anorectal regions). EXAM: There were no vitals taken for this visit. GENERAL: pleasant, female in no apparent distress ABDOMEN: soft, non-tender, and no masses PELVIC: external genitalia normal, normal Bartholin's glands, urethra, [place]'s glands, no vulvar lesions, no cervical lesions, good vaginal support, physiologic discharge present, normal appearing perineal body and perianal region. Incomplete prolapse. BIMANUAL: uterus normal size, shape and consistency, no adnexal masses, non-tender, and noting incomplete prolapse Urine dip with small blood/trace protein - UA pending ASSESSMENT AND PLAN: Incomplete uterine prolapse m- #5 platform pessary placed Hematuria - UA pending Custocele Assessment AND Plan Urinary frequency Orders: URINE CULTURE; Future Vaginal irritation Uterine procidentia Cystocele, midline ftft>40m rto 6 weeks pessary check Timbo Martinez, [facility]12-02-2024 History of Present illness Narrative* Timbo Martinez MD - 05/10/2024 8:53 AM EST Community Administrator offered: Patient accepts, visit chaperoned by Angelia Ferrara MA. Tessa Dias is a 88 year old female who presents for problem visit urinary frequency for 5 months. Patient reported pessary fell out has not attempted to place back into the vaginal canal. Uterus falling out HPI: as above OB History T2 L2 SAB0 IAB0 Ectopic0 Multiple0 Live Births0 Surgical Corsetier History LMP: Postmenopausal Age at Menarche: Age at First : Age at Menopause: Surgical Corsetier History Comments: Sexual Activity: Not Currently; No partner data on record; Postmenopausal Contraception: No contraception data on record PAST MEDICAL HISTORY Diagnosis Date Aortic valve disorder 07/11/2008 Echo June 2008 Aortic valve disorders Cervicalgia Paroxysmal atrial fibrillation (HCC) 07/05/2008 Phobia, unspecified PAST SURGICAL HISTORY Procedure Laterality Date PAST SURGICAL HISTORY OF 06/29/2010 Dr. 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 PAST SURGICAL HISTORY OF appendectomy in her 50's PAST SURGICAL HISTORY OF ~2006 pins for broken arm, left side (was not healing without surgery) FAMILY HISTORY Problem Relation Age of Onset Breast Cancer Sister Stroke Mother Stroke Brother Hypertension Mother Hypertension Brother Stroke Sister Diabetes Sister Alcohol/Drug Father Social History Tobacco Use Smoking status: Never Smokeless tobacco: Never Substance Use Topics Alcohol use: No Drug use: No Current Outpatient Medications Medication Sig amLODIPine (NORVASC) 2.5 mg tablet LORazepam (ATIVAN) 0.5 mg warfarin (COUMADIN) 3 mg tablet Take 1 tablet by mouth once daily. Or as directed based on INR metoprolol succinate ER (TOPROL XL) 50 mg 24 hr tablet Take 1 tablet by mouth once daily. Blood Pressure Cuff - Home Use BLOOD PRESSURE CUFF FOR HOME USE. DX: (I10) Unspecified essential hypertension No current facility-administered medications for this visit. Allergies As of Date: 05/10/2024 Allergen Noted Reaction DEMEROL [MEPERIDINE (PF)] 2006 Mental Status Change BUSPAR [BUSPIRONE HCL] 12/21/2010 Mental Status Change CELEXA [CITALOPRAM] 02/10/2013 Other: See Comments FLECAINIDE 08/25/2008 Shortness of Breath GABAPENTIN 02/15/2014 Other: See Comments SYNTHROID [LEVOTHYROXINE SODIUM] 01/12/2013 Other: See Comments TRAZODONE 10/15/2012 GI Upset ZOLOFT [SERTRALINE HCL] 12/21/2010 Mental Status Change Fully Assessed 12/10/2023 REVIEW OF SYSTEMS Abdomen: No bloating, early satiety, indigestion, or increased flatulence. No abdominal pain, nausea, vomiting, diarrhea, or constipation. Bladder: No dysuria, gross hematuria, urinary frequency, urinary urgency, or incontinence. Breast: No breast lumps, nipple d/c, overlying skin changes, redness or skin retraction. Expanded ROS: N/A Allergies and current medication updated:Yes SENSITIVE EXAM: The sensitive examination was discussed with the Patient or Patient's Authorized Polymer Scientist. As applicable, any other physician, advance practice provider, medical student, or other health professional student that will be observing or involved in the sensitive examination for educational or training purposes was discussed with the Patient or Authorized Polymer Scientist. The Patient or Authorized Polymer Scientist has agreed to proceed with the sensitive examination. (Sensitive examination includes inspection and/or palpation of the breasts, pelvis, prostate and anorectal regions). EXAM: There were no vitals taken for this visit. GENERAL: pleasant, female in no apparent distress ABDOMEN: soft, non-tender, and no masses PELVIC: external genitalia normal, normal Bartholin's glands, urethra, [place]'s glands, no vulvar lesions, no cervical lesions, good vaginal support, physiologic discharge present, normal appearing perineal body and perianal region. Incomplete prolapse. BIMANUAL: uterus normal size, shape and consistency, no adnexal masses, non- tender, and noting incomplete prolapse Urine dip with small blood/trace protein - UA pending ASSESSMENT AND PLAN: Incomplete uterine prolapse m- #5 platform pessary placed Hematuria - UA pending Custocele Assessment & Plan Urinary frequency Orders: URINE CULTURE; Future Vaginal irritation Uterine procidentia Cystocele, midline ftft>40m rto 6 weeks pessary check Timbo Martinez MD documented in [facility] encounterPro[facility] Telephone encounter Note * Telephone Encounter - Kassandra Ortiz RN - 12/12/2023 8:59 AM EDT Called patient's home phone. Daughter answered. Notified of results and reviewed instructions. Kassandra Ortiz RN [facility]07-05-2024 Miscellaneous Notes* Telephone Encounter - Kassandra Ortiz RN - 12/12/2023 8:59 AM EDT Called patient's home phone. Daughter answered. Notified of results and reviewed instructions. Kassandra Ortiz RN * Telephone Encounter - Talia Aiken APRN.CNP - 12/12/2023 7:18 AM EDT Please notify patient: Urine culture + for UTI Rx sent for Macrobid Push water and notify with worsening symptoms. Please inform daughter if possible too Talia Aiken APRN.CNP documented in this encounterPro[facility]07-[facility]-2024 Telephone encounter Note * Telephone Encounter - Talia Aiken APRN.CNP - 12/12/2023 7:18 AM EDT Please notify patient: Urine culture + for UTI Rx sent for Macrobid Push water and notify with worsening symptoms. Please inform daughter if possible too Talia Aiken APRN.CNP [facility]07-03-2024 NoteHNO ID: [id number] Author: TALIA AIKEN APRN.CNP Service: ? Author Type: Nurse Practitioner Type: Progress Notes Filed: 12/10/2023 16:59 Note Text: Tessa Dias is a 88 year old female who presents for a follow up of UTI and prolapse. HPI: Tessa went to ER on 11/28/23 for shortness of breath and was diagnosed with a UTI. She was treated with an antibiotic and symptoms have mostly resolved. She is here today to follow up on her pessary. She reports that her bladder sometimes protrudes from the vagina. The pessary does not fall out, but she thinks it may not fit properly. She has a size 4 ring. Also experiencing some mucus from rectum. OB History T2 L2 SAB0 IAB0 Ectopic0 Multiple0 Live Births0 Surgical Corsetier History LMP: Postmenopausal Age at Menarche: Age at First : Age at Menopause: Surgical Corsetier History Comments: Sexual Activity: Not Currently; No partner data on record; Postmenopausal Contraception: No contraception data on record PAST MEDICAL HISTORY Diagnosis Date Aortic valve disorder 07/11/2008 Echo June 2008 Aortic valve disorders Cervicalgia Paroxysmal atrial fibrillation (HCC) 07/05/2008 Phobia, unspecified PAST SURGICAL HISTORY Procedure Laterality Date PAST SURGICAL HISTORY OF 06/29/2010 Dr. 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 PAST SURGICAL HISTORY OF appendectomy in her 50's PAST SURGICAL HISTORY OF ~2005 pins for broken arm, left side (was not healing without surgery) FAMILY HISTORY Problem Relation Age of Onset Breast Cancer Sister Stroke Mother Stroke Brother Hypertension Mother Hypertension Brother Stroke Sister Diabetes Sister Alcohol/Drug Father Social History Tobacco Use Smoking status: Never Smokeless tobacco: Never Substance Use Topics Alcohol use: No Drug use: No Current Outpatient Medications Medication Sig amLODIPine (NORVASC) 2.5 mg tablet LORazepam (ATIVAN) 0.5 mg warfarin (COUMADIN) 3 mg tablet Take 1 tablet by mouth once daily. Or as directed based on INR metoprolol succinate ER (TOPROL XL) 50 mg 24 hr tablet Take 1 tablet by mouth once daily. Blood Pressure Cuff - Home Use BLOOD PRESSURE CUFF FOR HOME USE. DX: (I10) Unspecified essential hypertension lidocaine (XYLOCAINE) 2 % jelly Apply 1 application to affected area as needed (gums). (Patient not taking: Reported on 03/23/2021) No current facility-administered medications for this visit. 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 Allergies and current medication updated:Yes EXAM: BP 132/76 Wt 153 lb (69.4kg) GENERAL: pleasant, female in no apparent distress HEENT: Normocephalic, atraumatic, mucus membranes moist, and no lesions CHEST: Normal inspiratory effort ABDOMEN: soft, non-tender, and no masses PELVIC: external genitalia atrophic, normal Bartholin's glands, urethra, [place]'s glands, no vulvar lesions, no cervical lesions, + 3rd degree uterovaginal prolapse, cystocele, rectocele, physiologic discharge present, normal appearing perineal body and perianal region BIMANUAL: uterus normal size, shape and consistency, no adnexal masses, and non-tender NEURO: alert and oriented x3,exam grossly non-focal EXTREMITIES: normal ASSESSMENT AND PLAN: 1. History of UTI - ICD9: V13.02, ICD10: Z87.440 (primary diagnosis) - Repeat urine culture today to ensure resolution of infection - URINE CULTURE Uterovaginal prolapse - ICD9: 618.4, ICD10: N81.4 Cystocele, midline - ICD9: 618.01, ICD10: N81.11 Rectocele - ICD9: 618.04, ICD10: N81.6 - On exam, pessary palpates as malpositioned with minimal support - Recommend returning for pessary fitting - No ulcerations or erythema noted. Pessary was cleaned and reinserted with triosan cream. - Patient tolerated well. RTO for pessary fitting. Follow up with PCP about mucus from rectum. Talia Aiken APRN.CNP Medical Decision Making: Problems: Moderate: 1+ chronic illnesses with change Data: Unique test result(s) reviewed: 1 Unique test(s) ordered: 1 Risk: Low: Low risk from testing/treatment Medical Decision Making Level: 3 - [facility] History of Present illness Narrative* Talia Aiken APRN.R D [employer] - 12/10/2023 4:09 PM EDT Tessa Dias is a 88 year old female who presents for a follow up of UTI and prolapse. HPI: Tessa went to ER on 11/28/23 for shortness of breath and was diagnosed with a UTI. She was treated with an antibiotic and symptoms have mostly resolved. She is here today to follow up on her pessary. She reports that her bladder sometimes protrudes from the vagina. The pessary does not fall out, but she thinks it may not fit properly. She has a size 4 ring. Also experiencing some mucus from rectum. OB History T2 L2 SAB0 IAB0 Ectopic0 Multiple0 Live Births0 Surgical Corsetier History LMP: Postmenopausal Age at Menarche: Age at First : Age at Menopause: Surgical Corsetier History Comments: Sexual Activity: Not Currently; No partner data on record; Postmenopausal Contraception: No contraception data on record PAST MEDICAL HISTORY Diagnosis Date Aortic valve disorder 07/11/2008 Echo June 2008 Aortic valve disorders Cervicalgia Paroxysmal atrial fibrillation (HCC) 07/05/2008 Phobia, unspecified PAST SURGICAL HISTORY Procedure Laterality Date PAST SURGICAL HISTORY OF 06/29/2010 Dr. 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 PAST SURGICAL HISTORY OF appendectomy in her 50's PAST SURGICAL HISTORY OF ~2006 pins for broken arm, left side (was not healing without surgery) FAMILY HISTORY Problem Relation Age of Onset Breast Cancer Sister Stroke Mother Stroke Brother Hypertension Mother Hypertension Brother Stroke Sister Diabetes Sister Alcohol/Drug Father Social History Tobacco Use Smoking status: Never Smokeless tobacco: Never Substance Use Topics Alcohol use: No Drug use: No Current Outpatient Medications Medication Sig amLODIPine (NORVASC) 2.5 mg tablet LORazepam (ATIVAN) 0.5 mg warfarin (COUMADIN) 3 mg tablet Take 1 tablet by mouth once daily. Or as directed based on INR metoprolol succinate ER (TOPROL XL) 50 mg 24 hr tablet Take 1 tablet by mouth once daily. Blood Pressure Cuff - Home Use BLOOD PRESSURE CUFF FOR HOME USE. DX: (I10) Unspecified essential hypertension lidocaine (XYLOCAINE) 2 % jelly Apply 1 application to affected area as needed (gums). (Patient nottaking: Reported on 03/23/2021) No current facility-administered medications for this visit. 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 Allergies and current medication updated:Yes EXAM: BP 132/76 Wt 153 lb (69.4kg) GENERAL: pleasant, female in no apparent distress HEENT: Normocephalic, atraumatic, mucus membranes moist, and no lesions CHEST: Normal inspiratory effort ABDOMEN: soft, non-tender, and no masses PELVIC: external genitalia atrophic, normal Bartholin's glands, urethra, [place]'s glands, no vulvar lesions, no cervical lesions, + 3rd degree uterovaginal prolapse, cystocele, rectocele, physiologic discharge present, normal appearing perineal body and perianal region BIMANUAL: uterus normal size, shape and consistency, no adnexal masses, and non-tender NEURO: alert and oriented x3,exam grossly non-focal EXTREMITIES: normal ASSESSMENT AND PLAN: 1. History of UTI - ICD9: V13.02, ICD10: Z87.440 (primary diagnosis) - Repeat urine culture today to ensure resolution of infection - URINE CULTURE Uterovaginal prolapse - ICD9: 618.4, ICD10: N81.4 Cystocele, midline - ICD9: 618.01, ICD10: N81.11 Rectocele - ICD9: 618.04, ICD10: N81.6 - On exam, pessary palpates as malpositioned with minimal support - Recommend returning for pessary fitting - No ulcerations or erythema noted. Pessary was cleaned and reinserted with triosan cream. - Patient tolerated well. RTO for pessary fitting. Follow up with PCP about mucus from rectum. Talia Aiken APRN.CNP Medical Decision Making: Problems: Moderate: 1+ chronic illnesses with change Data: Unique test result(s) reviewed: 1 Unique test(s) ordered: 1 Risk: Low: Low risk from testing/treatment Medical Decision Making Level: 3 - Low documented in this encounterPro[facility]06-06-2024 NoteHNO ID: [id number] Author: USHA NICKERSON APRN.CNM Service: ? Author Type: Senior Accountant Type: Progress Notes Filed: 11/13/2023 08:54 Note Text: Tessa Dias is a 88 year old who presents today for pessary insertion/cleaning. She wears a size 4 ring with support pessary. She returns today with no complaints. She has not had problems with the pessary. She has not had vaginal discharge. She occasional had vaginal spotting EXAM: pleasant, well nourished, in no apparent distress Pelvic: Bartholin's, urethra and [place]'s glands were atrophic. The ring pessary was removed. Vaginal exam indicated no erythema and no ulcerations. New pessary size 4 ring was inserted without difficulty The pessary was inserted, patient tolerated the procedure well and the device is comfortable. Patient to return for pessary cleaning . Usha Nickerson APRN.[facility]UNBar[facility]06-[facility] History of Present illness Narrative* Usha Nickerson APRN.CNM - 11/13/2023 8:24 AM EDT Tessa Dais is a 88 year old who presents today for pessary insertion/cleaning. She wears a size 4 ring with support pessary. She returns today with no complaints. She has not had problems with the pessary. She has not had vaginal discharge. She occasional had vaginal spotting EXAM: pleasant, well nourished, in no apparent distress Pelvic: Bartholin's, urethra and [place]'s glands were atrophic. The ring pessary was removed. Vaginal exam indicated no erythema and no ulcerations. New pessary size 4 ring was inserted without difficulty The pessary was inserted, patient tolerated the procedure well and the device is comfortable. Patient to return for pessary cleaning . 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 Work Phone: Evaluation noteNo assessment information available [facility] Work Phone: Evaluation note* Diagnosis Pessary maintenance- Primary Fitting and adjustment of other device documented in this encounter [facility] note* Diagnosis History of UTI- Primary Personal history of urinary (tract) infection Uterovaginal prolapse Uterovaginal prolapse, unspecified Cystocele, midline Rectocele documented in this encounter [facility] note* Diagnosis Urinary frequency- Primary Vaginal irritation Unspecified noninflammatory disorder of vagina Uterine procidentia Uterovaginal prolapse, complete Cystocele, midline documented in this encounter [facility] note* Diagnosis Procidentia of uterus- Primary Uterovaginal prolapse, complete Uterovaginal prolapse Uterovaginal prolapse, unspecified [facility] Diagnosis Pessary maintenance- Primary Fitting and adjustment of other device documented in this encounter [facility] note* Diagnosis Procidentia of uterus- Primary Uterovaginal prolapse, complete documented in this encounter [facility] note* Diagnosis Pelvic relaxation due to uterovaginal prolapse- Primary Uterovaginal prolapse, unspecified [facility] Additional Instructions X-ray negative. INR 1.9. Return tomorrow for ultrasound of your right leg. Continue Tylenol every 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 pectoris Essential hypertension H/O tricuspid valve repair Hyperlipidemia Atrial fibrillation and flutter Chief Complaint HX OF AORTIC AND TRI CUSPID REPAIRS Chief Complaint HX OF AORTIC AND TRI CUSPID REPAIRS LEG PAIN AND SWELLING Chief Complaint Admit Date Shortness of breath February 22, 2025 12:41pm DYSPNEA February 22, 2025 12:43pm Reason for Visit Admit Date Diastolic CHF, acute February 22 12:43pm Essential hypertension February 22 025 12:43pm Massive hemoptysis February 22, 2025 12:43pm Pneumonia February 22, 2025 12:43pm Atrial flutter February 22, 2025 12:43pm Family History Relationship Condition Age at Onset Recorded Date/T madhavi Not Specified Paroxysmal atrial fi brillation with rapid ventricular response Unknown sister Malignant neoplasm of breast Unknown Cerebrovascular accident (CVA) Unknown Diabetes mellitus Unknown mother Cerebrovascular accident (CVA) Unknown Hypertension Unknown brother Hypertension Unknown Advance Directives Advance Directive Response Recorded Date/ Time Advance Directives No October 12, 2015 5:07pm Living Will No April 24, 2 021 3:03pm Power of Manager Games No April 24, 2021 3:03pm Advance Directive Response Recorded Date/ Time Advance Directives No October 12, 2015 4:07pm Living Will No April 24, 2 021 2:03pm Power of Manager Games No April 24, 2021 2:03pm Advance Directive Response Recorded Date/ Time Advance Directives No October 12, 2015 5:07pm Living Will No October 13, 2022 10 :38pm Power of Manager Games No October 13, 2022 10:38pm Advance Directive Response Recorded Date/ Time Advance Directives No October 12, 2015 5:07pm Advance Directive Response Recorded Date/ Time Do you have a Healthcare Power of Manager Games? No February 22, 2025 9:50am Advance Directives No October 12, 2015 5:07pm Summary Purpose Additional Source Comments Goals (unrecognized section and content) Goals may be documented in a n alternate sectionGoals may be documented in an alternate sectionGoals may be documented in an alternate sectionGoals may be documented in an alternate sectionGoals may be documented in an alternate sectionGoals may be documented in an alternate sectionGoals may be documented in an alternate section Care Teams (unrecognized sec tion and content) Team Status: Active Member Role Status Dates Dr. Stacia Romano MD Family Provider Active Dr. Doron Cueto , Primary Care Provider Active Team Status: Inactive Member Role Status Dates Dr. Doron Cueto DO Primary Care Provider, Attendin g Provider Active Team Status: Active Member Role Status Dates Dr. Doron Cueto DO Primary Care Provider Active Dr. Jose Daniel Cadena MD Attending Provider Active Team Status: Inactive Member Role Status Dates Dr. Doron Cueto DO Primary Care Provider Active Dr. Lionel Rodas DO Emergency Provider Active Team Status: Inactive Member Role Status Dates Dr. Doron Cueto DO Primary Care Provider Active Start: November 17, 2024 End: November 17, 2024 Dr. Doron Cueto DO Attending Provider Active Start: November 17, 2024 End: November 17, 2024 Team Status: Active Member Role Status Dates Dr. Doron Cueto DO Primary Care Provider Active Start: November 22, 2024 Dr. Doron Cueto DO Attending Provider Active Start: November 22, 2024 Dr. Doron Cueto DO Referring Provider Active Start: November 22, 2024 Team Status: Inactive Member Role Status Dates Dr. Doron Cueto DO Primary Care Provider Active Start: November 22, 2024 End: November 22, 2024 Dr. Doron Cueto DO Attending Provider Active Start: November 22, 2024 End: November 22, 2024 Dr. Doron Cueto DO Referring Provider Active Start: November 22, 2024 End: November 22, 2024 Team Status: Active Member Role/Relationship Status Dates Dr. Doron Cueto DO Primary Care Provider Active Team Status: Inactive Member Role/Relationship Status Dates Dr. Doron Cueto DO Primary Care Provider Active Start: November 17, 2024 End: November 17, 2024 Dr. Doron Cueto DO Attending Provider Active Start: November 17, 2024 End: November 17, 2024 Team Status: Inactive Member Role/Relationship Status Dates Dr. Doron Cueto DO Primary Care Provider Active Start: November 22, 2024 End: November 22, 2024 Dr. Doron Cueto DO Attending Provider Active Start: November 22, 2024 End: November 22, 2024 Dr. Doron Cueto DO Referring Provider Active Start: November 22, 2024 End: November 22, 2024 Team Status: Active Member Role/Relationship Status Dates Dr. Doron Cueto DO Primary Care Provider Active Start: February 22, 2025 Dr. Maddie Morrison DO Emergency Provider Active Start: February 22, 2025 Dr. Adolfo Duff MD Other Provider Active Start: February 22, 2025 Dr. Richie Knight MD Other Provider Active Start: February 22, 2025 Dr. Jacob Grewal MD Other Provider Active Star t: February 22, 2025 Dr. Rafat Arce DO Other Provider Active Start : February 22, 2025 Dr. Zhou Conway MD Other Provider Active Sta rt: February 22, 2025 Dr. Allan Little MD Other Provider Active St art: February 22, 2025 Dr. Micky Solis MD Other Provider Active S tart: February 22, 2025 Dr. Patrica Gandara MD Other Provider Active Start: February 22, 2025 Dr. Raad Devine MD Other Provider Active Start : February 22, 2025 Dr. Dhruv Del Toro MD Other Provider Active Start: February 22, 2025 Dr. Govind Briceon MD Other Provider Active Start : February 22, 2025 Dr. Janet Malik MD Other Provider Active Star t: February 22, 2025 Dr. Yonatan Enciso MD Other Provider Active Sta rt: February 22, 2025 Dr. Tsering Lopez MD Other Provider Active Sta rt: February 22, 2025 Dr. Kuldip Collier MD Other Provider Active Star t: February 22, 2025 Dr. Alvarez Barnes MD Other Provider Active St art: February 22, 2025 Dr. Ras Marx MD Other Provider Active Star t: February 22, 2025 Dr. Jez Ely DO Other Provider Active St art: February 22, 2025 Dr. Humaira Marks MD Other Provider Active Start: February 22, 2025 Dr. Ramakrishna Valdez MD Other Provider Active St art: February 22, 2025 Dr. Dimitri Garza DO Other Provider Active Start: February 22, 2025 Dr. Gerald Mcdonough MD Other Provider Active Start: February 22, 2025 Dr. Mayank Blum MD Other Provider Active Star t: February 22, 2025 Dr. Emely Ponce MD Other Provider Active Start: February 22, 2025 Dr. Daryl Mckenzie MD Other Provider Active Sta rt: February 22, 2025 Lisandra Valladares NP, PUMPING PLANT OPERATOR-C Other Provider Active Start: February 22, 2025 Mehreen Steele NP-C Other Provider Active St art: February 22, 2025 Dr. Zhou King MD Attending Provider Active Start: February 22, 2025 Team Status: Active Member Role/Relationship Status Dates Dr. Doron Cueto , Primary Care Provider Active Start: February 22, 2025 Dr. Maddie Morrison DO Emergency Provider Active Start: February 22, 2025 Dr. Adolfo Duff MD Other Provider Active Start: February 22, 2025 Dr. Richie Knight MD Other Provider Active Start: February 22, 2025 Dr. Jacob Grewal MD Other Provider Active Star t: February 22, 2025 Dr. Rafat Arce , Other Provider Active Start : February 22, 2025 Dr. Zhou Conway MD Other Provider Active Sta rt: February 22, 2025 Dr. Allan Little MD Other Provider Active St art: February 22, 2025 Dr. Micky Solis MD Other Provider Active S tart: February 22, 2025 Dr. Patrica Gandara MD Other Provider Active Start: February 22, 2025 Dr. Raad Devine MD Other Provider Active Start : February 22, 2025 Dr. Dhruv Del Toro MD Other Provider Active Start: February 22, 2025 Dr. Govind Briceno MD Other Provider Active Start : February 22, 2025 Dr. Janet Malik MD Other Provider Active Star t: February 22, 2025 Dr. Yonatan Enciso MD Other Provider Active Sta rt: February 22, 2025 Dr. Tsering Lopez MD Other Provider Active Sta rt: February 22, 2025 Dr. Kuldip Collier MD Other Provider Active Star t: February 22, 2025 Dr. Alvarez Barnes MD Other Provider Active St art: February 22, 2025 Dr. Ras Marx MD Other Provider Active Star t: February 22, 2025 Dr. Jez Ely DO Other Provider Active St art: February 22, 2025 Dr. Humaira Marks MD Other Provider Active Start: February 22, 2025 Dr. Ramakrishna Valdez MD Other Provider Active St art: February 22, 2025 Dr. Dimitri Fernstrom , DO Other Provider Active Start: February 22, 2025 Dr. Gerald Mcdonough MD Other Provider Active Start: February 22, 2025 Dr. Mayank Blum MD Other Provider Active Star t: February 22, 2025 Dr. Emely Ponce MD Other Provider Active Start: February 22, 2025 Dr. Daryl Mckenzie MD Other Provider Active Sta rt: February 22, 2025 Lisandra Valladares NP, PUMPING PLANT OPERATOR-C Other Provider Active Start: February 22, 2025 Mehreen Steele NP-C Other Provider Active St art: February 22, 2025 Dr. Zhou King MD Admit Provider Active Star t: February 22, 2025 Dr. Zhou King MD Attending Provider Active Start: February 22, 2025 Source Comments (unrecognize d section and content) In the event this informatio n is protected by the Federal Confidentiality of Alcohol and Drug Abuse Patient Records regulations: The Federal rules restrict any use of the information to criminally investigate or prosecute any alcohol or drug abuse patient.[facility] the event this information is protected by the Federal Confidentiality of Alcohol and Drug Abuse Patient Records regulations: The Federal rules restrict any use of the information to criminally investigate or prosecute any alcohol or drug abuse patient.[facility] the event this information is protected by the Federal Confidentiality of Alcohol and Drug Abuse Patient Records regulations: The Federal rules restrict any use of the information to criminally investigate or prosecute any alcohol or drug abuse patient.[facility] the event this information is protected by the Federal Confidentiality of Alcohol and Drug Abuse Patient Records regulations: The Federal rules restrict any use of the information to criminally investigate or prosecute any alcohol or drug abuse patient.[facility] the event this information is protected by the Federal Confidentiality of Alcohol and Drug Abuse Patient Records regulations: The Federal rules restrict any use of the information to criminally investigate or prosecute any alcohol or drug abuse patient.[facility] the event this information is protected by the Federal Confidentiality of Alcohol and Drug Abuse Patient Records regulations: The Federal rules restrict any use of the information to criminally investigate or prosecute any alcohol or drug abuse patient.[facility] the event this information is protected by the Federal Confidentiality of Alcohol and Drug Abuse Patient Records regulations: The Federal rules restrict any use of the information to criminally investigate or prosecute any alcohol or drug abuse patient.[facility] Hospital[facility] the event this information is protected by the Federal Confidentiality of Alcohol and Drug Abuse Patient Records regulations: The Federal rules restrict any use of the information to criminally investigate or prosecute any alcohol or drug abuse patient.[facility] Reason for Visit (unrecogniz ed section and content) Reason Comments Pessary Specialty Diagnoses / Procedures Referred By Contac t Referred To Contact Video Editing Intern / AIRCRAFT CABIN CLEANER Diagnoses Encounter for general adult medical examination without abnormal findings [facility] ED F/U for UTI Procedures OFFICE/OUTPATIENT ESTABLISHED LOW MDM 20 MIN EST [place] [id number] [employer] [address] [place] [address] Referral ID Status Reason Start Date Expiration Date Visits Requested Visits Authorized [id number] Authorized Patient Cleared - INN Insurance Found 12/09/2023 06/08/2024 99 [phone] Reason Comments Problem Visit Reason Comments Pessary Maintenance Specialty Diagnoses / Procedures Referred By Contac t Referred To Contact Video Editing Intern / AIRCRAFT CABIN CLEANER Diagnoses Follow-up exam pessary maintenance, has not been seen since 2020 Procedures OFFICE/OUTPATIENT ESTABLISHED MOD MDM 30 MIN EST [facility] PATIENT Usha Nickerson APRN.CN [address] [place] [id number] Usha Nickerson APRN.CN [address] [place] [id number] Referral ID Status Reason Start Date Expiration Date Visits Re quested Visits Authorized [id number] Closed 2023 06/08/2024 1 1 Reason Comments Urinary Problem Reason Comments Results Referral ID Status Reason Start Date Expiration Date Visits Requested Visits Authorized [id number] New Request Patient Cleared - INN Insurance Found 12/09/2023 06/08/2025 99 [phone] Reason Comments Follow Up Pessary check INFORMATION SOURCE (unrecogn ized section and content) DATE CREATED AUTHOR 10/13/2024 [facility] DATE CREATED AUTHOR AUTHOR'S ORGANIZ ATION 11/27/2024 [facility] FOR RECORDS PERTAINING TO PATIENTS WHO ARE OR HAVE BEEN ENROLLED IN A CHEMICAL DEPENDENCY/SUBSTANCEABUSE PROGRAM, SOME INFORMATION MAY BE OMITTED. This clinical summary was aggregated from multiple sources. Caution should be exercised in using it in the provision of clinical care. This summary normalizes information from multiple sources, and as a consequence, information in this document may materially change the coding, format and clinical context of patient data. In addition, data may be omitted in some cases. CLINICAL DECISIONS SHOULD BE BASED ON THE PRIMARY CLINICAL RECORDS. [employer] provides no warranty or guarantee of the accuracy or completeness of information in this document.
[2025-02-23] VITALS (29 sets, daily range): BP systolic 68–144; BP diastolic 50–114; PULSE 101–137; RESP 14–28; TEMP 36.6–37; O2SAT 83–100; BMI 28.7
[2025-02-23 04:45] LABS: Prothrombin Time (Protime)PT. 27.4 SECONDS (11.7-14.9)
--- NOTE | 2025-02-23 04:45 | RAD_ITS ---
PROCEDURE: CHEST PA AND LATERAL 02/23/2025 REASON FOR EXAM: [id number] TECHNIQUE: Procedure Code: RADCXR Modality: DX Procedure: CHEST PA AND LATERAL COMPARISON: CT scan on 02/22/2025. FINDINGS: Unremarkable median sternotomy wires. Mild bilateral pleural effusions. Passive atelectatic airspace disease of the lower lobes. Bilateral widespread airspace opacities of the lungs which may represent multifocal pulmonary edema and/or pneumonia. Enlarged cardiac silhouette. Normal mediastinum and sagar. Normal visualized pulmonary arteries. Atheromatous plaques of the visualized aortic arch and descending thoracic aorta. Diffuse spondylosis of the visualized thoracic spine. Normal visualized ribs, clavicles. Degenerative joint disease. There is no demonstrated abnormality of the visualized soft tissue structures of the upper abdomen. RAD/Chest PA and Lateral IMPRESSION: Unremarkable median sternotomy wires. Mild bilateral pleural effusions. Passive atelectatic airspace disease of the lower lobes. Bilateral widespread airspace opacities of the lungs which may represent multif ocal pulmonary edema and/or pneumonia. Enlarged cardiac silhouette. Reading [facility]
[2025-02-23 05:07] LABS: Magnesium 2.2 mg/dL (1.5-2.2)
[2025-02-23 05:10] LABS: Anion Gap 13 (5-15); BUN 34 mg/dL (4-19); BUN/Creat Ratio 33.5 RATIO (10-20); Calcium,Total 8.2 mg/dL (7.6-11.0); Carbon Dioxide 22.5 mmol/L (21.0-32.0); Chloride 103 mmol/L (98-108); Estimated Creatinine Clearance 33.87 ml/min (50-250); Glucose 116 mg/dL (70-99); Potassium 3.4 mmol/L (3.3-5.1)
[2025-02-23] MEDS: 0.9% Saline Lock 10 ML Syringe IV ×2 (05:11→20:06)
[2025-02-23 05:58] LABS: Hematocrit 35.7 % (37-47); Hemoglobin 12.2 g/dL (12.0-15.0); Mean Corp Hgb Conc 34.2 g/dL (32-36); Mean Corpuscular Volume 88.4 fL (81-99); Mean Platelet Vol. 10.5 fl (6.2-12.0); Platelet Count 193 K/mm3 (150-450); RBC Distribution Width CV 13.7 % (11.6-14.6); RBC Distribution Width SD 44.4 fl (35.1-43.9); Red Blood Count 4.04 M/mm3 (4.2-5.4); White Blood Count 11.6 K/mm3 (4.4-11.0)
[2025-02-23 05:59] LABS: Immature Granulocytes Count 0.070 X10^3/uL (0.0-0.0)
--- NOTE | 2025-02-23 06:50 | PCM.PN.HOSP ---
Reason for Visit Chief Complaint: Hemoptysis Subjective Subjective Patient seen awaiting transfer to tertiary care facility. Per nursing staff patient had no episode hemoptysis.H&H remains relatively stable. Patient heart rate has been fluctuating from bradycardia to tachycardia since admission. Patient did express a desire not to be transferred she prefers to rather stay at [facility] Objective Data Objective Data Vital Signs: Vital Signs Temp Pulse Resp BP Pulse Ox O2 Del Method O2 Flow Rate 97.8 F 119 H 24 H 133/73 H 100 High Flow 6 02/23/25 05:00 02/23/25 06:00 02/23/25 06:00 02/23/25 06:00 02/23/25 06:00 02/23/25 06:00 02/23/25 06:00 FiO2 45 02/23/25 05:47 Oxygen Flow Rate (L/min) 6 Oxygen Delivery Method High Flow Weight: 69 kg Body Mass Index (BMI) 28.7 Intake & Output: Intake and Output for Last 24 Hours 02/21/25 02/22/25 02/23/25 23:59 23:59 23:59 Intake Total 320 / 320 0 / 0 Output Total 350 / 350 0 / 0 Balance -30 / -30 0 / 0 Lab / Micro Data 02/23/25 03:55 02/23/25 03:55 Labs: Laboratory Results - last 24 hr 02/22/25 09:57: WBC 13.3 H, RBC 4.29, Hgb 12.7, Hct 38.3, MCV 89.3, MCH 29.6, MCHC 33.2, RDW Std Deviation 44.4 H, RDW Coeff of Estuardo 13.6, Plt Count 222, MPV 10.1, Immature Gran % (Auto) 0.500, Neut % (Auto) 88.5 H, Lymph % (Auto) 6.7 L, Ripley % (Auto) 4.2, Eos % (Auto) 0.0, Baso % (Auto) 0.1, Absolute Neuts (auto) 11.8 H, Absolute Lymphs (auto) 0.89, Nucleated RBC % 0, PT 28.1 H, INR 2.6, Sodium 138, Potassium 3.9, Chloride 104, Carbon Dioxide 20.3 L, Anion Gap 14, BUN 29 H, Creatinine 1.16, Estim Creat Clear Calc 30.87 L, Est GFR (MDRD) Non-Af 45 L, BUN/Creatinine Ratio 24.8 H, Glucose 198 H, Lactic Acid 3.3 H*, Calcium 8.7, Total Bilirubin 1.93 H, Direct Bilirubin 0.68 H, AST 26, ALT 10, Alkaline Phosphatase 48, Troponin T High Sens 27 H, NT pro BNP II 4425 H, Total Protein 6.9, Albumin 3.8, Globulin 3.2 02/22/25 11:05: Procalcitonin 0.13 H 02/22/25 12:10: Troponin T Hi Sens 2 Hr 27 H 02/22/25 14:17: Troponin T Hi Sens 4Hr 29 H 02/22/25 15:00: Lactic Acid 1.5 02/23/25 03:55: WBC 11.6 H, RBC 4.04 L, Hgb 12.2, Hct 35.7 L, MCV 88.4, MCH 30.2, MCHC 34.2, RDW Std Deviation 44.4 H, RDW Coeff of Estuardo 13.7, Plt Count 193, MPV 10.5, Immature Gran % (Auto) 0.600, Neut % (Auto) 82.5 H, Lymph % (Auto) 10.0 L, Ripley % (Auto) 5.8, Eos % (Auto) 0.8, Baso % (Auto) 0.3, Absolute Neuts (auto) 9.6 H, Absolute Lymphs (auto) 1.16, PT 27.4 H, INR 2.5, Sodium 138, Potassium 3.4, Chloride 103, Carbon Dioxide 22.5, Anion Gap 13, BUN 34 H, Creatinine 1.02, Estim Creat Clear Calc 33.87 L, Est GFR (MDRD) Non-Af 53 L, BUN/Creatinine Ratio 33.5 H, Glucose 116 H, Calcium 8.2, Phosphorus 1.9 L, Magnesium 2.2 Micro: Microbiology 02/22/25 14:55 Mucosa - Nasopharyngeal Respiratory Panel (PCR) - Final 02/22/25 17:42 Urine, Random Legionella Antigen - Final 02/22/25 17:42 Urine, Random Streptococcus pneumoniae Antigen (M - Final 02/22/25 14:54 Nasal Secretion MRSA (PCR) - Final 02/22/25 10:10 Mucosa - Nose SARS-CoV-2, Influenza & RSV (PCR) - Final ABG Data ABG results: ABG 02/22/25 10:19 Specimen Type DONNA Sample Site Not entered O2 % 5.0 VBG pH 7.48 H VBG pO2 44 H VBG HCO3 27 H VBG Total CO2 28 VBG O2 Sat (Calc) 83 H VBG Base Excess 3 POC Mix VBG pCO2 Pt Tmp 36.0 L O2 Delivery Device Not entered Radiography Diagnostic Testing: Radiology Impression Chest CTA 02/22/25 10:02 IMPRESSION: No evidence of pulmonary embolism. Multifocal bilateral areas of airspace disease suggestive of either bilateral multifocal pneumonia versus congestive heart failure. Follow-up recommended. Reading Location: [facility] Chest X-Ray 02/23/25 04:45 IMPRESSION: Unremarkable median sternotomy wires. Mild bilateral pleural effusions. Passive atelectatic airspace disease of the lower lobes. Bilateral widespread airspace opacities of the lungs which may represent multifocal pulmonary edema and/or pneumonia. Enlarged cardiac silhouette. Reading [facility] Rhythm Strip Rhythm Strip: Sinus Rhythm Rate: 57 Ectopy: None Physical Exam Narrative GENERAL: cooperative HEENT: Atraumatic; normocephalic EYES; Anicteric, Normal Conjunctiva NECK; supple, normal thyroid, RESPIRATORY: Diminished to auscultation CARDIOVASCULAR: Irregularly irregular, tachycardic GI: soft, normoactive bowel sounds, : No Renal angle tenderness; EXTREMITIES: Bilateral pedal edema, no clubbing, MUSCULOSKELETAL: no muscle wasting NEURO: Awake; no lateralizing signs. SKIN: No Rash PSYCH; Flat affect Assessment & Plan Assessment/Plan (1) Essential hypertension: (2) Atrial flutter: (3) Massive hemoptysis: (4) Diastolic CHF, acute: (5) Pneumonia: PLAN: Plan Patient is an 89-year-old lady presented with progressive shortness of breath with associated hemoptysis.. Patient was found to be severely hypoxic on admission 1. Acute hypoxic respiratory failure – Secondary to combination of suspected multifocal pneumonia and congestive heart failure with alveolar hemorrhage being considered in the differentials. Patient was placed on noninvasive ventilation via Airvo. The piano player on-call Dr. Arec was notified and recommended for patient to be transferred. Patient has been accepted for transfer to [facility]. – 02/23/2025; transferred to [facility] pending 2. Acute congestive heart failure with preserved ejection fraction – Echo from 08/30/2022 demonstrated EF of 55%. Treatment initiated with strict input and output, daily weight, fluid restriction, low-sodium diet as well as diuretic therapy with furosemide. Repeat echo ordered for EF assessment – 02/23/2025; patient remains on diuretic therapy 3. Pneumonia - Suspected to be secondary to streptococcal pneumonia, Blood and sputum cultures sent. Patient placed on Rocephin and Zithromax and placed on oxygen titrated to keep Pulse Ox greater than 90. As part of patient workup ordered viral respiratory panel, rapid COVID assay, urine streptococcal and Legionella antigens – 02/23/2025; patient viral respiratory panel came back negative we will continue with current antibiotic therapy 4. Hemoptysis – Alveolar hemorrhage versus pneumonia which is being worsened by use of systemic anticoagulation with heparin. Arrangements initiated to have patient transferred to a facility with IR capability per recommendations from pulmonary medicine. H&H remained stable at this point however I did type and screen patient for 2 unit PRBC 5. Paroxysmal atrial fibrillation – Rate controlled on systemic anticoagulation with warfarin with therapeutic INR of 2.6. Warfarin was held on admission given her presentation – 02/23/2025; patient heart rate has been fluctuating patient may have underlying tachybradycardia syndrome we will continue with telemetry monitoring if persists plan will be to obtain cardiology consult for possible evaluation for pacemaker 6. Hypertension – Blood pressure controlled, home medications continued with dose adjustment as needed 7. 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 DVT prophylaxis – Patient is on systemic anticoagulation with a therapeutic INR no additional measures needed Time spent in the patient's overall evaluation,decision-making process, review of diagnostic data, adjustment of management, discussion with other providers, nursing nursing and ancillary staff involved in patient's care documentation, 50 Minutes Charges/Coding Visit Charges Inpatient E&M: 09153 [facility] L3
--- NOTE | 2025-02-23 07:27 | EX.PCM.CONCC ---
Assessment & Plan Assessment/Plan (1) Acute hypoxemic respiratory failure: PLAN: Plan RECOMMENDATIONS: 1. Supplemental oxygen to maintain saturations at or above 90%. 2. Continue empiric antimicrobials. Sputum cultures pending. 3. Check autoimmune and vasculitis workup, including anti-GBM antibodies 4. Continue diuresis as tolerated by hemodynamics and renal function. 5. If hemoptysis were to recur, will consider bronchoscopy. 6. Vitamin K to be administered today as ordered. Check INR daily. IMPRESSIONS: 1. Acute hypoxemic respiratory failure in the setting of [id number] hemoptysis CTA chest was negative for pulmonary embolism but did reveal bilateral infiltrates which could represent infection versus pulmonary edema. Following initiation of antimicrobial therapy and diuretics, the patient's oxygenation status has improved significantly. She has only had 1 additional episode of hemoptysis overnight, which was small in appearance. Given that her INR is still elevated at 2.5, will administer vitamin K today. Recommend follow-up INR tomorrow. Continue to hold Coumadin. If ongoing hemoptysis remains an issue, we will schedule the patient for bronchoscopy. Otherwise, continue current supportive care. Lastly, will obtain autoimmune and vasculitis workup, including anti-GBM antibodies. If life-threatening hemoptysis occurs, recommend intubation and administration of nebulized TXA. 2. History of heart failure with preserved ejection fraction/paroxysmal atrial fibrillation/hypertension/valvular heart disease Complicates care, management, recovery and prognosis. The patient has been experiencing episodes of tachycardia followed by bradycardia, for which cardiology has been consulted. Continue to hold systemic anticoagulation for now. Repeat echocardiogram is pending. This note was generated with [employer] dictation software. It may contain incorrect words, spelling, and punctuation that were not noted in checking the note before signing. HPI Consult Data Date of Consult: 02/23/25 HPI Narrative Reason for Consultation: Hemoptysis HPI Narrative: The patient is an 89-year-old female, with a history as outlined below, who presented to the emergency department on February 22 with a 3-day history of dyspnea and hemoptysis. The patient has a known history of coronary artery disease and tricuspid valve repair with aortic valve replacement in 2010 and is on chronic long-term anticoagulation with Coumadin on an outpatient basis. The patient denied any recent sick contact exposure. The patient was unable to quantify how much blood she had actually been coughing up over the course of the last several days. She has never experienced any episodes like this in her past. She denied any history of any autoimmune conditions or vasculitides. On presentation to the emergency department, the patient was documented to be afebrile and hemodynamically stable. She was initially hypoxemic on room air and was eventually at one point was requiring heated high flow oxygen to maintain appropriate oxygen saturations. Initial laboratory evaluation revealed a white blood cell count of 13,000. Coagulation profile was notable for an INR of 2.6. Chemistry profile was notable for a BUN of 29 with a creatinine of 1.16. Lactate was elevated at 3.3. BNP was elevated at 4425. CTA chest was negative for pulmonary embolism, but did reveal significant bilateral infiltrates. The patient was ultimately placed on antimicrobials and scheduled Lasix. Her Coumadin was placed on hold. She was admitted to the medical intensive care unit for further management. Overnight, the patient had no further episodes of hemoptysis. This morning, the patient reported that she had a single episode which produced about a quarter sized amount of blood on tissue. She is otherwise feeling better clinically. [facility] Medical History History of left heart catheterization (LHC) (~09/15/12) Atrial fibrillation and flutter Trigeminal neuralgia Atrial flutter Anxiety DDD (degenerative disc disease) Hyperlipidemia Osteoarthritis Essential hypertension Hypothyroidism Atherosclerosis of coronary artery of [place] heart without angina pectoris Lightheadedness Chest pain Home Medications Medication Instructions Recorded Last Taken Type lorazepam 0.5 mg tablet 0.25 mg PO QHS PRN ANXIETY 12/28/20 02/21/25 History warfarin 3 mg tablet 3 mg PO DAILY atrial fibrillation 12/28/20 02/21/25 History amlodipine 2.5 mg tablet 2.5 mg PO DAILY hypertension #30 04/10/21 02/21/25 Rx tabs metoprolol succinate 50 mg 50 mg PO DAILY hypertension 05/31/21 02/21/25 History tablet,extended release 24 hr Allergy/AdvReac Type Severity Reaction Status Date / Time citalopram (From Celexa) Allergy Intermediate Unknown Verified 02/22/25 09:41 gabapentin Allergy Intermediate Unknown Verified 02/22/25 09:41 trazodone Allergy Intermediate Nausea/Vom/ Verified 02/22/25 09:41 Diarrhea buspirone HCl (From BuSpar) Allergy Upset Verified 02/22/25 09:41 Stomach flecainide (Flecainide) Allergy Shortness Verified 02/22/25 09:41 of breath levothyroxine sodium (From Allergy Nausea Verified 10/13/22 21:57 Synthroid) meperidine HCl (From Demerol) Allergy Other Verified 02/22/25 09:41 sertraline HCl (From Zoloft) Allergy Other Verified 02/22/25 09:41 tramadol Allergy Nausea Verified 02/22/25 09:41 Family History Sister Breast cancer CVA (cerebral vascular accident) Diabetes Mother CVA (cerebral vascular accident) Hypertension Brother Hypertension Other Paroxysmal atrial fibrillation with RVR Surgical History History of aortic valve replacement with bioprosthetic valve (~07/20/10) H/O tricuspid valve repair (~07/20/10) History of cardioversion (07/06/10) History of open reduction and internal fixation (ORIF) procedure History of appendectomy Social History Smoking Status: Never smoker alcohol intake: never substance use type: does not use caffeine: No ROS ROS Narrative 10 systems were reviewed with pertinent positives as noted in the HPI above. Physical Exam Const alert, oriented x3 and no apparent distress General Appearance: cooperative HEENT normocephalic, head/scalp atraumatic and moist oral mucous membranes Eyes PERRL, EOMs intact bilaterally and conjunctivae normal Neck supple General: trachea midline Chest inspection of chest normal Resp normal respiratory effort and no use of accessory muscles Effort and Inspection: able to speak in complete sentences Auscultation: rales Cardio S1 normal heart sound and S2 normal heart sound Rate: tachycardic Rhythm: abnormal rhythm GI normal to inspection, nondistended, normoactive bowel sounds Extremity no clubbing, cyanosis or edema Skin no rashes or lesions noted Neuro CN's II-XII intact bilaterally, moves all extremities and no focal motor deficits Psych cooperative and affect normal Lab / Micro Data 02/23/25 03:55 02/23/25 03:55 Labs: Laboratory Results - last 24 hr 02/22/25 09:57: WBC 13.3 H, RBC 4.29, Hgb 12.7, Hct 38.3, MCV 89.3, MCH 29.6, MCHC 33.2, RDW Std Deviation 44.4 H, RDW Coeff of Estuardo 13.6, Plt Count 222, MPV 10.1, Immature Gran % (Auto) 0.500, Neut % (Auto) 88.5 H, Lymph % (Auto) 6.7 L, Dane % (Auto) 4.2, Eos % (Auto) 0.0, Baso % (Auto) 0.1, Absolute Neuts (auto) 11.8 H, Absolute Lymphs (auto) 0.89, Nucleated RBC % 0, PT 28.1 H, INR 2.6, Sodium 138, Potassium 3.9, Chloride 104, Carbon Dioxide 20.3 L, Anion Gap 14, BUN 29 H, Creatinine 1.16, Estim Creat Clear Calc 30.87 L, Est GFR (MDRD) Non-Af 45 L, BUN/Creatinine Ratio 24.8 H, Glucose 198 H, Lactic Acid 3.3 H*, Calcium 8.7, Total Bilirubin 1.93 H, Direct Bilirubin 0.68 H, AST 26, ALT 10, Alkaline Phosphatase 48, Troponin T High Sens 27 H, NT pro BNP II 4425 H, Total Protein 6.9, Albumin 3.8, Globulin 3.2 02/22/25 11:05: Procalcitonin 0.13 H 02/22/25 12:10: Troponin T Hi Sens 2 Hr 27 H 02/22/25 14:17: Troponin T Hi Sens 4Hr 29 H 02/22/25 15:00: Lactic Acid 1.5 02/23/25 03:55: WBC 11.6 H, RBC 4.04 L, Hgb 12.2, Hct 35.7 L, MCV 88.4, MCH 30.2, MCHC 34.2, RDW Std Deviation 44.4 H, RDW Coeff of Estuardo 13.7, Plt Count 193, MPV 10.5, Immature Gran % (Auto) 0.600, Neut % (Auto) 82.5 H, Lymph % (Auto) 10.0 L, Dane % (Auto) 5.8, Eos % (Auto) 0.8, Baso % (Auto) 0.3, Absolute Neuts (auto) 9.6 H, Absolute Lymphs (auto) 1.16, PT 27.4 H, INR 2.5, Sodium 138, Potassium 3.4, Chloride 103, Carbon Dioxide 22.5, Anion Gap 13, BUN 34 H, Creatinine 1.02, Estim Creat Clear Calc 33.87 L, Est GFR (MDRD) Non-Af 53 L, BUN/Creatinine Ratio 33.5 H, Glucose 116 H, Calcium 8.2, Phosphorus 1.9 L, Magnesium 2.2 Micro: Microbiology 02/22/25 14:55 Mucosa - Nasopharyngeal Respiratory Panel (PCR) - Final 02/22/25 17:42 Urine, Random Legionella Antigen - Final 02/22/25 17:42 Urine, Random Streptococcus pneumoniae Antigen (M - Final 02/22/25 14:54 Nasal Secretion MRSA (PCR) - Final 02/22/25 10:10 Mucosa - Nose SARS-CoV-2, Influenza & RSV (PCR) - Final ABG Data ABG results: ABG 02/22/25 10:19 Specimen Type DONNA Sample Site Not entered O2 % 5.0 VBG pH 7.48 H VBG pO2 44 H VBG HCO3 27 H VBG Total CO2 28 VBG O2 Sat (Calc) 83 H VBG Base Excess 3 POC Mix VBG pCO2 Pt Tmp 36.0 L O2 Delivery Device Not entered Rhythm Strip Rhythm Strip: Sinus Rhythm Rate: 57 Ectopy: None Imaging Radiology Impression Chest CTA 02/22/25 10:02 IMPRESSION: No evidence of pulmonary embolism. Multifocal bilateral areas of airspace disease suggestive of either bilateral multifocal pneumonia versus congestive heart failure. Follow-up recommended. Reading Location: [facility]--1 Chest X-Ray 02/23/25 04:45 IMPRESSION: Unremarkable median sternotomy wires. Mild bilateral pleural effusions. Passive atelectatic airspace disease of the lower lobes. Bilateral widespread airspace opacities of the lungs which may represent multifocal pulmonary edema and/or pneumonia. Enlarged cardiac silhouette. Reading Location: [place] [address] Charges/Coding Visit Charges Inpatient E&M: 87877 Init Hosp L3
[2025-02-23] MEDS: Metoprolol(XL)Succ 50 MG Tablet PO (08:49)
[2025-02-23] MEDS: Ceftriaxone 2 GM in 0.9% Normal Saline (50mL MB+) 50 ML IV (08:50)
[2025-02-23] MEDS: 0.9% Normal Saline (250mL Bag) 250 ML 15 ML IV (08:50)
[2025-02-23] MEDS: Phytonadione (Vit K) 10 MG in 0.9% Normal Saline (50mL Bag) 50 ML 150 MG IV (10:14)
[2025-02-23] MEDS: Na Biphos/Potassium Phosphate PACKET 1 PACKET PO ×2 (10:19→20:06)
--- NOTE | 2025-02-23 10:38 | CASEMGMT ---
Social Work- SW met with pt to verify directives. Pt reports that she does not have documents, but would like to complete, naming pt dtr. PT having echo. SW will follow up. HUMBERTO Aguirre
[2025-02-23] MEDS: Azithromycin 500 MG in 0.9% Normal Saline (250mL Bag) 250 ML 250 MG IV (10:50)
--- NOTE | 2025-02-23 11:37 | CHAPLAIN ---
Type of Pastoral Visit _x__ Initial Visit ___ Follow-up Visit ___ On-call Visit ___ General Patient Visit ___ Spiritual Assessment ___ Family Conference ___ Bereavement ___ Rapid Response ___ Code Blue ___ Other (describe below) Pastoral Care Referral From _x__ Patient ___ Family ___ Nurse ___ Physician ___ Border Patrol Officer ___ Netbackup Administrator ___ Other (describe below) Sacrament/Intervention _x__ Active listening ___ Anointing ___ Worship ___ Bereavement ___ Communion _x__ Citlaly exploration ___ ___ Life review _x__ Prayer ___ Reconciliation ___ Sacrament of Sick _x__ Supportive presence ___ Wedding ___ Other (describe below) Pastoral Comments patient and family members are in the room; pt is talkative and expresses her citlaly in God and how He has helped her in many ways over many years; pt asks for prayer and admits concerns about being transferred to another hospital; pt goal is to regain strength and return home; family members are offered support as well
--- NOTE | 2025-02-23 11:41 | CASEMGMT ---
[facility] deferred at [facility]. CM remains available for discharge planning should needs arise or requested.
--- NOTE | 2025-02-23 13:39 | NURSING ---
[facility] transfer center called to see if our physician still wanted patient transferred, spoke with Dr. King, who stated keep who on the transfer list at [facility], called [facility] back to notify of this.
--- NOTE | 2025-02-23 13:56 | NURSING ---
Shaun called back stating their clay structure builder and servicer wanted to speak to our physician that is requesting transfer. This RN reached out to Dr. King who stated he was unavailable to speak to them at the moment and to hold off on transfer at this time. Shaun stated if we decide to transfer again, Dr. King will need to speak to their physician.
--- NOTE | 2025-02-23 14:24 | CASEMGMT ---
Social Work- SW met with pt and pt children Naomi and Dimitri to discuss and complete health care power of net fisher document. Pt named daughter, Naomi, as primary agent and Dimitri as secondary agent. SW placed copy on chart and provided copies to agents, as well as original to pt. Pt reports that she has services from [facility]. JOEL Ro. Pt receives medical alert and previously had an aide, but reports that she "lost" it awhile ago. Pt and family report that pt would benefit from an aide, as she is alone from 6:30am-3pm. Pt reports dtr transports, but she would benefit from additional transportation options due to dtr new job being less flexible. NEVAEH called Earnestine and left a voicemail message. HUMBERTO Aguirre
--- NOTE | 2025-02-23 16:27 | CASEMGMT ---
MAIKEL MALDONADO Face to Face with patient for initial transition planning/care coordination assessment. MAIKEL MALDONADO introduced self and role at [facility]. Patient sitting in chair, alert and oriented, daughter at bedside. Patient willing to participate in assessment and is able to answer all questions appropriately. Care providers, pharmacy, and demographics verified. Strata: 2 PCP: Rom Specialists: [facility], cardiology in the past; MALENA [facility] Preferred Pharmacy: [facility] Insurance: [facility] Benefit: yes Living Will/HPOA: yes, daughter Naomi Zapata LNOK: daughter, son Living Arrangements: Patient lives with daughter in a single story home with 1 step to enter. Patient is independent for selfcare, daughter assists with bellstand attendant Transportation: daughter DME/HHC: Patient has cane, walker, and grab bars at home, monitor for home oxygen, prefers [employer] for DME. No previous HHC or SNF. Patient has [facility] CM Earnestine Ro, . Patient wishes to discharge home and is interested in HHC, MAIKEL MALDONADO provided HHC list to patient and daughter to review and provide preferences. Patient states she has no further needs or concerns at this time. CM to follow for discharge planning needs that may arise. Disposition Plan: Patient to discharge home with HHC, family support, and follow-up plans in place. Will monitor for home oxygen. Earnestine HERMAN, RN, CM
--- NOTE | 2025-02-23 19:17 | CON.PCM.CA_ITS ---
Assessment & Plan Assessment/Plan (1) Atrial fibrillation and flutter: PLAN: Patient has atrial fibrillation flutter with uncontrolled ventricular response rate will discontinue the long-acting metoprolol and put her on short acting metoprolol 50 mg twice a day and continue to monitor her. Anticoagulation will be held in the interim. Her ejection fraction was noted to be normal. (2) Atherosclerosis of coronary artery of [place] heart without angina pectoris: QUALIFIERS: Coronary Disease-Associated Artery/Lesion type: [place] artery Qualified Code(s): I25.10 - Atherosclerotic heart disease of [place] coronary artery without angina pectoris PLAN: She has not had any cardiac enzyme abnormality thus far and we will continue to monitor her. (3) History of aortic valve replacement with bioprosthetic valve: PLAN: She is status post bioprosthetic aortic valve replacement this appears to be functioning well ejection fraction is normal and no changes will be made. (4) Essential hypertension: PLAN: Her blood pressure remains under fair control at this time no changes will be made (5) H/O tricuspid valve repair: PLAN: She is status post stable tricuspid valve repair. HPI Consult Data Date of Consult: 02/23/25 HPI Narrative HPI Narrative: OFELIA SHARPE, is a 89 F who presents with hemoptysis and shortness of breath. She has a history of underlying CAD, aortic valve stenosis status post aortic valve replacement with a #23 [place]ina-Parada magna pericardial valve-2010, tricuspid annuloplasty with a number 34 cup MTA classic ring-2010, left atrial appendage ligation and pulmonary vein isolation-2010 (all at [facility]), atrial fibrillation/flutter, hyperlipidemia, and hypertension. Her last catheterization was in 2012 at that time she had nonobstructive coronary disease noted in the LAD of 60%, 6070% in the circumflex artery and these were not felt to be hemodynamically significant. She has not followed up in our office for over 2 years and now presents with the above. Cardiology was called for further evaluation and management. She has been on anticoagulation for her atrial fibrillation. Her symptoms apparently started 3 days prior to her admission and have gotten progressively worse. She was noted to have blood in her sputum and her oxygen saturations were in the low 80s. A CTA was performed which was noted to be negative for PE but she had multiple bilateral areas of airspace disease. An echocardiogram performed today demonstrated preserved ejection fraction of 60% with a stable bioprosthetic aortic valve present. [facility] Medical History History of left heart catheterization (LHC) (~09/15/12) Atrial fibrillation and flutter Trigeminal neuralgia Atrial flutter Anxiety DDD (degenerative disc disease) Hyperlipidemia Osteoarthritis Essential hypertension Hypothyroidism Atherosclerosis of coronary artery of [place] heart without angina pectoris Lightheadedness Chest pain Home Medications Medication Instructions Recorded Last Taken Type lorazepam 0.5 mg tablet 0.25 mg PO QHS PRN ANXIETY 0 12/28/20 02/21/25 History warfarin 3 mg tablet 3 mg PO DAILY atrial fibrill ation 12/28/20 02/21/25 History amlodipine 2.5 mg tablet 2.5 mg PO DAILY hypertension #30 04/10/21 02/21/25 Rx tabs metoprolol succinate 50 mg 50 mg PO DAILY hypertension 05/31/21 02/21/25 History tablet,extended release 24 hr Allergy/AdvReac Type Severity Reaction Status Date / Time citalopram (From Celexa) Allergy Intermediate Unknown Verified 02/22/25 09:41 gabapentin Allergy Intermediate Unknown Verified 02/22/25 09:41 trazodone Allergy Intermediate Nausea/Vom/ Verified 02/22/25 09:41 Diarrhea buspirone HCl (From BuSpar) Allergy Upset Verified 02/22/25 09:41 Stomach flecainide (Flecainide) Allergy Shortness Verified 02/22/25 09:41 of breath levothyroxine sodium (From Allergy Nausea Verified 10/13/22 21:57 Synthroid) meperidine HCl (From Demerol) Allergy Other Verified 02/22/25 09:41 sertraline HCl (From Zoloft) Allergy Other Verified 02/22/25 09:41 tramadol Allergy Nausea Verified 02/22/25 09:41 Family History Sister Breast cancer CVA (cerebral vascular accident) Diabetes Mother CVA (cerebral vascular accident) Hypertension Brother Hypertension Other Paroxysmal atrial fibrillation with RVR Surgical History History of aortic valve replacement with bioprosthetic valve (~07/20/10) H/O tricuspid valve repair (~07/20/10) History of cardioversion (07/06/10) History of open reduction and internal fixation (ORIF) procedure History of appendectomy Social History Smoking Status: Never smoker alcohol intake: never substance use type: does not use caffeine: No ROS Constitutional Constitutional: Denies fever(s) or weight loss Eyes Eyes: Reports systems reviewed and no addt'l complaints, except as documented ENT HEENT: Reports systems reviewed and no addt'l complaints, except as documented Cardiovascular Cardiovascular: Reports dyspnea at rest and dyspnea on exertion; Denies chest pain at rest, chest pain with activity, edema, palpitations or paroxysmal nocturnal dyspnea Respiratory/Chest Respiratory/Chest: Reports shortness of breath with exertion; Denies dyspnea on exertion, productive cough or shortness of breath at rest Gastrointestinal Gastrointestinal: Denies change in bowel habits, nausea, vomiting or weight changes Genitourinary Genitourinary: Denies difficulty urinating Musculoskeletal Musculoskeletal: Denies joint stiffness or muscle weakness Integumentary Integumentary: Denies lesions Neurologic Neurologic: Denies dizziness or syncope Psychiatric Psychiatric: Denies anxiety Endocrine Endocrinology: Denies excessive sweating or fatigue Hematologic/Lymphatic Hematologic/Lymphatic: Denies anemia Allergic/Immunologic Allergic/Immunologic: Denies seasonal rhinorrhea Physical Exam Const alert, oriented x3 and no apparent distress General Appearance: cooperative HEENT hearing grossly normal bilaterally Head and Scalp: atraumatic Eyes EOMs intact bilaterally Neck General: normal visual inspection Chest inspection of chest normal and palpation of chest normal Resp normal respiratory effort Auscultation: clear to auscultation bilaterally Cardio S1 normal heart sound and S2 normal heart sound Jugular Venous Distention: JVD Rhythm: abnormal rhythm irregularly irregular GI normal to inspection, nondistended, normoactive bowel sounds Extremity normal capillary refill and no pedal edema Peripheral Pulses: Yes pulses 2+ throughout and femoral pulses present Skin no rashes or lesions noted Neuro oriented x3 and CN's II-XII intact bilaterally Psych Appearance: grossly normal and appropriate Objective Data Vital Signs: Vital Signs Temp Pulse Resp BP Pulse Ox O2 Del Method O2 Flow Rate 97.9 F 115 H 25 H 123/80 H 98 Nasal Cannula 2 02/23/25 17:00 02/23/25 19:00 02/23/25 19:00 02/23/25 19:00 02/23/25 19:00 02/23/25 19:00 02/23/25 18:00 FiO2 45 02/23/25 05:47 Oxygen Flow Rate (L/min) 2 Oxygen Delivery Method Nasal Cannula Weight: 152 lb 1.903 oz Body Mass Index (BMI) 28.7 Intake & Output: Intake and Output for Last 24 Hours 02/21/25 02/22/25 02/23/25 23:59 23:59 23:59 Intake Total 320 / 320 653.5 / 653.5 Output Total 350 / 350 200 / 200 Balance -30 / -30 453.5 / 453.5 Lab / Micro Data 02/23/25 03:55 02/23/25 03:55 Labs: Laboratory Results - last 24 hr 02/23/25 03:55: WBC 11.6 H, RBC 4.04 L, Hgb 12.2, Hct 35.7 L, MCV 88.4, MCH 30.2, MCHC 34.2, RDW Std Deviation 44.4 H, RDW Coeff of [place] 13.7, Plt Count 193, MPV 10.5, Immature Gran % (Auto) 0.600, Neut % (Auto) 82.5 H, Lymph % (Auto) 10.0 L, [place] % (Auto) 5.8, Eos % (Auto) 0.8, Baso % (Auto) 0.3, Absolute Neuts (auto) 9.6 H, Absolute Lymphs (auto) 1.16, PT 27.4 H, INR 2.5, Sodium 138, Potassium 3.4, Chloride 103, Carbon Dioxide 22.5, Anion Gap 13, BUN 34 H, Creatinine 1.02, Estim Creat Clear Calc 33.87 L, Est GFR (MDRD) Non-Af 53 L, B UN/Creatinine Ratio 33.5 H, Glucose 116 H, Calcium 8.2, Phosphorus 1.9 L, Magnesium 2.2 02/23/25 09:21: Rheumatoid Factor 14.8, TALA-1 Antibody TNP, Sm (Mejia) Antibody TNP, SWAMPER Antibody TNP, Scl-70 Scleroderma Ab TNP, Antichromatin Antibodies TNP, Centromere B Antibody TNP Micro: Microbiology 02/22/25 14:55 Mucosa - Nasopharyngeal Respiratory Panel (PCR) - Final 02/22/25 17:42 Urine, Random Legionella Antigen - Final 02/22/25 17:42 Urine, Random Streptococcus pneumoniae Antigen (M - Final 02/22/25 14:54 Nasal Secretion MRSA (PCR) - Final Rhythm Strip Rhythm Strip: Sinus Rhythm Rate: 57 Ectopy: None Cardiology Labs/Tests 02/23/25 03:55: WBC 11.6 H, RBC 4.04 L, Hgb 12.2, Hct 35.7 L, MCV 88.4, MCH 30.2, MCHC 34.2, Plt Count 193, MPV 10.5, Immature Gran % (Auto) 0.600, Neut % (Auto) 82.5 H, Lymph % (Auto) 10.0 L, [place] % (Auto) 5.8, Eos % (Auto) 0.8, Baso % (Auto) 0.3, Absolute Neuts (auto) 9.6 H, PT 27.4 H, INR 2.5, Sodium 138, Potassium 3.4, Chloride 103, Carbon Dioxide 22.5, Anion Gap 13, BUN 34 H, Creatinine 1.02, Est GFR (MDRD) Non-Af 53 L, BUN/Creatinine Ratio 33.5 H, G lucose 116 H, Calcium 8.2, Phosphorus 1.9 L, Magnesium 2.2 Rhythm: EKG: ECHO: Stress Test: Cardiac Cath: PCI: CT Surgery: Holter monitor: EPS: PPM: CXR: Chest CT Scan: Radiography Diagnostic Testing: Radiology Impression Echocardiogram 02/22/25 12:48 Interpretation Summary Normal LV size. Left ventricular systolic function is normal. The left ventricular ejection fraction is 60 %. The left atrium is severely enlarged. Normal right atrium. Mean aortic valve gradient 11 mmHg. Bioprosthetic aortic valve. Ordering Physician: Zhou King Referring Physician: Doron Cueto Performed By: Usha Kaufman RDCS Chest X-Ray 02/23/25 04:45 IMPRESSION: Unremarkable median sternotomy wires. Mild bilateral pleural effusions. Passive atelectatic airspace disease of the lower lobes. Bilateral widespread airspace opacities of the lungs which may represent multifocal pulmonary edema and/or pneumonia. Enlarged cardiac silhouette. [facility] [address] [place] Risk Score for UA/STEMI Assesmment (YES = 1) Risk Stratification Applicable: No
[2025-02-24] VITALS (16 sets, daily range): BP systolic 93–153; BP diastolic 66–138; PULSE 66–128; RESP 13–30; TEMP 35.6–37.1; O2SAT 92–99; BMI 28.5
[2025-02-24 03:29] LABS: Hematocrit 37.3 % (37-47); Hemoglobin 12.5 g/dL (12.0-15.0); Immature Granulocytes Count 0.040 X10^3/uL (0.0-0.0); Mean Corp Hgb Conc 33.5 g/dL (32-36); Mean Corpuscular Volume 87.6 fL (81-99); Mean Platelet Vol. 10.5 fl (6.2-12.0); NRBC Flagged by Analyzer 0 % (0-5); Platelet Count 239 K/mm3 (150-450); RBC Distribution Width CV 13.6 % (11.6-14.6); RBC Distribution Width SD 43.6 fl (35.1-43.9); Red Blood Count 4.26 M/mm3 (4.2-5.4); White Blood Count 8.8 K/mm3 (4.4-11.0)
[2025-02-24 03:37] LABS: Prothrombin Time (Protime)PT. 14.9 SECONDS (11.7-14.9)
[2025-02-24 03:55] LABS: Anion Gap 14 (5-15); BUN 43 mg/dL (4-19); BUN/Creat Ratio 37.9 RATIO (10-20); Calcium,Total 8.3 mg/dL (7.6-11.0); Carbon Dioxide 24.2 mmol/L (21.0-32.0); Chloride 102 mmol/L (98-108); Estimated Creatinine Clearance 30.85 ml/min (50-250); Glucose 109 mg/dL (70-99); Potassium 3.1 mmol/L (3.3-5.1)
[2025-02-24] MEDS: 0.9% Saline Lock 10 ML Syringe IV ×4 (05:32→22:05)
--- NOTE | 2025-02-24 06:51 | PCM.PN.CARD ---
Subjective Subjective Patient seen and evaluated. Appears to be stable. Intermittent heart rates noted. But better than before. Objective Data Vital Signs: Vital Signs Temp Pulse Resp BP Pulse Ox O2 Del Method O2 Flow Rate 97.8 F 128 H 30 H 127/81 H 92 Room Air 2 02/24/25 03:00 02/24/25 06:47 02/24/25 06:00 02/24/25 06:00 02/24/25 06:00 02/24/25 06:00 02/23/25 19:30 FiO2 45 02/23/25 05:47 Oxygen Flow Rate (L/min) 2 Oxygen Delivery Method Room Air Weight: 151 lb 3.794 oz Body Mass Index (BMI) 28.5 Intake & Output: Intake and Output for Last 24 Hours 02/22/25 02/23/25 02/24/25 23:59 23:59 23:59 Intake Total 320 / 320 653.5 / 853.5 200 / 200 Output Total 350 / 350 200 / 200 Balance -30 / -30 453.5 / 653.5 200 / 200 Lab / Micro Data 02/24/25 03:22 02/24/25 03:22 Labs: Laboratory Results - last 24 hr 02/23/25 03:55: Sodium 138, Potassium 3.4, Chloride 103, Carbon Dioxide 22.5, Anion Gap 13, BUN 34 H, Creatinine 1.02, Estim Creat Clear Calc 33.87 L, Est GFR (MDRD) Non-Af 53 L, BUN/Creatinine Ratio 33.5 H, Glucose 116 H, Calcium 8.2, Phosphorus 1.9 L, Magnesium 2.2 02/23/25 09:21: Rheumatoid Factor 14.8, TALA-1 Antibody TNP, Sm (Mejia) Antibody TNP, TRIMMER PRESS CLIPPINGS Antibody TNP, Scl-70 Scleroderma Ab TNP, Antichromatin Antibodies TNP, Centromere B Antibody TNP 02/24/25 03:22: WBC 8.8, RBC 4.26, Hgb 12.5, Hct 37.3, MCV 87.6, MCH 29.3, MCHC 33.5, RDW Std Deviation 43.6, RDW Coeff of Estuardo 13.6, Plt Count 239, MPV 10.5, Immature Gran % (Auto) 0.500, Neut % (Auto) 72.5 H, Lymph % (Auto) 16.0 L, [place] % (Auto) 8.2, Eos % (Auto) 2.3, Baso % (Auto) 0.5, Absolute Neuts (auto) 6.4, Absolute Lymphs (auto) 1.41, Nucleated RBC % 0, PT 14.9, INR 1.1, Sodium 140, Potassium 3.1 L, Chloride 102, Carbon Dioxide 24.2, Anion Gap 14, BUN 43 H, Creatinine 1.12, Estim Creat Clear Calc 30.85 L, Est GFR (MDRD) Non-Af 47 L, BUN/Creatinine Ratio 37.9 H, Glucose 109 H, Calcium 8.3 Rhythm Strip Rhythm Strip: Sinus Rhythm Rate: 57 Ectopy: None Cardiology Labs/Tests 02/23/25 03:55: Sodium 138, Potassium 3.4, Chloride 103, Carbon Dioxide 22.5, Anion Gap 13, BUN 34 H, Creatinine 1.02, Est GFR (MDRD) Non-Af 53 L, BUN/Creatinine Ratio 33.5 H, Glucose 116 H, Calcium 8.2, Phosphorus 1.9 L, Magnesium 2.2 02/24/25 03:22: WBC 8.8, RBC 4.26, Hgb 12.5, Hct 37.3, MCV 87.6, MCH 29.3, MCHC 33.5, Plt Count 239, MPV 10.5, Immature Gran % (Auto) 0.500, Neut % (Auto) 72.5 H, Lymph % (Auto) 16.0 L, [place] % (Auto) 8.2, Eos % (Auto) 2.3, Baso % (Auto) 0.5, Absolute Neuts (auto) 6.4, Nucleated RBC % 0, PT 14.9, INR 1.1, Sodium 140, Potassium 3.1 L, Chloride 102, Carbon Dioxide 24.2, Anion Gap 14, BUN 43 H, Creatinine 1.12, Est GFR (MDRD) Non-Af 47 L, BUN/Creatinine Ratio 37.9 H, Glucose 109 H, Calcium 8.3 Rhythm: EKG: ECHO: Stress Test: Cardiac Cath: PCI: CT Surgery: Holter monitor: EPS: PPM: CXR: Chest CT Scan: Radiography Diagnostic Testing: Radiology Impression Echocardiogram 02/22/25 12:48 Interpretation Summary Normal LV size. Left ventricular systolic function is normal. The left ventricular ejection fraction is 60 %. The left atrium is severely enlarged. Normal right atrium. Mean aortic valve gradient 11 mmHg. Bioprosthetic aortic valve. Ordering Physician: Zhou King Referring Physician: Doron Cueto Performed By: Usha Kaufman RDCS Physical Exam Const alert, oriented x3 and no apparent distress General Appearance: cooperative HEENT hearing grossly normal bilaterally Head and Scalp: atraumatic Eyes EOMs intact bilaterally Neck General: normal visual inspection Chest inspection of chest normal and palpation of chest normal Resp normal respiratory effort Auscultation: clear to auscultation bilaterally Cardio S1 normal heart sound and S2 normal heart sound Jugular Venous Distention: JVD Rhythm: abnormal rhythm irregularly irregular GI normal to inspection, nondistended, normoactive bowel sounds Extremity normal capillary refill and no pedal edema Peripheral Pulses: Yes pulses 2+ throughout and femoral pulses present Skin no rashes or lesions noted Neuro oriented x3 and CN's II-XII intact bilaterally Psych Appearance: grossly normal and appropriate Assessment & Plan Assessment/Plan (1) Atrial fibrillation and flutter: PLAN: Patient has atrial fibrillation flutter with uncontrolled ventricular response rate will discontinue the long-acting metoprolol and put her on short acting metoprolol 50 mg twice a day and continue to monitor her. Anticoagulation will be held in the interim. Her ejection fraction was noted to be normal. Will continue the current dose today. (2) Atherosclerosis of coronary artery of [place] heart without angina pectoris: QUALIFIERS: Coronary Disease-Associated Artery/Lesion type: [place] artery Qualified Code(s): I25.10 - Atherosclerotic heart disease of [place] coronary artery without angina pectoris PLAN: She has not had any cardiac enzyme abnormality thus far and we will continue to monitor her. (3) History of aortic valve replacement with bioprosthetic valve: PLAN: She is status post bioprosthetic aortic valve replacement this appears to be functioning well ejection fraction is normal and no changes will be made. (4) Essential hypertension: PLAN: Her blood pressure remains under fair control at this time no changes will be made (5) H/O tricuspid valve repair: PLAN: She is status post stable tricuspid valve repair.
--- NOTE | 2025-02-24 07:24 | PCM.PN.HOSP ---
Reason for Visit Chief Complaint: Hemoptysis Subjective Subjective Patient seen has not had any recurrence of her hemoptysis since the morning of the day prior. Heart rate control not optimal patient metoprolol dose adjusted by cardiology Objective Data Objective Data Vital Signs: Vital Signs Temp Pulse Resp BP Pulse Ox O2 Del Method O2 Flow Rate 97.8 F 105 H 17 110/79 95 Room Air 2 02/24/25 03:00 02/24/25 07:00 02/24/25 07:00 02/24/25 07:00 02/24/25 07:00 02/24/25 07:00 02/23/25 19:30 FiO2 45 02/23/25 05:47 Oxygen Flow Rate (L/min) 2 Oxygen Delivery Method Room Air Weight: 68.6 kg Body Mass Index (BMI) 28.5 Intake & Output: Intake and Output for Last 24 Hours 02/22/25 02/23/25 02/24/25 23:59 23:59 23:59 Intake Total 320 / 320 653.5 / 853.5 200 / 200 Output Total 350 / 350 200 / 200 Balance -30 / -30 453.5 / 653.5 200 / 200 Lab / Micro Data 02/24/25 03:22 02/24/25 03:22 Labs: Laboratory Results - last 24 hr 02/23/25 03:55: Sodium 138, Potassium 3.4, Chloride 103, Carbon Dioxide 22.5, Anion Gap 13, BUN 34 H, Creatinine 1.02, Estim Creat Clear Calc 33.87 L, Est GFR (MDRD) Non-Af 53 L, BUN/Creatinine Ratio 33.5 H, Glucose 116 H, Calcium 8.2, Phosphorus 1.9 L, Magnesium 2.2 02/23/25 09:21: Rheumatoid Factor 14.8, TALA-1 Antibody TNP, Sm (Mejia) Antibody TNP, DIESEL MACHINIST Antibody TNP, Scl-70 Scleroderma Ab TNP, Antichromatin Antibodies TNP, Centromere B Antibody TNP 02/24/25 03:22: WBC 8.8, RBC 4.26, Hgb 12.5, Hct 37.3, MCV 87.6, MCH 29.3, MCHC 33.5, RDW Std Deviation 43.6, RDW Coeff of Estuardo 13.6, Plt Count 239, MPV 10.5, Immature Gran % (Auto) 0.500, Neut % (Auto) 72.5 H, Lymph % (Auto) 16.0 L, [place] % (Auto) 8.2, Eos % (Auto) 2.3, Baso % (Auto) 0.5, Absolute Neuts (auto) 6.4, Absolute Lymphs (auto) 1.41, Nucleated RBC % 0, PT 14.9, INR 1.1, Sodium 140, Potassium 3.1 L, Chloride 102, Carbon Dioxide 24.2, Anion Gap 14, BUN 43 H, Creatinine 1.12, Estim Creat Clear Calc 30.85 L, Est GFR (MDRD) Non-Af 47 L, BUN/Creatinine Ratio 37.9 H, Glucose 109 H, Calcium 8.3 Micro: Microbiology 02/22/25 14:55 Mucosa - Nasopharyngeal Respiratory Panel (PCR) - Final 02/22/25 17:42 Urine, Random Legionella Antigen - Final 02/22/25 17:42 Urine, Random Streptococcus pneumoniae Antigen (M - Final 02/22/25 14:54 Nasal Secretion MRSA (PCR) - Final 02/22/25 10:10 Mucosa - Nose SARS-CoV-2, Influenza & RSV (PCR) - Final Radiography Diagnostic Testing: Radiology Impression Echocardiogram 02/22/25 12:48 Interpretation Summary Normal LV size. Left ventricular systolic function is normal. The left ventricular ejection fraction is 60 %. The left atrium is severely enlarged. Normal right atrium. Mean aortic valve gradient 11 mmHg. Bioprosthetic aortic valve. Ordering Physician: Zhou King Referring Physician: Doron Cueto Performed By: Usha Kaufman RDCS Rhythm Strip Rhythm Strip: Sinus Rhythm Rate: 57 Ectopy: None Physical Exam Narrative GENERAL: cooperative HEENT: Atraumatic; normocephalic EYES; Anicteric, Normal Conjunctiva NECK; supple, normal thyroid, RESPIRATORY: Diminished to auscultation CARDIOVASCULAR: Irregularly irregular, tachycardic GI: soft, normoactive bowel sounds, : No Renal angle tenderness; EXTREMITIES: Bilateral pedal edema, no clubbing, MUSCULOSKELETAL: no muscle wasting NEURO: Awake; no lateralizing signs. SKIN: No Rash PSYCH; Flat affect Assessment & Plan Assessment/Plan (1) Essential hypertension: (2) Atrial flutter: (3) Massive hemoptysis: (4) Diastolic CHF, acute: (5) Pneumonia: PLAN: Plan Patient is an 89-year-old lady presented with progressive shortness of breath with associated hemoptysis.. Patient was found to be severely hypoxic on admission 1. Acute hypoxic respiratory failure – Secondary to combination of suspected multifocal pneumonia and congestive heart failure with alveolar hemorrhage being considered in the differentials. Patient was placed on noninvasive ventilation via Airvo. The warehouse team member on-call Dr. Arce was notified and recommended for patient to be transferred. Patient has been accepted for transfer to [facility]. – 02/23/2025; transferred to [facility] pending – 02/24/2025; plan is to consider transfer to [facility] 2. Acute congestive heart failure with preserved ejection fraction – Echo from 08/30/2022 demonstrated EF of 55%. Treatment initiated with strict input and output, daily weight, fluid restriction, low-sodium diet as well as diuretic therapy with furosemide. Repeat echo ordered for EF assessment – 02/23/2025; patient remains on diuretic therapy 3. Pneumonia - Suspected to be secondary to streptococcal pneumonia, Blood and sputum cultures sent. Patient placed on Rocephin and Zithromax and placed on oxygen titrated to keep Pulse Ox greater than 90. As part of patient workup ordered viral respiratory panel, rapid COVID assay, urine streptococcal and Legionella antigens – 02/23/2025; patient viral respiratory panel came back negative we will continue with current antibiotic therapy 4. Hemoptysis – Alveolar hemorrhage versus pneumonia which is being worsened by use of systemic anticoagulation with heparin. Arrangements initiated to have patient transferred to a facility with IR capability per recommendations from pulmonary medicine. H&H remained stable at this point however I did type and screen patient for 2 unit PRBC – 02/24/2025; patient has not had recurrence of her hemoptysis 5. Paroxysmal atrial fibrillation – Rate controlled on systemic anticoagulation with warfarin with therapeutic INR of 2.6. Warfarin was held on admission given her presentation – 02/23/2025; patient heart rate has been fluctuating patient may have underlying tachybradycardia syndrome we will continue with telemetry monitoring if persists plan will be to obtain cardiology consult for possible evaluation for pacemaker – 02/24/2025; patient was evaluated by cardiology doses of her metoprolol adjusted 6. Hypertension – Blood pressure controlled, home medications continued with dose adjustment as needed 7. 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 DVT prophylaxis – Patient is on systemic anticoagulation with a therapeutic INR no additional measures needed Time spent in the patient's overall evaluation,decision-making process, review of diagnostic data, adjustment of management, discussion with other providers, nursing nursing and ancillary staff involved in patient's care documentation, 40 Minutes Charges/Coding Visit Charges Inpatient E&M: 48527 Subs Hosp L2
--- NOTE | 2025-02-24 07:26 | PCM.PN.INT ---
Assessment & Plan Assessment/Plan (1) Acute hypoxemic respiratory failure: PLAN: Plan RECOMMENDATIONS: 1. Continue antimicrobials to complete a total of 7 days of therapy. 2. Autoimmune and vasculitis workup is pending. 3. Continue ongoing diuresis as tolerated by hemodynamics and renal function. 4. Resume systemic anticoagulation at discharge. 5. Encourage incentive spirometer use and mobilize patient as tolerated. 6. The patient is medically stable for transfer out of the intensive care unit. IMPRESSIONS: 1. Acute hypoxemic respiratory failure in the setting of [id number] hemoptysis Resolved. CTA chest was negative for pulmonary embolism but did reveal bilateral infiltrates which could represent infection versus pulmonary edema. Following initiation of antimicrobial therapy and diuretics, the patient's oxygenation status has improved significantly. The patient's coagulopathy was reversed with INR. She has had no further episodes of hemoptysis. At this time, recommend continuing empiric antibiotics to complete 7 days of therapy. Systemic anticoagulation can be resumed at discharge. Autoimmune and vasculitis panels are pending. 2. History of heart failure with preserved ejection fraction/paroxysmal atrial fibrillation/hypertension/valvular heart disease Complicates care, management, recovery and prognosis. The patient has been experiencing episodes of tachycardia followed by bradycardia, for which cardiology is following to assist with medical management. Continue to hold systemic anticoagulation for now. PT/OT to work with the patient. This note was generated with Hole 19 dictation software. It may contain incorrect words, spelling, and punctuation that were not noted in checking the note before signing. Subjective Subjective The patient was seen and examined at the bedside this morning. Events from the last 24 hours have been reviewed. The patient is currently afebrile, hemodynamically stable and maintaining appropriate oxygen saturations on room air. The patient had an uneventful night. She denies any further episodes of hemoptysis. White blood cell count is normal. Hemoglobin and platelet count are stable. Potassium is low at 3.1 with a normal creatinine. INR was noted to be 1.1. Objective Data Objective Data The patient's most recent lab work, culture data and imaging studies have all been personally reviewed. Surface echocardiogram demonstrated mild concentric LVH with an ejection fraction of 60%. Mild aortic stenosis was noted. Vital Signs: Vital Signs Temp Pulse Resp BP Pulse Ox O2 Del Method O2 Flow Rate 97.8 F 105 H 17 110/79 95 Room Air 2 02/24/25 03:00 02/24/25 07:00 02/24/25 07:00 02/24/25 07:00 02/24/25 07:00 02/24/25 07:00 02/23/25 19:30 FiO2 45 02/23/25 05:47 Oxygen Flow Rate (L/min) 2 Oxygen Delivery Method Room Air Weight: 151 lb 3.794 oz Body Mass Index (BMI) 28.5 Intake & Output: Intake and Output for Last 24 Hours 02/22/25 02/23/25 02/24/25 23:59 23:59 23:59 Intake Total 320 / 320 653.5 / 853.5 200 / 200 Output Total 350 / 350 200 / 200 Balance -30 / -30 453.5 / 653.5 200 / 200 Lab / Micro Data Attestation: I reviewed the patient's lab results. 02/24/25 03:22 02/24/25 03:22 Labs: Laboratory Results - last 24 hr 02/23/25 03:55: Sodium 138, Potassium 3.4, Chloride 103, Carbon Dioxide 22.5, Anion Gap 13, BUN 34 H, Creatinine 1.02, Estim Creat Clear Calc 33.87 L, Est GFR (MDRD) Non-Af 53 L, BUN/Creatinine Ratio 33.5 H, Glucose 116 H, Calcium 8.2, Phosphorus 1.9 L, Magnesium 2.2 02/23/25 09:21: Rheumatoid Factor 14.8, TALA-1 Antibody TNP, Sm (Mejia) Antibody TNP, AGRICULTURAL SPECIALIST Antibody TNP, Scl-70 Scleroderma Ab TNP, Antichromatin Antibodies TNP, Centromere B Antibody TNP 02/24/25 03:22: WBC 8.8, RBC 4.26, Hgb 12.5, Hct 37.3, MCV 87.6, MCH 29.3, MCHC 33.5, RDW Std Deviation 43.6, RDW Coeff of Estuardo 13.6, Plt Count 239, MPV 10.5, Immature Gran % (Auto) 0.500, Neut % (Auto) 72.5 H, Lymph % (Auto) 16.0 L, [place] % (Auto) 8.2, Eos % (Auto) 2.3, Baso % (Auto) 0.5, Absolute Neuts (auto) 6.4, Absolute Lymphs (auto) 1.41, Nucleated RBC % 0, PT 14.9, INR 1.1, Sodium 140, Potassium 3.1 L, Chloride 102, Carbon Dioxide 24.2, Anion Gap 14, BUN 43 H, Creatinine 1.12, Estim Creat Clear Calc 30.85 L, Est GFR (MDRD) Non-Af 47 L, BUN/Creatinine Ratio 37.9 H, Glucose 109 H, Calcium 8.3 Micro: Microbiology 02/22/25 14:55 Mucosa - Nasopharyngeal Respiratory Panel (PCR) - Final 02/22/25 17:42 Urine, Random Legionella Antigen - Final 02/22/25 17:42 Urine, Random Streptococcus pneumoniae Antigen (M - Final 02/22/25 14:54 Nasal Secretion MRSA (PCR) - Final 02/22/25 10:10 Mucosa - Nose SARS-CoV-2, Influenza & RSV (PCR) - Final Radiography Diagnostic Testing: Radiology Impression Echocardiogram 02/22/25 12:48 Interpretation Summary Normal LV size. Left ventricular systolic function is normal. The left ventricular ejection fraction is 60 %. The left atrium is severely enlarged. Normal right atrium. Mean aortic valve gradient 11 mmHg. Bioprosthetic aortic valve. Ordering Physician: Zhou King Referring Physician: Doron Cueto Performed By: Usha Kaufman RDCS Rhythm Strip Rhythm Strip: Sinus Rhythm Rate: 57 Ectopy: None Physical Exam Const alert, oriented x3 and no apparent distress Constitutional Narrative: Sitting in bedside recliner. General Appearance: cooperative HEENT normocephalic, head/scalp atraumatic and moist oral mucous membranes Eyes PERRL, EOMs intact bilaterally and conjunctivae normal Neck supple General: trachea midline Chest inspection of chest normal Resp normal respiratory effort and no use of accessory muscles Effort and Inspection: able to speak in complete sentences Auscultation: Negative for rales, rhonchi or wheezes Cardio S1 normal heart sound and S2 normal heart sound Rate: tachycardic Rhythm: abnormal rhythm GI normal to inspection, nondistended, normoactive bowel sounds Extremity no clubbing, cyanosis or edema Skin no rashes or lesions noted Neuro CN's II-XII intact bilaterally, moves all extremities and no focal motor deficits Psych cooperative and affect normal Charges/Coding Visit Charges Inpatient E&M: 03899 Subs Hosp L2
[2025-02-24] MEDS: Potassium Chloride Oral Tablet 20 MEQ 40 MEQ PO (08:46)
--- NOTE | 2025-02-24 10:32 | CASEMGMT ---
Addendum entered by Zuly Quezada 02/24/25 11:01: [facility] declined d/t staffing. Original Note: Discharge Planning HH referral sent to [facility]. Zuly Quezada DC Planning Asst.
--- NOTE | 2025-02-24 10:40 | CASEMGMT ---
MAIKEL MALDONADO note: MAIKEL MALDONADO spoke w/pt and son re: HHC and their preferences. 1st choice is [facility], 2nd is [facility], 3rd is [facility], 4th is [facility]. Call placed to [facility] and referral made. They are not able to accept pt, as they are not in-network w/pt's insurance plan. Pt and son made aware. joy Caruso web production assistant, to send referrals for HHC to pt's next preferences. Pt and son provided w/transportation resources & info on [employer]. Discussed [facility] & possible option of them following pt after [facility] has discharged pt. Info provided and questions answered. Pt and son interested in a referral. Order placed. Pt and son deny having further discharge needs or concerns. They state pt does have a pulse ox @ home "somewhere" and state they will try to locate it when pt returns home. Tanya JUAREZN MAIKEL MALDONADO
--- NOTE | 2025-02-24 11:01 | CASEMGMT ---
Addendum entered by Archie Chase 02/24/25 14:33: Pt updated that [facility] can accept her w/SOC slated for 02/28 or 03/01. She voices appreciation. Addendum entered by Zuly Quezada 02/24/25 12:44: [facility] can accept with SOC for 02/28 or 03/01. RN CM updated. Zuly Quezada DC Planning Asst. Original Note: Discharge Planning HH referral sent to N. Zuly Quezada DC Planning Asst.
--- NOTE | 2025-02-24 11:03 | CASEMGMT ---
Tertiary Insurance review for hospitals In-network with [facility] DUAL COMPLETE insurance if transfer is recommended is as follows: [facility], [facility], [facility], [facility], [facility], [facility], , [place], [facility], and [place]. Zuly Quezada, Discharge Planning Asst.
--- NOTE | 2025-02-24 12:09 | CASEMGMT ---
Social Work- NEVAEH spoke with Earnestine Tucker, [facility] CM to coordinate on care. Earnestine reports that pt also gets 7 meals a week in addition to medical alert and aide service. Earnestine reports there will not be an issue with placing an aide back in the home. NEVAEH to update Earnestine by phone and fax at d/c. ( ) HUMBERTO Aguirre
[2025-02-24] MEDS: Na Biphos/Potassium Phosphate PACKET 1 PACKET PO ×2 (12:12→22:05)
[2025-02-24] MEDS: Azithromycin 500 MG in 0.9% Normal Saline (250mL Bag) 250 ML 250 MG IV (12:13)
[2025-02-24] MEDS: Ceftriaxone 2 GM in 0.9% Normal Saline (50mL MB+) 50 ML IV (12:13)
[2025-02-24] MEDS: 0.9% Normal Saline (250mL Bag) 250 ML 15 ML IV ×2 (12:26→12:27)
[2025-02-24 15:09] LABS: Cytoplasmic Ab (C-ANCA) <1:20 titer (Neg:<1:20); Perinuclear Ab (P-ANCA) <1:20 titer (Neg:<1:20)
[2025-02-24] MEDS: Potassium Chloride Oral Tablet 20 MEQ PO (17:43)
[2025-02-25 02:02] VITALS: BP 111/62; PULSE 75; RESP 16; TEMP 36.6; O2SAT 98
--- NOTE | 2025-02-25 02:21 | PCM.HOSP.N ---
Hospitalist Note Patient with intermittent episodes of heart rate decreased to the 30s and 40s lasting maximum 30 seconds then returning into the 80 to 90s, asymptomatic per report. Cardiology already following and recently decrease metoprolol from long-acting to short acting. Will continue to monitor.
[2025-02-25 06:00] VITALS: BMI 27.9
[2025-02-25 06:59] VITALS: BP 109/60; PULSE 85; RESP 16; TEMP 36.9; O2SAT 94
--- NOTE | 2025-02-25 07:37 | PN.CARD_ITS ---
Subjective Subjective Patient seen and evaluated. Appears to be doing much better. Back in sinus rhythm. Objective Data Vital Signs: Vital Signs Temp Pulse Resp BP Pulse Ox O2 Del Method O2 Flow Rate 98.5 F 85 16 109/60 94 Room Air 2 02/25/25 06:59 02/25/25 06:59 02/25/25 06:59 02/25/25 06:59 02/25/25 06:59 02/25/25 06:59 02/23/25 19:30 FiO2 45 02/23/25 05:47 Oxygen Flow Rate (L/min) 2 Oxygen Delivery Method Room Air Weight: 147 lb 14.883 oz Body Mass Index (BMI) 27.9 Intake & Output: Intake and Output for Last 24 Hours 02/23/25 02/24/25 02/25/25 23:59 23:59 23:59 Intake Total 653.5 / 853.5 1130.75 / 1130.75 Output Total 200 / 200 Balance 453.5 / 653.5 1130.75 / 1130.75 Lab / Micro Data 02/24/25 03:22 02/24/25 03:22 Labs: Laboratory Results - last 24 hr 02/23/25 09:21: Cycl Citrul Peptide IgG 6, c-ANCA Antibody <1:20, Atypical p- ANCA <1:20, p-ANCA Antibody <1:20 Micro: Microbiology 02/22/25 11:05 Blood Culture (Wb) - Anticubital Left Blood Culture - Preliminary No growth in 48 hours. 02/22/25 09:57 Blood Culture (Wb) - Anticubital Left Blood Culture - Preliminary No growth in 48 hours. Rhythm Strip Rhythm Strip: Sinus Rhythm Rate: 57 Ectopy: None Cardiology Labs/Tests Rhythm: EKG: ECHO: Stress Test: Cardiac Cath: PCI: CT Surgery: Holter monitor: EPS: PPM: CXR: Chest CT Scan: Physical Exam Const alert, oriented x3 and no apparent distress General Appearance: cooperative HEENT normocephalic, head/scalp atraumatic and moist oral mucous membranes Eyes PERRL, EOMs intact bilaterally and conjunctivae normal Neck supple General: trachea midline Chest inspection of chest normal Resp normal respiratory effort and no use of accessory muscles Effort and Inspection: able to speak in complete sentences Auscultation: Negative for rales, rhonchi or wheezes Cardio S1 normal heart sound and S2 normal heart sound Rate: regular rate and bradycardia GI normal to inspection, nondistended, normoactive bowel sounds Extremity no clubbing, cyanosis or edema Skin no rashes or lesions noted Neuro CN's II-XII intact bilaterally, moves all extremities and no focal motor deficits Psych cooperative and affect normal Assessment & Plan Assessment/Plan (1) Atrial fibrillation and flutter: PLAN: Patient has atrial fibrillation flutter with uncontrolled ventricular response rate and was treated with short acting metoprolol twice a day and appears to have reverted back to sinus rhythm. She does have preserved ejection fraction on her echocardiogram. At this juncture my plan to be to continue the current medical therapy Can resume anticoagulation if hemoptysis is completely abated. Will follow-up as outpatient. (2) Atherosclerosis of coronary artery of [place] heart without angina pectoris: QUALIFIERS: Coronary Disease-Associated Artery/Lesion type: [place] artery Qualified Code(s): I25.10 - Atherosclerotic heart disease of [place] coronary artery without angina pectoris PLAN: She has not had any cardiac enzyme abnormality thus far and we will continue to monitor her. (3) History of aortic valve replacement with bioprosthetic valve: PLAN: She is status post bioprosthetic aortic valve replacement this appears to be functioning well ejection fraction is normal and no changes will be made. (4) Essential hypertension: PLAN: Her blood pressure remains under fair control at this time no changes will be made (5) H/O tricuspid valve repair: PLAN: She is status post stable tricuspid valve repair.
--- NOTE | 2025-02-25 07:47 | PN.HOSP_ITS ---
Reason for Visit Chief Complaint: Hemoptysis Subjective Subjective Patient seen has been weaned off oxygen. ARIEL panel came back positive INVESTMENT TRADER was also positive Objective Data Objective Data Vital Signs: Vital Signs Temp Pulse Resp BP Pulse Ox O2 Del Method O2 Flow Rate 98.5 F 85 16 109/60 94 Room Air 2 02/25/25 06:59 02/25/25 06:59 02/25/25 06:59 02/25/25 06:59 02/25/25 06:59 02/25/25 06:59 02/23/25 19:30 FiO2 45 02/23/25 05:47 Oxygen Flow Rate (L/min) 2 Oxygen Delivery Method Room Air Weight: 67.1 kg Body Mass Index (BMI) 27.9 Intake & Output: Intake and Output for Last 24 Hours 02/23/25 02/24/25 02/25/25 23:59 23:59 23:59 Intake Total 653.5 / 853.5 1130.75 / 1130.75 Output Total 200 / 200 Balance 453.5 / 653.5 1130.75 / 1130.75 Lab / Micro Data 02/25/25 08:07 02/25/25 08:07 Labs: Laboratory Results - last 24 hr 02/23/25 09:21: Cycl Citrul Peptide IgG 6, c-ANCA Antibody <1:20, Atypical p- ANCA <1:20, p-ANCA Antibody <1:20 Micro: Microbiology 02/22/25 11:05 Blood Culture (Wb) - Anticubital Left Blood Culture - Preliminary No growth in 48 hours. 02/22/25 09:57 Blood Culture (Wb) - Anticubital Left Blood Culture - Preliminary No growth in 48 hours. 02/22/25 14:55 Mucosa - Nasopharyngeal Respiratory Panel (PCR) - Final 02/22/25 17:42 Urine, Random Legionella Antigen - Final 02/22/25 17:42 Urine, Random Streptococcus pneumoniae Antigen (M - Final 02/22/25 14:54 Nasal Secretion MRSA (PCR) - Final 02/22/25 10:10 Mucosa - Nose SARS-CoV-2, Influenza & RSV (PCR) - Final Rhythm Strip Rhythm Strip: Sinus Rhythm Rate: 57 Ectopy: None Physical Exam Narrative GENERAL: cooperative HEENT: Atraumatic; normocephalic EYES; Anicteric, Normal Conjunctiva NECK; supple, normal thyroid, RESPIRATORY: Diminished to auscultation CARDIOVASCULAR: Irregularly irregular, tachycardic GI: soft, normoactive bowel sounds, : No Renal angle tenderness; EXTREMITIES: Bilateral pedal edema, no clubbing, MUSCULOSKELETAL: no muscle wasting NEURO: Awake; no lateralizing signs. SKIN: No Rash PSYCH; Flat affect Assessment & Plan Assessment/Plan (1) Essential hypertension: (2) Atrial flutter: (3) Massive hemoptysis: (4) Diastolic CHF, acute: (5) Pneumonia: PLAN: Plan Patient is an 89-year-old lady presented with progressive shortness of breath with associated hemoptysis.. Patient was found to be severely hypoxic on admission 1. Acute hypoxic respiratory failure – Secondary to combination of suspected multifocal pneumonia and congestive heart failure with alveolar hemorrhage being considered in the differentials. Patient was placed on noninvasive ventilation via Airvo. The clinical allergist on- call Dr. Arce was notified and recommended for patient to be transferred. Patient has been accepted for transfer to [facility]. – 02/23/2025; transferred to [facility] pending – 02/24/2025; plan is to consider transfer to [facility] – 02/25/2025; transferred to [facility] was discontinued. 2. Acute congestive heart failure with preserved ejection fraction – Echo from 08/30/2022 demonstrated EF of 55%. Treatment initiated with strict input and output, daily weight, fluid restriction, low-sodium diet as well as diuretic therapy with furosemide. Repeat echo ordered for EF assessment – 02/23/2025; patient remains on diuretic therapy – 02/25/2025; patient has responded to Diuretic therapy. With BUN rising adjusted patient diuretic dose 3. Pneumonia - Suspected to be secondary to streptococcal pneumonia, Blood and sputum cultures sent. Patient placed on Rocephin and Zithromax and placed on oxygen titrated to keep Pulse Ox greater than 90. As part of patient workup ordered viral respiratory panel, rapid COVID assay, urine streptococcal and Legionella antigens – 02/23/2025; patient viral respiratory panel came back negative we will continue with current antibiotic therapy – 02/25/2025; plan is to continue observing the antibiotic therapy 4. Hemoptysis – Alveolar hemorrhage versus pneumonia which is being worsened by use of systemic anticoagulation with heparin. Arrangements initiated to have patient transferred to a facility with IR capability per recommendations from pulmonary medicine. H&H remained stable at this point however I did type and screen patient for 2 unit PRBC – 02/24/2025; patient has not had recurrence of her hemoptysis – 02/25/2025; patient rheumatology workup came back positive ARIEL and INVESTMENT TRADER both positive 5. Paroxysmal atrial fibrillation – Rate controlled on systemic anticoagulation with warfarin with therapeutic INR of 2.6. Warfarin was held on admission given her presentation – 02/23/2025; patient heart rate has been fluctuating patient may have underlying tachybradycardia syndrome we will continue with telemetry monitoring if persists plan will be to obtain cardiology consult for possible evaluation for pacemaker – 02/24/2025; patient was evaluated by cardiology doses of her metoprolol adjusted – 02/25/2025; plan is to resume warfarin and monitor patient for recurrence of hemoptysis prior to making a decision to discharge 6. Hypertension – Blood pressure controlled, home medications continued with dose adjustment as needed 7. 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 DVT prophylaxis – Patient is on systemic anticoagulation with a therapeutic INR no additional measures needed Time spent in the patient's overall evaluation,decision-making process, review of diagnostic data, adjustment of management, discussion with other providers, nursing nursing and ancillary staff involved in patient's care documentation, 38 Minutes Charges/Coding Visit Charges Inpatient E&M: 67268 Subs Hosp L2
[2025-02-25 08:09] LABS: ANTINUCLEAR ANTIBODIES DIRECT Positive (Negative); Anti-Chromatin <0.2 AI (0.0-0.9); Anti-Jo <0.2 AI (0.0-0.9); Anti-dsDNA Ab <1 IU/mL (0-9); SJOGREN'S Anti-SS-A test < 0.2 AI (0.0-0.9); SJOGREN'S Anti-SS-B test < 0.2 AI (0.0-0.9)
[2025-02-25 08:25] LABS: Hematocrit 41.3 % (37-47); Hemoglobin 13.8 g/dL (12.0-15.0); Immature Granulocytes Count 0.050 X10^3/uL (0.0-0.0); Mean Corp Hgb Conc 33.4 g/dL (32-36); Mean Corpuscular Volume 87.1 fL (81-99); Mean Platelet Vol. 10.1 fl (6.2-12.0); NRBC Flagged by Analyzer 0 % (0-5); Platelet Count 288 K/mm3 (150-450); RBC Distribution Width CV 13.3 % (11.6-14.6); RBC Distribution Width SD 42.7 fl (35.1-43.9); Red Blood Count 4.74 M/mm3 (4.2-5.4); White Blood Count 9.1 K/mm3 (4.4-11.0)
[2025-02-25 08:46] LABS: Prothrombin Time (Protime)PT. 14.3 SECONDS (11.7-14.9)
[2025-02-25 09:39] LABS: Anion Gap 16 (5-15); BUN 42 mg/dL (4-19); BUN/Creat Ratio 36.4 RATIO (10-20); Calcium,Total 9.0 mg/dL (7.6-11.0); Carbon Dioxide 23.6 mmol/L (21.0-32.0); Chloride 100 mmol/L (98-108); Estimated Creatinine Clearance 29.64 ml/min (50-250); Glucose 100 mg/dL (70-99); Potassium 3.5 mmol/L (3.3-5.1)
[2025-02-25 09:50] VITALS: BP 124/57; PULSE 67; RESP 18; TEMP 36.4; O2SAT 98
[2025-02-25 09:52] VITALS: BP 124/57; PULSE 67
[2025-02-25] MEDS: Potassium Chloride Oral Tablet 20 MEQ PO ×2 (09:52→16:53)
[2025-02-25] MEDS: Na Biphos/Potassium Phosphate PACKET 1 PACKET PO ×2 (09:52→22:45)
[2025-02-25] MEDS: 0.9% Saline Lock 10 ML Syringe IV (10:01)
[2025-02-25] MEDS: Azithromycin 500 MG in 0.9% Normal Saline (250mL Bag) 250 ML 250 MG IV (10:04)
--- NOTE | 2025-02-25 10:45 | CASEMGMT ---
During rounds, Dr King states that the pt will be here through the weekend for Coumadin/ INR monitoring. Notified [facility]. MALDONADO to continue to follow.
[2025-02-25] MEDS: Ceftriaxone 2 GM in 0.9% Normal Saline (50mL MB+) 50 ML IV (11:28)
[2025-02-25 16:51] VITALS: BP 109/63; PULSE 60; RESP 16; TEMP 36.7; O2SAT 95
[2025-02-25] MEDS: Warfarin (PBKC) 3 MG Tablet PO (16:53)
[2025-02-25 22:38] VITALS: BP 128/69; PULSE 64; RESP 18; TEMP 36.3; O2SAT 95
[2025-02-26 01:07] VITALS: PULSE 58
[2025-02-26 04:30] VITALS: BP 114/70; PULSE 115; RESP 16; TEMP 36.7; O2SAT 95
[2025-02-26 05:47] VITALS: BMI 27.6
[2025-02-26 06:37] LABS: Hematocrit 37.2 % (37-47); Hemoglobin 12.3 g/dL (12.0-15.0); Immature Granulocytes Count 0.030 X10^3/uL (0.0-0.0); Mean Corp Hgb Conc 33.1 g/dL (32-36); Mean Corpuscular Volume 88.6 fL (81-99); Mean Platelet Vol. 9.9 fl (6.2-12.0); NRBC Flagged by Analyzer 0 % (0-5); Platelet Count 253 K/mm3 (150-450); RBC Distribution Width CV 13.5 % (11.6-14.6); RBC Distribution Width SD 43.6 fl (35.1-43.9); Red Blood Count 4.20 M/mm3 (4.2-5.4); White Blood Count 8.0 K/mm3 (4.4-11.0)
[2025-02-26 07:25] LABS: Anion Gap 12 (5-15); BUN 39 mg/dL (4-19); BUN/Creat Ratio 40.1 RATIO (10-20); Calcium,Total 8.7 mg/dL (7.6-11.0); Carbon Dioxide 23.8 mmol/L (21.0-32.0); Chloride 105 mmol/L (98-108); Estimated Creatinine Clearance 34.55 ml/min (50-250); Glucose 93 mg/dL (70-99); Magnesium 2.3 mg/dL (1.5-2.2); Potassium 4.0 mmol/L (3.3-5.1)
[2025-02-26 07:38] VITALS: O2SAT 95
[2025-02-26 07:43] LABS: Prothrombin Time (Protime)PT. 15.9 SECONDS (11.7-14.9)
--- NOTE | 2025-02-26 08:10 | PN.HOSP_ITS ---
Reason for Visit Chief Complaint: Hemoptysis Subjective Subjective Patient seen has not had recurrence of hemoptysis. Plan is for patient to be assessed possible discharge Objective Data Objective Data Vital Signs: Vital Signs Temp Pulse Resp BP Pulse Ox O2 Del Method O2 Flow Rate 98.1 F 115 H 16 114/70 95 Room Air 2 02/26/25 04:30 02/26/25 04:30 02/26/25 04:30 02/26/25 04:30 02/26/25 07:38 02/26/25 07:38 02/23/25 19:30 FiO2 45 02/23/25 05:47 Oxygen Flow Rate (L/min) 2 Oxygen Delivery Method Room Air Weight: 66.2 kg Body Mass Index (BMI) 27.6 Intake & Output: Intake and Output for Last 24 Hours 02/24/25 02/25/25 02/26/25 23:59 23:59 23:59 Intake Total 1130.75 / 1130.75 780 / 780 Balance 1130.75 / 1130.75 780 / 780 Lab / Micro Data 02/26/25 06:04 02/26/25 06:04 Labs: Laboratory Results - last 24 hr 02/23/25 09:21: Glomerular Base Memb Ab < 0.2 02/25/25 08:07: WBC 9.1, RBC 4.74, Hgb 13.8, Hct 41.3, MCV 87.1, MCH 29.1, MCHC 33.4, RDW Std Deviation 42.7, RDW Coeff of [place] 13.3, Plt Count 288, MPV 10.1, Immature Gran % (Auto) 0.600, Neut % (Auto) 67.6, Lymph % (Auto) 19.6, [place] % (Auto) 9.4, Eos % (Auto) 2.2, Baso % (Auto) 0.6, Absolute Neuts (auto) 6.2, Absolute Lymphs (auto) 1.78, Nucleated RBC % 0, PT 14.3, INR 1.1, Sodium 140, Potassium 3.5, Chloride 100, Carbon Dioxide 23.6, Anion Gap 16 H, BUN 42 H, Creatinine 1.15, Estim Creat Clear Calc 29.64 L, Est GFR (MDRD) Non-Af 46 L, B UN/Creatinine Ratio 36.4 H, Glucose 100 H, Calcium 9.0 02/26/25 06:04: WBC 8.0, RBC 4.20, Hgb 12.3, Hct 37.2, MCV 88.6, MCH 29.3, MCHC 33.1, RDW Std Deviation 43.6, RDW Coeff of [place] 13.5, Plt Count 253, MPV 9.9, Immature Gran % (Auto) 0.400, Neut % (Auto) 63.0, Lymph % (Auto) 23.9, [place] % (Auto) 8.8, Eos % (Auto) 3.4, Baso % (Auto) 0.5, Absolute Neuts (auto) 5.1, Absolute Lymphs (auto) 1.92, Nucleated RBC % 0, PT 15.9 H, INR 1.2, Sodium 140, Potassium 4.0, Chloride 105, Carbon Dioxide 23.8, Anion Gap 12, BUN 39 H, Creatinine 0.98, Estim Creat Clear Calc 34.55 L, Est GFR (MDRD) Non-Af 56 L, B UN/Creatinine Ratio 40.1 H, Glucose 93, Calcium 8.7, Phosphorus 3.0, Magnesium 2.3 H Micro: Microbiology 02/22/25 11:05 Blood Culture (Wb) - Anticubital Left Blood Culture - Preliminary No growth in 48 hours. 02/22/25 09:57 Blood Culture (Wb) - Anticubital Left Blood Culture - Preliminary No growth in 48 hours. 02/22/25 14:55 Mucosa - Nasopharyngeal Respiratory Panel (PCR) - Final 02/22/25 17:42 Urine, Random Legionella Antigen - Final 02/22/25 17:42 Urine, Random Streptococcus pneumoniae Antigen (M - Final 02/22/25 14:54 Nasal Secretion MRSA (PCR) - Final 02/22/25 10:10 Mucosa - Nose SARS-CoV-2, Influenza & RSV (PCR) - Final Rhythm Strip Rhythm Strip: Sinus Rhythm Rate: 57 Ectopy: None Physical Exam Narrative GENERAL: cooperative HEENT: Atraumatic; normocephalic EYES; Anicteric, Normal Conjunctiva NECK; supple, normal thyroid, RESPIRATORY: Diminished to auscultation CARDIOVASCULAR: Irregularly irregular, tachycardic GI: soft, normoactive bowel sounds, : No Renal angle tenderness; EXTREMITIES: Bilateral pedal edema, no clubbing, MUSCULOSKELETAL: no muscle wasting NEURO: Awake; no lateralizing signs. SKIN: No Rash PSYCH; Flat affect Assessment & Plan Assessment/Plan (1) Essential hypertension: (2) Atrial flutter: (3) Massive hemoptysis: (4) Diastolic CHF, acute: (5) Pneumonia: PLAN: Plan Patient is an 89-year-old lady presented with progressive shortness of breath with associated hemoptysis.. Patient was found to be severely hypoxic on admission 1. Acute hypoxic respiratory failure – Secondary to combination of suspected multifocal pneumonia and congestive heart failure with alveolar hemorrhage being considered in the differentials. Patient was placed on noninvasive ventilation via Airvo. The biomedical manager on- call Dr. Arce was notified and recommended for patient to be transferred. Patient has been accepted for transfer to [facility]. – 02/23/2025; transferred to [facility] pending – 02/24/2025; plan is to consider transfer to [facility] – 02/25/2025; transferred to [facility] was discontinued. 2. Acute congestive heart failure with preserved ejection fraction – Echo from 08/30/2022 demonstrated EF of 55%. Treatment initiated with strict input and output, daily weight, fluid restriction, low-sodium diet as well as diuretic therapy with furosemide. Repeat echo ordered for EF assessment – 02/23/2025; patient remains on diuretic therapy – 02/25/2025; patient has responded to Diuretic therapy. With BUN rising adjusted patient diuretic dose 3. Pneumonia - Suspected to be secondary to streptococcal pneumonia, Blood and sputum cultures sent. Patient placed on Rocephin and Zithromax and placed on oxygen titrated to keep Pulse Ox greater than 90. As part of patient workup ordered viral respiratory panel, rapid COVID assay, urine streptococcal and Legionella antigens – 02/23/2025; patient viral respiratory panel came back negative we will continue with current antibiotic therapy – 02/25/2025; plan is to continue observing the antibiotic therapy 4. Hemoptysis – Alveolar hemorrhage versus pneumonia which is being worsened by use of systemic anticoagulation with heparin. Arrangements initiated to have patient transferred to a facility with IR capability per recommendations from pulmonary medicine. H&H remained stable at this point however I did type and screen patient for 2 unit PRBC – 02/24/2025; patient has not had recurrence of her hemoptysis – 02/25/2025; patient rheumatology workup came back positive ARIEL and PRODUCTION SHIFT SUPERVISOR both positive – 02/26/2025; no recurrence of patient hemoptysis patient to be assessed for possible discharge 5. Paroxysmal atrial fibrillation – Rate controlled on systemic anticoagulation with warfarin with therapeutic INR of 2.6. Warfarin was held on admission given her presentation – 02/23/2025; patient heart rate has been fluctuating patient may have underlying tachybradycardia syndrome we will continue with telemetry monitoring if persists plan will be to obtain cardiology consult for possible evaluation for pacemaker – 02/24/2025; patient was evaluated by cardiology doses of her metoprolol adjusted – 02/25/2025; plan is to resume warfarin and monitor patient for recurrence of hemoptysis prior to making a decision to discharge – Patient Coumadin was started on 02/25/2025 instructed patient to follow-up with her primary care physician for repeat INR draw on 03/01/2025 for subsequent dose adjustment if warranted 6. Hypertension – Blood pressure controlled, home medications continued with dose adjustment as needed 7. 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 DVT prophylaxis – Patient is on systemic anticoagulation with a therapeutic INR no additional measures needed Time spent in the patient's overall evaluation,decision-making process, review of diagnostic data, adjustment of management, discussion with other providers, nursing nursing and ancillary staff involved in patient's care documentation, 35 Minutes Charges/Coding Visit Charges Inpatient E&M: 21780 Subs Hosp L2
[2025-02-26 08:25] VITALS: BP 132/72; PULSE 98; RESP 20; TEMP 36.3; O2SAT 97
--- NOTE | 2025-02-26 10:00 | PCM.PN.CARD ---
Subjective Subjective Patient seen and evaluated. Objective Data Vital Signs: Vital Signs Temp Pulse Resp BP Pulse Ox O2 Del Method O2 Flow Rate 97.4 F L 98 20 H 132/72 H 97 Room Air 2 02/26/25 08:25 02/26/25 08:25 02/26/25 08:25 02/26/25 08:25 02/26/25 08:25 02/26/25 08:25 02/23/25 19:30 FiO2 45 02/23/25 05:47 Oxygen Flow Rate (L/min) 2 Oxygen Delivery Method Room Air Weight: 145 lb 15.136 oz Body Mass Index (BMI) 27.6 Intake & Output: Intake and Output for Last 24 Hours 02/24/25 02/25/25 02/26/25 23:59 23:59 23:59 Intake Total 1130.75 / 1130.75 780 / 780 Balance 1130.75 / 1130.75 780 / 780 Lab / Micro Data 02/26/25 06:04 02/26/25 06:04 Labs: Laboratory Results - last 24 hr 02/23/25 09:21: Glomerular Base Memb Ab < 0.2 02/26/25 06:04: WBC 8.0, RBC 4.20, Hgb 12.3, Hct 37.2, MCV 88.6, MCH 29.3, MCHC 33.1, RDW Std Deviation 43.6, RDW Coeff of Estuardo 13.5, Plt Count 253, MPV 9.9, Immature Gran % (Auto) 0.400, Neut % (Auto) 63.0, Lymph % (Auto) 23.9, [place] % (Auto) 8.8, Eos % (Auto) 3.4, Baso % (Auto) 0.5, Absolute Neuts (auto) 5.1, Absolute Lymphs (auto) 1.92, Nucleated RBC % 0, PT 15.9 H, INR 1.2, Sodium 140, Potassium 4.0, Chloride 105, Carbon Dioxide 23.8, Anion Gap 12, BUN 39 H, Creatinine 0.98, Estim Creat Clear Calc 34.55 L, Est GFR (MDRD) Non-Af 56 L, BUN/Creatinine Ratio 40.1 H, Glucose 93, Calcium 8.7, Phosphorus 3.0, Magnesium 2.3 H Rhythm Strip Rhythm Strip: Sinus Rhythm Rate: 57 Ectopy: None Cardiology Labs/Tests 02/26/25 06:04: WBC 8.0, RBC 4.20, Hgb 12.3, Hct 37.2, MCV 88.6, MCH 29.3, MCHC 33.1, Plt Count 253, MPV 9.9, Immature Gran % (Auto) 0.400, Neut % (Auto) 63.0, Lymph % (Auto) 23.9, [place] % (Auto) 8.8, Eos % (Auto) 3.4, Baso % (Auto) 0.5, Absolute Neuts (auto) 5.1, Nucleated RBC % 0, PT 15.9 H, INR 1.2, Sodium 140, Potassium 4.0, Chloride 105, Carbon Dioxide 23.8, Anion Gap 12, BUN 39 H, Creatinine 0.98, Est GFR (MDRD) Non-Af 56 L, BUN/Creatinine Ratio 40.1 H, Glucose 93, Calcium 8.7, Phosphorus 3.0, Magnesium 2.3 H Rhythm: EKG: ECHO: Stress Test: Cardiac Cath: PCI: CT Surgery: Holter monitor: EPS: PPM: CXR: Chest CT Scan: Physical Exam Const alert, oriented x3 and no apparent distress General Appearance: cooperative HEENT normocephalic, head/scalp atraumatic and moist oral mucous membranes Eyes PERRL, EOMs intact bilaterally and conjunctivae normal Neck supple General: trachea midline Chest inspection of chest normal Resp normal respiratory effort and no use of accessory muscles Effort and Inspection: able to speak in complete sentences Auscultation: Negative for rales, rhonchi or wheezes Cardio S1 normal heart sound and S2 normal heart sound Rate: regular rate and bradycardia GI normal to inspection, nondistended, normoactive bowel sounds Extremity no clubbing, cyanosis or edema Skin no rashes or lesions noted Neuro CN's II-XII intact bilaterally, moves all extremities and no focal motor deficits Psych cooperative and affect normal Assessment & Plan Assessment/Plan (1) Atrial fibrillation and flutter: PLAN: Patient has atrial fibrillation flutter with uncontrolled ventricular response rate and was treated with short acting metoprolol twice a day and appears to have reverted back to sinus rhythm. She does have preserved ejection fraction on her echocardiogram. At this juncture my plan to be to continue the current medical therapy Can resume anticoagulation if hemoptysis is completely abated. Will follow-up as outpatient. (2) Atherosclerosis of coronary artery of [place] heart without angina pectoris: QUALIFIERS: Coronary Disease-Associated Artery/Lesion type: [place] artery Qualified Code(s): I25.10 - Atherosclerotic heart disease of [place] coronary artery without angina pectoris PLAN: She has not had any cardiac enzyme abnormality thus far and we will continue to monitor her. (3) History of aortic valve replacement with bioprosthetic valve: PLAN: She is status post bioprosthetic aortic valve replacement this appears to be functioning well ejection fraction is normal and no changes will be made. (4) Essential hypertension: PLAN: Her blood pressure remains under fair control at this time no changes will be made (5) H/O tricuspid valve repair: PLAN: She is status post stable tricuspid valve repair.
--- NOTE | 2025-02-26 10:12 | PCM.DC.SUM ---
Providers Date of Admission: 02/22/25 Date of Discharge: 02/26/25 Primary Care Physician: Dr. Doron Cueto, Consultations 02/22/25 12:46 Consult: Wallpaper Cleaner / Pulmonary Medicine Routine Consulting Provider: Pulmonary Medicine matheus Peñaloza Reason for Consult: Hemoptysis EMERGENT Consult: No Notified: Yes Date Notified: 02/22/25 Time Notified: 12:46 Method of Notification: ED Physician Initiated 02/23/25 07:45 Consult: Cardiology Routine Consulting Provider: Jose Daniel Cadena Reason for Consult: Tachybradycardia syndrome EMERGENT Consult: No Notified: Yes Date Notified: 02/23/25 Time Notified: 07:46 Method of Notification: Text Reason For Visit: DYSPNEA Diagnosis Discharge Diagnosis (1) Essential hypertension: Status: Acute Code(s): I10 - Essential (primary) hypertension (2) Atrial flutter: Status: Chronic Code(s): I48.92 - Unspecified atrial flutter (3) Massive hemoptysis: Status: Acute Code(s): R04.2 - Hemoptysis (4) Diastolic CHF, acute: Status: Acute Code(s): I50.31 - Acute diastolic (congestive) heart failure (5) Pneumonia: Status: Acute Code(s): J18.9 - Pneumonia, unspecified organism Plan Patient is an 89-year-old lady presented with progressive shortness of breath with associated hemoptysis.. Patient was found to be severely hypoxic on admission 1. Acute hypoxic respiratory failure – Secondary to combination of suspected multifocal pneumonia and congestive heart failure with alveolar hemorrhage being considered in the differentials. Patient was placed on noninvasive ventilation via Airvo. The director of financial aid on-call Dr. Arce was notified and recommended for patient to be transferred. Patient has been accepted for transfer to [facility]. – 02/23/2025; transferred to [facility] pending – 02/24/2025; plan is to consider transfer to [facility] – 02/25/2025; transferred to [facility] was discontinued. 2. Acute congestive heart failure with preserved ejection fraction – Echo from 08/30/2022 demonstrated EF of 55%. Treatment initiated with strict input and output, daily weight, fluid restriction, low-sodium diet as well as diuretic therapy with furosemide. Repeat echo ordered for EF assessment – 02/23/2025; patient remains on diuretic therapy – 02/25/2025; patient has responded to Diuretic therapy. With BUN rising adjusted patient diuretic dose 3. Pneumonia - Suspected to be secondary to streptococcal pneumonia, Blood and sputum cultures sent. Patient placed on Rocephin and Zithromax and placed on oxygen titrated to keep Pulse Ox greater than 90. As part of patient workup ordered viral respiratory panel, rapid COVID assay, urine streptococcal and Legionella antigens – 02/23/2025; patient viral respiratory panel came back negative we will continue with current antibiotic therapy – 02/25/2025; plan is to continue observing the antibiotic therapy 4. Hemoptysis – Alveolar hemorrhage versus pneumonia which is being worsened by use of systemic anticoagulation with heparin. Arrangements initiated to have patient transferred to a facility with IR capability per recommendations from pulmonary medicine. H&H remained stable at this point however I did type and screen patient for 2 unit PRBC – 02/24/2025; patient has not had recurrence of her hemoptysis – 02/25/2025; patient rheumatology workup came back positive ARIEL and PROP WORKER both positive – 02/26/2025; no recurrence of patient hemoptysis patient to be assessed for possible discharge 5. Paroxysmal atrial fibrillation – Rate controlled on systemic anticoagulation with warfarin with therapeutic INR of 2.6. Warfarin was held on admission given her presentation – 02/23/2025; patient heart rate has been fluctuating patient may have underlying tachybradycardia syndrome we will continue with telemetry monitoring if persists plan will be to obtain cardiology consult for possible evaluation for pacemaker – 02/24/2025; patient was evaluated by cardiology doses of her metoprolol adjusted – 02/25/2025; plan is to resume warfarin and monitor patient for recurrence of hemoptysis prior to making a decision to discharge – Patient Coumadin was started on 02/25/2025 instructed patient to follow-up with her primary care physician for repeat INR draw on 03/01/2025 for subsequent dose adjustment if warranted 6. Hypertension – Blood pressure controlled, home medications continued with dose adjustment as needed 7. 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 DVT prophylaxis – Patient is on systemic anticoagulation with a therapeutic INR no additional measures needed Time spent in the patient's overall evaluation,decision-making process, review of diagnostic data, adjustment of management, discussion with other providers, nursing nursing and ancillary staff involved in patient's care documentation, 35 Minutes Medications at Discharge Home Medications lorazepam 0.5 mg tablet 0.25 mg PO QHS PRN ANXIETY 12/28/20 warfarin 3 mg tablet 3 mg PO DAILY atrial fibrillation 12/28/20 amlodipine 2.5 mg tablet 2.5 mg PO DAILY hypertension #30 tabs 04/10/21 furosemide 40 mg tablet 40 mg PO DAILY 60 days #60 tabs 02/26/25 metoprolol tartrate 50 mg tablet 50 mg PO BID 60 days #120 tabs 02/26/25 potassium chloride 20 mEq tablet,extended release(part/cryst) 20 meq PO DAILY #30 tabs 02/26/25 potassium, sodium phosphates 280 mg-160 mg-250 mg oral powder packet 1 packet PO DAILY #100 ea 02/26/25 Physical Exam Narrative GENERAL: cooperative HEENT: Atraumatic; normocephalic EYES; Anicteric, Normal Conjunctiva NECK; supple, normal thyroid, RESPIRATORY: Diminished to auscultation CARDIOVASCULAR: Irregularly irregular, tachycardic GI: soft, normoactive bowel sounds, : No Renal angle tenderness; EXTREMITIES: Bilateral pedal edema, no clubbing, MUSCULOSKELETAL: no muscle wasting NEURO: Awake; no lateralizing signs. SKIN: No Rash PSYCH; Flat affect Weight / BMI Weight Weight: 66.2 kg Body Mass Index (BMI) 27.6 ABG / Lab / Microbiology Data 02/26/25 06:04 02/26/25 06:04 Laboratory: Laboratory Results - last 24 hr 02/23/25 09:21: Glomerular Base Memb Ab < 0.2 02/26/25 06:04: WBC 8.0, RBC 4.20, Hgb 12.3, Hct 37.2, MCV 88.6, MCH 29.3, MCHC 33.1, RDW Std Deviation 43.6, RDW Coeff of Estuardo 13.5, Plt Count 253, MPV 9.9, Immature Gran % (Auto) 0.400, Neut % (Auto) 63.0, Lymph % (Auto) 23.9, [place] % (Auto) 8.8, Eos % (Auto) 3.4, Baso % (Auto) 0.5, Absolute Neuts (auto) 5.1, Absolute Lymphs (auto) 1.92, Nucleated RBC % 0, PT 15.9 H, INR 1.2, Sodium 140, Potassium 4.0, Chloride 105, Carbon Dioxide 23.8, Anion Gap 12, BUN 39 H, Creatinine 0.98, Estim Creat Clear Calc 34.55 L, Est GFR (MDRD) Non-Af 56 L, BUN/Creatinine Ratio 40.1 H, Glucose 93, Calcium 8.7, Phosphorus 3.0, Magnesium 2.3 H Microbiology: Microbiology 02/22/25 11:05 Blood Culture (Wb) - Anticubital Left Blood Culture - Preliminary No growth in 48 hours. 02/22/25 09:57 Blood Culture (Wb) - Anticubital Left Blood Culture - Preliminary No growth in 48 hours. 02/22/25 14:55 Mucosa - Nasopharyngeal Respiratory Panel (PCR) - Final 02/22/25 17:42 Urine, Random Legionella Antigen - Final 02/22/25 17:42 Urine, Random Streptococcus pneumoniae Antigen (M - Final 02/22/25 14:54 Nasal Secretion MRSA (PCR) - Final 02/22/25 10:10 Mucosa - Nose SARS-CoV-2, Influenza & RSV (PCR) - Final D/C Instructions Discharge Activity: Return to Normal Activity Call your doctor if you observe: Fever of 101 or Higher, Shortness of breath, Fainting spells, Chest pain and - (Coughing up blood) DC O2, CPAP, BIPAP Needs Home O2 Discharge instructions: No Meaningful Use Info Meaningful Use Meaningful Use Diagnoses (Choose all that apply): CHF CHF LARY/ARB ordered at discharge?: No Reason LARY/ARB not ordered?: Not indicated Documented LVEF (%): 55 Discharge Plan Admission Admit Date/Time: 02/22/25 12:43 Attending Provider: Zhou King Primary Care Provider: Doron Cueto Consulting Providers: Jose Daniel Cadena Discharge Orders/Prescriptions Prescriptions: New furosemide 40 mg Tablet 40 mg PO DAILY 60 Days Qty: 60 0RF potassium chloride 20 mEq Tablet,Er Particles/Crystals 20 meq PO DAILY Qty: 30 0RF metoprolol tartrate 50 mg Tablet 50 mg PO BID 60 Days Qty: 120 0RF potassium, sodium phosphates 280-160-250 mg Powder In Packet 1 packet PO DAILY Qty: 100 0RF Continued warfarin 3 mg tablet 3 mg PO DAILY Rx Instructions: Managed by PCP lorazepam 0.5 mg tablet 0.25 mg PO QHS PRN (Reason: ANXIETY) Patient Comments: ANXIETY MEDICATION amlodipine 2.5 mg tablet 2.5 mg PO DAILY Qty: 30 12RF Patient Comments: states prescription was increased to 5mg QDay Discontinued metoprolol succinate 50 mg tablet extended release 24 hr 50 mg PO DAILY Other Ambulatory Orders: Prothrombin Time w/INR (Routine) Timeframe: 20250301 Facility: [facility] - Location: Laboratory Ordered By: Dr. Zhou King Referrals / Follow Up: Doron Cueto DO [Primary Care Provider, Family Practice] - 03/01/25 Referral Note: For PT/INR check Disposition Disposition (needs filled in before D/C Order can be placed): Home Health Service Charges/Coding Visit Charges Inpatient E&M: 36035 Disch Hosp >30min
[2025-02-26] MEDS: Potassium Chloride Oral Tablet 20 MEQ PO (11:23)
[2025-02-26 11:24] VITALS: PULSE 86
[2025-02-26] MEDS: Na Biphos/Potassium Phosphate PACKET 1 PACKET PO (11:25)
[2025-02-26] MEDS: Ceftriaxone 2 GM in 0.9% Normal Saline (50mL MB+) 50 ML IV (11:25)
[2025-02-26] MEDS: Azithromycin 500 MG in 0.9% Normal Saline (250mL Bag) 250 ML 250 MG IV (12:43)
[2025-02-26 14:03] VITALS: BP 101/74; PULSE 61; PULSE 62; RESP 18; TEMP 36.7; O2SAT 100
--- NOTE | 2025-03-02 10:29 | CASEMGMT ---
Discharge Planning Call rec'd from N asking on dc status. Updated caller that pt discharged over the weekend, sent dc instructions via careport, and apologized for the miscommunication. Verified with RN CM that green sheet had been on pts chart. Zuly Quezada, DC Planning Asst.
--- NOTE | 2025-03-02 12:40 | CASEMGMT ---
Social Work- SW received a voicemail from [facility] inquiring into pt status. SW faxed d/c to STEFANIE Verdin CM, and left voicemail regarding d/c over the weekend as well. HUMBERTO Aguirre
== END 2025-02-26 14:29 | disposition home health service (06) | DRG 871 ==
LOC: ED 12:40 → ICU 14:04 → PCU 02-24 11:04
PROVIDERS: Internal Medicine Critical Care Medicine; Admitting Provider Internal Medicine; Emergency Provider Emergency Medicine; PCP Family Medicine; Visit Provider Internal Medicine
DX: A40.9 Streptococcal sepsis, unspecified (principal); J15.4 Pneumonia due to other streptococci; J96.01 Acute respiratory failure with hypoxia; I50.31 Acute diastolic (congestive) heart failure; D68.9 Coagulation defect, unspecified; I48.92 Unspecified atrial flutter; R04.2 Hemoptysis; I11.0 Hypertensive heart disease with heart failure; Z95.3 Presence of xenogenic heart valve; I48.0 Paroxysmal atrial fibrillation; I25.10 Atherosclerotic heart disease of native coronary artery without angina pectoris; Z79.01 Long term (current) use of anticoagulants; Z79.899 Other long term (current) drug therapy
CPT/HCPCS: 36415; 71046; 71275; 80048; 80076; 82803; 83520; 83605; 83735; 83880; 84100; 84145; 84484; 85025; 85610; 86037; 86038; 86200; 86225; 86235; 86431; 87040; 87449; 87631; 87633; 87641; 93005; 93306; 94002; 94660; 94762; 97116; 97162; 97166; 97530; 97535; 99252; 99285; Q9967; A4216; G0463; J0696; J1938